=== PATIENT | male | born 1965 | race African-American/Black ===

== ENCOUNTER 2021-06-17 18:38 | Emergency (ER) | payer SELFPAY ==
[2021-06-17 19:02] VITALS: BP 148/90; PULSE 100; RESP 17; TEMP 36.7; O2SAT 99
[2021-06-17 19:23] LABS: Add Urine Microscopic? YES; Appearance Urine Clear (Clear); Bilirubin Urine Negative (Negative); Blood Urine Negative (Negative); Color Urine Yellow (Yellow); Glucose Urine UA 3+ mg/dL (Negative); Ketones Urine Negative (Negative); Leukocyte Esterase Ur Negative LEU/UL (Negative); Nitrate Urine Negative (Negative); Protein Urine 1+ mg/dL (Negative); RBC Urine 0-2 /hpf (0-2); Specific Grav Ur 1.027 (1.001-1.035); Urobilinogen Urine Negative mg/dL (<2.0); WBC Urine 0-3 /hpf
[2021-06-17 22:37] VITALS: BP 151/99; PULSE 99; RESP 14; O2SAT 100
--- NOTE | 2021-06-17 22:45 | PC.NURSE ---
BS 211.
[2021-06-17 22:47] LABS: Glucose Point of Care 211 mg/dl (65-105)
--- NOTE | 2021-06-17 22:57 | ED.MALEGU ---
HPI - Male Genitourinary General Chief complaint: Urogenital-Male Stated complaint: Allergic Reaction Time Seen by Provider: 06/17/21 22:39 History of Present Illness HPI Narrative: Patient presents with concern for irritation on his penis. Reports he has had irritation and cracking on his foreskin for the past couple weeks and getting progressively worse. Family was concerned as his symptoms appear to be getting worse. Family also notes that he has been peeing more frequently and appears to have increased thirst over the past 2 months. Denies any fevers, pain with urination, urethral discharge. Fortunately has 1 sexual partner which is his he denies concerns for STI. Related Data Allergies Allergy/AdvReac Type Severity Reaction Status Date / Time peanut Allergy Anaphylaxis Verified 06/17/21 22:28 Review of Systems Review of Systems: CONSTITUTIONAL: Denies fever, chills, or sweats. EYES: Denies visual changes, redness, or discharge. ENT: Denies rhinorrhea, congestion, sore throat, or otalgia. CARDIOVASCULAR: Denies chest pain, palpitations, or edema. RESPIRATORY: Denies cough or dyspnea. GASTROINTESTINAL: Denies abdominal pain, nausea, vomiting, or diarrhea. GENITOURINARY: Denies dysuria or hematuria. SKIN: Denies rash or itching. MUSCULOSKELETAL: Denies back pain, joint pain, or myalgia. NEUROLOGIC: Denies headache, numbness, dizziness, or weakness. PSYCHIATRIC: Denies anxiety or depression. All systems reviewed & are unremarkable except as noted in HPI and below Exam Narrative: GENERAL: Well-appearing, well-nourished, and in no acute distress. HEAD: Normocephalic, atraumatic. EYES: PERRLA and EOMI. ENT: Nares clear, no rhinorrhea or epistaxis. Mucous membranes moist. NECK: Supple. No masses. No JVD : White discharge noted on the foreskin with skin tearing and mild erythema EXTREMITIES: Normal range of motion. No edema. SKIN: Warm, dry, no rash. NEURO: No focal deficits. Alert and oriented x3. PSYCH: Normal mood and affect. Course Reevaluation(s) Reevaluation #1: Patient resting comfortably labs reviewed with patient. Patient appears to have diabetes he reported a history of prediabetic and Metformin intolerance. Start oral medication outpatient follow-up with his PCM. Date: 06/18/21 Time: 00:35 Vital Signs Vital signs: Vital Signs Temperature 36.7 C 06/17/21 19:02 Pulse Rate 100 06/17/21 19:02 Respiratory Rate 17 06/17/21 19:02 Blood Pressure 148/90 H 06/17/21 19:02 Pulse Oximetry 99 06/17/21 19:02 Temperature 36.7 C 06/17/21 19:02 Pulse Rate 99 06/17/21 22:37 Respiratory Rate 14 06/17/21 22:37 Blood Pressure 151/99 H 06/17/21 22:37 Pulse Oximetry 100 06/17/21 22:37 MDM - Male Genitourinary MDM Narrative Medical decision making narrative: H&P as above, vss, pt looks clinically well, exam at the irritation to the head of the penis suggestive of balanitis, labs with hyperglycemia and elevated A1c otherwise clinically unremarkable, additional labs/img considered, symptomatic relief available as needed, on reevaluation pt continues to looks clinically well. Suspect new onset diabetes there is no evidence of DKA. Patient also has balanitis. With a reassuring work-up patient is appropriate for trial of outpatient medications. Patient has previously been on Metformin but is not able tolerate attempted sulfonylureas. Patient reports they have a glucometer test strips and lancets at home already to monitor his blood sugar. Instructed to follow-up with his primary care provider for long-term management, dns TKA, sepsis, STI, UTI. plan to tx/monitor as op w/ pcm f/u findings/plan discussed with pt, pt agree/comfortable with plan, return precautions given Lab Data Result diagrams: 06/17/21 23:18 06/17/21 23:18 Labs: Lab Results 06/17/21 06/17/21 06/17/21 Range/Units 19:09 22:44 23:18 WBC 6.0 (4.5-10.0) K/mm3 RBC 5.60 (4.6-6.20) M/mm3
[2021-06-17] MEDS: SODIUM CHLORIDE 0.9% IV 1,000 ML 999 ML IV CONT (23:25)
[2021-06-17 23:42] LABS: Basophils Percent Auto 0.3 % (0.2-1.2); Eosinophils Absolute Auto 0.1 K/mm3 (0-0.3); Eosinophils Percent Auto 0.8 % (0-4.4); Hematocrit 46.4 % (42.0-52.0); Hemoglobin 15.9 g/dL (14.0-18.0); Immature Granulocyte Absolute 0.02 K/mm3 (0.00-0.031); Immature Granulocyte Percent A 0.3 % (0-0.5); Lymphocytes Absolute Auto 1.56 K/mm3 (0.9-3.2); Lymphocytes Percent Auto 25.8 % (18.3-44.2); Mean Corpuscular HGB Conc 34.3 g/dl (32-36); Mean Corpuscular Hemoglobin 28.4 pg (26-34); Mean Corpuscular Volume 82.9 fl (80-100); Mean Platelet Volume 11.5 fl (7.4-10.4); Monocytes Absolute Auto 0.6 K/mm3 (0.1-0.6); Monocytes Percent Auto 10.4 % (2.6-8.5); Neutrophils Absolute Auto 3.8 K/mm3 (1.3-6.7); Neutrophils Percent Auto 62.4 % (45.5-73.1); Platelet Count Result 163 k/mm3 (150-375); Red Cell Distribution Width 11.8 % (11.5-14.5)
[2021-06-17 23:43] LABS: Alanine Aminotransferase 63 U/L (4-50); Albumin Level 4.5 g/dL (3.5-5.1); Alkaline Phosphatase 112 U/L (38-126); Anion Gap 10 mmol/L (8-16); Aspartate Amino Transferase 38 U/L (17-59); Bilirubin,Total 0.4 mg/dL (0.2-1.3); Blood Urea Nitrogen 14 mg/dL (9-20); Calcium 9.8 mg/dL (8.4-10.2); Carbon Dioxide 23 mmol/L (22-30); Chloride 104 mmol/L (98-107); Estimated CRCL calculation 96 ml/min; Estimated Glomerular Filt Rate > 60; Glucose 263 mg/dL (65-110); Sodium 137 mmol/L (137-145)
[2021-06-18 00:10] LABS: Hemoglobin A1C 13.1 % (<5.7)
== END 2021-06-18 01:45 | disposition home or self-care (01) ==
PROVIDERS: Family Medicine; Emergency Provider Emergency Medicine
DX: N48.1 Balanitis (principal); E11.9 Type 2 diabetes mellitus without complications
CPT/HCPCS: 36415; 80053; 81001; 82948; 83036; 85025; 96360; 99283; J7030

== ENCOUNTER 2021-12-30 18:41 | Emergency (ER) | payer SELFPAY ==
[2021-12-30 19:35] VITALS: BP 125/89; PULSE 101; RESP 16; TEMP 36.6; O2SAT 100
[2021-12-30 19:40] LABS: Glucose Point of Care 376 mg/dl (65-105)
--- NOTE | 2021-12-30 21:34 | PC.NURSE ---
[employer] NURSE SUPERVISOR at bedside for pt assessment.
--- NOTE | 2021-12-30 21:42 | ECG_ITS ---
Measurements Intervals [place] Rate: 91 P: 37 VT: 175 QRS: -14 QRSD: 84 T: 6 QT: 333 QTc: 411 Interpretive Statements SINUS RHYTHM MINIMAL VOLTAGE CRITERIA FOR LVH, CONSIDER NORMAL VARIANT [MEETS CRITERIA IN ONE OF: R(aVL), S(V1), R(V5), R(V5/V6)+S(V1)] NONSPECIFIC ST AND T-WAVE ABNORMALITY ABNORMAL ECG NO PREVIOUS ECG AVAILABLE FOR COMPARISON Electronically Signed On 12-31-2021 15:48:01 CDT by Guillermo Adames M.D.
--- NOTE | 2021-12-30 21:43 | ED.GENADULT ---
HPI - General Adult General Chief complaint: Recheck/Abnormal Lab/Rx Stated complaint: Possible Blood Sugar Issues Time Seen by Provider: 12/30/21 21:28 Source: patient Mode of arrival: ambulatory Limitations: no limitations History of Present Illness HPI narrative: Patient is a 56-year-old male who presents to the ED with report of hyperglycemia. Patient has a history of diabetes and was previously on glipizide 5mg daily. He has been in between jobs and waiting for his new insurance to start and has been out of his glipizide and lisinopril for the past 1 month. Patient reports his blood pressure has been okay at home. He does have a machine to check this. He occasionally checks his blood sugar at home and reports it has been in the 200s. He does report having fatigue, polyuria, polydipsia, but denies any fever, chills, chest pain, shortness of breath, nausea, vomiting, abdominal pain, dysuria, hematuria, headache, weakness. POC blood glucose in triage 376. Per patient's records, hemoglobin A1c in June 2021 was 13.1. He reports he did try taking Metformin for a while, but had GI upset with this. Related Data Allergies Allergy/AdvReac Type Severity Reaction Status Date / Time peanut Allergy Anaphylaxis Verified 12/30/21 22:31 Review of Systems Review of Systems: CONSTITUTIONAL: Reports fatigue. Denies fever, chills, or sweats. CARDIOVASCULAR: Denies chest pain. RESPIRATORY: Denies dyspnea. GASTROINTESTINAL: Denies abdominal pain, nausea, vomiting, or diarrhea. GENITOURINARY: Reports polyuria, polydipsia. Denies dysuria or hematuria. MUSCULOSKELETAL: Denies back pain, joint pain, or myalgia. NEUROLOGIC: Denies headache, numbness, or weakness. All systems reviewed & are unremarkable except as noted in HPI and below PMFSH Past Medical History Medical History Diabetes Hypertension Surgical History Surgical History (Updated 12/31/21 @ 02:09 by Adore Chinchilla PA-C) No pertinent past surgical history Social History Social History (Updated 12/31/21 @ 02:09 by Adore Chinchilla PA-C) Smoking status: Never smoker Exam Narrative: GENERAL: Well appearing, well-nourished, non-toxic, in no acute distress. HEAD: Normocephalic, atraumatic. EYES: EOMI, conjunctivae clear bilaterally. NECK: Supple. No adenopathy, no masses. RESPIRATORY: Airway patent, respirations nonlabored. Clear to auscultation bilaterally, no rales, rhonchi, wheezing. CARDIOVASCULAR: Regular rate and rhythm without murmurs, rubs, or gallops. Peripheral pulses 2+ and equal bilaterally. ABDOMINAL: Soft, nontender, nondistended, no hepatosplenomegaly. Normoactive BS. MUSCULOSKELETAL: Moves all extremities. Strength/ROM intact without gross deformities or TTP. No edema. No calf tenderness. SKIN: Warm, dry, normal color. No rashes. NEURO: A&O X3. Speech clear. Cranial nerves II-XII grossly intact. Steady gait. No ataxic movements. PSYCHIATRIC: Appropriate mood and affect. Normal interaction. Course Vital Signs Vital signs: Vital Signs Temperature 97.8 F 12/30/21 19:35 Pulse Rate 101 H 12/30/21 19:35 Respiratory Rate 16 12/30/21 19:35 Blood Pressure 125/89 12/30/21 19:35 Pulse Oximetry 100 12/30/21 19:35 Temperature 97.8 F 12/30/21 19:35 Pulse Rate 89 12/30/21 23:30 Respiratory Rate 18 12/30/21 23:30 Blood Pressure 129/99 H 12/30/21 23:30 Pulse Oximetry 100 12/30/21 23:30 Medical Decision Making MDM Narrative Medical decision making narrative: Patient reports he is in between jobs and insurances at this time and has been out of his glipizide 5mg daily and lisinopril for the past 1 month. Blood pressure stable throughout ED stay. He is able to check this at home with a home blood pressure machine. He has had symptoms of hyperglycemia over the past couple weeks including polydipsia and polyuria. Blood glucose upon arrival 376 via POC. 299 on BMP. UA showing 3+
[2021-12-30 22:12] LABS: Basophils Percent Auto 0.3 % (0.2-1.2); Eosinophils Absolute Auto 0.1 K/mm3 (0-0.3); Eosinophils Percent Auto 1.2 % (0-4.4); Hematocrit 49.3 % (42.0-52.0); Hemoglobin 16.4 g/dL (14.0-18.0); Lymphocytes Absolute Auto 2.11 K/mm3 (0.9-3.2); Lymphocytes Percent Auto 35.5 % (18.3-44.2); Mean Corpuscular HGB Conc 33.3 g/dl (32-36); Mean Corpuscular Hemoglobin 28.4 pg (26-34); Mean Corpuscular Volume 85.4 fl (80-100); Mean Platelet Volume 12.1 fl (7.4-10.4); Monocytes Absolute Auto 0.8 K/mm3 (0.1-0.6); Monocytes Percent Auto 13.3 % (2.6-8.5); Neutrophils Percent Auto 49.7 % (45.5-73.1); Platelet Count Result 179 k/mm3 (150-375); Red Blood Count 5.77 M/mm3 (4.6-6.20); Red Cell Distribution Width 12.8 % (11.5-14.5)
[2021-12-30 22:19] LABS: Add Urine Microscopic? YES; Appearance Urine Clear (Clear); Bilirubin Urine Negative (Negative); Blood Urine Negative (Negative); Color Urine Straw (Yellow); Glucose Urine UA 3+ mg/dL (Negative); Ketones Urine Negative (Negative); Leukocyte Esterase Ur Negative LEU/UL (Negative); Nitrate Urine Negative (Negative); Protein Urine Negative (Negative); RBC Urine 0-2 /hpf (0-2); Specific Grav Ur 1.027 (1.001-1.035); Urobilinogen Urine Negative mg/dL (<2.0); WBC Urine 0-3 /hpf
[2021-12-30 22:26] LABS: Alanine Aminotransferase 28 U/L (4-50); Albumin Level 4.6 g/dL (3.5-5.1); Alkaline Phosphatase 115 U/L (38-126); Anion Gap 10 mmol/L (8-16); Aspartate Amino Transferase 24 U/L (17-59); Bilirubin,Total 0.5 mg/dL (0.2-1.3); Blood Urea Nitrogen 19 mg/dL (9-20); Calcium 9.5 mg/dL (8.4-10.2); Carbon Dioxide 22 mmol/L (22-30); Chloride 104 mmol/L (98-107); Estimated CRCL calculation 71 ml/min; Estimated Glomerular Filt Rate > 60; Glucose 299 mg/dL (65-110); Potassium 4.3 mmol/L (3.4-5.0); Sodium 136 mmol/L (137-145)
[2021-12-30 23:30] VITALS: BP 129/99; PULSE 89; RESP 18; O2SAT 100
== END 2021-12-30 23:32 | disposition home or self-care (01) ==
PROVIDERS: Physician Assistant; Emergency Provider Emergency Medicine
DX: E11.65 Type 2 diabetes mellitus with hyperglycemia (principal); I10 Essential (primary) hypertension; Z91.120 Patient's intentional underdosing of medication regimen due to financial hardship
CPT/HCPCS: 36415; 80053; 81001; 82948; 85025; 93005; 99283

== ENCOUNTER 2022-04-02 09:38 | Emergency (ER) | payer OTHER, SELFPAY ==
--- NOTE | 2022-04-02 09:46 | ED.EAR ---
HPI - Ear Problem General Chief complaint: Ear Stated complaint: ear pain Time Seen by Provider: 04/02/22 09:46 Source: patient, RN notes reviewed and old records reviewed Mode of arrival: ambulatory Limitations: no limitations History of Present Illness HPI Narrative: 56-year-old male presents to the [facility] with 3 days of right ear pain that is radiating into the right jaw. Denies fevers. Denies loss of hearing. MD Complaint: ear pain Related Data Allergies Allergy/AdvReac Type Severity Reaction Status Date / Time peanut Allergy Anaphylaxis Verified 04/02/22 09:47 Review of Systems Review of Systems: All systems reviewed & are unremarkable except as noted in HPI and below Constitutional: Constitutional: Reports no additional constitutional complaints, Denies chills and Denies fever(s) Eyes: Eyes: Reports no additional eye complaints ENT: Reports as per HPI, Denies change in voice, Denies dental pain, Denies vertigo, Denies dizziness and Denies throat swelling Comments: Right ear pain Cardiovascular: Cardiovascular: Reports no additional cardiovascular complaints, Denies chest pain and Denies dyspnea Respiratory: Respiratory: Reports no additional respiratory complaints, Denies cough and Denies dyspnea Gastrointestinal: Gastrointestinal: Reports no additional gastrointestinal complaints, Denies abdominal pain, Denies nausea and Denies vomiting Musculoskeletal: Musculoskeletal: Reports no additional musculoskeletal complaints Integumentary/Breasts: Skin/Breast: Reports system reviewed and no additional complaints, except as docu Neurologic: Reports system reviewed and no additional complaints, except as documented, Denies vertigo and Denies dizziness Psychiatric: Psychiatric: Reports no additional psychiatric complaints Allergic/Immunologic: Allergic/Immunologic: Reports no additional allergic/immunologic complaints and Denies throat swelling PMFSH Past Medical History Medical History Diabetes Hypertension Surgical History Surgical History No pertinent past surgical history Social History Social History Smoking status: Never smoker Comments At the time of my signature, I reviewed and agree with the nursing past medical, surgical, social, and family history. There is no relevant family history pertinent to the patient complaint. Exam Const: General: healthy appearing and no acute distress Nutritional Appearance: well nourished Orientation/consciousness: patient oriented x3 Limitations: no limitations HENMT: Head: normal to inspection Ears: external ears normal, EAC's normal and TM abnormal bulging bilateral, erythematous on the right and with fluid behind the TM bilateral General nose exam: Normal external nose present and Normal nasal mucous membranes and turbinates present Face and sinus: normal facial exam Mouth: Yes Normal oral and palatal mucosa present Throat: posterior oropharynx normal, tonsils normal and uvula midline Eyes: Conjunctivae: conjunctivae normal Pupils: Equal, round and reactive pupils present Neck: Neck: normal visual inspection, no lymphadenopathy and no meningeal signs Chest: Chest palpation & inspection: normal inspection of the chest Resp: Effort & Inspection: normal respiratory effort and no use of accessory muscles Auscultation: clear to auscultation bilaterally, no crackles, no rales, no rhonchi and no wheezes Cardio: Rate: regular rate Rhythm: regular rhythm Skin: General skin exam: normal color Rashes: no rashes Wounds: no wounds Neuro: General: patient oriented x3, gait normal, moves all extremities, no meningeal signs and no focal motor deficits Cranial nerves: Yes Equal, round and reactive pupils present Speech: normal speech Gait exam (Neuro): Normal gait present Extrem: General: normal
[2022-04-02 09:47] VITALS: BP 121/83; PULSE 83; RESP 16; TEMP 36.8; O2SAT 99
[2022-04-02 09:48] VITALS: BP 121/83; PULSE 83; RESP 16; TEMP 36.8; O2SAT 99
== END 2022-04-02 09:58 | disposition home or self-care (01) ==
PROVIDERS: Emergency Provider Nurse Practitioner
DX: H66.90 Otitis media, unspecified, unspecified ear (principal); H65.03 Acute serous otitis media, bilateral; E11.9 Type 2 diabetes mellitus without complications; I10 Essential (primary) hypertension
CPT/HCPCS: 99213; G0463

== ENCOUNTER 2022-11-02 09:29 | Outpatient (RCR) | payer OTHER, SELFPAY ==
[2022-11-02 09:39] VITALS: BMI 36.7
[2022-11-02 10:32] VITALS: BMI 36.7
== END 2023-01-17 10:38 | disposition home or self-care (01) ==
LOC: ANHDMC 09:29
DX: E11.9 Type 2 diabetes mellitus without complications (principal); Z71.3 Dietary counseling and surveillance
CPT/HCPCS: 97802

== ENCOUNTER 2023-11-26 13:43 | Emergency (ER) | payer OTHER, SELFPAY ==
[2023-11-26 14:08] VITALS: BP 175/93; PULSE 98; RESP 18; TEMP 36.6; O2SAT 100
[2023-11-26 16:11] LABS: Glucose Point of Care 355 mg/dl (65-105)
[2023-11-26 18:14] VITALS: BP 157/108; PULSE 93; RESP 18; TEMP 36.6; O2SAT 100
--- NOTE | 2023-11-26 19:03 | ED.GENADULT ---
HPI - General Adult General Chief complaint: Unspecified Stated complaint: dry mouth Time Seen by Provider: 11/26/23 18:28 History of Present Illness HPI narrative: 58-year-old male presents to the emergency department for evaluation of hyperglycemia, dry mouth and a rash at the tip of his penis. Patient reports he does have history of diabetes and had stopped his insulin approximately 3 months ago but because the primary care physician stated that his hemoglobin A1c was improved. Patient is still taking jardiance. patient has stated he has noticed some increased dry skin around the tip of his penis. Related Data Allergies Allergy/AdvReac Type Severity Reaction Status Date / Time peanut Allergy Anaphylaxis Verified 11/26/23 19:05 Review of Systems Review of Systems: All systems reviewed & are unremarkable except as noted in HPI and below PMFSH Past Medical History Medical History Diabetes Hypertension Surgical History Surgical History No pertinent past surgical history Social History Social History Smoking status: Never smoker Spiritual care concerns: No Exam Narrative: APPEARANCE: Well appearing, no pain, no distress, well-nourished. HEAD: normocephalic, atraumatic. EYES: PERRLA/EOMI, conjunctivae clear. NOSE: Normal no drainage NECK: Supple. No adenopathy, no masses. RESPIRATORY: Airway patent, respirations nonlabored. Clear to auscultation bilaterally, no rales, rhonchi, wheezing. CARDIOVASCULAR: Regular rate and rhythm without murmurs rubs or gallops. ABDOMINAL: Soft, nontender, nondistended, normal bowel sounds MUSCULOSKELETAL: Moves all extremities. Strength/ROM intact, No edema, No calf tenderness. NEURO: Alert. Cranial nerves II through XII intact. Good gait. Good coordination SKIN: Warm, dry. Normal Color . No evidence of balanitis or phimosis Course Course Emergency Course: 58-year-old male presenting ED for evaluation for hyperglycemia and a rash on his penis. Patient does describe a candidal rash that he has been attempting to cleanse but keeps recurring. Patient will be started on nystatin ointment. Patient was encouraged close follow-up with primary care physician for better control over his blood sugars. All questions concerns were addressed. Vital Signs Vital signs: Vital Signs Temperature 97.9 F 11/26/23 14:08 Pulse Rate 98 11/26/23 14:08 Respiratory Rate 18 11/26/23 14:08 Blood Pressure 175/93 H 11/26/23 14:08 Pulse Oximetry 100 11/26/23 14:08 Oxygen Delivery Room Air 11/26/23 14:08 Temperature 98.1 F 11/26/23 20:32 Pulse Rate 77 11/26/23 20:32 Respiratory Rate 15 11/26/23 20:32 Blood Pressure 132/75 11/26/23 20:32 Pulse Oximetry 98 11/26/23 20:32 Oxygen Delivery Room Air 11/26/23 14:08 Medical Decision Making Vital Signs Vital Signs: Vital Signs Temperature 97.9 F 11/26/23 14:08 Pulse Rate 98 11/26/23 14:08 Respiratory Rate 18 11/26/23 14:08 Blood Pressure 175/93 H 11/26/23 14:08 Pulse Oximetry 100 11/26/23 14:08 Oxygen Delivery Room Air 11/26/23 14:08 Temperature 98.1 F 11/26/23 20:32 Pulse Rate 77 11/26/23 20:32 Respiratory Rate 15 11/26/23 20:32 Blood Pressure 132/75 11/26/23 20:32 Pulse Oximetry 98 11/26/23 20:32 Oxygen Delivery Room Air 11/26/23 14:08 Lab Data 11/26/23 19:07 11/26/23 19:07 Labs: Lab Results 11/26/23 11/26/23 11/26/23 Range/Units 16:08 19:06 19:07 WBC 5.0 (4.5-10.0) K/mm3 RBC 5.51 (4.6-6.20) M/mm3 Hgb 15.4 (14.0-18.0) g/dL Hct 47.2 (42.0-52.0) % MCV 85.7 (80-100) fl MCH 27.9 (26-34) pg MCHC 32.6 (32-36) g/dl RDW 12.4 (11.5-14.5) % Plt Count 132 L (150-375) k/mm3 MPV 12.0 H (7.4-10.4) fl Immatu
[2023-11-26] MEDS: SODIUM CHLORIDE 0.9% IV 1,000 ML 999 ML IV CONT (19:06)
[2023-11-26 19:14] LABS: Basophils Percent Auto 0.4 % (0.2-1.2); Eosinophils Absolute Auto 0.1 K/mm3 (0-0.3); Eosinophils Percent Auto 1.2 % (0-4.4); Hematocrit 47.2 % (42.0-52.0); Hemoglobin 15.4 g/dL (14.0-18.0); Immature Granulocyte Absolute 0.01 K/mm3 (0.00-0.031); Immature Granulocyte Percent A 0.2 % (0-0.5); Immature Platelet Fraction Pct 7.2 % (0.9-11.2); Lymphocytes Percent Auto 29.8 % (18.3-44.2); Mean Corpuscular HGB Conc 32.6 g/dl (32-36); Mean Corpuscular Hemoglobin 27.9 pg (26-34); Mean Corpuscular Volume 85.7 fl (80-100); Monocytes Absolute Auto 0.7 K/mm3 (0.1-0.6); Monocytes Percent Auto 13.9 % (2.6-8.5); Neutrophils Absolute Auto 2.8 K/mm3 (1.3-6.7); Neutrophils Percent Auto 54.5 % (45.5-73.1); Platelet Count Result 132 k/mm3 (150-375); Red Blood Count 5.51 M/mm3 (4.6-6.20); Red Cell Distribution Width 12.4 % (11.5-14.5)
[2023-11-26 19:15] VITALS: PULSE 81
[2023-11-26 19:15] LABS: Appearance Urine Clear (Clear); Bilirubin Urine Negative (Negative); Blood Urine Negative (Negative); Color Urine Yellow (Yellow); Glucose Urine UA 3+ mg/dL (Negative); Ketones Urine Negative (Negative); Leukocyte Esterase Ur Negative LEU/UL (Negative); Nitrate Urine Negative (Negative); Protein Urine Negative (Negative); Specific Grav Ur 1.029 (1.001-1.035); Urobilinogen Urine 0.2 mg/dL (<2.0); pH Urine 5.5 (5.0-9.0)
[2023-11-26 19:18] LABS: Add Urine Microscopic? NO
[2023-11-26 19:26] LABS: Alanine Aminotransferase 30 U/L (6-50); Albumin Level 4.1 g/dL (3.5-5.1); Alkaline Phosphatase 85 U/L (38-126); Anion Gap 8 mmol/L (8-16); Aspartate Amino Transferase 23 U/L (17-59); Bilirubin,Total 0.5 mg/dL (0.2-1.3); Blood Urea Nitrogen 16 mg/dL (9-20); Calcium 9.6 mg/dL (8.4-10.2); Carbon Dioxide 23 mmol/L (22-30); Chloride 105 mmol/L (98-107); Estimated CRCL calculation 85 ml/min; Estimated Glomerular Filt Rate > 60; Glucose 310 mg/dL (65-110); Sodium 136 mmol/L (137-145)
[2023-11-26 19:27] LABS: Lactic Acid Reflex 1.2 mmol/L (0.7-2.0)
[2023-11-26 20:05] LABS: Glucose Point of Care 254 mg/dl (65-105)
[2023-11-26 20:32] VITALS: BP 132/75; PULSE 77; RESP 15; TEMP 36.7; O2SAT 98
== END 2023-11-26 20:33 | disposition home or self-care (01) ==
PROVIDERS: Emergency Provider Emergency Medicine
DX: E11.65 Type 2 diabetes mellitus with hyperglycemia (principal); B37.49 Other urogenital candidiasis; I10 Essential (primary) hypertension; Z79.84 Long term (current) use of oral hypoglycemic drugs
CPT/HCPCS: 36415; 80053; 81003; 82948; 83605; 85025; 85055; 96360; 99283; J7030

== ENCOUNTER 2023-12-10 09:03 | Outpatient (CLI) | payer OTHER, SELFPAY ==
[2023-12-10 09:59] LABS: Cholesterol 177 mg/dL (0-200); HDL Direct 41 mg/dL; Triglycerides 101 mg/dL (<150)
[2023-12-10 10:10] LABS: LDL Cholesterol Direct 110 mg/dL
[2023-12-10 10:30] LABS: Hemoglobin A1C 12.6 % (<5.7)
[2023-12-10 12:00] LABS: Free T4 Free Thyroxine 1.09 ng/mL (0.78-2.19); Vitamin D 25 Hydroxy 20.8 ng/mL
[2023-12-10 12:04] LABS: Creatinine Urine 126.5 mg/dL
[2023-12-10 12:08] LABS: MALB Creatinine Ratio 7.3 mg/g (0-30); Microalbumin Urine Random 9.2 mg/L (0-16.7)
== END 2023-12-10 09:04 | disposition home or self-care (01) ==
PROVIDERS: Visit Provider Emergency Medicine
DX: E11.9 Type 2 diabetes mellitus without complications (principal); E78.5 Hyperlipidemia, unspecified; I10 Essential (primary) hypertension; Z12.5 Encounter for screening for malignant neoplasm of prostate; R51.9 Headache, unspecified; M54.2 Cervicalgia; R04.0 Epistaxis
CPT/HCPCS: 36415; 80061; 82043; 82306; 83036; 84153; 84439; 84443; G0103

== ENCOUNTER 2024-03-28 08:01 | Outpatient (CLI) | payer OTHER, SELFPAY ==
--- NOTE | ~2024-03-28 | CT_ITS ---
CTA chest PE protocol Ordering provider: Yahaira Dumont APRN History: 58 years Male with . ACUTE PULMONARY EMBOLISM TYPE . Comparison: None. Technique: CT angiogram chest was performed following timed intravenous injection of contrast. Thin s lice axial images and reformatted coronal images were obtained. Three dimensional reformatted images of the chest were also obtained using a [employer] workstation. Radiation reduction technique utilized. DLP is 1077.4 mGy. Findings: PULMONARY ARTERIES: No pulmonary embolus. VISUALIZED THORACIC INLET: Normal. MEDIASTINUM: Aorta/coronary arteries: Normal.. Heart/other: The heart is not enlarged. Lymph nodes: No mediastinal or hilar adenopathy. LUNGS: Dependent atelectatic changes. No pulmonary nodules or masses. No infiltrates or effusions. No pneumo thorax. VISUALIZED UPPER ABDOMEN: the visualized upper abdomen is normal. MUSCULOSKELETAL: Soft tissues: The superficial soft tissues are normal. Bones: Normal spine. IMPRESSION: 1. No pulmonary embolism. 2. No acute cardiopulmonary pathology. Reviewed, dictated and finalized at location A.
[2024-03-28 08:29] LABS: Estimated Glomerular Filt Rate > 60
== END 2024-03-28 08:02 | disposition home or self-care (01) ==
LOC: ANHIMG 08:01
PROVIDERS: Visit Provider Nurse Practitioner Family
DX: I26.99 Other pulmonary embolism without acute cor pulmonale (principal)
CPT/HCPCS: 71275; Q9967

== ENCOUNTER 2024-03-28 11:50 | Outpatient (CLI) | payer OTHER, SELFPAY ==
--- NOTE | ~2024-03-28 | XR_ITS ---
EXAMINATION: XR shoulder LT min 2V, XR clavicle LT DATE: 03/28/2024 12:11 INDICATION: Mid shaft left clavicular pain TECHNIQUE: 1. AP internally and externally rotated, AP oblique externally rotated and transscapular Y views of t he left shoulder were obtained. 2. AP and cephalad angled AP views of the left clavicle were obtained. COMPARISON: None FINDINGS: Normal alignment. No fracture. Glenohumeral joint is normal. Mild left acromioclavicular osteoarthri tis. Soft tissues are unremarkable. Left lung is clear with no pleural effusion or pneumothorax. IMPRESSION: Mild left acromioclavicular osteoarthritis. Reviewed, dictated and finalized at location A. IMPRESSION: Mild left acromioclavicular osteoarthritis.
== END 2024-03-28 11:51 | disposition home or self-care (01) ==
LOC: ANHIMG 11:53
PROVIDERS: Visit Provider Emergency Medicine
DX: M19.012 Primary osteoarthritis, left shoulder (principal)
CPT/HCPCS: 73000; 73030

== ENCOUNTER 2024-04-21 09:39 | Outpatient (CLI) | payer OTHER, SELFPAY ==
--- NOTE | ~2024-04-21 | US_ITS ---
EXAMINATION: US venous doppler [facility] DATE: 04/21/2024 10:13 INDICATION: Recent acute deep venous thrombosis and pulmonary embolism, currently anticoagulated TECHNIQUE: Grayscale ultrasound images without and with compression and Doppler ultrasound images of the bilateral lower extremity veins were obtained. COMPARISON: None. FINDINGS: The visualized portions of right common femoral vein, profunda (deep) femoral vein, femoral vein, pop liteal vein, posterior tibial veins, peroneal veins, gastrocnemius vein and greater saphenous vein ou tflow are patent. There is persistent noncompressible thrombus at the left popliteal vein. Patient reported to the sono grapher that this was the site of the prior thrombus. The visualized portions of left common femoral vein, profunda femoral vein, femoral vein, posterior tibial veins, peroneal veins, gastrocnemius vein and greater saphenous vein outflow are patent. IMPRESSION: 1. Deep venous thrombosis in the left popliteal vein, reportedly by patient the site of the prior ac [place] thrombus and for which the patient is currently anticoagulated. No other thrombosis in either low er limb. Reviewed, dictated and finalized at location A. IMPRESSION: 1. Deep venous thrombosis in the left popliteal vein, reportedly by patient th e site of the prior acute thrombus and for which the patient is currently antic oagulated. No other thrombosis in either lower limb.
== END 2024-04-21 09:40 | disposition home or self-care (01) ==
LOC: ANHIMG 09:48
PROVIDERS: PCP Emergency Medicine; Referring Provider Nurse Practitioner Family; Visit Provider Internal Medicine Hematology & Oncology
DX: I26.99 Other pulmonary embolism without acute cor pulmonale (principal); I82.432 Acute embolism and thrombosis of left popliteal vein
CPT/HCPCS: 93970

== ENCOUNTER 2024-07-24 09:50 | Outpatient (CLI) | payer OTHER, SELFPAY ==
[2024-07-24 10:34] LABS: Add Urine Microscopic? NO; Appearance Urine Clear (Clear); Bilirubin Urine Negative (Negative); Blood Urine Negative (Negative); Color Urine Yellow (Yellow); Glucose Urine UA 3+ mg/dL (Negative); Ketones Urine Negative (Negative); Leukocyte Esterase Ur Negative LEU/UL (Negative); Nitrate Urine Negative (Negative); Protein Urine Negative (Negative); Specific Grav Ur 1.028 (1.001-1.035); pH Urine 5.5 (5.0-9.0)
[2024-07-24 10:42] LABS: Albumin Level 4.1 g/dL (3.5-5.1); Anion Gap 10 mmol/L (4-12); Blood Urea Nitrogen 16 mg/dL (9-20); Calcium 9.3 mg/dL (8.4-10.2); Carbon Dioxide 23 mmol/L (22-30); Chloride 102 mmol/L (98-107); Estimated Glomerular Filt Rate > 60; Glucose 382 mg/dL (65-110); Phosphorus 3.1 mg/dL (2.5-4.5); Potassium 4.2 mmol/L (3.4-5.0); Sodium 135 mmol/L (137-145)
[2024-07-24 11:00] LABS: Creatinine Urine 56.6 mg/dL
[2024-07-24 11:50] LABS: Microalbumin Urine Random < 6.0 mg/L (0-16.7)
[2024-07-24 11:51] LABS: MALB Creatinine Ratio < 10.6 mg/g (0-30)
== END 2024-07-24 09:51 | disposition home or self-care (01) ==
PROVIDERS: PCP Emergency Medicine
DX: E11.9 Type 2 diabetes mellitus without complications (principal)
CPT/HCPCS: 36415; 80069; 81003; 82043

== ENCOUNTER 2024-11-16 10:32 | Outpatient (CLI) | payer OTHER, SELFPAY ==
[2024-11-16 11:13] LABS: Albumin Level 3.9 g/dL (3.5-5.1); Anion Gap 12 mmol/L (4-12); Blood Urea Nitrogen 14 mg/dL (9-20); Calcium 9.3 mg/dL (8.4-10.2); Carbon Dioxide 22 mmol/L (22-30); Chloride 105 mmol/L (98-107); Estimated Glomerular Filt Rate > 60; Glucose 200 mg/dL (65-110); Phosphorus 3.4 mg/dL (2.5-4.5); Potassium 4.3 mmol/L (3.4-5.0); Sodium 139 mmol/L (137-145)
--- OUTSIDE RECORDS SUMMARY | 2024-11-16 11:19 | XMS_ITS | Clinical Summary ---
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 Active rosuvastatin (CRESTOR) 20 MG tablet Take 1 tablet (20 mg total) by mouth nightly at bedtime. 30 tablet 5 3 Active Additional Information Patient taking differently:20 mg OralDaily, Reported on 12/10/2023 nitroglycerin (NITROSTAT) 0.4 MG SL tabletIndicatio ns:Precordial pain DISSOLVE 1 TABLET UNDER THE TONGUE EVERY 5 MINUTES NEEDED FOR CHEST PAIN. DO NOT EXCEED A TOTAL OF 3 DOSES IN 15 MINUTES. 25 tablet 1 4 Active acetaminophen (TYLENOL) 500 MG tablet Take 1-2 tablets (500-1,000 mg total) by mouth every 8 (eight) hours as needed for Pain. Active empagliflozin (JARDIANCE) 25 MG tablet Take 1 tablet (25 mg total) by mouth daily. Active lisinopril (PRINIVIL) 40 MG tablet Take 1 tablet (40 mg total) by mouth daily. Active apixaban (ELIQUIS) 5 MG tabletIndicatio ns:Deep Vein Thrombosis Take 1 tablet (5 mg total) by mouth 2 (two) times daily. Indications: Blood Clot in a Deep Vein 60 tablet 4 Active Active Problems Problem Noted Date Diagnosed Date Pulmonary embolism ([facility]) 12/12/2023 Bilateral pulmonary embolism ([facility]) 0 12/10/2023 Hypertensive disorder 11/15/2019 Diabetes mellitus ([facility]) 09/23/2018 Heart murmur 09/23/2018 Morbid obesity ([facility]) 09/23/2018 Persistent headaches 08/17/2018 Chest tightness 08/17/2018 Elevated BP without diagnosis of hypertension Shortness of breath 08/17/2018 Immunizations Name Administration Dates Next Due Tdap (Generic) 09/21/2018 Family History Medical History Relation Comments Diabetes Brother 1 Heart Attack Father Heart Maternal Grandfather alzheimers Maternal Grandmother Cancer Mother Diabetes Mother Hypertension Mother stomach infection/ on OR table Sister 1 Relation Status Comments Brother 1 Alive Brother 2 Alive Brother 3 Alive Brother 4 Alive Father (Age 63) Maternal Grandfather Maternal Grandmother Mother (Age 57) Paternal Grandfather Paternal Grandmother Sister 1 (Age 43) Sister 2 Alive Social History Tobacco Use Types Packs/Day Years Used Date Smoking Tobacco: Never Smokeless Tobacco: Never Tobacco Cessation:Counseling Given: Not Answered Alcohol Use Standard Drinks/Week Comments No 0 (1 standard drink = 0.6 oz pur e alcohol) [facility] Utilities Answer Date Recorded In the past 12 months has e [employer], gas, oil, or water [employer] threatened to shut off services in your home? No 12/10/2023 Humiliation, Afraid, Rape, and Kick questionnair e Answer Date Recorded Within the last year, have y ou been afraid of your partner or ex-partner? No 12/10/2023 Within the last year, have y ou been humiliated or emotionally abused in other ways by your partner or ex-partner? No Within the last year, have y ou been kicked, hit, slapped, or otherwise physically hurt by your partner or ex-partner? No 12/10/2023 Within the last year, have y ou been raped or forced to have any kind of sexual activity by your partner or ex-partner? No 12/10/2023 AUDIT-C Answer Date Recorded Frequency of Alcohol Consumption Never 08/16/2018 Average Number of Drinks Not on file 018 Frequency of Binge Drinking Not on file 04/2018 Overall Financial Resource Strain (CARDIA) Answe r Date Recorded How hard is it for you to pa y for the very basics like food, housing, medical care, and heating? Not hard at all 12/10/2023 PHQ-2 Answer Date Recorded Patient Health Questionnaire-2 Score 0 12/21/2022 Hunger Vital Sign Answer Date Recorded Within the past 12 months, y ou worried that your food would run out before you got the money to buy more. Never true 12/10/19 24 Within the past 12 months, t he food you bought just didn't last and you didn't have money to get more. Never true 12/10/2023 PRAPARE - Transportation Answer Date Re corded In the past 12 months, has l ack of transportation kept you from medical appointments or from getting medications? No 11/2023 In the past 12 months, has l ack of transportation kept you from meetings, work, or from getting things needed for daily living? No 12/10/2023 Housing Stability Vital Sign Answer Adrian e Recorded In the last 12 months, was t here a time when you were not able to pay the mortgage or rent on time? No 12/10/2023 In the last 12 months, how many places have you lived? 1 12/10/2023 In the last 12 months, was t here a time when you did not have a steady place to sleep or slept in a alf (including now)? 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 Not on file Not on file Last Filed Vital Signs Vital Sign Reading Time Taken Comments Blood Pressure 186/98 06/05/2024 12:18 AM CDT Pulse 76 06/05/2024 12:18 AM CDT Temperature 36.8 C (98.2 F) 06/05/2024 12:18 AM CDT Respiratory Rate 18 06/05/2024 12:18 AM CDT Oxygen Saturation 100% 06/05/2024 12:18 AM CDT Inhaled Oxygen Concentration - - Weight 114.3 kg (252 lb) 06/04/2024 5:38 PM CDT Height 180.3 cm (5' 11 ) 06/04/2024 5:38 PM CDT Body Mass Index 35.15 06/04/2024 5:38 PM CDT Plan of Treatment Health Maintenance Due Date Last Done Comments Colorectal Cancer Screening Colonoscopy (10 Years) 1967 Kidney Health Evaluation 1967 Annual Physical 1970 Pneumococcal Vaccine: Pediatrics (0 to 5 Years) and At-Risk Patients (6 to 64 Years) (1 of 2 - PCV) 1973 Diabetes: Retinopathy Eye Exam 1985 Hepatitis C 1985 Hepatitis B Vaccines (1 of 3 - 19+ 3-dose series) 1986 Zoster Vaccines (1 of 2) 2017 PHQ-2 (Physician [facility]) 12/22/2023 12/21/2022 Hemoglobin A1C 04/01/2024 12/31/2023 COVID-19 Vaccine (1 - 2023-2 5 season) 2024 Influenza Adult (#1) 2024 PHQ-2 (Physician [facility]) 10/10/2024 12/21/2022 Lipid Panel 12/10/2024 12/11/2023, 02/22/2023 DTaP, Tdap and Td Vaccines ( 2 - Td or Tdap) 09/21/2028 09/21/2018 Meningococcal B Vaccine Aged Out No l onger eligible based on patient's age to complete this topic Meningococcal Vaccine Aged Out No niko maria eugenia eligible based on patient's age to complete this topic RSV Immunizations Under 20 Months Aged Out No longer eligible b ased on patient's age to complete this topic Goals Goal Patient Goal Type Associated Problems Recent Progress Patient-Stated? Author Health - patient able to perform ADLs independently Lifestyle Jamie Astudillo, facility maintenance supervisor Procedure Name Priority Date/Time Associated Diagnosis Comments LIPID PANEL Routine 12/11/2023 8:27 AM SITE SURVEYOR from Last 3 Months or Most Recently Relevant to Health Maintenance Results * (ABNORMAL) LIPID PANEL (12/11/2023 8:27 AM SITE SURVEYOR) CHOLESTEROL 164 <200 MG/DL 12/11/2023 9:10 AM [facility] TRIGLYCERIDES 64 <150 MG/DL 12/11/2023 9:10 AM [facility] HDL 48 >40.0 MG/DL 12/11/2023 9:10 AM [facility] LDL (CALCULATED) 103(H) <100 MG/DL 12/11/2023 9:10 AM [facility] NON HDL CHOLESTEROL 116 <130 MG/DL 12/11/2023 9:10 AM [facility] CHOL/HDL RATIO 3.4 0.0 - 4.5 12/11/2023 9:10 AM [facility] VLDL CALCULATION 13 5 - 55 MG/DL 12/11/2023 9:10 AM [facility] LIPID INTERPRETATION 12/11/2023 9:10 AM [facility] Comment: [facility] CONCENSUS REPORT RECOMMENDATIONS: ADULT CHILD LOW RISK: CHOLESTEROL <200 <170 TRIGLYCERIDE <150 --- HDL >=60 --- LDL <100 <110 BORDERLINE: CHOLESTEROL 200-239 170-199 TRIGLYCERIDE 150-199 --- HDL 40-59 --- LDL 100-159 110-129 HIGH RISK: CHOLESTEROL >=240 >=200 TRIGLYCERIDE >=200 --- HDL <40 --- LDL >=160 >=130 12/11/2023 8:27 AM SITE SURVEYOR us Elyssa Reed MD LABORATORY Final Resu lt [facility] [address] [place] [address], [place] [phone] from Last 3 Months or Most Recently Relevant to Health Maintenance Insurance [employer] Advance Directives * Full Code (Latest Code Status on File) Date Activated Date Inactivated Comments 12/10/2023 8:19 PM 12/13/2023 3:47 PM Care Teams Hot Head Machine Operator Relationship Specialty Start Date End Date Arturo Carrasquillo MD [address] [id number] PCP - General FAMILY PRACTICE 12/10/23
--- OUTSIDE RECORDS SUMMARY | 2024-11-16 11:19 | XMS_ITS | Data Portability ---
Author Organization [facility]IS Am[facility] Address [address] [place] [address] Care Team Providers Care Cement Kiln Operator Name Role Phone RICARDA LOU Primary Care Provider [phone] Assessment No assessment recorded. Plan of Treatment Reminders Order Date Submit Date Provider Last Modified By Organization Details Last Modified Time Details Appointments None recorde d. Lab BMP, serum or plasma 2021 022 [facility], [address] [place] [address], [address], [place], [address], 12:11:04 albumin /creati nine, mass ratio, urine 2021 022 [facility], [address] [place] [address], [address], [place], [address], 12:11:05 lipid panel, serum 2021 022 [facility], [address] [place] [address], [address], [place], [address], 12:11:05 HbA1c (hemogl obin A1c), blood 2021 022 ecl[facility] In-Office Order, Internal Use Only DO Not Attach Compendium DO Not Attach Compendium, Do Not Delete/merge, [id number] 22:43:07 noninva sive colorec marta cancer DNA + occult blood screeni ng, QL, stool 2021 [facility] (Cologuard Orders Only), [address], [address], [place], [address], 3 11:11:11 HbA1c (hemogl obin A1c), blood 2021 022 ecl[facility] In-Office Order, Internal Use Only DO Not Attach Compendium DO Not Attach Compendium, Do Not Delete/merge, [id number] 2 23:23:09 lipid panel, serum 2021 [facility], [address] [facility], [address], [place], [address], 3 12:17:06 CMP, serum or plasma 2021 [facility], [address] [facility], [address], [place], [address], 2 11:20:05 HbA1c (hemogl obin A1c), blood 2022 023 [facility] In-Office Order, Internal Use Only DO Not Attach Compendium DO Not Attach Compendium, Do Not Delete/merge, [id number] 3 09:49:24 Referral diabeti c nutriti on educati on referra l 2021 [facility] (Diabetes/Nut rition), [address], [place], [address], 4 14:01:37 Procedures None recorde d. Surgeries None recorde d. Imaging None recorde d. Medication Orders Jardian ce 10 mg tablet 2021 [facility], [address] [facility] [address], [place], [address], 3 09:54:22 Lantus Solosta r U-100 Insulin 100 unit/mL (3 mL) subcuta neous pen 2021 [facility], [address], [address], 11:13:43 Alcohol Pads 2021 [facility], [address] [facility], [place], [address], 11:16:21 melaton in 5 mg tablet 2021 [facility], [facility], [address] [place] [address], [id number], 14:41:16 Januvia 100 mg tablet 2021 [facility], [facility], [address] [place] [address], [id number], 17:09:31 atorvas tatin 40 mg tablet 2021 022 [facility], [facility], [address] [place] [address], [id number], 14:31:19 Jardian ce 10 mg tablet 2021 022 [facility], [address] [place] [address], [id number], 3 09:54:22 atorvas tatin 40 mg tablet 2021 [facility], [facility], [address] [place] [address], [id number], 2 11:31:05 Jardian ce 10 mg tablet 2022 023 [facility], [address], [place], [place], [id number], 3 09:54:22 ibuprof en 600 mg tablet 2022 023 [facility], [address] [place] [address] 100, [place], [place], [id number], 3 11:01:45 Lantus Solosta r U-100 Insulin 100 unit/mL (3 mL) subcuta neous pen 2022 023 [facility], [address] [place] [address], [place], [place], [id number], 3 10:01:23 Jardian ce 25 mg tablet 2022 023 [facility], [address] [place] [address], [place], [place], [id number], 3 10:01:23 lisinop ril 10 mg tablet 2022 023 [facility], [address] [place] [address], [place], [place], [id number], 3 09:41:33 Patient TargetsNo targets recorded. Patient Instructions Encounter Date Encounter Id Patient Instructions Last Modified By Organization Details Last Modified Time 04/07/2022 [id number] dash diet: care instructions eclardy Not available 04/11/2022 22:43:07 How To Lower Blood Pressure eclardy Not available 04/11/2022 22:43:07 I certify that I was present and available for case discussion in the Family Medicine preceptor room at the time of this encounter. I have reviewed the note and agree with the findings, assessment, and plan. Follow up as listed. All labs/imaging/cons ults to be followed by the ordering provider. Not available 04/21/2022 10:30:59 05/25/2022 [id number] I was present an d available in the Family Medicine clinic to discuss this patient's care during the appointment. I agree with the resident's assessment and plan as documented. GRETA Not available 06/16/2022 10:09:54 07/28/2022 [id number] I was present an d available in the Family Medicine clinic to discuss this patient's care during the appointment. I agree with the resident's assessment and plan as documented. GRETA Not available 08/03/2022 08:22:31 01/05/2023 [id number] I was present an d available in the Family Medicine clinic to discuss this patient's care for the duration of the appointment. I agree with the resident's assessment and plan as documented with the following addendum: None. Dr. Connor Dhillon MD Attending Physician, [facility]. [email or web address] Not available 01/14/2023 10:23:20 02/10/2023 [id number] I was present an d available in the Family Medicine clinic to discuss this patient's care during the appointment. I agree with the resident's assessment and plan as documented. Tyson Bell MD [email or web address] Not available 02/15/2023 09:42:43 Reason for Referral Diabetic Nutrition Education Referral for Diabetes mellitus Referring Physician: Hayes Herrera, Family Medicine, Encounter Date: 04/07/2022 Results Created Date Observation Date Name Description Value Unit Range Abnormal Flag Note LastModifiedBy Organization Detail LastModifiedTime 05/25/2005/25/2023 COLOG UARD cologuard result Cancel led - Order d not applic able Not Available [facility] (Cologuard Orders Only) [address], [place], [address], 05/25/2023 11:11:11 04/07/20 22 04/07/2022 HbA1c (hemo globi n A1c), blood HbA1c 14.0 Not Available In-Office Order Internal Use Only DO Not Attach Compendium DO Not Attach Compendium, Do Not Delete/merge, [id number] 04/07/2022 16:26:43 04/27/20 22 04/28/2022 BASIC METAB OLIC PANEL (8) glucose 149 mg/dL 65-99 above high normal Not Available [facility] ([facility]) [address] [facility], [place], [address], 04/28/2022 12:11:04 04/27/20 22 04/28/2022 BASIC METAB OLIC PANEL (8) BUN 15 mg/dL 6-24 Not Available [facility] ([facility]) [address] [facility], [place], [address], 04/28/2022 12:11:04 04/27/20 22 04/28/2022 BASIC METAB OLIC PANEL (8) creatinine 1.27 mg/dL 0.76-1 .27 Not Available [facility] ([facility]) [address] [facility], [place], [address], 04/28/2022 12:11:04 04/27/20 22 04/28/2022 BASIC METAB OLIC PANEL (8) eGFR 67 mL/mi n/1.7 3 >59 Not Available [facility] ([facility]) [address] [facility], [place], [address], 04/28/2022 12:11:04 04/27/20 22 04/28/2022 BASIC METAB OLIC PANEL (8) BUN/creatini ne ratio 12 9-20 Not Available [facility] ([facility]) [address] [facility], [place], [address], 04/28/2022 12:11:04 04/27/20 22 04/28/2022 BASIC METAB OLIC PANEL (8) sodium 139 mmol/ L 134-14 4 Not Available [facility] ([facility]) [address] [facility], [place], [address], 04/28/2022 12:11:04 04/27/20 22 04/28/2022 BASIC METAB OLIC PANEL (8) potassium 4.5 mmol/ L 3.5-5. 2 Not Available [facility] ([facility]) [address] [facility] [place], [address], 04/28/2022 12:11:04 04/27/20 22 04/28/2022 BASIC METAB OLIC PANEL (8) chloride 104 mmol/ L 96-106 Not Available [facility] ([facility]) [address] [place], [address], 04/28/2022 12:11:04 04/27/20 22 04/28/2022 BASIC METAB OLIC PANEL (8) carbon dioxide, total 20 mmol/ L 20-29 Not Available [facility] ([facility]) [address] [place], [address], 04/28/2022 12:11:04 04/27/20 22 04/28/2022 BASIC METAB OLIC PANEL (8) calcium 9.8 mg/dL 8.7-10 .2 Not Available [facility] ([facility]) [address] [place], [address], 04/28/2022 12:11:04 04/27/20 22 04/28/2022 LIPID PANEL cholesterol, total 215 mg/dL 100-19 9 above high normal Not Available [facility] ([facility]) [address] [place], [address], 04/28/2022 12:11:05 04/27/20 22 04/28/2022 LIPID PANEL triglyceride s 88 mg/dL 0-149 Not Available [facility] ([facility]) [address] [place], [address], 04/28/2022 12:11:05 04/27/20 22 04/28/2022 LIPID PANEL HDL cholesterol 43 mg/dL >39 Not Available [facility] ([facility]) [address] [place], [address], 04/28/2022 12:11:05 04/27/20 22 04/28/2022 LIPID PANEL VLDL cholesterol trinh 16 mg/dL 5-40 Not Available [facility] ([facility]) [address] [place], [address], 04/28/2022 12:11:05 04/27/20 22 04/28/2022 LIPID PANEL LDL chol calc ([facility]) 156 mg/dL 0-99 above high normal Not Available [facility] ([facility]) [address] [place], [address], 04/28/2022 12:11:05 04/27/20 22 04/28/2022 LIPID PANEL comment: BINDER LAYER Not Available [facility] ([facility]) [address] [place], [address], 04/28/2022 12:11:05 04/27/20 22 04/28/2022 ALBUM IN/CR EATIN INE RATIO ,URIN E creatinine, urine 52.9 mg/dL not estab. Not Available [facility] ([facility]) [address] [place], [address], 04/28/2022 12:11:05 04/27/20 22 04/28/2022 ALBUM IN/CR EATIN INE RATIO ,URIN E albumin, urine <3.0 ug/mL not estab. Aileen ified by shiv gross mane sis Not Available [facility] ([facility]) [address] [place], [address], 04/28/2022 12:11:05 04/27/20 22 04/28/2022 ALBUM IN/CR EATIN INE RATIO ,URIN E alb/creat ratio <6 mg/g_ creat 0-29 Daya l: 0 - 29 Moder ately incre ased: 30 - 300 Sever rosa incre ased: >300 Not Available [facility] ([facility]) [address] [place], [address], 04/28/2022 12:11:05 04/27/20 22 04/28/2022 CARDI OVASC ULAR REPOR T interpretati on Note Suppl ement al repor t is avail able. Not Available [facility] ([facility]) [address] [place], [address], 04/28/2022 12:11:06 04/27/20 22 04/28/2022 HANS Gross pdf . Not Available [facility] ([facility]) [address], [place], [address], 04/28/2022 12:11:06 08/01/20 22 08/01/2022 HbA1c (hemo globi n A1c), blood HbA1c 8.1 Not Available In-Office Order Internal Use Only DO Not Attach Compendium DO Not Attach Compendium, Do Not Delete/merge, [id number] 08/01/2022 23:22:51 02/11/20 23 02/10/2023 HbA1c (hemo globi n A1c), blood HbA1c 11.4 Not Available In-Office Order Internal Use Only DO Not Attach Compendium DO Not Attach Compendium, Do Not Delete/merge, [id number] 02/10/2023 09:49:15 02/23/20 23 02/22/2023 LIPID PANEL cholesterol 209 mg/dL <200 high Not Available [facility] (Lab) [place], [address], 02/22/2023 12:17:06 02/23/20 23 02/22/2023 LIPID PANEL triglyceride 103 mg/dL <150 Not Available [facility] (Lab) [address] [facility], [place], [address], 02/22/2023 12:17:06 02/23/20 23 02/22/2023 LIPID PANEL HDL cholesterol 46 mg/dL >40.0 Not Available [facility] (Lab) [address] [facility], [place], [address], 02/22/2023 12:17:06 02/23/20 23 02/22/2023 LIPID PANEL LDL calculated 142 mg/dL <100 high Not Available [facility] (Lab) [address] [facility], [place], [address], 02/22/2023 12:17:06 02/23/20 23 02/22/2023 LIPID PANEL non HDL cholesterol 163 mg/dL <130 high Not Available [facility] (Lab) [address], [place], [address], 02/22/2023 12:17:06 02/23/20 23 02/22/2023 LIPID PANEL chol/HDL ratio 4.5 0.0-4. 5 Not Available [facility] (Lab) [address], [place], [address], 02/22/2023 12:17:06 02/23/20 23 02/22/2023 LIPID PANEL VLDL 21 mg/dL 5-55 Not Available [facility] (Lab) [address], [place], [address], 02/22/2023 12:17:06 02/23/20 23 02/22/2023 LIPID PANEL interpretati on NIH DEBBY NSUS REPOR T RECOM MENDA TIONS : ADULT CHILD LOW RISK: KANNAN STERO L <200 <170 TRIGL YCERI DE <150 --- HDL >=60 --- LDL <100 <110 BORDE RLINE : KANNAN STERO L 200-2 39 170-1 99 TRIGL YCERI DE 150-1 99 --- HDL 40-59 --- LDL 100-1 59 110-1 29 HIGH RISK: KANNAN STERO L >=240 >=200 TRIGL YCERI DE >=200 --- HDL <40 --- LDL >=160 >=130 Not Available [facility] (Lab) [address], [place], [address], 02/22/2023 12:17:06 02/03/20 23 MRI brain wo con [facility] [place] [address] EXAM: MRI BRAIN WO CON DATE: COMPAR SAIMA: None. Head CT 12/10/19 23. INDICA TION: Severe headac hes for 6 months . TECHNI QUE: Noncon trast multip lanar multis equenc e imagin g. FINDIN GS: No mass effect or ventri cular dilati on. No findin gs for hemorr pernell on the gradie nt images . Scatte red small FLAIR hyperi ntensi ties in the deep white matter are nonspe cific findin gs. Possib le small vessel diseas e. Small hyperi ntensi ties can be associ ated with migrai ne headac hes. This is not the typica l distri bution of MS. [place] e struct ures have a normal appear ance on the sagitt al series . No acute stroke . Normal flow voids in the basila r and internal communications manager al caroti d arteri es. Normal orbits and parana roxi sinuse s. IMPRES JESSE: Mild nonspe cific white matter findin gs. Referr ed By: MARGARET PUGA Electr onical ly Signed By: Weston Sanchez MD on 3:33 PM Interp reted By: Weston Sanchez MD, 3:27 PM eclardy [facility] [address] [facility], [place], [address], 02/03/2023 09:04:49 02/03/20 23 MRA head wo con [facility] [place] [address] EXAM: MR angiog magdy of the head DATE: TECHNI QUE: Noncon trast imagin g. Additi onal 3D and/or MIP images were create d. INDICA TION: Severe headac hes for 6 months COMPAR SAIMA: None. FINDIN GS: The pre-co ntrast source images show normal direct ion of flow in the distal caroti d and verteb ral arteri es. MRA HEAD: The right drop wire aligner ior inferi or cerebe llar artery is not visual ized. The left anteri or inferi or cerebe llar artery is not visual ized. Probab le congen ital variat ion with mild and diffus e smalle r diamet er right anteri or cerebr al artery segmen ts. No focal intrac ranial stenos is or occlus ion demons trated in the anteri or circul ation. The arteri al findin gs which are demons trated could repres ent normal variat ion. IMPRES JESSE: 1. Arteri al findin gs in the anteri or and drop wire aligner ior circul ations which probab ly repres ent normal variat ion. Referr ed By: MARGARET PUGA Electr onical ly Signed By: Weston Sanchez MD on 3:41 PM Interp reted By: Weston Sanchez MD, 3:34 PM eclardy [facility] [address] [facility], [place], [address], 02/03/2023 09:04:50 02/24/20 23 use stres s ECHO W cholo W [facility] [place] [address] Stress Echoca rdiogr aphy Report Pat.Na me: KAYLYN RICCI Pat.ID : [id number] e: Refer. MD: [id number] STEFFI Gross EWDPRO V EWDPRO V Exam Time: 10:29: 00 AM Study Type:S TRESS ECHO DOPPLE R COLOR FLOW Height : 71 in Weight : 257 lb BSA: 2.35 m2 Age: [birth year]966,[age]Y Sex: M BP: 145/90 HR: 79 bpm Sonogr phr: Aggie Beverly RD Pat. Stat.: Outpat ient Reason for Study: Chest pain Proced ures: 2D, M-mode , Dopple r, Color Flow, Exerci se Stress Echo, Defini ty was used to enhanc e endoca rdial defini tion. The study qualit y is techni senthil [facility] ult. Race: B ++++++ ++++++ ++++++ ++++++ ++++++ ++++++ SUMMAR Y: ++++++ ++++++ ++++++ ++++++ ++++++ ++++++ 1. Clinic ally negati ve. 2. Electr ocardi ograph ically negati ve treadm ill test for ischem ia. 3. Adequa te exerci se capaci ty. 4. Echoca rdiogr aphica lly negati ve for ischem ia. 5. Rodas Treadm ill Score is 9 , which indica logan low risk. 6. Blood pressu re respon se was normal . 7. The qualit y of this study is good . Defini ty was used. 8. Stress echoca rdiogr am shows overal l low risk for a cardia c event. ++++++ ++++++ ++++++ ++++++ ++++++ ++++++ FINDIN GS: ++++++ ++++++ ++++++ ++++++ ++++++ ++++++ LV: The left ventri cular size is normal . The left ventri cular systol ic functi on is normal . No concen tric left ventri cular hypert rophy. WM: Wall motion appear s normal in all segmen ts. TINO: No eviden ce of perica rdial effusi on. AO: Normal aortic root. AV: No eviden ce of aortic valve stenos is. No eviden ce of aortic regurg itatio n. MV: No eviden ce of mitral regurg itatio n. No eviden ce of mitral valve stenos is. PV: No eviden ce of pulmon ic valve stenos is. No eviden ce of pulmon ic regurg itatio n. TV: A trace of tricus pid regurg itatio n. No eviden ce of tricus pid valve stenos is. Restin g Functi on and Wall Motion LV: LV functi on is normal . Overal l wall motion is normal . Estima sonido EF is 60%. All oden are normal Stress Functi on and Wall Motion LV: LV functi on is normal . Overal l stress wall motion is normal . Estima sonido EF is >70%. All oden are normal ++++++ ++++++ ++++++ ++++++ ++++++ ++++++ STRESS : ++++++ ++++++ ++++++ ++++++ ++++++ ++++++ Baseli ne Vital Signs: Baseli ne ECG: Normal Baseli ne Rhythm : Normal sinus rhythm HR: 89 bmp Rest BP: 140/90 Exerci se Stress Echo Protoc ol: Marc Durati on: 09:10 min:se c Max. Worklo ad (METS) : 10.3 Stress Test Result s: Max HR: 164 bmp Target HR: 165 bmp % Target : 99 % Max BP: 180/98 Max RPP: [id number]: Defini ty 3 ml Sympto ms and Compli cation s: Arrhyt hmias: None Reason for Stoppi ng Test: Shortn ess of breath , Dyspne a Stress Induce d Sympto ms: Shortn ess of breath , Dyspne a ECG Findin gs: No ischem ic S-T change s occurr ed with stress ++++++ ++++++ ++++++ ++++++ ++++++ ++++++ MEASUR EMENTS : ++++++ ++++++ ++++++ ++++++ ++++++ ++++++ 2D Aorta Ao Rtd 4 cm LVOT LVOT 2.4 cm LVOTAr ea 4.52 cm2 DOPPLE R LVOT LVOTpk PG 2 mmHg LVOTmn PG 1 mmHg LVOTpk Ayad 76.5 cm/s (70-11 0) LVOT SV 65 ml LVOT TVI 14.3 cm AV Forwar d Flow AV TVI 16.5 cm AV pkPG 3 mmHg AV pkVel 85.6 cm/s (100-1 70)* Area (TVI) 3.92 cm2 (3-5) AV mnPG 2 mmHg Area (Ayad) 4.04 cm2 (3-5) Aortic Valve Aortic Valve Ar 1.67 Aortic Valve Ve 0.89 ++++++ ++++++ ++++++ ++++++ ++++++ ++++++ WALL MOTION : ++++++ ++++++ ++++++ ++++++ ++++++ ++++++ RESTIN G WALL MOTION : All oden are normal Wall Index = 1 STRESS WALL MOTION : All oden are normal Stress Wall Index = 1 2022 11:13 PM Eduardo Dale M.D. eclardy [facility] [address] [facility], [place], [address], 02/23/2023 12:11:04 04/27/20 23 use echoc ardio gram [facility] [place] [place] [address] Echoca rdiogr aphy Report Pat.Na me: KAYLYN RICCI Pat.ID : [id number] .Adrian e: 023 Refer. MD: [id number] STEFFI Gross EWDPRO V EWDPRO V Exam Time: 10:31: 00 AM Study Type:E CHO WITH CARDIA C DOPPLE R COMP Height : 71 in Weight : 252 lb BSA: 2.33 m2 Age: [birth year]966,[age]Y Sex: M BP: 123/67 HR: 89 bpm Sonogr phr: Tarun Dozier RDCS Pat. Stat.: Outpat ient Reason for Study: Chest pain Proced ures: 2D, M-mode , Dopple r, Color Flow, The study qualit y is techni senthil adequa te. Race: 89 ++++++ ++++++ ++++++ ++++++ ++++++ ++++++ SUMMAR Y: ++++++ ++++++ ++++++ ++++++ ++++++ ++++++ The left ventri cular size is normal . The left ventri cular systol ic functi on is normal . Estima sonido left ventri cular ejecti on fracti on is 55-60% . Mild concen tric left ventri cular hypert rophy. Left ventri cular diasto lic functi on is abnorm al (grade 1 - impair ed relaxa tion). The right ventri cular size is normal . Right ventri cular systol ic functi on is normal . ++++++ ++++++ ++++++ ++++++ ++++++ ++++++ FINDIN GS: ++++++ ++++++ ++++++ ++++++ ++++++ ++++++ LV: The left ventri cular size is normal . The left ventri cular systol ic functi on is normal . Estima sonido left ventri cular ejecti on fracti on is 55-60% . Mild concen tric left ventri cular hypert rophy. Left ventri cular diasto lic functi on is abnorm al (grade 1 - impair ed relaxa tion). WM: Wall motion appear s normal in all segmen ts. RV: The right ventri cular size is normal . Right ventri cular systol ic functi on is normal . IVS: No eviden ce of ventri cular septal defect . LA: The left atrial size is normal . The left atrial volume is normal ( less than 34 ml/M2) . RA: Right atrial size is normal . IAS: Atrial septum appear s intact . TINO: No eviden ce of perica rdial effusi on. AO: Normal aortic root. PA: Unable to reliab ly quanti persaud pulmon gary systol ic pressu re. SVn: Inferi or vena cava is not assess able. AV: The aortic valve is trilea flet. No eviden ce of aortic valve stenos is. No eviden ce of aortic valve regurg itatio n. MV: No eviden ce of signif icant mitral regurg itatio n. No eviden ce of mitral stenos is. PV: Trace pulmon ic regurg itatio n. No eviden ce of pulmon ic valve stenos is. Pulmon ic valve not well visual ized. TV: A trace of tricus pid regurg itatio n. No eviden ce of tricus pid valve stenos is. ++++++ ++++++ ++++++ ++++++ ++++++ ++++++ MEASUR EMENTS : ++++++ ++++++ ++++++ ++++++ ++++++ ++++++ DOPPLE R LVOT LVOTpk PG 3 mmHg LVOTmn PG 2 mmHg LVOTpk Ayad 91.9 cm/s (70-11 0)+ LVOT SV 54 ml LVOT TVI 17.3 cm Pulmon gary Veins PVnpkV eld 31.6 cm/s PVnVs/ Vd 2.2 PVnpkV els 70.6 cm/s PVn A Dur 108 msec AV Forwar d Flow AV TVI 20.3 cm AV pkPG 5 mmHg AV pkVel 110 cm/s (100-1 70)+ Area (TVI) 2.68 cm2 (3-5)* AV mnPG 3 mmHg Area (Ayad) 2.62 cm2 (3-5)* MV Forwar d Flow MV DeTm 203 msec MV pkE 48.8 cm/s (60-13 0)* MV E/A 0.7 MV pkA 65.7 cm/s PV Forwar d Flow PV pkVel 95.1 cm/s (60-90 )+* PV AC 111 msec PV pkPG 4 mmHg TV Forwar d Flow TV E/A 1.1 TV pkA 56.1 cm/s TV pkE 59.2 cm/s Lat E' Lat e 12.7 cm/s Lat E/E' Lat E/e 3.8 Med E' Med e 6.74 cm/s Med E/E' Med E/e 7.2 Aortic Valve Aortic Valve Ar 1.15 Aortic Valve Ve 0.84 PV Antegr solo Flow Accele ration Sl 589 cm/s2 Right Atrium Simpso n's Disk 20 Right Ventri desiree Right Ventri desiree 7.62 cm/s 2D Left Ventri desiree LVIDd 4.03 cm (3.6-5 .2) LV ESV 29.7 ml LVIDs 2.7 cm (2.3-3 .9) LV ESV 38.1 ml LngAxd 9.02 cm LVESV BP 35 ml LngAxd 9.33 cm LV EF 56.2 % LV EDV 68.1 ml LV EF 53.5 % LV EDV 81.7 ml LV EF BP 53.7 % LVEDV BP 75.6 ml LV SV 38.3 ml LngAxs 7.07 cm LV SV 43.7 ml LngAxs 7.78 cm LV SV BP 40.6 ml LVPW LVPWd 1.16 cm Ventri cular Septum IVSd 1.23 cm Left Atrium LA VOLBP 50.2 ml Aorta Ao Rtd 4 cm LVOT LVOT 2 cm LVOTAr ea 3.14 cm2 Ratios IVS LA Biplan e LAVol I BP 21.5 ml/m2 LV Strain Tripla ne Endo Peak Globa -11.8 % Endo Peak Globa -12.3 % Endo Peak Globa -5.7 % Endo Peak Globa -9.9 % RA Single Plane Right Atrium MO 9.28 mm Right Atrium Sy 27.3 ml Right Atrium Sy 48.1 mm Right Atrium Sy 11.7 ml/m2 Right Atrium Sy 12.7 cm2 Right Ventri desiree Right Ventri desiree 24.3 mm Right Ventri deisree 24.2 mm Major [place] 83.7 mm MMODE Ratios LA/Ao 0.686 (0.87- 1.1)* Aorta Ao Rt 3.5 cm (2-3.7 ) Left Atrium LAIDs 2.4 cm TA Tricus pid Annul 15.6 mm 2022 08:17 PM Eduardo Dale M.D. [facility] [address] [facility], [place], [address], 05/02/2023 13:35:58 12/10/19 24 xr chest Pa+la t [facility] [place] [address] EXAMIN ATION: PA AND LATERA L CHEST Access ion: [id number] Exam date/t robert: 12/10/19 24 3:40 PM Reason For Exam: shortn ess of breath Compar saima: 01/10/20 Techni que: 2 views. Findin gs: Heart size normal . Proxim al airway s unrema rkable . No suspic ious pulmon gary lesion , pneumo thorax , or pleura l effusi on. =====I MPRESS ION:== === No acute findin gs. Ordere d By: JERMAIN Her onical ly Signed By: Stephon Clark on 12/10/19 4:01 PM Interp reted By: Stephon Clark, 12/10/19 4:[address], [place], [address], 12/12/2023 10:07:23 Result Notes None recorded. Problems Name Problem SNOMED Code Status Onset Date Resolution Date Notes Provider Name and Address Organization Details Recorded Time Diabetes mellitus 57278821 Active 2017 Not Available [facility] 17:53:06 Morbid obesity 206426845 Active 2017 Not Available [facility] 17:53:06 Heart murmur 04625136 Active 2017 Not appreciate d on todays exam Not Available [facility] 17:53:06 Snoring 59116919 Active 2017 Not Available [facility] 17:53:06 Hypertens ar disorder 02812753 Active 2019 Not Available [facility] 17:53:06 Headache 54461586 Active 2019 Not Available [facility] 1 17:53:06 Tension-t ype headache 829703630 Active 2022 Edward [facility] [place] [facility] 3 10:58:59 Problem Notes None recorded. Procedures Surgical History None recorded. Imaging Results Imaging Date Name Status LastModified by Organization Details LastModified Time 02/02/2023 MRI brain wo con completed [address], [place], [address], 02/03/2023 09:04:49 02/02/2023 MRA head wo con completed [address], [address], 02/03/2023 09:04:50 02/23/2023 use stress ECHO W cholo Dai md completed [address], [address], 02/23/2023 12:11:04 04/27/2023 use echocardiogram completed [address], [address], 05/02/2023 13:35:58 12/10/2023 xr chest Pa+lat completed [address], [address], 12/12/2023 10:07:23 Procedure Notes None recorded. Medical Equipment None Reported. Allergies Allergen ID Allergen Name Allergen Category Reaction Reaction Severity Criticality Documentation Date Start Date Code Code System Note Provider Name and Address Organization Details Recorded Time 036273 peanut allergeni c extract food,medi cation palpitati ons respirato ry distress Not available Not available high 04/07/2022 72456 8 RxNorm Not Available Not Available Not Available Medications Name Sig Start Date Stop Date Status Note LastModified by Organization Details LastModified Time cyclobenza ramy 10 mg tablet 04/14 completed Not Available Not Available Not Available atorvastat in 40 mg tablet TAKE ONE TABLET BY MOUTH EVERY DAY active Not Available Not Available No t Available metformin 500 mg tablet Take 1 tablet every day by oral route. 11/15 completed Not Available Not Available Not Available atorvastat in 80 mg tablet Take 1 tablet every day by oral route in the evening. 11/15 completed Not Available Not Available Not Available tizanidine 4 mg tablet Take 1 tablet every 6 hours by oral route for 14 days. 04/14 completed Not Available Not Available Not Available hydrocodon e 5 mg-acetami nophen 325 mg tablet TAKE 1 TABLET BY MOUTH EVERY 6 HOURS NEEDED FOR ACUTE PAIN 04/14 completed Not Available Not Available Not Available Alcohol Pads Apply 1 pad every day by topical route. 07/28 completed Not Available Not Available Not Available glipizide ER 5 mg tablet, extended release 24 hr TAKE 1 TABLET BY MOUTH DAILY 06/13 completed Not Available Not Available Not Available aspirin 81 mg tablet,del ayed release Take 1 tablet every day by oral route. 11/15 completed Not Available Not Available Not Available simvastati n 40 mg tablet Take 1 tablet every day by oral route. 01/10 completed Not Available Not Available Not Available amoxicilli n 875 mg tablet TAKE 1 TABLET BY MOUTH EVERY 12 HOURS 04/14 completed Not Available Not Available Not Available oseltamivi r 75 mg capsule TAKE ONE CAPSULE BY MOUTH TWICE DAILY FOR FIVE DAYS 02/10 completed Not Available Not Available Not Available lisinopril 10 mg tablet TAKE ONE TABLET BY MOUTH EVERY DAY active Not Available Not Available No t Available nitroglyce rin 0.4 mg sublingual tablet DISSOLVE 1 TABLET UNDER THE TONGUE EVERY 5 MINUTES NEEDED FOR CHEST PAIN. DO NOT EXCEED A TOTAL OF 3 DOSES IN 15 MINUTES. active Not Available Not Available No t Available diclofenac sodium 75 mg tablet,del ayed release TAKE ONE TABLET DAILY WITH MEALS NEEDED FOR PAIN 01/05 completed Not Available Not Available Not Available ibuprofen 600 mg tablet TAKE ONE TABLET BY MOUTH THREE TIMES DAILY NEEDED active Not Available Not Available No t Available methylpred nisolone 4 mg tablets in a dose pack TAKE ONE TABLET BY MOUTH DAILY FOR 7 DAYS 01/05 completed Not Available Not Available Not Available ondansetro n 4 mg disintegra ting tablet TAKE ONE TABLET BY MOUTH EVERY 4 HOURS NEEDED FOR NAUSEA 02/10 completed Not Available Not Available Not Available fluticason e propionate 50 mcg/actuat ion nasal spray,susp ension SHAKE LIQUID AND USE 2 SPRAYS IN EACH NOSTRIL DAILY active Not Available Not Available No t Available clotrimazo le 1 % topical cream APPLY TO THE AFFECTED AREA TWICE DAILY FOR 28 DAYS 04/14 completed Not Available Not Available Not Available loratadine 10 mg tablet active Not Available Not Available Not Available glipizide 5 mg tablet TAKE 1 TABLET BY MOUTH DAILY 04/14 completed Not Available Not Available Not Available rosuvastat in 20 mg tablet TAKE ONE TABLET BY MOUTH AT BEDTIME TO LOWER CHOLESTER OL active Not Available Not Available No t Available Crestor 10 mg tablet Take 1 tablet every day by oral route. 04/14 completed Not Available Not Available Not Available Lumigan 11/15 completed eye drops Not Available Not Available Not Available Januvia 100 mg tablet Take 1 tablet every day by oral route. 07/28 completed Not Available Not Available Not Available Lantus Solostar U-100 Insulin 100 unit/mL (3 mL) subcutaneo us pen INJECT 10 units EVERY DAY AT BEDTIME active Not Available Not Available No t Available melatonin 5 mg tablet Take 1 tablet as needed by oral route at bedtime. 2021 active Not Available Not Available Not Avai lable Invokana 100 mg tablet TAKE ONE TABLET BY MOUTH ONCE EVERY DAY FOR DIABETES 01/05 completed Not Available Not Available Not Available Levemir FlexTouch U-100 Insulin 100 unit/mL (3 mL) subcutaneo us pen INJECT 10 units under the skin EVERY NIGHT AT BEDTIME 06/13 completed Not Available Not Available Not Available Jardiance 10 mg tablet TAKE ONE TABLET BY MOUTH EVERY DAY 02/10 completed Not Available Not Available Not Available Jardiance 25 mg tablet TAKE ONE TABLET BY MOUTH EVERY DAY active Not Available Not Available No t Available Accu-Chek Guide test strips USE DIRECTED active Not Available Not Available No t Available Vitals Date Recorded Body height Body mass index (BMI) Body weight Heart rate Oxygen saturation Oxygen saturation in Arterial blood by Pulse oximetry Respiratory rate Systolic blood pressure Diastolic blood pressure Provider Name and Address Organization Details Last Updated DateTime 2 180.34 cm 35.4 kg/m2 033376. 02 g 85 /min 97 % 97 % 18 /min 122 mm[Hg] 72 mm[Hg] Arelis Segura [place] [facility] 2 12:41:54 Date Recorded Body height Body mass index (BMI) Body weight Heart rate Oxygen saturation Oxygen saturation in Arterial blood by Pulse oximetry Body temperature Provider Name and Address Organization Details Last Updated DateTime 2 180.34 cm 36 kg/m2 703916. 93 g 86 /min 98 % 98 % 97.8 [degF] Jeni Escobedo MA [facility] 2 13:58:47 Date Recorded Systolic blood pressure Diastolic blood pressure Provider Name and Address Organization Details Last Updated DateTime 05/25/2022 119 mm[Hg] 89 mm[Hg] HAYES HERRERA DO Attn: Accounting,[address] [place], [address], [facility] 05/25/2022 14:27:33 Date Recorded Body height Body mass index (BMI) Body weight Heart rate Oxygen saturation Oxygen saturation in Arterial blood by Pulse oximetry Body temperature Systolic blood pressure Diastolic blood pressure Provider Name and Address Organization Details Last Updated DateTime 2 180.34 cm 36.6 kg/m2 786218. 9 g 70 /min 99 % 99 % 97.4 [degF] 130 mm[Hg] 98 mm[Hg] Jeni Escobedo MA [facility] 2 10:56:43 Date Recorded Body height Body mass index (BMI) Body weight Heart rate Body temperature Oxygen saturation Oxygen saturation in Arterial blood by Pulse oximetry Systolic blood pressure Diastolic blood pressure Provider Name and Address Organization Details Last Updated DateTime 3 180.34 cm 36.3 kg/m2 621063. 82 g 95 /min 97.8 [degF] 96 % 96 % 142 mm[Hg] 88 mm[Hg] Katina Segovia MA [facility] 3 10:44:24 Date Recorded Body height Body mass index (BMI) Body weight Body temperature Oxygen saturation Oxygen saturation in Arterial blood by Pulse oximetry Heart rate Systolic blood pressure Diastolic blood pressure Provider Name and Address Organization Details Last Updated DateTime 3 180.34 cm 35.4 kg/m2 941613. 02 g 97.6 [degF] 95 % 95 % 79 /min 138 mm[Hg] 98 mm[Hg] Doug Puga MA [facility] 3 09:03:32 Social History Question Answer Notes LastModified by Organizat ion Details LastModified Time Tobacco Smoking Status Never Smoker Pearl Aaron MA [facility] [place] - [facility] 09/21/2018 11:47:22 What Is Your Level Of Alcohol Consumption? None [email or web address] Information not available 05/25/2022 Do You Or Have You Ever Used E-cigarettes Or Vape? Never Used Electronic Cigarettes Information not available 11/15/2019 What Was The Date Of Your Most Recent Tobacco Screening? 02/10/2023 [email or web address] Information not available 02/10/2023 Do You Or Have You Ever Used Smokeless Tobacco? Never Used Smokeless Tobacco Information not available 11/15/2019 How Much Tobacco Do You Smoke? No Information not available 11/15/2019 How Many Years Have You Smoked Tobacco? 0 Information not available 11/15/2019 Sex: Unknown Functional Status None recorded. Mental Status None recorded. Family History Relationship Description Onset Age of this Age Resolved Age Notes LastModified by Organization Details LastModified Time Mother Diabetes mellitus [email or web address] Not available 2017 11:47:10 Maternal Aunt Diabetes mellitus [email or web address] Not available 2017 11:47:10 Brother Diabetes mellitus [email or web address] Not available 2017 11:47:10 Medical History Condition Response Allergies Y Headaches Y Immunizations Vaccine Type Date Status Note Provider Nam e and Address Organization Details Recorded Time Tdap 09/21/2018 completed Not Available [facility] 10/27/2019 02:37:00 Past Encounters Encounter ID Performer Location Encounter Start Date Encounter Closed Date Diagnosis/Indication Diagnosis SNOMED-CT Code Diagnosis ICD10 Code Diagnosis Note [id number] Bernice Scales MD [facility] [address] [address] 09/21/2018 11:34:57 09/25/2018 09:52:45 Morbid obesity 833390023 E66.01 Chronic. Patient states not able to exercise as much as he would like due to working. Only eats a few fruits and vegetables per week. Large portions at meals and often eats fast foods.- Check labs; have since resulted and show new diagnosis of DM (see below)- Advised lifestyle changes: limiting portions and calorie monitoring , increasing fresh fruits and vegetables daily, regular aerobic exercise with goal of at least 150 minutes weekly moderate intensity- Discussed healthy, sustainabl e weight loss goal of 1-2 lbs/weekly Adult heal th examination 056966731 Z00.00 53 yo M:- Never had colon cancer screening; after discussing options, will refer to GI for setup of c-scope.- Due for TDap, given during visit, booster q 10 yrs; refused seasonal flu vax- PHQ negative- Labs checked Screening for malignant neoplasm of colon 652351919 Z12.11 Snoring 55168115 R06.83 With witnessed apneic periods (per ) and body habitus, highly suspicious for ORA.- Pulm referral for polysomnog magdy Heart murmur 57206184 R0 1.1 New finding, no known murmur in history. May represent mild TR/MR.- Cards referral for Echo, considerat ion of further work-up. Active or passive immunization 951490526 Z23 Diabetes mellitus 380483 09 E11.9 New diagnosis found incidental ly on screening labs as above. A1c 6.9%- RTC 09/25 for discussion and comprehens ar DM visit. [id number] Jayde Smith MD [facility] [address] [address] 09/25/2018 10:00:05 09/26/2018 08:56:20 Type 2 diabetes mellitus without complication 763478981 E11.9 New diagnosis. Screening A1c 6.9% on 09/21/2018 . No known complicati ons to this point.- Extensive discussion of lifestyle and dietary changes: cut regular juice intake with goal of 0 added sugars daily; replace simple carbs with complex ones (whole wheat/grai n bread instead of white, sweet potatoes instead of regular potatoes, wheat pasta, etc.)- Advised regular aerobic exercise at least 150 mins moderate intensity weekly; advised weight loss to achieve healthy BMI- Pt and deferred Transportation Sales Consultant referral at this time.- Start Metformin 500 daily; titrate up to 1000 BID optimally as tolerated- Start Atorvastat in high intensity and baby asa daily- Check Urine microalbum in/Cr ratio; other labs UTD- Initiate AceI/ARB if pt develops comorbid HTN or urine shows microalbum inuria- Foot exam performed, WNL monofilame nt (mild fungus noted); next due 09/2019- Advised yearly dilated eye exam; pt follows with [facility] already and will follow-up- Advised Pneumovax, which pt refuses at this time- RTC 4 weeks for f/u. Hyperlipidemia 13146739 E78.5 [id number] Jenn Hernandez [address] [facility] [address] [place] [address] 11/15/2019 08:53:17 11/16/2019 09:54:35 Essential hypertension 91043762 I10 Chronic, controlled BP at goal today since starting HCTZ 25mg. CMP from patients recent ED visit showed Cr elevated to 1.34, GFR 70. Given patients history of diabetes would recommend starting Lisinopril . Pt is in agreement- Discontinu e HCTZ and start Lisinopril 10mg-Will check albumin/cr ratio-EKG on file from ER (normal sinus rhythm without any ST changes)-D iscussed: Low sodium balanced diet, moderate exercise at least 3-4 times per week for an average of 40 minutes, limiting alcoholRTC in 2 weeks for blood pressure check and repeat BMP Screening for malignant neoplasm of colon 266051213 Z12.11 Pt has never had colonoscop y. Discussed screening with patient who declines colonoscop y at this time. Will start yearly occult blood. Advised patient that if blood is found in the stool he will likely need further workup such as a colonoscop y. Pt reports understand ing Diabetes mellitus 565881 09 E11.9 POC A1C 6.9%, stable from 09/2018. No known complicati ons to this point. Pt was previously prescribed Metformin but discontinu ed due to side effects. Pt is not amenable to restarting Metformin. ASVCD 16.9%- Start Jardiance 10mg daily- Start Simvastati n 40mg daily-Star t Lisinopril 10mg daily - Extensive discussion of lifestyle and dietary changes: cut regular juice and soda intake with goal of 0 added sugars daily; replace simple carbs with complex ones (whole wheat/grai n bread instead of white, sweet potatoes instead of regular potatoes, wheat pasta, etc.) - Advised regular aerobic exercise at least 150 mins moderate intensity weekly; advised weight loss to achieve healthy BMI- Foot exam performed, WNL monofilame nt, next due 11/2020 - Advised yearly dilated eye exam; pt previously followed with [facility]. Encouraged patient to re-establi sh - Recommende d Pneumovax, which pt declines at this time RTC in 3 months Snoring 83822091 R06.83 STOP-BANG score: 7, high risk for OSAWill refer to pulmonolog y for sleep study Headache 44838315 R51 Tension vs hypertensi on related. No red flag symptoms. No focal neuro deficits on exam. Symptoms have improved since starting BP medication . Will continue to monitor. Pt advised to RTC or go to ED if worsening headache despite medication , increasing severity of headache, loss of vision etc.-Tylen ol as needed for symptoms-C ontinue blood pressure management [id number] MD David De La Paz 3 [facility] [address] [place] [address] 01/11/2020 12:13:45 01/14/2020 11:16:27 Essential hypertension 38930879 I10 Chronic, uncontroll edVitals reviewed from ED visit yesterday, BP elevated to 144/102. BP may not be fully accurate given current illness. Last office visit blood pressure was at goal at 120/80. Pt started on Lisinopril at list visit and reports compliance . Was supposed to have repeat BMP and blood pressure check but unable to attend appointmen t.-Continu e Lisinopril 10mgRTC when asymptomat ic for BP check and repeat BMP. Pt has blood pressure cuff at home and states he will keep a log of his blood pressures until he is able to come in Diabetes mellitus 055177 09 E11.9 Chronic, controlled Last POC A1C 6.9 on 11/15/2019-P t still not amenable to Metformin due to side effects. Will continue Jardiance 10mg daily and obtain through [facility]-Pt complainin g of severe muscle cramps from simvastati n. Will switch to Crestor 10mg to see if more tolerable- Continue Lisinopril 10mg dailyNext A1C ~02/2020 Cough 03896605 R05 Acute, unresolved Concern for COVID-19. Results pending. Discussed course of illness with patient and advised patient to report to ER if he experience s worsening shortness of breath with difficulty completing sentences [id number] MD David ALEGRIA [address] [address] 06/08/2021 11:17:43 06/09/2021 13:27:25 Disorder of rotator cuff 491526185 M75.81 - Pt presents for evaluation of bilateral shoulder pain and neck pain s/p work injury- ER visit x2 for eval shows C-spine with some cervical radiculopa thy, no formal shoulder imaging- R shoulder with more limited ROM- Will obtain XR of right shoulder at this time- Start PT for suspected rotator cuff damage, if no improvemen t, will need MRI at f/u Spasm of back muscles 20 0753900 M62.830 - Pt has paraspinal spasms in the cervical region- Will treat with tizanidine at this time- Medication side effect profile discussed- F/u in 2-3 weeks for sx eval Bilateral weakness of upper limbs [id number] 5756151 M62.81 - Pt presents for eval of neck pain, limited ROM, and new onset bilateral weakness and numbness in the upper extremitie s s/p work injury- C-spine XR in the ER was negative for fracture, signs of cervical radiculopa thy- Will obtain MRI for further evaluation - Consider NSGY referral if significan t findings- ER precaution s discussed- F/u after imaging [id number] Julia Sanford DO [facility] [address] [address] 04/07/2022 12:00:40 04/09/2022 10:41:56 Diabetes mellitus 54776416 E11.9 Chronic, uncontroll ed. Pt has been out of his medication for months. Did not tolerate metformin in the past 2/2 GI side effects. A1C 14 today.- Will start Jardiance 10 mg qd. Consider increasing to 25 mg qd at next visit- Will start Lantus 10 U qd- Bring log of fasting blood sugars to next visit- Annual eye exams- Will refer for diabetic nutrition counselor- 150 minutes moderate intensity exercise per week- BMP and albumin:cr today- Follow up in two weeks Essential hypertension 70526380 I10 Chronic, well controlled . Pt has not been on medication for months. BP normal today. Will stop lisinopril given he is normotensi ve without medication s. No red flag symptoms.- <2g sodium per day and 150 minutes moderate intensity exercise per week- Discontinu e lisinopril - Follow up in 3 mo [id number] Alphonso Olivares MD [facility] [address] [address] 05/25/2022 13:42:49 06/03/2022 12:51:26 Type 2 diabetes mellitus 10157395 E11.9 Chronic, uncontroll ed on jardiance and lantus. Fasting glucose near 150s. No episodes of hypoglycem ia. UTD on BMP and urine albumin.- Pt wishes to add second oral agent instead of increasing jardiance because he is afraid it will make him urinate too frequently - Will add januvia and continue current regimen- Low carb diet and 150 minutes moderate intensity exercise per week- Contiue to monitor glucose at home- Fu in one month Hyperlipidemia 80768850 E78.5 Newly diagnosed. ASCVD 11.1%.- Discussed foods high in cholestero l to avoid- 150 minutes moderate intensity exercise per week- Will start atorvastat in 40 mg- Recheck lipid panel in 6 weeks Screening for malignant neoplasm of colon 201830699 Z12.11 No prior screenings . No family hx of colon ca. No red flag symptoms.- Discussed various methods of screening for colon ca and pros and cons of each. Pt decided cologuard was best for him. Insomnia 196078509 G47.0 0 Chronic, uncontroll ed. Issues falling asleep but not staying asleep.- Discussed sleep hygeine- Will start melatonin [id number] Alphonso Olivares MD [facility] [address] [address] 07/28/2022 10:44:27 08/03/2022 15:51:35 Hyperlipidemia 82872240 E78.5 ASCVD 11.1%. Started on atorvastat in 40 mg qd 05/2022. Tolerating medicaton well.- Discussed foods high in cholestero l to avoid- 150 minutes moderate intensity exercise per week- Continue atorvastat in 40 mg- Recheck lipid panel today- Will monitor CMP Type 2 loco betes mellitus 60554806 E11.9 Chronic, previously managed with jardiance, januvia, and lantus 10 U qd. Pt has stopped taking his insulin and januvia and is unsure why. Random glucose at home 120-130s. No episodes of hypoglycem ia. UTD on BMP and urine albumin. A1C 8.1 today.- Annual eye exams advised- Low carb diet and 150 minutes moderate intensity exercise per week- Given A1C has improved from 14 to 8 with just jardiance, will continue with this. Advised increasing the dose to get to goal of <7 but pt declined and wanted to try improving his lifestyle first- No need to continue monitoring glucose at home since he stopped his insulin- Fu in 3 months Hypertensive disorder 38 663635 I10 Not on any medication s currently. BP slightly elevated today.- Check BP at home [id number] CONNOR DHILLON MD [facility] [address] [address] 01/05/2023 10:32:57 01/07/2023 10:14:47 Tension-type headache 438353630 G44.209 F/u chronic headaches. Seen by Neurology 12/30/22, extensive workup in progress. Patient desiring something for pain, currently Tylenol not working sufficient ly. Minimal improvemen t w/ Methylpred nisolone dosepack.- Sent Rx for Ibuprofen 600mg PO TID PRN for tension headaches. - Patient declined a Toradol injection today in the clinic.- MRI/MRA Brain scheduled for 02/01/23.- Patient to call & schedule EEG at earliest convenienc e.- Neuro also referred patient to Cardiology , ENT, Pain Mgmt, & sleep lab.- Patient to return to Neurologis t (Dr. Puga) on 03/01/23, as scheduled. - F/u in 1mo w/ PCP, sooner PRN. Type 2 loco betes mellitus 22089085 E11.9 Hypertensive disorder 38 390256 I10 Not on any medication s currently. BP slightly elevated today (142/88).- Continue to monitor, consider starting anti-hyper tensive at next visit. [id number] Tyson Bell MD [facility] [address] [facility] [address] [place] [address] 02/10/2023 08:51:12 02/11/2023 10:16:30 Essential hypertension 97516380 I10 Chronic, uncontroll ed. Not currently on any medication s. BP has been elevated at the last two visits. No red flag symptoms. UTD on labs.- <2g sodium per day and 150 minutes moderate intensity exercise per week- Start lisinopril 10 mg qd- Follow up in 2 weeks Type 2 loco betes mellitus 67440994 E11.9 Chronic, managed with jardiance. UTD on BMP and urine albumin. A1C 11.4 today.- Start lantus 10 U qd- Increase jardiance to 25 mg qd- Monitor glucose at home- Annual eye exams advised- Low carb diet and 150 minutes moderate intensity exercise per week- Fu in 2 weeks Health Concerns Section Related Observation LastModified by Organization Detai ls LastModified Time None Recorded Concern Status LastModified by Organization Details LastModified Time None Recorded Advance Directives Directive None Recorded Payers Encounter Date Sequence Insurance Name Policy Number Policy Zhong Covered Member ID Zhong Member ID Guarantor Name 04/07/2022 2 *SELF PAY* Vi ncent Jose Roberto 04/07/2022 1 [employer] [id number] Vincent Jose Roberto [id number] Vincent Jose Roberto 05/25/2022 2 *SELF PAY* Vi ncent Jose Roberto 05/25/2022 1 [employer] [id number] Vincent Jose Roberto [id number] Vincent Jose Roberto 07/28/2022 2 *SELF PAY* Vi ncent Jose Roberto 07/28/2022 1 [employer] [id number] Vincent Jose Roberto [id number] Vincent Jose Roberto 01/05/2023 2 *SELF PAY* Vi ncent Jose Roberto 01/05/2023 1 [employer] [id number] Vincent Jose Roberto [id number] Vincent Jose Roberto 02/10/2023 2 *SELF PAY* Vi ncent Jose Roberto 02/10/2023 1 [employer] [id number] Vincent Jose Roberto [id number] Vincent Jose Roberto Notes Date Note Type Note Provider Name and Address Organization Details Recorded Time 04/07/2022 text/html 56 yo M here for fu of DM and HTN. Pt states he has been out of all medications for the last few months. Denies any ADAM, vision changes, chest pain, SOB, or heart palpitations. Pt does not check BP or blood sugar at home.Pt denies any changes in appetite, increased thirst, or increased urinary urgency or frequency. Julia Sanford DO Attn: Accounting,[address] [facility], [place], [address], [facility] 04/21/2022 10:31:03 05/25/2022 text/html Fu for T2DM. Pt states fasting glucose in 150s. No episodes of confusion, fatigue, diaphoresis, jitteriness, or documented hypoglycemia. No chest pain, SOB, palpitations, ADAM, or vision changes.No hx of colon ca screening. No family hx of colon ca. No abdominal pain, hematochezia, melena, or N/V/C/D.Pt's states he has trouble falling asleep and will toss and turn for an hour before falling asleep. Pt states he has been this way for years. Watches tv before bed but doesn't have any caffeine in the evenings. Alphonso Olivares MD Attn: Accounting,[address] [facility], [place], [address], [facility] 06/16/2022 10:09:59 07/28/2022 text/html 57 yo here for f u of diabetes. Pt states he has only been on jardiance since his last visit. Unsure why he stopped his insulin or januvia. Glucose at home has been 120s-130s. No episodes of lightheadedness, confusion, diaphoresis, or documented hypoglycemia. Pt tolerating statin well and denies any myalgias. Alphonso Olivares MD Attn: Accounting,[address] [facility], [place], [address], [facility] 08/03/2022 08:22:37 01/05/2023 text/html HeadacheReported bypatient.Location:ban d around head Quality:3-4x weekly Severity:pain level 05/19 Alleviating factors:OTC medication (Tylenol); Steroid 7d pack helped briefly. MRI/MRA Brain scheduled for January 2023 - ordered by Dr. Puga (Neurology). CONNOR DHILLON MD Attn: Accounting,[address] [facility], [place], [address], [facility] 01/14/2023 10:23:37 02/10/2023 text/html Pt here for fu o f HTN and DM. Pt denies urinary frequency, urgency, increased thirst, appetite changes, or episodes of confusion, lightheadedness, shakiness, or diaphoresis. Pt denies ADAM, vision changes, chest pian, palpitations, SOB, or increased LE edema. Tyson Bell MD Attn: Accounting,[address] [facility], [place], [address], [facility] 02/15/2023 09:42:46
--- OUTSIDE RECORDS SUMMARY | 2024-11-16 11:19 | XMS_ITS | Referral Summary ---
Author Organization [facility] Address [address] [place] [address] Care Team Providers Care Golf Stud Riveter Name Role Phone Arturo Carrasquillo MD Primary Care Provider [phone] Source Comments [facility],non-owned Affiliates and Associated Physician Practices is amultiple site organization consisting of ambulatory clinics and hospital sitesin [place], [place], [place] and [place]. This disclosure is being madepursuant to the Care Everywhere program and may not contain all information available regarding this patient. 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 Alwaysverify current medications with the patient. Medication Sig Dispensed Refills Start Date End Date Status rosuvastatin (Crestor) 20 MG tablet Take 1 (one) tablet by mouth once daily Active oxyCODONE, immediate release, (Roxicodone) 5 MG tabletIndications :Acute deep vein thrombosis (DVT) of distal vein of left lower extremity (HCC) Take 1 (one) tablet by mouth every 4 hours as needed 12 tablet 07/06/2024 Active apixaban (Eliquis) 5 MG tablet Take 1 (one) tablet by mouth 2 times daily 60 tablet 1 07/06/2024 Active losartan (Cozaar) 50 MG tablet Take 1 (one) tablet by mouth once daily 30 tablet 07/07/2024 Active OneTouch Ultra Test test strip Use 1 (one) strip 3 times daily Active vitamin D3 (Cholecalciferol) 25 MCG (1000 UNITS) tablet Take 1 (one) tablet by mouth once daily Active lancets Use 3 times daily 06/01/2024 Active insulin glargine (Lantus SoloStar) pen Inject 23 (twenty three) Units subcutaneously at bedtime 15 mL 07/13/2024 Active Active Problems Problem Noted Date Diagnosed Date Left leg pain 07/05/2024 Acute deep vein thrombosis ( DVT) of distal vein of left lower extremity 07/05/2024 Other hyperlipidemia 07/05/2024 Other acute pulmonary embolism with acute cor [place] 12/30/2023 Insulin dependent type 2 diabetes mellitus 12/29 Essential (primary) hypertension 12/30/2023 DVT (deep venous thrombosis) 12/30/2023 Immunizations Name Administration Dates Next Due TDAP (7yrs+) 09/21/2018 Social History Tobacco Use Types Packs/Day Years Used Date Smoking Tobacco: Former Cigarettes Smokeless Tobacco: Never Tobacco Cessation:Counseling Given: Not Answered Alcohol Use Standard Drinks/Week Comments Not Currently 0 (1 standard drink = 0.6 oz pur e alcohol) Sex and Gender Information Value Date Recorded Sex Assigned at Not on file Gender Identity Not on file Sexual Orientation Not on file Last Filed Vital Signs Vital Sign Reading Time Taken Comments Blood Pressure 127/84 07/13/2024 2:17 PM CDT Pulse 100 07/13/2024 2:17 PM CDT Temperature 36.4 C (97.5 F) 07/13/2024 2:17 PM CDT Respiratory Rate 20 07/13/2024 2:17 PM CDT Oxygen Saturation 96% 07/13/2024 2:17 PM CDT Inhaled Oxygen Concentration 30% 10:50 PM CDT Weight 116.7 kg (257 lb 3.2 oz) 07/13/2024 2:17 PM CDT Height 180.3 cm (5' 11 ) 07/13/2024 2:17 PM CDT Body Mass Index 35.87 07/13/2024 2:17 PM CDT Plan of Treatment Not on file Procedures Procedure Name Priority Date/Time Associated Diagnosis Comments BASIC METABOLIC PANEL (CALCIUM TOTAL) AM Draw 07/06/2024 5:46 AM CDT Insulin dependent type 2 diabetes mellitus (HCC) HEMOGLOBIN A1C Routine 12/31/2023 11:29 AM CDT from Last 3 Months or Most Recently Relevant to Health Maintenance Results * (ABNORMAL) BASIC METABOLIC PANEL (CALCIUM TOTAL) (07/06/2024 5:46 AM CDT) BUN 11 7 - 26 mg/dL 07/06/2024 6:17 AM [facility] Creatinine 1.10 0.71 - 1.16 mg/dL 07/06/2024 6:17 AM [facility] Sodium 135(L) 136 - 145 mmol/L 07/06/2024 6:17 AM [facility] Potassium 4.0 3.5 - 4.5 mmol/L 07/06/2024 6:17 AM [facility] Chloride 107 98 - 107 mmol/L 07/06/2024 6:17 AM [facility] CO2 22 22 - 29 mmol/L 07/06/2024 6:17 AM [facility] Glucose 243(H) 70 - 115 mg/dL 07/06/2024 6:17 AM [facility] Calcium 9.2 8.4 - 10.2 mg/dL 07/06/2024 6:17 AM [facility] Anion Gap 6 6 - 16 07/06/2024 6:17 AM [facility] BUN/Creatinine Ratio 10 7 - 23 07/06/2024 6:17 AM [facility] Osmolality Calculated 287 275 - 295 mOsm/kg 07/06/2024 6:17 AM [facility] eGFR by CKD-EPI 79(L) >=90 mL/min/1.7 3 m2 07/06/2024 6:17 AM [facility] Blood BLOOD SPECIMEN / Unknown Venipuncture / Unknown 07/06/2024 5:46 AM CDT 07/06/2024 5:53 AM CDT Joshua Winter DO LAB - CHEMISTRY [facility] [address] [place] [address], [facility] [phone] * (ABNORMAL) HEMOGLOBIN A1C (12/31/2023 11:29 AM CDT) Hemoglobin A1c 10.7(H) <=5.6 % 01/01/2024 11:52 AM CDT [facility] Estimated Average Glucose 260 mg/dL 01/01/2024 11:52 AM CDT [facility] Comment: HbA1c Interpretation: Normal : < 5.7% Pre-diabetes: 5.7-6.4% Diabetes: Equal to or greater than 6.5% Test results diagnostic of diabetes should be repeated for confirmation. Treatment target values recommended by ADA and other clinical organizations should be used to evaluate metabolic control in patients. Reference: English Diabetes Association, Standards of Care in Diabetes -2020 In patients 70 years and older consider HbA1c target range of 7.0-7.5% (Reference: Kiran Grimaldo et al. JAMDA. 2012) The Sebia assay for the measurement of HbA1c is a National Glycohemoglobin Standardization Program (NGSP) certified method. Blood BLOOD SPECIMEN / Unknown Lab Venipuncture / Unknown 12/31/2023 11:29 AM CDT 12/31/2023 11:57 AM CDT Klever Jurado MD LAB - CHEMISTRY [facility] Organization Address City/State/ZIP Co de Phone Number [facility] [address] [place] [address], [facility] [phone] from Last 3 Months or Most Recently Relevant to Health Maintenance Advance Directives * Full Code (Latest Code Status on File) Date Activated Date Inactivated Comments 07/05/2024 10:48 AM 07/06/2024 12:06 PM * Full Code Date Activated Date Inactivated Comments 12/30/2023 6:29 PM 01/04/2024 12:35 PM Care Teams Golf [employer] Riveter Relationship Specialty Start Date End Date Sajid, Arturo, MD [address] [place] [address] [address] [place] [address] PCP - General Family Medicine 01/11/24
--- OUTSIDE RECORDS SUMMARY | 2024-11-16 11:19 | XMS_ITS | CONTINUITY OF CARE DOCUMENT ---
Author Name stacielaurarigobertomichele Address Unknown Organization [facility] Address [address] [place] [address] Phone [phone] Care Team Providers Care Inspector [employer] Name Role Phone Marco Antonio Govea MD Unavailable JENS URIBE MD Unavailable [phone] JENS URIBE MD Unavailable [phone] PROBLEMS Condition Status Date Provider Notes Hyperlipidemia active Melo Villafana Diabetes mellitus, type 2 active Melo montemayor Chest pain active Melo Villafana Shortness of breath-echo ef nl, 12/2023 active Marco Antonio Govea MD Pulmonary embolism active Marco Antonio Govea MD Sleep apnea, moderate, not using cpap active 6 Melo Villafana Essential Hypertension active Marco Antonio Govea MD DVT, LLE active Marco Antonio Govea MD Dizziness active Marco Antonio Govea MD Syncope active Marco Antonio Govea MD ENCOUNTERS Date Type Provider Location Encounter Diag nosis - In-person encounter Office Visit Marco Antonio Govea MD [facility] Sleep apnea, moderate, not using cpapEssential Hypertension - In-person encounter Office Visit Marco Antonio Govea MD [facility] Shortness of breath-echo ef nl, 12/2023Sleep apnea, moderate, not using cpapDVT, LLE - In-person encounter Office Visit Marco Antonio Govea MD [facility] Pulmonary embolismSyncopeDizzinessSleep apnea, moderate, not using cpap VITAL SIGNS Date Observation Value Provider Body Mass Index (Ratio) 36.40 kg/m2 Brad Govea MD blood pressure, diastolic 94 mm[Hg] Ja rret blood pressure, systolic 147 mm[Hg] Jar ret pulse rate 92 /min Bharat blood pressure, cuff size regular Ja rr oxygen saturation, oximetry 96 % Bharat respiratory rate E&M 16 /min Bharat weight E&M 261 [lb_av] Bharat y height E&M 71 [in_i] [facility] y Body Mass Index (Ratio) 35.84 kg/m2 Brad Govea MD blood pressure, diastolic 84 mm[Hg] Rosa M Hussein blood pressure, systolic 134 mm[Hg] Freda Hussein pulse rate 84 /min Keiko Hussein oxygen saturation, oximetry 97 % Keiko Hussein weight E&M 257 [lb_av] Keiko Hussein blood pressure, cuff size large An joey Hussein height E&M 71 [in_i] Keiko Hussein Body Mass Index (Ratio) 34.86 kg/m2 Brad Govea MD blood pressure, diastolic 85 mm[Hg] Kasia nkLogjunior blood pressure, systolic 128 mm[Hg] Ailyn kLogic blood pressure, cuff size regular Ja rret blood pressure, diastolic 85 mm[Hg] Ja rret blood pressure, systolic 128 mm[Hg] Jar clovis pulse rate 105 /min height E&M 71 [in_i] y oxygen saturation, oximetry 94 % respiratory rate E&M 16 /min weight E&M 250 [lb_av] y ALLERGIES Allergy Name Onset Date Reaction Criticality Status JARDIANCE yeast infection yeast infection High Criticality active PEANUTS Low Criticality active HISTORY OF MEDICATION USE Medication Status Instructions Dates Provider Indications Com ments losartan 25 mg tablet active Take 1 tablet by mouth once a day 2 Melo Villafana Lantus Solostar U-100 Insulin 100 unit/mL (3 mL) insulin pen active INJECT 20 units EVERY DAY Melo Villafana rosuvastatin 20 mg tablet active TAKE ONE TABLET BY MOUTH AT BEDTIME TO LOWER CHOLESTEROL Melo Villafana atorvastatin 40 mg tablet completed TAKE ONE TABLET BY MOUTH EVERY DAY (TO LOWER CHOLESTEROL) - 6 Melo Villafana lisinopril 10 mg tablet completed TAKE ONE TABLET BY MOUTH EVERY DAY - 7 Melo Villafana Jardiance 25 mg tablet completed TAKE ONE TABLET BY MOUTH EVERY DAY - 2 Melo Villafana Eliquis 5 mg tablet active TAKE TWO Tablets BY MOUTH TWICE DAILY FOR 12 doses, THEN TAKE ONE Tablet BY MOUTH TWICE DAILY Melo Villafana SOCIAL HISTORY Date Observation Value Provider smoking status Never smoker Melo Villafana smoking status Never smoker Melo Villafana smoking status Never smoker INSURANCE PROVIDERS Payer name Policy type / Coverage type [place] red democrat ID [facility] Hands Commercial insurance co poly [id number] ADVANCE DIRECTIVES Name Date DISCUSSED - NO DECISION MADE TREATMENT PLAN Date Name Performer Telehealth: H is updated medication list for this problem includes: Losartan 25 Mg Tablet (Losartan) ..... Take 1 tablet by mouth once a day Lantus Solostar U-100 Insulin 100 Unit/ml (3 Ml) Insulin Pen (Insulin glargine) ..... Inject 20 units every day [facility] Telehealth: H is updated medication list for this problem includes: Rosuvastatin 20 Mg Tablet (Rosuvastatin) ..... Take one tablet by mouth at bedtime to lower cholesterol [facility] Telehealth: H is updated medication list for this problem includes: Losartan 25 Mg Tablet (Losartan) ..... Take 1 tablet by mouth once a day [facility] Telehealth: H is updated medication list for this problem includes: Losartan 25 Mg Tablet (Losartan) ..... Take 1 tablet by mouth once a day [facility] Cardiology:This visi t has been a part of the consistent, comprehensive, and ongoing management of the chronic medical condition(s) listed above for the patient. His updated medication list for this problem includes: Losartan 25 Mg Tablet (Losartan) ..... Take 1 tablet by mouth once a day Marco Antonio Govea MD Cardiology: H is updated medication list for this problem includes: Rosuvastatin 20 Mg Tablet (Rosuvastatin) ..... Take one tablet by mouth at bedtime to lower cholesterol [facility] Cardiology: H is updated medication list for this problem includes: Lantus Solostar U-100 Insulin 100 Unit/ml (3 Ml) Insulin Pen (Insulin glargine) ..... Inject 20 units every day [facility] Cardiology: H is updated medication list for this problem includes: Losartan 25 Mg Tablet (Losartan) ..... Take 1 tablet by mouth once a day [facility] Melokristina Rodriguezza Cardiology Melo Jenniferza Cardiology Melo Sly Cardiology [facility] Sly Cardiology: O rders: C omplete Echo (12014) [facility]: O rders: E KG (CPT-59338) C omplete Echo (85199) [facility]: H is updated medication list for this problem includes: Lantus Solostar U-100 Insulin 100 Unit/ml (3 Ml) Insulin Pen (Insulin glargine) ..... Inject 10 units every day at bedtime Lisinopril 10 Mg Tablet (Lisinopril) ..... Take one tablet by mouth every day Jardiance 25 Mg Tablet (Empagliflozin) ..... Take one tablet by mouth every day [facility]:on Eliqui s Orders: V enous Doppler Bilateral LE (CPT-65607) [facility] Cardiology: Rosuvastatin 20 Mg Tablet (Rosuvastatin) ..... Take one tablet by mouth at bedtime to lower cholesterol [facility]:no recurrence Melo kerr Date Name Venous Doppler Bilat eral LE Sleep Study Home Complete Echo HISTORY OF PROCEDURES Procedure Date Procedure Name Provider Procedure Notes S tatus Complex e/m visit add on Marco Antonio Govea MD completed EKG Marco Antonio Govea MD completed
--- OUTSIDE RECORDS SUMMARY | 2024-11-16 11:19 | XMS_ITS | Referral Summary ---
Author Organization [address] Address [address] [address] Care Team Providers Care Vacation Guide Name Role Phone Arturo Carrasquillo MD Primary Care Provider [phone] Joseph Cortes MD Unavailable [phone] Encounters Date Type Department Care Team Description 11/12/2024 12:45 PM LOADER UNLOADER Office Visit [facility] Diabetes and Endocrinology [address] [place] [phone] Severino Martinez MD Type 2 diabetes mellitus with hyperglycemia, with long-term current use of insulin (HCC) (Primary Dx); Hyperlipidemia associated with type 2 diabetes mellitus (HCC); Class 2 severe obesity due to excess calories with serious comorbidity and body mass index (BMI) of 37.0 to 37.9 in adult (HCC); Hypertension associated with diabetes (HCC) 11/09/2024 Telephone [facility] Diabetes and Endocrinology [address] [place] [phone] Severino Martinez MD Appointment Pre registration 09/10/2024 3:15 PM LOADER UNLOADER Office Visit [facility] Diabetes and Endocrinology [address] [place] [phone] Severino Martinez MD Type 2 diabetes mellitus with hyperglycemia, with long-term current use of insulin (HCC) (Primary Dx); Yeast infection; Hyperlipidemia associated with type 2 diabetes mellitus (HCC); Class 2 severe obesity due to excess calories with serious comorbidity and body mass index (BMI) of 36.0 to 36.9 in adult ([facility]) from Last 3 Months Allergies Active Allergy Reactions Criticality Noted Date Comments Empagliflozin Other (See comments) High 04/30/2024 Tree Nuts Anaphylaxis High 12/30/2023 Unclassified Drug Other (See comments),Palpitations, Shortness of breath High 04/24/2015 Breathing Difficulty Medications Eliquis 5 mg tablet TAKE TWO TABLETS BY MOUTH TWICE DAILY FOR SIX DAYS, THEN decrease TO TAKE ONE Tablet BY MOUTH TWICE DAILY Active blood glucose diagnostic (glucose blood) stripIndication s:Type 2 diabetes mellitus with hyperglycemia, with long-term current use of insulin ([facility]) Check blood sugar 3 times a day 200 each 11 4 Active lancets miscIndications :Type 2 diabetes mellitus with hyperglycemia, with long-term current use of insulin ([facility]) Check blood sugar 3 times daily 200 each 3 4 Active nystatin creamIndication s:Yeast infection Apply topically 2 (two) times a day On affected area for 14 days 30 g 4 Active pen needle, diabetic (BD Ultra-Fine Joan Pen Needle) 32 gauge x 5/32 needleIndicatio ns:Type 2 diabetes mellitus with hyperglycemia, with long-term current use of insulin ([facility]) One each daily 100 each 3 4 Active glipiZIDE (GLUCOTROL) 10 mg tabletIndicatio ns:type 2 diabetes mellitus Take 1 tablet (10 mg total) by mouth 2 (two) times a day before breakfast and dinner 180 tablet 3 5 11/12/19 26 Active insulin glargine (LANTUS) 100 unit/mL (3 mL) pen for injectionIndica tions:Type 2 diabetes mellitus with hyperglycemia, with long-term current use of insulin ([facility]) Inject 25 Units under the skin daily 22.5 mL 3 5 11/12/19 26 Active losartan (COZAAR) 50 mg tabletIndicatio ns:Hypertension associated with diabetes ([facility]) Take 1 tablet (50 mg total) by mouth daily 90 tablet 3 5 11/12/19 26 Active rosuvastatin (CRESTOR) 20 mg tabletIndicatio ns:Hyperlipidem ia associated with type 2 diabetes mellitus (HCC) Take 1 tablet (20 mg total) by mouth daily 90 tablet 3 5 11/12/19 26 Active rosuvastatin (CRESTOR) 20 mg tablet Take 1 tablet (20 mg total) by mouth daily 3 11/12/19 25 Discontinu ed(Reorder ) losartan (COZAAR) 50 mg tablet Take 1 tablet (50 mg total) by mouth daily 11/12/19 25 Discontinu ed(Reorder ) glipiZIDE (GLUCOTROL) 10 mg tabletIndicatio ns:type 2 diabetes mellitus Take 1 tablet (10 mg total) by mouth 2 (two) times a day before breakfast and lunch 180 tablet 1 4 11/12/19 25 Discontinu ed(Reorder ) insulin glargine (LANTUS) 100 unit/mL (3 mL) pen for injectionIndica tions:Type 2 diabetes mellitus with hyperglycemia, with long-term current use of insulin (HCC) Inject 30-40 Units under the skin daily 36 mL 1 4 11/12/19 25 Discontinu ed(Reorder ) Active Problems Problem Noted Date Diagnosed Date Type 2 diabetes mellitus wit h hyperglycemia, with long-term current use of insulin 02/22/2024 Assessment & Plan (09/11/2024 12:30 PM LOADER UNLOADER): Chronic, poorly controlled, worsening Hemoglobin A1c 13.3% Goal A1c less than 7% Counseled on diet and exercise Recommend below treatment regimen plan Advised good oral hydration Start taking Glipizide 10 mg oral twice daily with meals Increase Lantus to 30 units daily ( increase by 2-4 units every few days , to keep your fasting blood sugars 110-120 range ( max dose is up to 40 units ) Assessment & Plan (02/22/2024 9:32 PM CDT): Chronic, uncontrolled, slowly improving but still above goal A1c 9.0% Goal A1c at least less than 7% Patient is motivated, recommend to continue to work on consistency with diet and exercise Stop Jardiance due penile infections Increase Lantus to 16 units SQ daily ( go up to 20 units if morning blood sugars over 150 ) - start Rybelsus 3 mg oral daily before breakfast - for 30 days , After 30 days increase to 7 mg oral daily Recommend to make eye exam appointment Yeast infection 02/22/2024 Assessment & Plan (02/22/2024 9:30 PM CDT): Chronic, uncontrolled, worsening Stop Jardiance Start fluconazole 150 mg type 1 dose Nystatin cream Advised good oral hydration Hyperlipidemia associated with type 2 diabetes m ellitus 02/22/2024 Assessment & Plan (09/11/2024 12:31 PM LOADER UNLOADER): Continue statin therapy Assessment & Plan (02/22/2024 9:30 PM CDT): Continue statin therapy Class 2 severe obesity due t o excess calories with serious comorbidity and body mass index (BMI) of 36.0 to 36.9 in adult 02/22/2024 Assessment & Plan (09/11/2024 12:31 PM LOADER UNLOADER): Chronic, worsening Discussed about healthy lifestyle habits advise to work on healthy diet, avoid processed foods , increase vegetables and protein and cut back on carb portions and also avoid fruit juices and regular soda and desserts Increase physical activity , recommend at least 150 min of aerobic activity per week and include resistance training 2 x weekly Assessment & Plan (02/22/2024 9:29 PM CDT): Counseled on healthy lifestyle habits Discussed about healthy diet and exercise Social History Tobacco Use Types Packs/Day Years Used Date Smoking Tobacco: Never Smokeless Tobacco: Never Tobacco Cessation:Counseling Given: Not Answered PHQ-2 Answer Date Recorded PHQ-2 Total Score (If total score is 3 or more points, staff should administer the PHQ-9) 0 02/22/2024 Sex and Gender Information Value Date Recorded Sex Assigned at Not on file Legal Sex Male 3:36 PM LOADER UNLOADER Gender Identity Not on file Sexual Orientation Not on file Last Filed Vital Signs Vital Sign Reading Time Taken Comments Blood Pressure 138/88 11/12/2024 12:49 PM LOADER UNLOADER Pulse 77 11/12/2024 12:49 PM LOADER UNLOADER Temperature 36.4 C (97.5 F) 05/26/2021 2:36 PM CDT Respiratory Rate 15 11/12/2024 12:49 PM LOADER UNLOADER Oxygen Saturation 98% 05/26/2021 2:36 PM CDT Inhaled Oxygen Concentration - - Weight 120.7 kg (266 lb) 11/12/2024 12:49 PM LOADER UNLOADER Height 180.3 cm (5' 11 ) 11/12/2024 12:49 PM LOADER UNLOADER Body Mass Index 37.1 11/12/2024 12:49 PM LOADER UNLOADER Plan of Treatment Not on file Procedures Procedure Name Priority Date/Time Associated Diagnosis Comments POCT HEMOGLOBIN A1C Routine 11/12/2024 1 2:53 PM LOADER UNLOADER Type 2 diabetes mellitus with hyperglycemia, with long-term current use of insulin (HCC) POCT GLUCOSE Routine 11/12/2024 12:51 PM LOADER UNLOADER Type 2 diabetes mellitus with hyperglycemia, with long-term current use of insulin (HCC) POCT HEMOGLOBIN A1C Routine 09/10/2024 3 :26 PM LOADER UNLOADER Type 2 diabetes mellitus with hyperglycemia, with long-term current use of insulin (HCC) POCT GLUCOSE Routine 09/10/2024 3:26 PM LOADER UNLOADER Type 2 diabetes mellitus with hyperglycemia, with long-term current use of insulin (HCC) EGFR Routine 02/22/2024 3:36 PM CDT Type 2 diabetes mellitus with hyperglycemia, with long-term current use of insulin (HCC) LIPID PANEL Routine 02/22/2024 3:36 PM CDT Type 2 diabetes mellitus with hyperglycemia, with long-term current use of insulin (HCC) Hyperlipidemia associated with type 2 diabetes mellitus (HCC) ALBUMIN CREATININE RATIO, URINE Routine 02/22/2024 3:36 PM CDT Type 2 diabetes mellitus with hyperglycemia, with long-term current use of insulin (HCC) from Last 3 Months or Most Recently Relevant to Health Maintenance Results * POCT hemoglobin A1c (11/12/2024 12:53 PM LOADER UNLOADER) Hemoglobin A1C, POC 10.3 4.0 - 5.6 % Blood 11/12/2024 12:5 3 PM LOADER UNLOADER Result [facility] Severino Thrasher MD POINT OF CARE TEST ORDERABLES Final Result * POCT glucose (11/12/2024 12:51 PM LOADER UNLOADER) Glucose Blood, POC 152 mg/dL Blood 11/12/2024 12:5 1 PM LOADER UNLOADER Result [facility] Severino Thrasher MD POINT OF CARE TEST ORDERABLES Final Result * POCT hemoglobin A1c (09/10/2024 3:26 PM LOADER UNLOADER) Hemoglobin A1C, POC 13.3 4.0 - 5.6 % Blood 09/10/2024 3:26 PM LOADER UNLOADER Result [facility] Severino Thrasher MD POINT OF CARE TEST ORDERABLES Final Result * POCT glucose (09/10/2024 3:26 PM LOADER UNLOADER) Glucose Blood, POC 282 mg/dL Blood 09/10/2024 3:26 PM LOADER UNLOADER Result [facility] Severino Thrasher MD POINT OF CARE TEST ORDERABLES Final Result * eGFR (02/22/2024 3:36 PM CDT) eGFR 75 >=60 mL/min/1. 73 m2 Comment: Interpretive Data Reference Interval Normal >/= 90 mL/min/1.73m2 Mildly decreased* 60 - 89 mL/min/1.73m2 Mildly to moderately decreased 45 - 59 mL/min/1.73m2 Moderately to severely decreased 30 - 44 mL/min/1.73m2 Severely decreased 15 - 29 mL/min/1.73m2 Kidney Failure < 15 mL/min/1.73m2 *Relative to young adult level Estimated glomerular filtration rate is determined by the 2020 CKD-EPI equation recommended by the National Kidney Foundation (A Unifying Approach to GFR Estimation: Recommendations of the NKF-ASK Task Force on Reassessing the Inclusion of Race in Diagnosing Kidney Disease, ADASMartine 2020). The CKD-EPI equation should not be used for patients with unstable renal function and has not been validated in children and those over 70. Current interpretive data was last reviewed 2021. Blood 02/22/2024 3:36 PM CDT 02/22/2024 8:49 PM CDT Severino Thrasher MD LAB BLOOD ORDERABLE S Final Result Performing Organization Address [facility] Co de Phone Number VIVIEN [phone] [employer] [place], [place] [phone] * Albumin Creatinine Ratio, Urine (02/22/2024 3:36 PM CDT) Albumin Ur <12.0 mg/L Comment: Interpretive Data No reference range established. Current interpretive data was last revised 2019. Creatinine Ur 92.5 mg/dL VIVIEN BRICE Comment: Interpretive Data No reference range established. Current interpretive data was last revised 2019. Albumin Creatinine Ratio, Ur <13 1 - 29 mg/g VIVIEN Urine 02/22/2024 3:36 PM CDT 02/22/2024 8:14 PM CDT Severino Thrasher MD LAB URINE ORDERABLE S Final Result Performing Organization Address [facility] Co de Phone Number VIVIEN [id number] [place] [address] * (ABNORMAL) Lipid panel (02/22/2024 3:36 PM CDT) Cholesterol 202(H) 30 - 199 mg/dL Comment: Interpretive Data Ages < or = 19 years Acceptable: <170 mg/dL Borderline high: 170-199 mg/dL High: >or= 200 mg/dL Ages > or = 20 years Desirable: <200 mg/dL Borderline high: 200-239 mg/dL High: >or= 240 mg/dL Literature References: 1. Expert Panel on Integrated Guidelines for Cardiovascular Health and Risk Reduction in Children and Adolescents. Pediatrics 2011;128:S213 2. NCEP Expert Panel. Circulation 2003;110:227 Current Interpretive Data was last revised on 2018. Triglycerides 214(H) <=149 mg/dL VIVIEN Comment: Interpretive Data Ages < or = 9 years Acceptable: <75 mg/dL Borderline high: 75-99 mg/dL High: >or= 100 mg/dL Ages 10 to 20 years Acceptable: <90 mg/dL Borderline high: 90-129 mg/dL High: >or= 130 mg/dL Ages > or = 20 years Desirable: <150 mg/dL Borderline high: 150-199 mg/dL High: 200-499 mg/dL Very high: >or= 499 mg/dL Literature References: 1. Expert Panel on Integrated Guidelines for Cardiovascular Health and Risk Reduction in Children and Adolescents. Pediatrics 2011;128:S213 2. NCEP Expert Panel. Circulation 2003;110:227 Current Interpretive Data was last revised on 2018. HDL 39(L) >=40 mg/dL VIVIEN Comment: Interpretive Data Ages < or = 19 years Acceptable: >45 mg/dL Borderline low: 40-45 mg/dL Low: <40 mg/dL Ages > or = 20 years Desirable: >or= 60 mg/dL Low: <40 mg/dL Literature References: 1. Expert Panel on Integrated Guidelines for Cardiovascular Health and Risk Reduction in Children and Adolescents. Pediatrics 2011;128:S213 2. NCEP Expert Panel. Circulation 2003;110:227 Current Interpretive Data was last revised on 2018. LDL, calculated 120 <=129 mg/dL VIVIEN Comment: Interpretive Data Ages < or = 19 years Acceptable: <110 mg/dL Borderline high: 110-129 mg/dL High: >or= 130 mg/dL Ages > or = 20 years Optimal: <100 mg/dL Near optimal: 100-129 mg/dL Borderline high: 130-159 mg/dL High: >160 mg/dL Literature References: 1. Expert Panel on Integrated Guidelines for Cardiovascular Health and Risk Reduction in Children and Adolescents. Pediatrics 2011;128:S213 2. NCEP Expert Panel. Circulation 2003;110:227 Current Interpretive Data was last revised on 2018. Non-HDL Cholesterol 163 mg/dL VIVIEN BRICE Comment: Interpretive Data Ages < or = 19 years Acceptable: <120 mg/dL Borderline high: 120-144 mg/dL High: >145 mg/dL Ages > or = 20 years When triglycerides are >200 mg/dL, Non-HDL cholesterol is a secondary target of therapy with treatment goals that are 30 mg/dL greater than the LDL cholesterol target. Literature References: 1. Expert Panel on Integrated Guidelines for Cardiovascular Health and Risk Reduction in Children and Adolescents. Pediatrics 2011;128:S213 2. NCEP Expert Panel. Circulation 2004;110:227 Current Interpretive Data was last revised on 2018. Chol/HDL ratio 5 VIVIEN BRICE Blood 02/22/2024 3:36 PM CDT 02/22/2024 8:14 PM CDT us Supraja Price Thrasher MD LAB BLOOD ORDERABLE S Final Result VIVIEN BRICE [id number] [place] [address] from Last 3 Months or Most Recently Relevant to Health Maintenance Insurance [facility] Care Teams Vacation Guide Relationship Specialty Start Date End Date Arturo Carrasquillo MD [address] [address] PCP - General Emergency Medicine 02/22/24 Joseph Cortes MD [address] [place] [address] Referring Physician Ophthalmology 09/12/24
--- OUTSIDE RECORDS SUMMARY | 2024-11-16 11:19 | XMS_ITS | Clinical Summary ---
Author Organization [facility] Address [address] [place] [address] Care Team Providers Care Mohs Surgeon Name Role Phone Arturo Carrasquillo MD Primary Care Provider [phone] Source Comments [facility],non-owned Affiliates and Associated Physician Practices is amultiple site organization consisting of ambulatory clinics and hospital sitesin [place], [place] and [place]. This disclosure is being madepursuant to the Care Everywhere program and may not contain all information available regarding this patient. Last updated 18.[facility] Allergies Active Allergy Reactions Criticality Noted Date [...] Administration Dates Next Due TDAP (7yrs+) 09/21/2018 Family History Medical History Relation Name Comments Blood Clots Father Diabetes - Type 2 Father Hypertension Father Blood Clots Mother CAD (Coronary Artery Disease) Mother Cancer - Cervical Mother Diabetes - Type 2 Mother Hypertension Mother Relation Name Status Comments Father Mother Social History Tobacco Use Types Packs/Day Years [...] 07/13/2024 2:17 PM CDT Plan of Treatment Health Maintenance Due Date Last Done Comments COLOGUARD (AGES 45-75) - COLON CA SCREENING 1967 COLON MONITORING 1967 COLONOSCOPY - COLON CA SCREENING 1967 CT COLONOGRAPHY - COLON CA SCREENING 1967 Colorectal Cancer Screening 1967 FIT - COLON CA SCREENING 1967 FLEX SIG - COLON CA SCREENING 1967 HIV SCREENING 1982 HEPATITIS C SCREENING 07/20/1985 HEPATITIS B VACCINE (1 of 3 - 19+ 3-dose series) 1986 PNEUMOCOCCAL VACCINE 50+ (1 of 2 - PCV) 1986 PNEUMOCOCCAL VACCINE (1 of 2 - PCV) 1986 ZOSTER VACCINE (1 of 2) 2017 DIABETES RETINOPATHY SCREENING 12/30/2023 DIABETES-FOOT EXAM WITH MONOFILAMENT 12/30/2023 DIABETES-HGB A1C 05/24/2024 02/22/2024, , 12/31/2023 COVID-19 VACCINE ( - 2023- season) 2024 INFLUENZA VACCINE (#1) 2024 DEPRESSION SCREENING 10/10/2024 DIABETES - URINE PROTEIN SCREENING 10/10/2024 DIABETES-SERUM CREATININE 07/06/20252023, 07/05/2024, 06/04/2024, Additional history exists DTAP/TDAP/TD VACCINES (2 - Td or Tdap) 09/21/2028 09/21/2018 HIB VACCINE Aged Out No longer eligi ble based on patient's age to complete this topic HPV VACCINE Aged Out No longer eligi ble based on patient's age to complete this topic MENINGOCOCCAL (Group B) VACCINE Aged Out No longer eligible based on patient's age to complete this topic MENINGOCOCCAL VACCINE Aged Out No niko maria eugenia eligible based on patient's age to complete this topic Procedures Procedure Name Priority Date/Time Associated Diagnosis [...] 7 - 26 mg/dL 07/06/2024 6:17 AM [facility] Creatinine 1.10 0.71 - 1.16 mg/dL 07/06/2024 6:17 AM [facility] Sodium 135(L) 136 - 145 mmol/L 07/06/2024 6:17 AM [facility] Potassium 4.0 3.5 - 4.5 mmol/L 07/06/2024 6:17 AM [facility] Chloride 107 98 - 107 mmol/L 07/06/2024 6:17 AM [facility] CO2 22 22 - 29 mmol/L 07/06/2024 6:17 AM [facility] Glucose 243(H) 70 - 115 mg/dL 07/06/2024 6:17 AM [facility] Calcium 9.2 8.4 - 10.2 mg/dL 07/06/2024 6:17 AM [facility] Anion Gap 6 6 - 16 07/06/2024 6:17 AM [facility] BUN/Creatinine Ratio 10 7 - 23 07/06/2024 6:17 AM [facility] Osmolality Calculated 287 275 - 295 mOsm/kg 07/06/2024 6:17 AM [facility] eGFR by CKD-EPI 79(L) >=90 mL/min/1.7 3 m2 07/06/2024 6:17 AM [facility] Blood BLOOD SPECIMEN / Unknown Venipuncture / Unknown 07/06/2024 5:46 AM CDT 07/06/2024 5:53 AM T Joshua Winter DO LAB - CHEMISTRY [facility] [address] [place] [id number], [facility] [phone] * (ABNORMAL) HEMOGLOBIN A1C (12/31/2023 11:29 AM T) Hemoglobin A1c 10.7(H) <=5.6 % 01/01/2024 11:52 AM [facility] Estimated Average Glucose 260 mg/dL 01/01/2024 11:52 AM CDT [facility] Comment: HbA1c Interpretation: Normal : < 5.7% Pre-diabetes: 5.7-6.4% Diabetes: Equal to or greater than 6.5% Test results diagnostic of diabetes should be repeated for confirmation. Treatment target values recommended by ADA and other clinical organizations should be used to evaluate metabolic control in patients. Reference: [place] [employer] Association, Standards of Care in Diabetes [...] Jurado MD LAB - CHEMISTRY [facility] Organization Address City/State/ZIP Co de Phone Number [facility] [address] [place] [address], [facility] [phone] from Last 3 Months or Most Recently Relevant to Health Maintenance Advance Directives * Full Code (Latest Code Status on File) Date Activated Date Inactivated Comments 07/05/2024 10:48 AM 07/06/2024 12:06 PM * Full Code Date Activated Date Inactivated Comments 12/30/2023 6:29 PM 01/04/2024 12:35 PM Care Teams Mohs Surgeon Relationship Specialty Start Date End Date Arturo Carrasquillo MD [address] [facility] [address] [place] [address] PCP - General Family Medicine 01/11/24
--- OUTSIDE RECORDS SUMMARY | 2024-11-16 11:19 | XMS_ITS | Clinical Summary ---
Author Organization [facility] Address [address] [place] [address] Care Team Providers Care [place] Senator Name Role Phone Arturo Carrasquillo MD Primary Care Provider [phone] Allergies Active Allergy Reactions Criticality Noted Date Comments Peanut Other (See Comments) Low 12/14/2023 Medications insulin glargine (Lantus Solostar U-100 Insulin) 100 unit/mL pen syringe Inject 16 Units by subcutaneous injection daily at bedtime. Active rosuvastatin (CRESTOR) 20 mg tablet Take 20 mg by mouth daily. 3 Active cholecalciferol , vitamin D3, 5,000 unit Take 400 Units by mouth daily. Active apixaban (Eliquis) 5 mg tablet Take 1 Tablet (5 mg) by mouth 2 times daily. 60 Tablet 4 4 Active Active Problems No known active problems Encounters Date Type Department Care Team Description 10/23/2024 External Device Data [facility] ABSTRACTION Provider, Abstract 09/18/2024 Telephone [facility] [place] [address] [place] [address] Marko Parada MD Leg Concerns 09/13/2024 Refill [facility] [address] [place] [address] Marko Parada MD from Last 3 Months Family History Medical History Relation Name Comments Diabetes Father Diabetes Mother Relation Name Status Comments Brother 1 Alive Brother 2 Alive Brother 3 Alive Brother 4 Alive Daughter 1 Alive Daughter 2 Alive Daughter 3 Alive Daughter 4 Alive Daughter 5 Alive Father Mother Sister 1 Alive Sister 2 Alive Son 1 Alive Son 2 Alive Son 3 Alive Son 4 Social History Tobacco Use Types Packs/Day Years Used Date Smoking Tobacco: Never Smokeless Tobacco: Never Tobacco Cessation:Counseling Given: Not Answered Alcohol Use Standard Drinks/Week Comments Never 0 (1 standard drink = 0.6 oz pur e alcohol) Sex and Gender Information Value Date Recorded Sex Assigned at Not on file Legal Sex Male 11:19 AM CDT Gender Identity Not on file Sexual Orientation Not on file Last Filed Vital Signs Vital Sign Reading Time Taken Comments Blood Pressure 136/86 08/03/2024 11:41 AM CDT Pulse 92 08/03/2024 11:41 AM CDT Temperature 36.8 C (98.2 F) 08/03/2024 11:41 AM CDT Respiratory Rate 16 08/03/2024 11:41 AM CDT Oxygen Saturation 97% 08/03/2024 11:41 AM CDT Inhaled Oxygen Concentration - - Weight 115.2 kg (254 lb) 08/03/2024 11:41 AM CDT Height 180.3 cm (5' 11 ) 12/26/2023 10:07 AM CDT Body Mass Index 35.43 12/26/2023 10:07 AM CDT Plan of Treatment Upcoming Encounters Date Type Department Care Team (Late st Contact Info) Description 12/06/2024 3:30 PM COMPLEX CARE NURSE PRACTITIONER Office Visit [facility] [address] [facility] [address] [place] [address] Marko Parada MD [address] [facility] [address] [place] [address] Health Maintenance Due Date Last Done Comments DIABETES ANNUAL RETINAL EXAM 1985 DIABETES MICROALBUMIN ANNUAL SCREEN 1985 LDL CHOLESTEROL ANNUAL 1985 HEPATITIS B VACCINES (1 of 3 - 19+ 3-dose series) 1986 COLORECTAL SCREENING 2012 Colorectal Cancer Screening 2012 FIT-DNA Q 3 years 2012 FIT/FOBT Q 1 year 2012 Flex Sig/CT Colonography Q 5 years 2012 ZOSTER VACCINE (1 of 2) 2017 INFLUENZA VACCINE (#1) 2024 DIABETES HBA1C Q 6 MONTHS 05/12/20252024, 09/10/2024, 02/22/2024, Additional history exists DIABETES ANNUAL FOOT EXAM 09/10/2025 09/10/2024 DTAP/TDAP/TD VACCINES (2 - T d or Tdap) 09/21/2028 09/21/2018 Insurance [facility] [employer] PPO [id number] Care Teams [place]. Senator Relationship Specialty Start Date End Date Arturo Carrasquillo MD [address] [place] [id number] PCP - General Family Practice 12/26/23
--- OUTSIDE RECORDS SUMMARY | 2024-11-16 11:19 | XMS_ITS | Patient Health Summary ---
Author Organization [facility] Address [address] [place] [address] Care Team Providers Care Slope Tender Name Role Phone Arturo Carrasquillo MD Primary Care Provider Note from [facility],non-owned Affiliates and Associated Physician Practices is amultiple site organization consisting of ambulatory clinics and hospital sitesin [place], [place], [place] and [place]. This disclosure is being madepursuant to the Care Everywhere program and may not contain all information available regarding this patient. Last updated 18.[facility] Allergies * Peanut-Derived(Anaphylaxis) -High Criticality * Tree Nuts(Anaphylaxis) -High Criticality Medications * Be aware that medications may not be up to date on this document. Alwaysverify current medications with the patient. * rosuvastatin (Crestor) 20 MG tablet Take 1 (one) tablet by mouth once daily * oxyCODONE, immediate release, (Roxicodone) 5 MG tablet(Started 07/06/2024) Take 1 (one) tablet by mouth every 4 hours as needed * apixaban (Eliquis) 5 MG tablet(Started 07/06/2024) Take 1 (one) tablet by mouth 2 times daily 1 refill by 07/06/2025 * losartan (Cozaar) 50 MG tablet(Started 07/07/2024) Take 1 (one) tablet by mouth once daily * OneTouch Ultra Test test strip Use 1 (one) strip 3 times daily * vitamin D3 (Cholecalciferol) 25 MCG (1000 UNITS) tablet Take 1 (one) tablet by mouth once daily * lancets(Started 06/01/2024) Use 3 times daily * insulin glargine (Lantus SoloStar) pen(Started 07/13/2024) Inject 23 (twenty three) Units subcutaneously at bedtime Active Problems Problem Noted Date Diagnosed Date Left leg pain 07/05/2024 Acute deep vein thrombosis ( DVT) of distal vein of left lower extremity 07/05/2024 Other hyperlipidemia 07/05/2024 Other acute pulmonary embolism with acute cor [place] 12/30/2023 Insulin dependent type 2 diabetes mellitus 12/29 Essential (primary) hypertension 12/30/2023 DVT (deep venous thrombosis) 12/30/2023 Immunizations * TDAP (7yrs+)(Given 09/21/2018) Social History Tobacco Use Types Packs/Day Years [...] Mass Index 35.87 07/13/2024 2:17 PM CDT Procedures * FACTOR V LEIDEN MUTATION PANEL(Performed 07/11/2024) Performed for Acute deep vein thrombosis (DVT) of distal vein of left lower extremity (HCC) * BETA-2 GLYCOPROTEIN 1 ANTIBODY IGG/IGM PANEL(Performed 07/11/2024) Performed for Acute deep vein thrombosis (DVT) of distal vein of left lower extremity (HCC) * CARDIOLIPIN ANTIBODY IGG(Performed 07/11/2024) Performed for Acute deep vein thrombosis (DVT) of distal vein of left lower extremity (HCC) * CARDIOLIPIN ANTIBODY IGA(Performed 07/11/2024) Performed for Acute deep vein thrombosis (DVT) of distal vein of left lower extremity (HCC) * VASCULAR LAB ORDER(Performed 07/09/2024) * CARDIAC EKG ORDER(Performed 07/06/2024) * CARDIOLIPIN ANTIBODY IGM(Performed 07/06/2024) Performed for Acute deep vein thrombosis (DVT) of distal vein of left lower extremity (HCC) * ANTITHROMBIN III ANTIGEN(Performed 07/06/2024) Performed for Acute deep vein thrombosis (DVT) of distal vein of left lower extremity (HCC) * PROTHROMBIN [id number] PANEL(Performed 07/06/2024) Performed for Acute deep vein thrombosis (DVT) of distal vein of left lower extremity (HCC) * ANTITHROMBIN III ACTIVITY(Performed 07/06/2024) Performed for Acute deep vein thrombosis (DVT) of distal vein of left lower extremity (HCC) * GLUCOSE - POINT OF CARE(Performed 07/06/2024) * BASIC METABOLIC PANEL (CALCIUM TOTAL)(Performed 07/06/2024) Performed for Insulin dependent type 2 diabetes mellitus (HCC) * PTT SLH(Performed 07/06/2024) * PT-INR SLH(Performed 07/06/2024) * CBC W AUTO DIFFERENTIAL(Performed 07/06/2024) * GLUCOSE - POINT OF CARE(Performed 07/05/2024) * PTT SLH(Performed 07/05/2024) Performed for Acute deep vein thrombosis (DVT) of distal vein of left lower extremity (HCC) * GLUCOSE - POINT OF CARE(Performed 07/05/2024) * GLUCOSE - POINT OF CARE(Performed 07/05/2024) * PTT SLH(Performed 07/05/2024) Performed for Acute deep vein thrombosis (DVT) of distal vein of left lower extremity (HCC) * GLUCOSE - POINT OF CARE(Performed 07/05/2024) * GLUCOSE - POINT OF CARE(Performed 07/05/2024) * BILL ONLY RFLXD TO PTT RATIO, TREATED(Performed 07/05/2024) Performed for Acute deep vein thrombosis (DVT) of distal vein of left lower extremity (HCC) * BILL ONLY RFLXD TO HEPZYME TREATMENT(Performed 07/05/2024) Performed for Acute deep vein thrombosis (DVT) of distal vein of left lower extremity (HCC) * BILL ONLY THROMBIN TIME(Performed 07/05/2024) Performed for Acute deep vein thrombosis (DVT) of distal vein of left lower extremity (HCC) * BILL ONLY RFLXD TO ANTI-XA QUAL INTERP(Performed 07/05/2024) Performed for Acute deep vein thrombosis (DVT) of distal vein of left lower extremity (HCC) * LUPUS ANTICOAGULANT PANEL W RFLX(Performed 07/05/2024) Performed for Acute deep vein thrombosis (DVT) of distal vein of left lower extremity (HCC) * BETA-2 GLYCOPROTEIN 1 ANTIBODY IGG/IGM PANEL(Performed 07/05/2024) Performed for Acute deep vein thrombosis (DVT) of distal vein of left lower extremity (HCC) * CARDIOLIPIN ANTIBODY IGG/IGM PANEL(Performed 07/05/2024) Performed for Acute deep vein thrombosis (DVT) of distal vein of left lower extremity (HCC) * VEENA BLOOD SCREEN W/REFLEX TITER(Performed 07/05/2024) Performed for Acute deep vein thrombosis (DVT) of distal vein of left lower extremity (HCC) * ANTIPHOSPHOLIPID ANTIBODY PANEL(Performed 07/05/2024) Performed for Acute deep vein thrombosis (DVT) of distal vein of left lower extremity (HCC) * GLUCOSE - POINT OF CARE(Performed 07/05/2024) * PTT SLH(Performed 07/05/2024) * PT-INR SLH(Performed 07/05/2024) * CBC W AUTO DIFFERENTIAL(Performed 07/05/2024) * GLUCOSE - POINT OF CARE(Performed 07/05/2024) * B-TYPE NATRIURETIC PEPTIDE(Performed 07/05/2024) * TROPONIN-I HIGH SENSITIVE BASELINE + 1HR(Performed 07/05/2024) * MAGNESIUM BLOOD(Performed 07/05/2024) * PT-INR SLH(Performed 07/05/2024) * COMPREHENSIVE METABOLIC PANEL(Performed 07/05/2024) * EKG 12-LEAD(Performed 07/05/2024) Performed for Left leg pain * VAS LEFT ARTERIAL DUPLEX LE(Performed 07/04/2024) Performed for Left leg pain * VAS LEFT VENOUS DUPLEX LE(Performed 07/04/2024) Performed for Left leg pain * RENAL FUNCTION PANEL(Performed 01/04/2024) * MAGNESIUM BLOOD(Performed 01/04/2024) * PTT SLH(Performed 01/04/2024) * PT-INR SLH(Performed 01/04/2024) * CBC W AUTO DIFFERENTIAL(Performed 01/04/2024) * GLUCOSE - POINT OF CARE(Performed 01/04/2024) * GLUCOSE - POINT OF CARE(Performed 01/03/2024) * GLUCOSE - POINT OF CARE(Performed 01/03/2024) * GLUCOSE - POINT OF CARE(Performed 01/03/2024) * GLUCOSE - POINT OF CARE(Performed 01/03/2024) * RENAL FUNCTION PANEL(Performed 01/03/2024) * MAGNESIUM BLOOD(Performed 01/03/2024) * PT-INR SLH(Performed 01/03/2024) * CBC W AUTO DIFFERENTIAL(Performed 01/03/2024) * PTT SLH(Performed 01/03/2024) * GLUCOSE - POINT OF CARE(Performed 01/02/2024) * GLUCOSE - POINT OF CARE(Performed 01/02/2024) * PTT SLH(Performed 01/02/2024) * GLUCOSE - POINT OF CARE(Performed 01/02/2024) * GLUCOSE - POINT OF CARE(Performed 01/02/2024) * ECHO COMPLETE W CONTRAST W BUBBLE STUDY(Performed 01/02/2024) Performed for Dyspnea and respiratory abnormalities, Other acute pulmonary embolism with acute cor pulmonale (HCC) * VAS BILATERAL VENOUS DUPLEX LE(Performed 01/02/2024) Performed for Other acute pulmonary embolism with acute cor pulmonale (HCC) * RENAL FUNCTION PANEL(Performed 01/02/2024) * MAGNESIUM BLOOD(Performed 01/02/2024) * PTT SLH(Performed 01/02/2024) * PT-INR SLH(Performed 01/02/2024) * CBC W AUTO DIFFERENTIAL(Performed 01/02/2024) * GLUCOSE - POINT OF CARE(Performed 01/01/2024) * GLUCOSE - POINT OF CARE(Performed 01/01/2024) * GLUCOSE - POINT OF CARE(Performed 01/01/2024) * GLUCOSE - POINT OF CARE(Performed 01/01/2024) * RENAL FUNCTION PANEL(Performed 01/01/2024) * MAGNESIUM BLOOD(Performed 01/01/2024) * PTT SLH(Performed 01/01/2024) * PT-INR SLH(Performed 01/01/2024) * CBC W AUTO DIFFERENTIAL(Performed 01/01/2024) * PTT SLH(Performed 12/31/2023) * GLUCOSE - POINT OF CARE(Performed 12/31/2023) * GLUCOSE - POINT OF CARE(Performed 12/31/2023) * PTT SLH(Performed 12/31/2023) * PSA FREE(Performed 12/31/2023) * HEMOGLOBIN A1C(Performed 12/31/2023) * LIPID PROFILE(Performed 12/31/2023) * RENAL FUNCTION PANEL(Performed 12/31/2023) * MAGNESIUM BLOOD(Performed 12/31/2023) * PT-INR SLH(Performed 12/31/2023) * CBC W AUTO DIFFERENTIAL(Performed 12/31/2023) * GLUCOSE - POINT OF CARE(Performed 12/31/2023) * GLUCOSE - POINT OF CARE(Performed 12/31/2023) * PTT SLH(Performed 12/31/2023) * GLUCOSE - POINT OF CARE(Performed 12/30/2023) * RENAL FUNCTION PANEL(Performed 12/30/2023) * MAGNESIUM BLOOD(Performed 12/30/2023) * PTT SLH(Performed 12/30/2023) * CT ANGIO CHEST PULM EMBOLISM(Performed 12/30/2023) Performed for Dyspnea and respiratory abnormalities * B-TYPE NATRIURETIC PEPTIDE(Performed 12/30/2023) * TROPONIN-I HIGH SENSITIVE REFLEX 1HOUR(Performed 12/30/2023) * EKG 12-LEAD(Performed 12/30/2023) Performed for Other acute pulmonary embolism with acute cor pulmonale (HCC) * PT-INR SLH(Performed 12/30/2023) * TROPONIN-I HIGH SENSITIVE BASELINE + 1HR(Performed 12/30/2023) * COMPREHENSIVE METABOLIC PANEL(Performed 12/30/2023) * CBC W AUTO DIFFERENTIAL(Performed 12/30/2023) * EKG 12-LEAD(Performed 12/30/2023) Performed for Dyspnea and respiratory abnormalities Results * FACTOR V LEIDEN MUTATION PANEL (07/11/2024 3:51 PM CDT) [facility] Factor V Leiden Source Whole Blood 07/16/2024 1:19 PM CDT [employer] ([facility]) Factor V Leiden PCR/FRET Negative 07/16/2024 1:19 PM CDT [employer] ([facility]) Comment: Indication for testing: Assess genetic risk for thrombosis. NEGATIVE: The factor V Leiden variant, c.1601G>A; p.[id number], was not detected. This does not exclude a genetic cause for thrombophilia. If this individual has had a previous venous thromboembolism, this negative result is unlikely to significantly reduce the risk for recurrence; thus, future clinical management to reduce recurrence should not be altered. This result has been reviewed and approved by Naila Johnson M.D., Ph.D. BACKGROUND INFORMATION: Factor V Leiden (F5) R506Q Mutation CHARACTERISTICS: Venous thromboembolism (VTE) is multifactorial caused by a combination of genetic and environmental factors. The Factor V Leiden (FVL) variant is the most common cause of inherited VTEs, accounting for over 90 percent of activated protein C (APC) resistance. Because the FVL variant eliminates the APC cleavage site, factor V is inactivated slower, thus persisting longer in blood circulation, leading to more thrombin production. Other genetic risk factors for VTE include, male sex and variants in antithrombin, protein C, protein S, or factor XIII. Non-genetic risk factors include, age, smoking, prolonged immobilization, malignant neoplasms, surgery, , oral contraceptives, estrogen replacement therapy, tamoxifen and raloxifene therapy. INCIDENCE OF FACTOR V LEIDEN VARIANT: Approximately 5 percent of Caucasians, 2 percent of Hispanics, 1 percent of Americans and 0.5 percent of Asians are heterozygous; homozygosity occurs in 1 in 1500 Caucasians. INHERITANCE: Semi-dominant; both heterozygotes and homozygotes are at increased risk for VTE. PENETRANCE: Lifetime risk of VTE is 10 percent for heterozygotes and 80 percent of homozygotes. CAUSE: The pathogenic gain of function in the F5 gene variant c.1601G>A (p.[id number]). Legacy nomenclature: R506Q (1691G>A) CLINICAL SENSITIVITY: 20-50 percent of individuals with an isolated VTE have the FVL variant. METHODOLOGY: Polymerase chain reaction and fluorescence monitoring. ANALYTICAL SENSITIVITY AND SPECIFICITY: 99 percent. LIMITATIONS: Diagnostic errors can occur due to rare sequence variations. F5 gene mutations, other than p.[id number], will not be detected. This test was developed and its performance characteristics determined by [employer]. It has not been cleared or approved by the US Food and Drug Administration. This test was performed in a CLIA certified laboratory and is intended for clinical purposes. Counseling and informed consent are recommended for genetic testing. Consent forms are available online. Performed By: [facility] [address] [place] [address] Dehairing Machine Tender: Baldev Spence MD, PhD CLIA Number: [id number] Blood BLOOD SPECIMEN / Unknown Lab Venipuncture / Unknown 07/11/2024 3:51 PM CDT 07/11/2024 4:14 PM CDT Joshua Winter DO LAB - COAGULATION OR DERABLES Performing Organization Address [facility] de Phone Number [facility] [employer] [facility]) [address] [place] [address] * CARDIOLIPIN ANTIBODY IGA (07/11/2024 3:51 PM CDT) Cardiolipin Antibody IgA <10 <=11 APL 07/13/2024 6:29 AM CDT [facility] [employer] ([facility]) Comment: INTERPRETIVE INFORMATION: Cardiolipin Antibodies, IgA <=11 APL: Negative 12-19 APL: Indeterminate 20-80 APL: Low to Moderately Positive 81 APL or above: High Positive Performed By: [facility] [address] [place] [address] Dehairing Machine Tender: Baldev Spence MD, PhD CLIA Number: [id number] Blood BLOOD SPECIMEN / Unknown Lab Venipuncture / Unknown 07/11/2024 3:51 PM CDT 07/11/2024 4:13 PM CDT Joshua Winter DO LAB - SEROLOGY ORDER SUZANNE Performing Organization Address [facility] de Phone Number [facility] [employer] ([facility]) [address] * CARDIOLIPIN ANTIBODY IGG (07/11/2024 3:51 PM CDT) Cardiolipin Antibody IgG 14 <=14 GPL 07/13/2024 5:13 PM CDT [facility] [employer] ([facility]) Comment: INTERPRETIVE INFORMATION: Anti-Cardiolipin IgG Ab <=14 GPL: Negative 15-19 GPL: Indeterminate 20-80 GPL: Low to Moderately Positive 81 GPL or above: High Positive The persistent presence of IgG and/or IgM cardiolipin (CL) antibodies in moderate or high levels (greater than 40 GPL and/or greater than 40 MPL units) is a laboratory criterion for the diagnosis of antiphospholipid syndrome (APS). Persistence is defined as moderate or high levels of IgG and/or IgM CL antibodies detected in two or more specimens drawn at least 12 weeks apart (J Throm Haemost. 2006;4:295-306). Lower positive levels of IgG and/or IgM CL antibodies (above cutoff but less than 40 GPL and/or less than 40 MPL units) may occur in patients with the clinical symptoms of APS; therefore, the actual significance of these levels is undefined. Results should not be used alone for diagnosis and must be interpreted in light of APS-specific clinical manifestations and/or other criteria phospholipid antibody tests. Performed By: [facility] [address] [place] [address] Dehairing Machine Tender: Baldev Spnece MD, PhD CLIA Number: [id number] Blood BLOOD SPECIMEN / Unknown Lab Venipuncture / Unknown 07/11/2024 3:51 PM CDT 07/11/2024 4:13 PM CDT Joshua Winter DO LAB - SEROLOGY ORDER SUZANNE [facility] [facility]) [address] [place] [address], [facility] * BETA-2 GLYCOPROTEIN 1 ANTIBODY IGG/IGM PANEL (07/11/2024 3:51 PM CDT) Only the most recent of2 resultswithin the time period is included. Beta-2 Glycoprotein Antibody IgG <10 <=20 SGU 07/14/2024 12:34 AM CDT [facility] [employer] ([facility]) Beta-2 Glycoprotein Antibody IgM <10 <=20 SMU 07/14/2024 12:34 AM CDT [facility] [facility]) Comment: INTERPRETIVE INFORMATION: [id number] I, IgG and IgM Antibody The persistent presence of IgG and/or IgM beta 2 glycoprotein I (B2GPI) antibodies is a laboratory criterion for the diagnosis of antiphospholipid syndrome (APS). Persistence is defined as moderate or high levels of IgG and/or IgM B2GPI antibodies detected in two or more specimens drawn at least 12 weeks apart (J Throm Haemost. 2006;4:295-306). B2GPI results greater than 20 SGU (IgG) and/or SMU (IgM) are considered positive based on the cutoff values established for this test. International reference materials and consensus units for anti-B2GPI antibodies have not been established (Clin Nikky Acta. 2012;413(1-2):358-60; Arthritis Rheum. 2012;64(1):1-10.); results can be variable between different commercial immunoassays and cannot be compared. Strong clinical correlation is recommended for a diagnosis of APS. Low positive IgG and IgM B2GPI antibody levels should be interpreted in light of APS-specific clinical manifestations and/or other criteria phospholipid antibody tests. Performed By: [facility] [address] [place] [address] Dehairing Machine Tender: Baldev Spence MD, PhD CLIA Number: [id number] Blood BLOOD SPECIMEN / Unknown Lab Venipuncture / Unknown 07/11/2024 3:51 PM CDT 07/11/2024 4:13 PM CDT Joshua Winter DO LAB - CHEMISTRY [facility]DE [facility]) [address] [place] [address], [facility] * VASCULAR LAB ORDER (07/09/2024 11:39 AM CDT) Anatomical Region Laterality Modality Other Narrative 07/09/2024 11:39 AM CDT Ordered by an unspecified provider. Scanned Document VASCULAR LAB ORDERAB LES * CARDIAC EKG ORDER (07/06/2024 10:40 AM CDT) Narrative 07/06/2024 10:40 AM CDT Ordered by an unspecified provider. Scanned Document CARDIAC SERVICES ORD ERABLES * PROTHROMBIN [id number] PANEL (07/06/2024 9:40 AM CDT) Prothrombin [id number] Negative 07/11/2024 4:00 PM CDT [employer] ([facility]) Comment: Indication for testing: Assess genetic risk for thrombosis. NEGATIVE: The Factor II, prothrombin [id number] mutation, was not detected. Other causes of elevated prothrombin levels and hereditary forms of venous thrombosis have not been excluded. Recommendations: If clinically indicated, testing for other inherited or acquired thrombophilic disorders is recommended including DNA testing for the factor V Leiden mutation, measurement of total plasma homocysteine concentration, serological assays for anticardiolipin antibodies, multiple phospholipid-dependent coagulation assays for lupus inhibitor, protein C activity, protein S activity or free protein S antigen, and antithrombin activity. This result has been reviewed and approved by Venice Valencia M.D., Ph.D. BACKGROUND INFORMATION: Prothrombin (F2) c.*97G>A (R18911B) Pathogenic Variant CHARACTERISTICS: The Factor II, c.*97G>A (Q17392W) pathogenic variant is a common genetic risk factor for venous thrombosis associated with elevated prothrombin levels leading to increased rates of thrombin generation and excessive growth of fibrin clots. The expression of Factor II thrombophilia is impacted by coexisting genetic thrombophilic disorders, acquired thrombophilic disorders (eg, malignancy, hyperhomocysteinemia, high factor VIII levels), and circumstances including: , oral contraceptive use, hormone replacement therapy, selective estrogen receptor modulators, travel, central venous catheters, surgery, and organ transplantation. INCIDENCE: Approximately 2 percent of Caucasians and 0.3 percent of Americans are heterozygous; homozygosity occurs in 1 in 10,000 individuals. INHERITANCE: Incomplete autosomal dominant. PENETRANCE: The risk of thrombosis is increased 2-4 fold for heterozygotes and further increased for homozygotes. CAUSE: Homozygosity or heterozygosity for F2 c.*97G>A (H63019J). PATHOGENIC VARIANT TESTED: F2 c.*97G>A (K35591B). CLINICAL SENSITIVITY FOR VENOUS THROMBOSIS: Approximately 10 percent. METHODOLOGY: Polymerase chain reaction and fluorescence monitoring. ANALYTICAL SENSITIVITY AND SPECIFICITY: 99 percent. LIMITATIONS: Diagnostic errors can occur due to rare sequence variations. F2 gene variants, other than c.*97G>A (Y30229N), will not be detected. This test was developed and its performance characteristics determined by [employer]. It has not been cleared or approved by the US Food and Drug Administration. This test was performed in a CLIA certified laboratory and is intended for clinical purposes. Counseling and informed consent are recommended for genetic testing. Consent forms are available online. Performed By: [facility] [address] [place] [address] Dehairing Machine Tender: Baldev Spence MD, PhD CLIA Number: [id number] Source PT [id number] PCR Whole Blood 07/11/2024 4:00 PM CDT [employer] ([facility]) Blood BLOOD SPECIMEN / Unknown Venipuncture / Unknown 07/06/2024 9:40 AM CDT 07/06/2024 9:49 AM CDT Joshua Winter DO LAB - COAGULATION OR DERABLES [facility] [employer] [facility]) [address] [place] [address], [facility] * CARDIOLIPIN ANTIBODY IGM (07/06/2024 9:40 AM CDT) Cardiolipin Antibody IgM <10 <=12 MPL 07/08/2024 11:22 PM CDT [employer] [facility]) Comment: INTERPRETIVE INFORMATION: Anti-Cardiolipin IgM <=12 MPL: Negative 13-19 MPL: Indeterminate 20-80 MPL: Low to Moderately Positive 81 MPL or above: High Positive The persistent presence of IgG and/or IgM cardiolipin (CL) antibodies in moderate or high levels (greater than 40 GPL and/or greater than 40 MPL units) is a laboratory criterion for the diagnosis of antiphospholipid syndrome (APS). Persistence is defined as moderate or high levels of IgG and/or IgM CL antibodies detected in two or more specimens drawn at least 12 weeks apart (J Throm Haemost. 2006;4:295-306). Lower positive levels of IgG and/or IgM CL antibodies (above cutoff but less than 40 GPL and/or less than 40 MPL units) may occur in patients with the clinical symptoms of APS; therefore, the actual significance of these levels is undefined. Results should not be used alone for diagnosis and must be interpreted in light of APS-specific clinical manifestations and/or other criteria phospholipid antibody tests. Performed By: [facility] [address] [place] [address] Dehairing Machine Tender: Baldev Spence MD, PhD CLIA Number: [id number] Blood BLOOD SPECIMEN / Unknown Venipuncture / Unknown 07/06/2024 9:40 AM CDT 07/06/2024 9:49 AM CDT Joshua Winter DO LAB - SEROLOGY ORDER SUZANNE Performing Organization Address [facility] Co de Phone Number [employer] [facility]) [address] * (ABNORMAL) ANTITHROMBIN III ANTIGEN (07/06/2024 9:40 AM CDT) Pathologist [facility] AT III Ag % Blood 75(L) 82 - 136 % 07/08/2024 5:25 PM CDT [employer] ([facility]) Comment: Antithrombin may be decreased due to liver disease, acute thrombosis, DIC, heparin therapy, asparaginase therapy, or other causes. In the absence of acquired conditions, the low value may represent a risk factor for thrombosis. If clinically indicated, consider repeat testing on a new specimen for confirmation after acquired conditions have been excluded. A diagnosis of inherited antithrombin deficiency should be established only after other acquired causes of antithrombin deficiency have been excluded (J Thromb Haemost. 2020; 18(1):17-22). REFERENCE INTERVAL: Antithrombin Antigen Access complete set of age- and/or gender-specific reference intervals for this test in the [employer] [facility] Test Directory ([employer]). Performed By: [facility] [address] [place] [address] Dehairing Machine Tender: Baldev Spence MD, PhD CLIA Number: [id number] Blood BLOOD SPECIMEN / Unknown Venipuncture / Unknown 07/06/2024 9:40 AM CDT 07/06/2024 9:49 AM CDT Joshua Winter DO LAB - COAGULATION OR DERABLES Performing Organization Address [facility]/ZIP Co de Phone Number [facility] [employer] ([facility]) [address] * ANTITHROMBIN III ACTIVITY (07/06/2024 9:40 AM CDT) Pathologist [facility] Ill Antithrombin III Activity 91.0 80.0 - 120.0 % 07/06/2024 10:38 AM CDT [facility] Blood BLOOD SPECIMEN / Unknown Venipuncture / Unknown 07/06/2024 9:40 AM CDT 07/06/2024 9:49 AM CDT Narrative [facility] - 07/06/2024 10:38 AM CDT Thrombin inhibitors (i.e., hirudin, argatroban...) present in the sample to be tested may lead to an over-estimation of the AT level. Joshua Winter DO LAB - COAGULATION OR DERABLES [facility] [address] [place] [id number], [facility] [phone] * (ABNORMAL) GLUCOSE - POINT OF CARE (07/06/2024 6:27 AM CDT) Only the most recent of26 resultswithin the time period is included. Glucose WB/POC 216(H) 70 - 115 mg/dL 07/06/2024 7:23 AM [facility] Specimen Type Cap Fingerstick 2023 7:23 AM T [facility] Blood BLOOD SPECIMEN / Unknown 07/06/2024 6:27 AM CDT 07/06/2024 7:23 AM CDT Joshua Winter DO LAB - POINT OF CARE ORDERABLES Performing Organization Address City/[facility]/ZIP Co de Phone Number [facility] [address] [place] [phone], [place] [phone] * (ABNORMAL) PTT [facility] (07/06/2024 5:46 AM CDT) Only the most recent of13 resultswithin the time period is included. APTT 98.3(H) 23.0 - 38.4 Seconds 07/06/2024 6:16 AM T [facility] Comment:Suggested therapeuti c range for full dose I.V. unfractionated heparin therapy for venous thromboembolism is 71 to 109 seconds. Blood BLOOD SPECIMEN / Unknown Venipuncture / Unknown 07/06/2024 5:46 AM CDT 07/06/2024 5:52 AM CDT Jayde Barnett MD LAB - COAGULATION OR DERABLES [facility] [address] [place] [address], [facility] [phone] * PT-INR [facility] (07/06/2024 5:46 AM CDT) Only the most recent of9 resultswithin the time period is included. PT 13.3 12.1 - 14.8 Seconds 07/06/2024 6:16 AM CDT [facility] INR 1.0 See Comment 07/06/2024 6:16 AM CDT [facility] Comment:The suggested therap eutic range for standard coumadin (warfarin) therapy is an INR of 2.0-3.0. For high-risk patients (Mechanical Mitral Valve Prosthesis, etc.), the suggested prophylactic therapeutic range is an INR of 2.5-3.5. Blood BLOOD SPECIMEN / Unknown Venipuncture / Unknown 07/06/2024 5:46 AM CDT 07/06/2024 5:52 AM CDT Jayde Barnett MD LAB - COAGULATION OR DERABLES Performing Organization Address City/[facility] Co de Phone Number [facility] [address] [place] [address], [facility] [phone] * (ABNORMAL) CBC W AUTO DIFFERENTIAL (07/06/2024 5:46 AM CDT) Only the most recent of8 resultswithin the time period is included. WBC 6.8 4.0 - 10.7 x10E9/L 07/06/2024 6:15 AM CDT [facility] RBC Count 5.74 4.30 - 5.80 x10E12/L 07/06/2024 6:15 AM CDT [facility] Hemoglobin 16.1 13.3 - 17.5 g/dL 07/06/2024 6:15 AM CDT [facility] Hematocrit 47.5 38.7 - 51.1 % 07/06/2024 6:15 AM [facility] MCV 82.8 80.0 - 98.0 fL 07/06/2024 6:15 AM [facility] MCH 28.0 26.7 - 33.6 pg 07/06/2024 6:15 AM [facility] MCHC 33.9 31.7 - 36.3 g/dL 07/06/2024 6:15 AM [facility] RDW-CV 12.8 11.3 - 14.8 % 07/06/2024 6:15 AM [facility] Platelet Count 151 150 - 420 x10E9/L 07/06/2024 6:15 AM [facility] MPV 11.7(H) 7.8 - 11.4 fL 07/06/2024 6:15 AM [facility] Neutrophil % 51.5 41.0 - 74.0 % 07/06/2024 6:15 AM [facility] Lymphocyte % 33.9 17.0 - 47.0 % 07/06/2024 6:15 AM [facility] Monocyte % 12.7(H) 3.0 - 11.0 % 07/06/2024 6:15 AM [facility] Eosinophil % 1.2 0.0 - 7.0 % 07/06/2024 6:15 AM [facility] Basophil % 0.4 0.0 - 1.6 % 07/06/2024 6:15 AM [facility] Immature Granulocytes % 0.3 0.0 - 1.0 % 07/06/2024 6:15 AM [facility] Neutrophil Absolute 3.49 1.60 - 7.50 x10E9/L 07/06/2024 6:15 AM [facility] Lymphocyte Absolute 2.30 1.00 - 4.40 x10E9/L 07/06/2024 6:15 AM [facility] Monocyte Absolute 0.86 0.15 - 1.00 x10E9/L 07/06/2024 6:15 AM [facility] Eosinophil Absolute 0.08 0.00 - 0.60 x10E9/L 07/06/2024 6:15 AM [facility] Basophil Absolute 0.03 0.00 - 0.13 x10E9/L 07/06/2024 6:15 AM [facility] Blood BLOOD SPECIMEN / Unknown Venipuncture / Unknown 07/06/2024 5:46 AM CDT 07/06/2024 5:53 AM CDT Jayde Barnett MD LAB - HEMATOLOGY ORD ERABLES [facility] [address] [place] [address], [facility] [phone] * (ABNORMAL) BASIC METABOLIC PANEL (CALCIUM TOTAL) (07/06/2024 5:46 AM T) BUN 11 7 - 26 mg/dL 07/06/2024 6:17 AM [facility] Creatinine 1.10 0.71 - 1.16 mg/dL 07/06/2024 6:17 AM [facility] Sodium 135(L) 136 - 145 mmol/L 07/06/2024 6:17 AM [facility] Potassium 4.0 3.5 - 4.5 mmol/L 07/06/2024 6:17 AM [facility] Chloride 107 98 - 107 mmol/L 07/06/2024 6:17 AM [facility] CO2 22 22 - 29 mmol/L 07/06/2024 6:17 AM [facility] Glucose 243(H) 70 - 115 mg/dL 07/06/2024 6:17 AM [facility] Calcium 9.2 8.4 - 10.2 mg/dL 07/06/2024 6:17 AM [facility] Anion Gap 6 6 - 16 07/06/2024 6:17 AM [facility] BUN/Creatinine Ratio 10 7 - 23 07/06/2024 6:17 AM [facility] Osmolality Calculated 287 275 - 295 mOsm/kg 07/06/2024 6:17 AM [facility] eGFR by CKD-EPI 79(L) >=90 mL/min/1.7 3 m2 07/06/2024 6:17 AM CDT [facility] Blood BLOOD SPECIMEN / Unknown Venipuncture / Unknown 07/06/2024 5:46 AM CDT 07/06/2024 5:53 AM CDT Joshua Winter DO LAB - CHEMISTRY ORDBella ALMANZAJENIFER [facility] [address] [address], [facility] [phone] * BILL ONLY THROMBIN TIME (07/05/2024 10:01 AM CDT) Lab Bill Only Tests For Interface Bill Only 07/09/2024 11:44 PM CDT [facility] ([facility]) Blood BLOOD SPECIMEN / Unknown Venipuncture / Unknown 07/05/2024 10:01 AM CDT 07/05/2024 10:13 AM CDT Joshua Winter DO LAB - COAGULATION OR DERABLES Performing Organization Address City/[facility]/ZIP Co de Phone Number [employer] [facility]) [address] [place] [address] * BILL ONLY RFLXD TO HEPZYME TREATMENT (07/05/2024 10:01 AM CDT) Bill Only HEP Billed 07/09/2024 10:44 PM CDT [employer] ([facility]) Comment: Performed By: [employer] [address] [place] [address] Dehairing Machine Tender: Baldev Spence MD, PhD CLIA Number: [id number] Blood BLOOD SPECIMEN / Unknown Venipuncture / Unknown 07/05/2024 10:01 AM CDT 07/05/2024 10:13 AM CDT Joshua Winter DO LAB - CHEMISTRY ORDE LUCIANO [employer] ([facility]) [address] * BILL ONLY RFLXD TO ANTI-XA QUAL INTERP (07/05/2024 10:01 AM CDT) Bill Only ANTIXA Billed 07/09/20 10:44 PM CDT [employer] ([facility]) Comment: Performed By: [employer] [address] [place] [address] Dehairing Machine Tender: Baldev Spence MD, PhD CLIA Number: [id number] Blood BLOOD SPECIMEN / Unknown Venipuncture / Unknown 07/05/2024 10:01 AM CDT 07/05/2024 10:13 AM CDT [facility] - CHEMISTRY ORDBella ALMANZAJENIFER Performing Organization Address City/[facility]/ZIP Co de Phone Number [facility] [employer] [facility]) [address] [place] [address] * BILL ONLY RFLXD TO PTT RATIO, TREATED (07/05/2024 10:01 AM CDT) Bill Only PTT T Billed 10:44 PM CDT [employer] ([facility]) Comment: Performed By: [employer] [address] [place] [address] Dehairing Machine Tender: Baldev Spence MD, PhD CLIA Number: [id number] Blood BLOOD SPECIMEN / Unknown Venipuncture / Unknown 07/05/2024 10:01 AM CDT 07/05/2024 10:13 AM CDT Joshua Winter DO LAB - CHEMISTRY MAYLIN WOLF Performing Organization Address City/[facility]/ZIP Co de Phone Number [employer] ([facility]) [address] [place] [address] * ANTIPHOSPHOLIPID ANTIBODY PANEL (07/05/2024 10:01 AM CDT) Pathologist [facility] Test Summary APS See Note 07/09/20 10:44 PM CDT [employer] ([facility]) Comment: See individual results for interpretive data. Panel components include Beta-2 Glycoprotein 1 Antibodies, IgG and IgM (7266380); Cardiolipin Antibodies, IgG and IgM ([id number]); and Lupus Anticoagulant Reflex Panel ([id number]). INTERPRETIVE INFORMATION: Antiphospholipid Syndrome Reflex Panel See individual components This test was developed and its performance characteristics determined by [employer]. It has not been cleared or approved by the U.S. Food and Drug Administration. This test was performed in a CLIA-certified laboratory and is intended for clinical purposes. Performed By: [facility] [address] [place] [address] Dehairing Machine Tender: Baldev Spence MD, PhD CLIA Number: [id number] Blood BLOOD SPECIMEN / Unknown Venipuncture / Unknown 07/05/2024 10:01 AM CDT 07/05/2024 10:13 AM CDT Joshua Winter DO LAB - SEROLOGY ORDER SUZANNE [facility] [employer] ([facility]) [address] [place], [place] [phone], [facility] * CARDIOLIPIN ANTIBODY IGG/IGM PANEL (07/05/2024 10:01 AM CDT) Cardiolipin Antibody IgG 13 <=14 GPL 07/06/2024 11:14 PM CDT [facility] [employer] ([facility]) Comment: INTERPRETIVE INFORMATION: Anti-Cardiolipin IgG Ab <=14 GPL: Negative 15-19 GPL: Indeterminate 20-80 GPL: Low to Moderately Positive 81 GPL or above: High Positive The persistent presence of IgG and/or IgM cardiolipin (CL) antibodies in moderate or high levels (greater than 40 GPL and/or greater than 40 MPL units) is a laboratory criterion for the diagnosis of antiphospholipid syndrome (APS). Persistence is defined as moderate or high levels of IgG and/or IgM CL antibodies detected in two or more specimens drawn at least 12 weeks apart (J Throm Haemost. 2006;4:295-306). Lower positive levels of IgG and/or IgM CL antibodies (above cutoff but less than 40 GPL and/or less than 40 MPL units) may occur in patients with the clinical symptoms of APS; therefore, the actual significance of these levels is undefined. Results should not be used alone for diagnosis and must be interpreted in light of APS-specific clinical manifestations and/or other criteria phospholipid antibody tests. Cardiolipin Antibody IgM <10 <=12 MPL 07/06/2024 11:14 PM CDT [facility] ([facility]) Comment: INTERPRETIVE INFORMATION: Anti-Cardiolipin IgM <=12 MPL: Negative 13-19 MPL: Indeterminate 20-80 MPL: Low to Moderately Positive 81 MPL or above: High Positive The persistent presence of IgG and/or IgM cardiolipin (CL) antibodies in moderate or high levels (greater than 40 GPL and/or greater than 40 MPL units) is a laboratory criterion for the diagnosis of antiphospholipid syndrome (APS). Persistence is defined as moderate or high levels of IgG and/or IgM CL antibodies detected in two or more specimens drawn at least 12 weeks apart (J Throm Haemost. 2006;4:295-306). Lower positive levels of IgG and/or IgM CL antibodies (above cutoff but less than 40 GPL and/or less than 40 MPL units) may occur in patients with the clinical symptoms of APS; therefore, the actual significance of these levels is undefined. Results should not be used alone for diagnosis and must be interpreted in light of APS-specific clinical manifestations and/or other criteria phospholipid antibody tests. Performed By: [employer] [address] [place] [address] Dehairing Machine Tender: Baldev Spence MD, PhD CLIA Number: [id number] Blood BLOOD SPECIMEN / Unknown Venipuncture / Unknown 07/05/2024 10:01 AM CDT 07/05/2024 10:13 AM CDT Narrative [facility]) - 07/06/2024 11:14 PM CDT This test has been ordered as a part of the Antiphospholipid Syndrome Reflex Panel ([id number]). Joshua Winter DO LAB - SEROLOGY ORDER SUZANNE [facility] [employer] [facility]) [address] [place] [address], [facility] * (ABNORMAL) LUPUS ANTICOAGULANT PANEL W RFLX (07/05/2024 10:01 AM CDT) Prothrombin Time (PT) 14.3 12.0 - 15.5 s 07/09/2024 10:44 PM CDT [facility] [employer] ([facility]) PTT-LA Ratio 3.52(H) <=1.20 07/09/2024 10:44 PM CDT [facility] ([facility]) dRVVT Screen Ratio 1.03 <=1.20 2023 10:44 PM CDT [facility] ([facility]) Anti-Xa Qualitative Interpretation Present Not Present 07/09/2024 10:44 PM CDT [facility] ([facility]) Thrombin Time (TT) >150.0(H) <=19.5 s 2023 10:44 PM CDT [facility] ([facility]) Anticoagulant Medication Neutralization Hepzyme Not Performed 07/09/2024 10:44 PM CDT [facility] ([facility]) Neutralized PTT-LA Ratio 0.89 <=1.20 07/09/2024 10:44 PM CDT [facility] ([facility]) Neutralized dRVVT Screen Ratio Not Performed <=1.20 07/09/2024 10:44 PM CDT [facility] ([facility]) dRVVT 1:1 Mix Ratio Not Performed <=1.20 07/09/2024 10:44 PM CDT [facility] ([facility]) dRVVT Confirmation Ratio Not Performed <=1.20 07/09/2024 10:44 PM CDT [facility] ([facility]) Hexagonal Phospholipid Confirmation Not Performed <=7.9 s 07/09/2024 10:44 PM CDT [facility] ([facility]) Lupus Anticoagulant, Interpretation See Note 07/09/2024 10:44 PM CDT [facility] ([facility]) Comment: INTERPRETIVE INFORMATION: Lupus Anticoagulant Reflex Panel This test was developed and its performance characteristics determined by [employer]. It has not been cleared or approved by the U.S. Food and Drug Administration. This test was performed in a CLIA-certified laboratory and is intended for clinical purposes. Lupus anticoagulant not detected in a sample treated to remove anticoagulant medications. This panel detected evidence for an anticoagulant medication (heparin, direct thrombin inhibitor, or direct Xa inhibitor) and drug neutralization was performed. However, lupus anticoagulant testing is optimally performed in the absence of anticoagulant medications to avoid erroneous results, especially in samples with high drug concentrations or with warfarin effect (J Thromb Haemost. 2020; 18:2544-7891). Lupus anticoagulant antibodies are heterogeneous and antibody titers fluctuate over time. Laboratory tests used to identify lupus anticoagulant demonstrate variable sensitivity. Testing is best performed when the patient is not acutely ill and not anticoagulated. If there is strong clinical suspicion for antiphospholipid antibody syndrome (APS), consider testing for cardiolipin and beta-2 glycoprotein 1 antibodies (IgG and IgM) if this testing has not already been performed. Performed By: [employer] [address] [place] [address] Dehairing Machine Tender: Baldev Spence MD, PhD CLIA Number: [id number] Blood BLOOD SPECIMEN / Unknown Venipuncture / Unknown 07/05/2024 10:01 AM CDT 07/05/2024 10:13 AM CDT Narrative [facility]) - 07/09/2024 10:44 PM CDT This test has been ordered as a part of the Antiphospholipid Syndrome Reflex Panel ([id number]). Joshua Winter DO LAB - HEMATOLOGY ORD ERABLES [facility]) [address] [place] [address], [facility] * VEENA BLOOD SCREEN W/REFLEX TITER (07/05/2024 10:01 AM CDT) VEENA IgG None Detected None Detected 07/07/2024 5:25 AM CDT [facility]) Comment: If suspicion of connective tissue disease is strong and VENEA EIA is negative, consider testing for VEENA by IFA ([id number]). INTERPRETIVE INFORMATION: Anti-Nuclear Antibodies (VEENA), IgG by JENN Antinuclear Antibodies (VEENA), IgG by JENN: VEENA specimens are screened using enzyme-linked immunosorbent assay (JENN) methodology. All JENN results reported as Detected are further tested by indirect fluorescent assay (IFA) using HEp-2 substrate with an IgG-specific conjugate. The VEENA JENN screen is designed to detect antibodies against dsDNA, histones, SS-A (Ro), SS-B (La), Carpenter, Carpenter/EMBOSSING MACHINE OPERATOR HELPER, Scl-70, Rocío-1, centromeric proteins, other antigens extracted from the HEp-2 cell nucleus. VEENA JENN assays have been reported to have lower sensitivities than VEENA IFA for systemic autoimmune rheumatic diseases (SARD). Negative results do not necessarily rule out SARD. Performed By: [employer] [address] [place] [address] Dehairing Machine Tender: Baldev Spence MD, PhD CLIA Number: [id number] Blood BLOOD SPECIMEN / Unknown Venipuncture / Unknown 07/05/2024 10:01 AM CDT 07/05/2024 10:13 AM CDT Joshua Winter DO LAB - CHEMISTRY MAYLIN ALMANZAJENIFER [facility]) [address] [place], [place] [address] * TROPONIN-I HIGH SENSITIVE BASELINE + 1HR (07/05/2024 12:14 AM CDT) Only the most recent of2 resultswithin the time period is included. Pathologist [facility] Troponin I High Sensitive <3 <=35 ng/L 07/05/2024 12:52 AM CDT [facility] Blood BLOOD SPECIMEN / Unknown Venipuncture / Unknown 07/05/2024 12:14 AM CDT 07/05/2024 12:19 AM CDT Jayde Barnett MD LAB - CHEMISTRY GURVINDERBella ALMANZAJENIFER Performing Organization Address City/[facility]/ZIP Co de Phone Number [facility] [address] [place] [address] [phone] * B-TYPE NATRIURETIC PEPTIDE (07/05/2024 12:14 AM CDT) Only the most recent of2 resultswithin the time period is included. Pathologist [facility] BNP <10 <100 pg/mL 07/05/2024 12:51 AM CDT [facility] Comment: A decision threshold of 100 pg/mL has been demonstrated to provide the maximal combination of sensitivity, specificity and predictive value for the diagnosis of congestive heart failure (CHF). Virtually all patients with no evidence of CHF have BNP values less than 100 pg/mL. A BNP value greater than 100 pg/mL is consistent with the diagnosis of CHF in the appropriate clinical setting. In a study of 693 patients (male and female) with diagnosed CHF, the following values were determined based on the NYHA functional classification system: NYHA Functional Class Mean Valule (pg/mL) % >100 pg/mL I 320 58.1 II 432 73.0 III 656 79.0 IV 1635 98.3 Blood BLOOD SPECIMEN / Unknown Venipuncture / Unknown 07/05/2024 12:14 AM CDT 07/05/2024 12:16 AM CDT Jayde Barnett MD LAB - CHEMISTRY MAYLIN WOLF [facility] Organization Address City/State/ZIP Co de Phone Number [facility] [address] [place] [address], [facility] [phone] * (ABNORMAL) COMPREHENSIVE METABOLIC PANEL (07/05/2024 12:14 AM CDT) Only the most recent of2 resultswithin the time period is included. BUN 16 7 - 26 mg/dL 07/05/2024 12:49 AM [facility] Creatinine 1.03 0.71 - 1.16 mg/dL 07/05/2024 12:49 AM [facility] Sodium 136 136 - 145 mmol/L 07/05/2024 12:49 AM [facility] Potassium 3.9 3.5 - 4.5 mmol/L 07/05/2024 12:49 AM [facility] Chloride 104 98 - 107 mmol/L 07/05/2024 12:49 AM [facility] CO2 25 22 - 29 mmol/L 07/05/2024 12:49 AM [facility] Glucose 309(H) 70 - 115 mg/dL 07/05/2024 12:49 AM [facility] Calcium 9.5 8.4 - 10.2 mg/dL 07/05/2024 12:49 AM [facility] Protein Total 7.6 6.0 - 8.3 g/dL 07/05/2024 12:49 AM [facility] Albumin 3.7 3.4 - 5.0 g/dL 07/05/2024 12:49 AM [facility] Bilirubin Total 0.4 0.2 - 1.2 mg/dL 07/05/2024 12:49 AM [facility] Alkaline Phosphatase 99 40 - 150 U/L 07/05/2024 12:49 AM [facility] ALT 22 5 - 55 U/L 07/05/2024 12:49 AM [facility] AST 13 5 - 34 U/L 07/05/2024 12:49 AM [facility] Anion Gap 7 6 - 16 07/05/2024 12:49 AM [facility] BUN/Creatinine Ratio 16 7 - 23 07/05/2024 12:49 AM [facility] Osmolality Calculated 295 275 - 295 mOsm/kg 07/05/2024 12:49 AM [facility] Albumin/Globulin Ratio 0.9(L) 1.1 - 2.3 07/05/2024 12:49 AM [facility] eGFR by CKD-EPI 85(L) >=90 mL/min/1.7 3 m2 07/05/2024 12:49 AM [facility] Blood BLOOD SPECIMEN / Unknown Venipuncture / Unknown 07/05/2024 12:14 AM CDT 07/05/2024 12:19 AM CDT Jayde Barnett MD LAB - CHEMISTRY MAYLIN WOLF [address] [address], [facility] [phone] * MAGNESIUM BLOOD (07/05/2024 12:14 AM CDT) Only the most recent of7 resultswithin the time period is included. Magnesium 1.9 1.6 - 2.6 mg/dL 07/05/2024 12:49 AM [facility] Blood BLOOD SPECIMEN / Unknown Venipuncture / Unknown 07/05/2024 12:14 AM CDT 07/05/2024 12:19 AM CDT Jayde Barnett MD LAB - CHEMISTRY MAYLIN WOLF [address] [address], [place] [phone] * EKG 12-LEAD (07/05/2024 12:03 AM CDT) Only the most recent of3 resultswithin the time period is included. Ventricular Rate 79 BPM [facility] Atrial Rate 79 BPM [facility] P-R Interval 182 ms [facility] QRS Duration ms 78 ms [facility] Q-T Interval ms 372 ms [facility] QTC Calculation (Bezet) 426 ms [facility] Calculated P [place] 40 degrees [facility] Calculated R [place] 5 degrees [facility] Calculated T [place] 20 degrees [facility] Interpretation EKG NORMAL SINUS RHYTHM MINIMAL VOLTAGE CRITERIA FOR LVH, MAY BE NORMAL VARIANT ( R in aVL ) BORDERLINE ECG WHEN COMPARED WITH ECG OF 30-DEC-2023 11:54, CRITERIA FOR INFERIOR INFARCT ARE NO LONGER PRESENT VENT. RATE HAS DECREASED by 11 bpm Confirmed by ANT SIMS MD ([id number]) on 07/07/2024 7:15:20 PM [facility] 07/05/2024 12:0 3 AM CDT 07/07/2024 7:15 PM CDT Jayde Barnett MD ECG ORDERABLES [facility] * VAS Left Arterial Duplex Le (07/04/2024 2:48 PM CDT) Anatomical Region Laterality Modality Lower Extremity Ultrasound 07/04/2024 2:24 PM CDT Narrative Procedure Note Guillermo Ventura MD - 07/04/2024 Julia Rolon MD VASCULAR LAB ORDERAB LES * VAS Left Venous Duplex Le (07/04/2024 2:48 PM CDT) Anatomical Region Laterality Modality Lower Extremity, Upper Extremity Ultrasound 07/04/2024 2:05 PM CDT Narrative Procedure Note Guillermo Ventura MD - 07/04/2024 Julia Rolon MD VASCULAR LAB ORDERAB LES * (ABNORMAL) RENAL FUNCTION PANEL (01/04/2024 8:03 AM [facility]) Only the most recent of6 resultswithin the time period is included. BUN 10 7 - 26 mg/dL 01/04/2024 9:31 AM [facility] Creatinine 1.12 0.71 - 1.16 mg/dL 01/04/2024 9:31 AM [facility] Sodium 138 136 - 145 mmol/L 01/04/2024 9:31 AM [facility] Potassium 4.3 3.5 - 4.5 mmol/L 01/04/2024 9:31 AM [facility] Chloride 105 98 - 107 mmol/L 01/04/2024 9:31 AM [facility] CO2 20(L) 22 - 29 mmol/L 01/04/2024 9:31 AM [facility] Glucose 107 70 - 115 mg/dL 01/04/2024 9:31 AM [facility] Albumin 3.9 3.4 - 5.0 g/dL 01/04/2024 9:31 AM [facility] Calcium 10.2 8.4 - 10.2 mg/dL 01/04/2024 9:31 AM [facility] Phosphorus 2.8 2.8 - 5.1 mg/dL 01/04/2024 9:31 AM [facility] Anion Gap 13 6 - 16 01/04/2024 9:31 AM [facility] BUN/Creatinine Ratio 9 7 - 23 01/04/2024 9:31 AM [facility] Osmolality Calculated 286 275 - 295 mOsm/kg 01/04/2024 9:31 AM [facility] eGFR by CKD-EPI 77(L) >=90 mL/min/1.7 3 m2 01/04/2024 9:31 AM [facility] Blood BLOOD SPECIMEN / Unknown Lab Venipuncture / Unknown 01/04/2024 8:03 AM CDT 01/04/2024 8:52 AM T Kenny Shepherd MD LAB - CHEMISTRY [facility] [id number] [place] [address], [facility] [phone] * ECHO COMPLETE W CONTRAST W BUBBLE STUDY (01/02/2024 9:35 AM CDT) BSA 2.34 m2 [facility] CV FUJ I PACS LV biplane EF 56 52 - 72 % [facility] CV FUJI PACS LV A2C EF 60 48 - 76 % [facility] CV FUJ I PACS LV A4C EF 54 46 - 74 % [facility] CV FUJ I PACS EF 2D Bullet 51.328 % [facility] CV FU[facility]I PACS LV stroke vol BP 68.4 mL SSM CV FUJI PACS LV stroke vol BP index 29.2 mL/m2 SSM CV FUJI PACS LV stroke vol 2D teich 51.456 ml SSM CV FUJI PACS LV Stroke Index 2D Teich 21.99 mL/m2 SSM CV FUJI PACS LV stroke vol index A4C MOD 67.219 ml/m2 SSM CV FUJI PACS LVIDd 4.83 4.2 - 5.8 cm SSM CV FUJI PACS LVIDs 3.69 2.5 - 4.0 cm SSM CV FUJI PACS IVSd 2D 1.264 0.6 - 1 cm SSM CV [facility]I PACS LVPWd 1.29 0.6 - 1 cm SSM CV [facility]I PACS Fractional Shortening 2D 24 28 - 44 % [facility]SM CV FUJI PACS LV ESV BP 54.605 21 - 61 mL SSM CV FUJI PACS LV ESV index BP 23.3 11 - 31 mL/m2 SSM CV FUJI PACS LV ESV A2C 56.285 15 - 75 mL SSM CV FUJI PACS LV ESV index A2C 24.05 9 - 37 mL/m2 SSM CV FUJI PACS LV EDV BP 122.966 62 - 150 mL SSM CV FUJI PACS LV ESV A4C 46.943 22 - 78 mL SSM CV FUJI PACS LV ESV index A4C 20.06 12 - 40 mL/m2 SSM CV FUJI PACS LV EDV index BP 52.5 34 - 74 mL/m2 SSM CV FUJI PACS LV EDV A2C 116.563 59 - 175 mL SSM CV FUJI PACS LV EDV index A2C 49.81 31 - 87 mL/m2 SSM CV FUJI PACS LV EDV A4C 123.504 mL SSM CV FU JI PACS LV ESV 2D 57.696 21 - 61 mL SSM CV FUJI PACS LV EDV index A4C 52.78 37 - 93 mL/m2 SSM CV FUJI PACS LV ESV index 2D 24.66 11 - 31 mL/m2 SSM CV FUJI PACS LV EDV 2D 109.152 62 - 150 mL SSM CV FUJI PACS LV EDV index 2D 46.65 34 - 74 mL/m2 SSM CV FUJI PACS LV EDV A/L A4C 131.137 mL SSM C V FUJI PACS LV EDV index A/L A4C 56.04 mL/m2 SSM CV FUJI PACS LVOT diam 2.2 cm SSM CV [facility] I PACS LVOT area 3.67 cm2 SSM CV [facility] I PACS LV RWT 0.535 SSM CV [facility] I PACS LV Mane A2C 9.074 cm SSM CV F U PACS LV Mane A4C 9.519 cm SSM CV F U PACS LV Area Mane A2C 36.403 cm2 [facility] Area Mane A4C 38.321 cm2 [facility] IVS/LVPW 0.979 SSM CV [facility] I PACS LV mass 2D 242.028 96 - 200 g [facility] mass index 2D 103.43 50 - 102 g/m2 [facility] LA size 5.388 3.0 - 4.0 cm [facility] RVIDd 2.7 cm SSM CV [facility] I PACS RV wall thickness 0.5 0.1 - 0.5 cm [facility] RV[facility] diam Doppler 2.594 cm SS M CV FUJI PACS RVOT area Doppler 5.29 10 - 24 cm2 [facility] RV[facility] stroke vol 65.48 cm3 [facility] RVOT VTI 12.389 cm SSM CV [facility] I PACS RVOT pk lupe 0.51 m/s SSM CV F UJI PACS RVOT envelope time 361 ms SSM CV FUJI PACS PV envelope time 352 ms SSM CV FUJI PACS RVOT mn grad 1 mmHg SSM CV FUJI PACS RVOT pk grad 1 mmHg SSM CV FUJI PACS PV area cont eq 4.2 cm2 SSM CV FUJI PACS PV mn grad 1 mmHg SSM CV FU JI PACS PV pk lupe 76.581 cm/s SSM CV FUJ I PACS PV pk grad 2 mmHg SSM CV FU JI PACS PV VTI 15.614 cm SSM CV FUJ I PACS PV mn lupe 44.383 cm/s SSM CV FUJ I PACS Sinus of Valsalva 3.26 cm SS M CV FUJI PACS Ascending aorta 3.98 cm SSM CV FUJI PACS ST junction 3.002 cm SSM CV F UJI PACS Sinus of valsalva index 1.39 cm/m2 SSM CV FUJI PACS ST junction index 1.28 cm/m2 SS M CV FUJI PACS RV stroke vol 65.44 mL SSM CV FUJI PACS Aortic annulus 2.5 cm SSM C V FUJI PACS [id number] 8.42 cm SSM CV [facility] I PACS [id number] 7.434 cm SSM CV [facility] I PACS LVOT stroke vol 65.07 mL SSM CV FUJI PACS LVOT stroke vol index 27.81 mL/m2 SSM CV FUJI PACS MV lat S' lupe 11.113 cm/s SSM CV FUJI PACS AV envelope time 289 ms SSM CV FUJI PACS LVOT envelope time 328 ms SSM CV FUJI PACS MV E pk lupe 44.084 cm/s SSM CV F UJI PACS MV avg E/e' ratio 5.83 SS M CV FUJI PACS MV A pk lupe 66.986 cm/s SSM CV F UJI PACS MV E A ratio 0.66 SSM CV FUJI PACS LV IVRT 87 ms SSM CV FUJ I PACS MV E' lateral lupe 9.359 cm/s SS M CV FUJI PACS MV DT 236 ms SSM CV FUJ I PACS MV E' septal lupe 6.349 cm/s SSM CV FUJI PACS MV A duration 116 ms SSM CV FUJI PACS MV E/e' septal 6.944 SSM C V FUJI PACS MV E/e' lateral 4.71 SSM CV FUJI PACS LA vol BP 77.815 mL SSM CV FUJ I PACS TR pk lupe 224.0 cm/s SSM CV FUJ I PACS P vein A lupe 21.3 cm/s SSM CV FUJI PACS P vein A duration 149 msec SS M CV FUJI PACS P vein S/D ratio 1.78 SSM CV FUJI PACS MV septal a' lupe 11.286 cm/s SSM CV FUJI PACS MV lat a' lupe 13.213 cm/s SSM CV FUJI PACS LVOT pk lupe 0.84 m/s SSM CV F UJI PACS LVOT mn lupe 0.54 m/s SSM CV F UJI PACS LVOT mn grad 1.4 mmHg SSM CV FUJI PACS Qp:Qs 1.01 SSM CV FUJ I PACS LA vol index 33.3 16 - 34 mL/m2 SSM CV FUJI PACS LA area A4C 23.321 20 cm2 SSM CV F UJI PACS LA vol BP A-L 81.385 mL SSM CV FUJI PACS RV-mane basal diam 3.4 2.5 - 4.1 cm SSM CV FUJI PACS RV-mane mid diam 3.6 1.9 - 3.5 cm SSM CV FUJI PACS RV-mane longitudinal diam 8.6 5.9 - 8.3 cm SSM CV FUJI PACS RV LAYO 11.193 3 - 15 cm2 SSM CV FUJI PACS RV LAYO index 4.78 2.0 - 7.4 cm2/m2 SSM CV FUJI PACS RV EFREN 24.0 cm2 SSM CV FUJ I PACS RV EFREN index 10.26 5 - 12.6 cm2/m2 SSM CV FUJI PACS TV S' lupe 10.27 cm/s SSM CV FUJ I PACS RV FAC 53.42 35 % SSM CV FUJ I PACS TAPSE 1.85 1.7 cm SSM CV FUJ I PACS RA area 17.271 cm2 SSM CV FUJ I PACS AV mn grad 2 mmHg SSM CV FU JI PACS AV pk grad 3 mmHg SSM CV FU JI PACS AV mn lupe 0.64 m/s SSM CV FUJ I PACS AV pk lupe 0.86 m/s SSM CV FUJ I PACS AV VTI 18.595 cm SSM CV FUJ I PACS LVOT pk grad 2.795 mmHg SSM CV FUJI PACS LVOT VTI 17.713 cm SSM CV FUJ I PACS AV area cont VTI 3.5 cm2 SSM CV FUJI PACS AV area pk lupe 3.6 cm2 SSM C V FUJI PACS AV Doppler lupe index pk lupe 0.973 SSM CV FUJI PACS Dimensionless Index 0.953 SSM CV FUJI PACS MV RVol cont eq 2.935 mL SSM CV FUJI PACS MV mn grad 1 mmHg SSM CV FU JI PACS MV pk grad 2 mmHg SSM CV FU JI PACS MV mn lupe 0.36 m/s SSM CV FUJ I PACS MV pk lupe 69.65 cm/s SSM CV FUJ I PACS MV area cont eq 4.67 cm2 SSM CV FUJI PACS MV area planimetry 5.20 cm2 SSM CV FUJI PACS MV VTI 13.924 cm SSM CV FUJ I PACS MV VTI AT ANNULUS PEAK VELOCITY 59.53 cm/s SSM CV FUJI PACS MV VTI AT ANNULUS PEAK GRADIENT 1.418 mmHg SSM CV FUJI PACS MV VTI AT ANNULUS MEAN VELOCITY 27.031 cm/s SSM CV FUJI PACS MV VTI AT ANNULUS MEAN GRADIENT 0.389 mmHg SSM CV FUJI PACS MV VTI AT ANNULUS EJECTION TIME 0.371 s SSM CV FUJI PACS MV area index 2.22 cm2/m2 SSM CV FUJI PACS MV regurgitant SV 1 68.00 cm3 SSM CV FUJI PACS TV annulus 2.88 cm SSM CV FU JI PACS TR VTI 66.1 cm SSM CV FUJ I PACS TR pk grad 20 mmHg SSM CV FU JI PACS TV mn lupe 42.558 m/s SSM CV FUJ I PACS TV pk lupe [id number] cm/s SSM CV FUJI PACS TV mn grad 1 mmHg SSM CV FU JI PACS TV pk grad 2 mmHg SSM CV FU JI PACS TV area PHT 3.98 cm2 SSM CV F UJI PACS TV area continuity 3.63 cm2 SSM CV FUJI PACS TV VTI 18.049 cm SSM CV FUJ I PACS TV PHT 55 ms SSM CV FUJ I PACS TV DT 0.191 ms SSM CV FUJ I PACS AV Rvol cont eq -2.94 mL SSM CV FUJI PACS MV annulus diameter 3.2 cm SSM CV FUJI PACS LA AREA (2C) 23.917 SSM CV FUJI PACS RA area length vol 43.0 mL SSM CV FUJI PACS RA vol index 18.38 mL/m2 SSM CV FUJI PACS MV RF cont eq 3.0 % SSM CV FUJI PACS MV EOA 5.0 cm2 SSM CV FUJ I PACS MV EOA index 2.14 cm2/m2 SSM CV FUJI PACS RAP 3.0 mmHg SSM CV FUJ I PACS sPAP 23.0 mmHg SSM CV FUJ I PACS RVSP 23.0 mmHg SSM CV FUJ I PACS TR mn grad 12 mmHg SSM CV FU JI PACS TV area 5.5 cm2 SSM CV FUJ I PACS GLS -14.0 % SSM CV FUJ I PACS GPLS AVG -14.0 % SSM CV FUJ I PACS GPLS A2C -14.0 % SSM CV FUJ I PACS GPLS A4C -14.0 % SSM CV FUJ I PACS GPLS APLAX -14.0 % SSM CV FU JI PACS AA pk sys strain -8.0 % SSM CV FUJI PACS AAS pk sys strain -8.0 % SS M CV FUJI PACS AI pk sys strain -8.0 % SSM CV FUJI PACS AL pk sys strain -8.0 % SSM CV FUJI PACS AP pk sys strain -8.0 % SSM CV FUJI PACS pk sys strain -8.0 % SSM CV FUJI PACS BA pk sys strain -22.0 % SSM CV FUJI PACS BAS pk sys strain -22.0 % SS M CV FUJI PACS BI pk sys strain -22.0 % SSM CV FUJI PACS BL pk sys strain -22.0 % SSM CV FUJI PACS BS pk sys strain -22.0 % SSM CV FUJI PACS MA pk sys strain -10.0 % SSM CV FUJI PACS MAS pk sys strain -10.0 % SS M CV FUJI PACS IA pk sys strain -22.0 % SSM CV FUJI PACS ML pk sys strain -10.0 % SSM CV FUJI PACS MP pk sys strain -22.0 % SSM CV FUJI PACS MS pk sys strain -22.0 % SSM CV FUJI PACS Posterior dimension 0.0 cm SSM CV FUJI PACS Anatomical Region Laterality Modality Ultrasound Narrative 01/02/2024 11:18 PM CDT Left Ventricle: Left ventricle size is normal. LVIDd is 4.83 cm. EDV Index BP is 52.5 mL/m2. ESV Index BP is 23.3 mL/m2. Mildly increased wall thickness. LVPWd is 1.29 cm. Mildly increased ventricular mass. Mass index 2D is 103.43 g/m2. RWT 0.53. Findings consistent with mild concentric hypertrophy. Low normal systolic function with a visually estimated EF of 55 - 60%. EF by 2D Kramer biplane is 56%. Global longitudinal strain is -14.0% (-8 to -10% in apical and mid anterior, anterolateral and mid inferolateral oden and normal at 20-22% in other oden) . Unable to assess wall motion. Normal diastolic function. Normal mean left atrial pressure. Tissue Doppler velocity is normal. MV peak E velocity is 44.084 cm/s. MV peak A velocity is 66.986 cm/s. E/A ratio is 0.66. MV e' lateral velocity is 9.359 cm/s. MV e' septal velocity is 6.349 cm/s. Average E/e' ratio 5.8. The following segments are hypokinetic: mid anterior, mid anteroseptal, mid anterolateral, apical anterior, apical septal, apical inferior, apical lateral and apex. All other segments are normal. Right Ventricle: Right ventricle size is normal. Normal free wall thickness. RV basal diameter is 3.4 cm. RV mid diameter is 3.6 cm. RV longitudinal diameter is 8.6 cm. RVIDd is 2.7 cm. RV LAYO index is 4.78 cm2/m2. RV EFREN index is 10.26 cm2/m2. RV wall thickness is 0.5 cm. Normal wall motion. Normal systolic function. TAPSE is 1.85 cm. Fractional area change (FAC) is 53.42%. No mass present. Left Atrium: Left atrium is mildly dilated. Left atrium volume index is 33.3 mL/m2. Right to left intracardiac shunt present viewable with agitated saline and Valsalva maneuver. PFO present with a right to left shunt viewable by saline contrast. Few bubbles intermittently crossing. No mass present. Right Atrium: Right atrium size is normal. RA volume index is 18.38 mL/m2. No mass present. IVC/SVC: IVC is normal in size Aortic Valve: Valve structure is trileaflet. Mildly thickened leaflets. No restricted motion. No regurgitation. No stenosis. AV mean gradient is 2 mmHg. AV peak gradient is 3 mmHg. AV peak velocity is 0.86 m/s. AV area by continuity VTI is 3.5 cm2. AV area by peak velocity is 3.6 cm2. Valve area index 1.5 cm2/M2. Stroke volume index 28 ml/M2. Cardiac index > 2.2 L/min/M2. Mitral Valve: Mildly thickened posterior leaflet. Trace regurgitation. MV regurgitant volume by continuity equation is 2.935 mL. MV regurgitant fraction by continuity equation is 3.0%. No stenosis. Valve: Valve structure is normal. No leaflet thickening. No restricted motion. Trace regurgitation. The pulmonary artery systolic pressure is normal (under 35 mmHg). TR VTI is 66.1 cm. TR peak velocity is 224.0 cm/s. Estimated sPAP is 23.0 mmHg. Estimated RVSP is 23.0 mmHg. RAP is 3.0 mmHg.Mean PA presure of 15 mmHg. PVR 1.9 Wood units. No stenosis. No pericardial effusion. Findings consistent with ischemic event or Takotsubo cardiomyopathy. PFO noted. Other findings as listed. Left Ventricle Left ventricle size is normal. LVIDd is 4.83 cm. EDV Index BP is 52.5 mL/m2. ESV Index BP is 23.3 mL/m2. Mildly increased wall thickness. LVPWd is 1.29 cm. Mildly increased ventricular mass. Mass index 2D is 103.43 g/m2. RWT 0.53. Findings consistent with mild concentric hypertrophy. Low normal systolic function with a visually estimated EF of 55 - 60%. EF by 2D Kramer biplane is 56%. Global longitudinal strain is -14.0% (-8 to -10% in apical and mid anterior, anterolateral and mid inferolateral oden and normal at 20-22% in other oden) . Unable to assess wall motion. Normal diastolic function. Normal mean left atrial pressure. Tissue Doppler velocity is normal. MV peak E velocity is 44.084 cm/s. MV peak A velocity is 66.986 cm/s. E/A ratio is 0.66. MV e' lateral velocity is 9.359 cm/s. MV e' septal velocity is 6.349 cm/s. Average E/e' ratio 5.8. Right Ventricle Right ventricle size is normal. Normal free wall thickness. RV basal diameter is 3.4 cm. RV mid diameter is 3.6 cm. RV longitudinal diameter is 8.6 cm. RVIDd is 2.7 cm. RV LAYO index is 4.78 cm2/m2. RV EFREN index is 10.26 cm2/m2. RV wall thickness is 0.5 cm. Normal wall motion. Normal systolic function. TAPSE is 1.85 cm. Fractional area change (FAC) is 53.42%. No mass present. Left Atrium Left atrium is mildly dilated. Left atrium volume index is 33.3 mL/m2. Right to left intracardiac shunt present viewable with agitated saline and Valsalva maneuver. PFO present with a right to left shunt viewable by saline contrast. Few bubbles intermittently crossing. No mass present. Right Atrium Right atrium size is normal. RA volume index is 18.38 mL/m2. No mass present. IVC/SVC IVC was not assessed. IVC is normal in size. SVC was not assessed. Mitral Valve Mildly thickened posterior leaflet. Mildly calcified posterior leaflet. Mild annular dilation. Mildly calcified subvalvular apparatus. Mildly restricted motion of the posterior leaflet. Trace regurgitation. MV regurgitant volume by continuity equation is 2.935 mL. MV regurgitant fraction by continuity equation is 3.0%. No stenosis. MV mean gradient is 1 mmHg. MV area by continuity equation is 4.67 cm2. MV area by planimetry is 5.20 cm2. MV EOA is 5.0 cm2. MV EOA index is 2.14 cm2/m2. Tricuspid Valve Valve structure is normal. No leaflet thickening. No restricted motion. Trace regurgitation. The pulmonary artery systolic pressure is normal (under 35 mmHg). TR VTI is 66.1 cm. TR peak velocity is 224.0 cm/s. Estimated sPAP is 23.0 mmHg. Estimated RVSP is 23.0 mmHg. RAP is 3.0 mmHg.Mean PA presure of 15 mmHg. PVR 1.9 Wood units. No stenosis. TV mean gradient is 1 mmHg. TV area is 5.5 cm2. Aortic Valve Valve structure is trileaflet. Mildly thickened leaflets. No restricted motion. No regurgitation. No stenosis. AV mean gradient is 2 mmHg. AV peak gradient is 3 mmHg. AV peak velocity is 0.86 m/s. AV area by continuity VTI is 3.5 cm2. AV area by peak velocity is 3.6 cm2. Valve area index 1.5 cm2/M2. Stroke volume index 28 ml/M2. Cardiac index > 2.2 L/min/M2. Pulmonic Valve Valve structure is normal. No cusp thickening. No restricted motion. No regurgitation. No stenosis. PV mean gradient is 1 mmHg. PV area by continuity equation is 4.2 cm2. Main pulmonary artery size is normal. Ascending Aorta Normal sized annulus and sinus of Valsalva (aortic root). Mildly enlarged ascending aorta. Ascending Aorta is 3.98 cm. Sinotubular junction indexed to BSA is 1.28 cm/m2. Sinus of Valsalva indexed to BSA is 1.39 cm/m2. Pericardium The pericardium is normal. No pericardial effusion. Study Details Study quality was good. A complete 2D, color Doppler, spectral Doppler, strain and M-mode echocardiogram was performed. The apical, parasternal and subcostal views were obtained. Optison and saline ultrasound enhancing agent used. Patient exhibited sinus rhythm. Technical difficulties due to patient's body habitus. Prior Study No prior study available for comparison. Wall Scoring Baseline Score Index: 1.47 The following segments are hypokinetic: mid anterior, mid anteroseptal, mid anterolateral, apical anterior, apical septal, apical inferior, apical lateral and apex. All other segments are normal. Procedure Note Ant Sims MD - 01/02/2024 Left Ventricle: Left ventricle size is normal. LVIDd is 4.83 cm. EDVIndex BP is 52.5 mL/m2. ESV Index BP is 23.3 mL/m2. Mildly increased wallthickness. LVPWd is 1.29 cm. Mildly increased ventricular mass. Mass evtlb1J is 103.43 g/m2. RWT 0.53. Findings consistent with mild concentrichypertrophy. Low normal systolic function with a visually estimated EF of55 - 60%. EF by 2D Kramer biplane is 56%. Global longitudinal strain is-14.0% (-8 to -10% in apical and mid anterior, anterolateral and midinferolateral oden and normal at 20-22% in other oden) . Unable toassess wall motion. Normal diastolic function. Normal mean left atrialpressure. Tissue Doppler velocity is normal. MV peak E velocity is 44.084cm/s. MV peak A velocity is 66.986 cm/s. E/A ratio is 0.66. MV e' lateralvelocity is 9.359 cm/s. MV e' septal velocity is 6.349 cm/s. Average E/e'ratio 5.8. The following segments are hypokinetic: mid anterior, mid anteroseptal,mid anterolateral, apical anterior, apical septal, apical inferior, apicallateral and apex. All other segments are normal. Right Ventricle: Right ventricle size is normal. Normal free wallthickness. RV basal diameter is 3.4 cm. RV mid diameter is 3.6 cm. RVlongitudinal diameter is 8.6 cm. RVIDd is 2.7 cm. RV LAYO index is 4.78cm2/m2. RV EFREN index is 10.26 cm2/m2. RV wall thickness is 0.5 cm. Normalwall motion. Normal systolic function. TAPSE is 1.85 cm. Fractional areachange (FAC) is 53.42%. No mass present. Left Atrium: Left atrium is mildly dilated. Left atrium volume index is33.3 mL/m2. Right to left intracardiac shunt present viewable withagitated saline and Valsalva maneuver. PFO present with a right to leftshunt viewable by saline contrast. Few bubbles intermittently crossing. Nomass present. Right Atrium: Right atrium size is normal. RA volume index is 18.38mL/m2. No mass present. IVC/SVC: IVC is normal in size Aortic Valve: Valve structure is trileaflet. Mildly thickened leaflets.No restricted motion. No regurgitation. No stenosis. AV mean gradient is 2mmHg. AV peak gradient is 3 mmHg. AV peak velocity is 0.86 m/s. AV area bycontinuity VTI is 3.5 cm2. AV area by peak velocity is 3.6 cm2. Valve areaindex 1.5 cm2/M2. Stroke volume index 28 ml/M2. Cardiac index > 2.2L/min/M2. Mitral Valve: Mildly thickened posterior leaflet. Trace regurgitation.MV regurgitant volume by continuity equation is 2.935 mL. MV regurgitantfraction by continuity equation is 3.0%. No stenosis. Valve: Valve structure is normal. No leaflet thickening. No restrictedmotion. Trace regurgitation. The pulmonary artery systolic pressure isnormal (under 35 mmHg). TR VTI is 66.1 cm. TR peak velocity is 224.0 cm/s.Estimated sPAP is 23.0 mmHg. Estimated RVSP is 23.0 mmHg. RAP is 3.0mmHg.Mean PA presure of 15 mmHg. PVR 1.9 Wood units. No stenosis. No pericardial effusion. Findings consistent with ischemic event or Takotsubo cardiomyopathy. PFOnoted. Other findings as listed. Ubaldo Scott MD ECHO CUPID * VAS BILATERAL VENOUS DUPLEX LE (01/02/2024 8:57 AM CDT) Anatomical Region Laterality Modality Lower Extremity Intravascular Ul trasound 01/02/2024 7:57 AM CDT Narrative Procedure Note Mahnaz Shrestha MD - 01/02/2024 Klever Jurado MD VASCULAR LAB ORDERAB LES * PSA FREE (12/31/2023 11:29 AM CDT) PSA Free 0.19 0.00 - 0.50 ng/mL 12/31/2023 12:47 PM CDT [facility] Blood BLOOD SPECIMEN / Unknown Lab Venipuncture / Unknown 12/31/2023 11:29 AM CDT 12/31/2023 11:56 AM CDT Klever Jurado MD LAB - CHEMISTRY [facility] [address] [place] [address], [facility] [phone] * (ABNORMAL) HEMOGLOBIN A1C (12/31/2023 11:29 AM CDT) Hemoglobin A1c 10.7(H) <=5.6 % 01/01/2024 11:52 AM CDT [facility] Estimated Average Glucose 260 mg/dL 01/01/2024 11:52 AM CDT [facility] Comment: HbA1c Interpretation: Normal : < 5.7% Pre-diabetes: 5.7-6.4% Diabetes: Equal to or greater than 6.5% Test results diagnostic of diabetes should be repeated for confirmation. Treatment target values recommended by ADA and other clinical organizations should be used to evaluate metabolic control in patients. Reference: [place] [employer], Standards of Care in Diabetes [...] Jurado MD LAB - CHEMISTRY [facility] [address] [place] [address], [facility] [phone] * LIPID PROFILE (12/31/2023 11:29 AM CDT) Cholesterol Total 163 <200 mg/dL 12/31/2023 12:26 PM CDT [facility] HDL 43 >40 mg/dL 12/31/2023 12:26 PM CDT [facility] Comment: ATP III Classification of HDL Cholesterol: <40 mg/dL: Considered a major risk factor. >60 mg/dL: Considered a negative risk factor. LDL Calculated 98 <100 mg/dL 12/31/2023 12:26 PM CDT [facility] Comment: ATP III Classification of LDL Cholesterol: <100 mg/dL: Optimal 100 - 129 mg/dL: Near Optimal/Above Optimal 130 - 159 mg/dL: Borderline High 160 - 189 mg/dL: High >190 mg/dL: Very High Triglycerides 111 <150 mg/dL 12/31/2023 12:26 PM CDT [facility] Comment: ATP III Classification of Triglycerides: <150 mg/dL: Normal 150 - 199 mg/dL: Borderline High 200 - 400 mg/dL: High >500 mg/dL: Very High Blood BLOOD SPECIMEN / Unknown Lab Venipuncture / Unknown 12/31/2023 11:29 AM CDT 12/31/2023 11:56 AM CDT Klever Jurado MD LAB - CHEMISTRY 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 The main pulmonary artery is mildly enlarged measuring 3.5 cm, suggestive pulmonary artery hypertension. 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 3.Incidental note of the [place] hernia on the right. > Dictated by Ailyn Silva MD (radiology services manager). I, Burke Salguero MD have personally reviewed and interpreted this examination/study. > Interpreting Provider: Burke Salguero MD on 12/31/2023 8:23 AM Narrative 12/31/2023 8:23 AM CDT EXAMINATION: CT ANGIO CHEST PULM EMBOLISM DATE/TIME OF EXAM: 12/30/2023 4:28 PM, LOCATION [facility] HISTORY: R06.00: Dyspnea and respiratory abnormalities known pe, worsening symptoms despite treatment COMPARISON: Outside hospital CT PE from 12/10/2023 report reviewed (images unavailable). TECHNIQUE: CT of the chest was performed following the uneventful administration of 75 mL of Isovue 370 intravenous contrast according to a pulmonary embolism protocol. Multiplanar reconstructions were created. Findings: Study Quality This examination for the diagnosis of pulmonary embolism is adequate. Pulmonary Arteries: Large thrombi are noted in the right and left main pulmonary artery bifurcation, extending to the bilateral segmental and subsegmental arteries. The main pulmonary artery is mildly dilated, measuring 3.5 cm in diameter, suggestive of pulmonary artery hypertension. Lines and tubes: None. Lower Neck and Axillae: The thyroid gland enhances homogenously. No abnormal supraclavicular or axillary lymphadenopathy is seen. Airway, Lungs and pleura: The trachea is patent. Mild bilateral peripheral/dependent ground glass opacities likely represent atelectasis. No suspicious pulmonary nodule is identified. No pleural effusion or focal pleural thickening is identified. There is no evidence of pneumothorax. A right-sided Bochdalek hernia is noted. Heart and Pericardium: The heart is normal in size. The right ventricle is slightly larger than the left ventricle, with straightening/leftward pouching of the interventricular septum, suggestive of right heart strain. No pericardial effusion is present. Mediastinum and Ashly: No enlarged lymph nodes are present. No mediastinal mass is identified. 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 The ascending aorta is borderline enlarged measuring 4.0 cm (series 5 image 138). Bones and Chest Wall: Bone windows demonstrate no suspicious lytic or blastic lesions. The visible osseous structures are intact. Small right posterior diaphragmatic hernia. Upper Abdomen: The stomach is distended. Gaseous distention of the transverse colon measuring up to 6.7 cm in width (series 6 image 93) without pericolonic stranding. 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 Procedure Note Burke Salguero MD - 12/31/2023 EXAMINATION: CT ANGIO CHEST PULM EMBOLISM DATE/TIME OF EXAM: 12/30/2023 4:28 PM, LOCATION [facility] HISTORY: R06.00: Dyspnea and respiratory abnormalities known pe,worsening symptoms despite treatment COMPARISON: Outside hospital CT PE from 12/10/2023 report reviewed (images unavailable). TECHNIQUE: CT of the chest was performed following the uneventful administration of 75 mL of Isovue 370 intravenous contrast according toa pulmonary embolism protocol. Multiplanar reconstructions were created. Findings: Study Quality This examination for the diagnosis of pulmonary embolism is adequate. Pulmonary Arteries: Large thrombi are noted in the right and left main pulmonary artery bifurcation, extending to the bilateral segmental and subsegmental arteries. The main pulmonary artery is mildly dilated, measuring 3.5 cmin diameter, suggestive of pulmonary artery hypertension. Lines and tubes: None. Lower Neck and Axillae: The thyroid gland enhances homogenously. No abnormal supraclavicular or axillary lymphadenopathy is seen. Airway, Lungs and pleura: The trachea is patent. Mild bilateral peripheral/dependent ground glass opacities likely represent atelectasis. No suspicious pulmonary noduleis identified. No pleural effusion or focal pleural thickening isidentified. There is no evidence of pneumothorax. A right-sided Bochdalek hernia is noted. Heart and Pericardium: The heart is normal in size. The right ventricle is slightly larger than the left ventricle, with straightening/leftward pouching of the interventricular septum, suggestive of right heart strain. Nopericardial effusion is present. Mediastinum and Ashly: No enlarged lymph nodes are present. No mediastinal mass is identified. 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 The ascending aorta is borderline enlarged measuring 4.0 cm (series 5 image 138). Bones and Chest Wall: Bone windows demonstrate no suspicious lytic or blastic lesions. The visible osseous structures are intact. Small right posteriordiaphragmatic hernia. Upper Abdomen: The stomach is distended. Gaseous distention of the transverse colon measuring up to 6.7 cm in width (series 6 image 93) without pericolonic stranding. 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 The main pulmonary artery is mildly enlarged measuring 3.5 cm, suggestive pulmonary arteryhypertension. 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 3.Incidental note of the Bochdalek hernia on the right. > Dictated by Ailyn Silva MD (radiology services manager). I, Burke Salguero MD have personally reviewed and interpreted this examination/study. > Interpreting Provider: Burke Salguero MD on 12/31/2023 8:[address] MD [address] ORDERABLES * TROPONIN-I HIGH SENSITIVE REFLEX 1HOUR (12/30/2023 1:57 PM CDT) Troponin I High Sensitive <3 <=35 ng/L 12/30/2023 2:44 PM CDT [facility] Delta Troponin I HS 12/30/2023 2:44 PM CDT [facility] Comment:Delta value intentio cory not calculated. Baseline to 1 hour specimen collection interval exceeded. Blood BLOOD SPECIMEN / Unknown Venipuncture / Unknown 12/30/2023 1:57 PM CDT 12/30/2023 2:04 PM CDT Kenny Shepherd MD LAB - CHEMISTRY [facility] Organization Address City/State/[facility] Co de Phone Number [facility] [address] [place] [phone], [facility] [phone] Care Teams Slope Tender Relationship Specialty Start Date End Date Arturo Carrasquillo MD [address] [place] [id number] PCP - General Family Medicine 01/11/24
--- OUTSIDE RECORDS SUMMARY | 2024-11-16 11:19 | XMS_ITS | Clinical Summary ---
Author Organization [facility] Address [address] [place] [phone] Phone Care Team Providers Care Drilling Superintendent Name Role Phone Unavailable Primary Care Provider Unavailabl e Allergies No known active allergies Medications Medication Sig Dispensed Refills Start Date End Date Status insulin glargine (LANTUS) 100 UNIT/ML injection Inject 20 Units under the skin every night Active apixaban (Eliquis) 5 MG tablet Take 5 mg by mouth in the morning and 5 mg in the evening. Active rosuvastatin (CRESTOR) 20 MG tablet Take 20 mg by mouth 1 (one) time each day Active losartan (COZAAR) 50 MG tablet Take 50 mg by mouth 1 (one) time each day Active oxyCODONE (ROXICODONE) 5 MG immediate release tablet Take 5 mg by mouth if needed for moderate pain Active Active Problems Problem Noted Date Diagnosed Date Renal insufficiency 07/11/2024 Essential hypertension 07/11/2024 Hyperlipidemia 07/11/2024 Diabetes mellitus 07/11/2024 Family History Medical History Relation Comments Diabetes Brother Diabetes Father Heart disease Father Cancer Mother Diabetes Mother Hypertension Mother Relation Status Comments Brother Father Mother Social History Tobacco Use Types Packs/Day Years Used Date Smoking Tobacco: Never Smokeless Tobacco: Never Alcohol Use Standard Drinks/Week Comments Yes 0 (1 standard drink = 0.6 oz pur e alcohol) Sex and Gender Information Value Date Recorded Sex Assigned at Not on file Gender Identity Not on file Sexual Orientation Not on file Last Filed Vital Signs Vital Sign Reading Time Taken Comments Blood Pressure 128/83 07/12/2024 11:17 AM CDT Pulse 94 07/12/2024 11:17 AM CDT Temperature - - Respiratory Rate - - Oxygen Saturation - - Inhaled Oxygen Concentration - - Weight 117 kg (257 lb) 07/12/2024 11:17 AM CDT Height 180.3 cm (5' 11 ) 07/12/2024 11:17 AM CDT Body Mass Index 35.84 07/12/2024 11:17 AM CDT Plan of Treatment Upcoming Encounters Date Type Department Care Team (Late st Contact Info) Description 11/29/2024 12:40 PM CLINICAL RESOURCE COORDINATOR Office Visit [facility] [address] [facility] [address] [place] [address] Morgan Quinonez MD [address] [facility] 1 [place] [address] Health Maintenance Due Date Last Done Comments Diabetic Foot Exam 1977 Ophthalmology Exam 1977 Pneumococcal PPSV23 Highest Risk Adult (1 of 3 - PCV13 ) 1986 Influenza Vaccine (#1) 2024
--- OUTSIDE RECORDS SUMMARY | 2024-11-16 11:19 | XMS_ITS | Clinical Summary ---
Author Organization [address] Address [address] [place] [phone] Care Team Providers Care Tunneling Machine Operator Name Role Phone Arturo Carrasquillo MD Primary Care Provider [phone] Joseph Cortes MD Unavailable [phone] Allergies Active Allergy Reactions Criticality Noted Date [...] hyperglycemia, with long-term current use of insulin ([facility]) Check blood sugar 3 times a day 200 each 11 4 Active lancets miscIndications :Type 2 diabetes mellitus with hyperglycemia, with long-term current use of insulin ([facility]) Check blood sugar 3 times daily 200 each 3 4 Active nystatin creamIndication s:Yeast infection Apply topically 2 (two) times a day On affected area for 14 days 30 g 4 Active pen needle, diabetic (BD Ultra-Fine Joan Pen Needle) 32 gauge x 5/32 needleIndicatio ns:Type 2 diabetes mellitus with hyperglycemia, with long-term current use of insulin ([facility]) One each daily 100 each 3 4 Active glipiZIDE (GLUCOTROL) 10 mg tabletIndicatio ns:type 2 diabetes mellitus Take 1 tablet (10 mg total) by mouth 2 (two) times a day before breakfast and dinner 180 tablet 3 5 11/12/19 26 Active insulin glargine (LANTUS) 100 unit/mL (3 mL) pen for injectionIndica tions:Type 2 diabetes mellitus with hyperglycemia, with long-term current use of insulin ([facility]) Inject 25 Units under the skin daily 22.5 mL 3 5 11/12/19 26 Active losartan (COZAAR) 50 mg tabletIndicatio ns:Hypertension associated with diabetes (HCC) Take 1 tablet (50 mg total) by [...] hyperglycemia, with long-term current use of insulin ([facility]) Inject 30-40 Units under the skin daily 36 mL 1 4 11/12/19 25 Discontinu ed(Reorder ) Active Problems Problem Noted Date Diagnosed Date Type 2 diabetes mellitus wit h hyperglycemia, with long-term current use of insulin 02/22/2024 Assessment & Plan (09/11/2024 12:30 PM FORMING AND ASSEMBLING SUPERVISOR): Chronic, poorly controlled, worsening Hemoglobin A1c 13.3% [...] hydration Hyperlipidemia associated with type 2 diabetes pooja duong 02/22/2024 Assessment & Plan (09/11/2024 12:31 PM FORMING AND ASSEMBLING SUPERVISOR): Continue statin therapy Assessment & Plan (02/22/2024 9:30 PM CDT): Continue statin therapy Class 2 severe obesity due t o excess calories with serious comorbidity and body mass index (BMI) of 36.0 to 36.9 in adult 02/22/2024 Assessment & Plan (09/11/2024 12:31 PM FORMING AND ASSEMBLING SUPERVISOR): Chronic, worsening Discussed about healthy lifestyle habits [...] habits Discussed about healthy diet and exercise Encounters Date Type Department Care Team Description 11/12/2024 12:45 PM FORMING AND ASSEMBLING SUPERVISOR Office Visit [facility] [address] [place] [phone] Severino Martinez MD Type 2 diabetes mellitus with hyperglycemia, with long-term current use of insulin (HCC) (Primary Dx); Hyperlipidemia associated with type 2 diabetes mellitus (HCC); Class 2 severe obesity due to excess calories with serious comorbidity and body mass index (BMI) of 37.0 to 37.9 in adult (HCC); Hypertension associated with diabetes (HCC) 11/09/2024 Telephone [facility] [address] [place] [phone] Severino Martinez MD Appointment Pre registration 09/10/2024 3:15 PM FORMING AND ASSEMBLING SUPERVISOR Office Visit [facility] [address] [place] [phone] Severino Martinez MD Type 2 diabetes mellitus with hyperglycemia, with long-term current use of insulin (HCC) (Primary Dx); Yeast infection; Hyperlipidemia associated with type 2 diabetes mellitus (HCC); Class 2 severe obesity due to excess calories with serious comorbidity and body mass index (BMI) of 36.0 to 36.9 in adult (HCC) from Last 3 Months Medical History Medical History Date Comments Diabetes (HCC) Hypertension Family History Medical History Relation Name Comments Diabetes Father Cancer Mother Diabetes Mother Relation Name Status Comments Father Mother [...] on file Legal Sex Male 3:36 PM FORMING AND ASSEMBLING SUPERVISOR Gender Identity Not on file Sexual Orientation Not on file Obstetrics History Last Filed Vital Signs Vital Sign Reading Time Taken Comments Blood Pressure 138/88 11/12/2024 12:49 PM FORMING AND ASSEMBLING SUPERVISOR Pulse 77 11/12/2024 12:49 PM FORMING AND ASSEMBLING SUPERVISOR Temperature 36.4 C (97.5 F) 05/26/2021 2:36 PM CDT Respiratory Rate 15 11/12/2024 12:49 PM FORMING AND ASSEMBLING SUPERVISOR Oxygen Saturation 98% 05/26/2021 2:36 PM CDT Inhaled Oxygen Concentration - - Weight 120.7 kg (266 lb) 11/12/2024 12:49 PM FORMING AND ASSEMBLING SUPERVISOR Height 180.3 cm (5' 11 ) 11/12/2024 12:49 PM FORMING AND ASSEMBLING SUPERVISOR Body Mass Index 37.1 11/12/2024 12:49 PM FORMING AND ASSEMBLING SUPERVISOR Plan of Treatment Health Maintenance Due Date Last Done Comments Colon Cancer Screening-Colonoscopy 1967 Hepatitis C Screening 1967 Prostate Cancer Screening-PSA 1967 Dilated Eye Exam 1967 Pneumococcal vaccine <65 (1 of 2 - PCV) 1973 Hepatitis B Screening 1985 Regular Well Visit/Exam 18-64 1985 Zoster Vaccine (1 of 2) 2017 Influenza Vaccine (#1) 2024 Albumin Creatinine Ratio, Urine 02/21/2025 Depression Screening 02/21/2025 02/22/2024 Lipid Panel 02/21/2025 02/22/2024, 03/2 12/2023, 12/11/2023, Additional history exists eGFR 02/21/2025 02/22/2024 Hemoglobin A1C 05/12/2025 11/12/2024, 12/0 11/2023, 02/22/2024 Foot Exam 09/10/2025 09/10/2024, 02/22/2024 DTaP/Tdap/Td Vaccine (2 - Td or Tdap) 09/21/2028 09/21/2018 Procedures Procedure Name Priority Date/Time Associated Diagnosis Comments POCT HEMOGLOBIN A1C Routine 11/12/2024 1 2:53 PM FORMING AND ASSEMBLING SUPERVISOR Type 2 diabetes mellitus with hyperglycemia, with long-term current use of insulin (HCC) POCT GLUCOSE Routine 11/12/2024 12:51 PM FORMING AND ASSEMBLING SUPERVISOR Type 2 diabetes mellitus with hyperglycemia, with long-term current use of insulin (HCC) POCT HEMOGLOBIN A1C Routine 09/10/2024 3 :26 PM FORMING AND ASSEMBLING SUPERVISOR Type 2 diabetes mellitus with hyperglycemia, with long-term current use of insulin (HCC) POCT GLUCOSE Routine 09/10/2024 3:26 PM FORMING AND ASSEMBLING SUPERVISOR Type 2 diabetes mellitus with hyperglycemia, with [...] * POCT hemoglobin A1c (11/12/2024 12:53 PM FORMING AND ASSEMBLING SUPERVISOR) Hemoglobin A1C, POC 10.3 4.0 - 5.6 % Blood 11/12/2024 12:5 3 PM FORMING AND ASSEMBLING SUPERVISOR Severino Thrasher MD POINT OF CARE TEST ORDERABLES Final Result * POCT glucose (11/12/2024 12:51 PM FORMING AND ASSEMBLING SUPERVISOR) Glucose Blood, POC 152 mg/dL Blood 11/12/2024 12:5 1 PM FORMING AND ASSEMBLING SUPERVISOR Severino Thrasher MD POINT OF CARE TEST ORDERABLES Final Result * POCT hemoglobin A1c (09/10/2024 3:26 PM FORMING AND ASSEMBLING SUPERVISOR) Hemoglobin A1C, POC 13.3 4.0 - 5.6 % Blood 09/10/2024 3:26 PM FORMING AND ASSEMBLING SUPERVISOR us Severino Thrasher MD POINT OF CARE TEST ORDERABLES Final Result * POCT glucose (09/10/2024 3:26 PM FORMING AND ASSEMBLING SUPERVISOR) Glucose Blood, POC 282 mg/dL Blood 09/10/2024 3:26 PM FORMING AND ASSEMBLING SUPERVISOR us Severino Thrasher MD POINT OF CARE TEST [...] Inclusion of Race in Diagnosing Kidney Disease, JASN 2020). The CKD-EPI equation should not be used for patients with unstable renal function and has not been validated in children and those over 70. Current interpretive data was last reviewed 2021. Blood 02/22/2024 3:36 PM CDT 02/22/2024 8:49 PM CDT us Severino Thrasher MD LAB BLOOD ORDERABLE S Final Result [facility] [id number] Department [place] [address] * Albumin Creatinine Ratio, Urine (02/22/2024 3:36 PM CDT) Albumin Ur <12.0 mg/L Comment: Interpretive Data No reference range established. Current interpretive data was last revised 2019. Creatinine Ur 92.5 mg/dL [facility] Comment: Interpretive Data No reference range established. Current interpretive data was last revised 2019. Albumin Creatinine Ratio, Ur <13 1 - 29 mg/g [facility] Urine 02/22/2024 3:36 PM CDT 02/22/2024 8:14 PM CDT us Louja Price Thrasher MD LAB URINE ORDERABLE S Final Result [facility] [id number] [address] Department [place] [address] * (ABNORMAL) Lipid panel (02/22/2024 3:36 PM [...] on 2018. HDL 39(L) >=40 mg/dL [facility] Comment: Interpretive Data Ages [...] 2018. LDL, calculated 120 <=129 mg/dL [facility] Comment: Interpretive Data Ages [...] revised on 2018. Non-HDL Cholesterol 163 mg/dL [facility] Comment: Interpretive Data Ages < or [...] revised on 2018. Chol/HDL ratio 5 [facility] Blood 02/22/2024 3:36 PM CDT 02/22/2024 8:14 PM CDT us Severino Thrasher MD LAB BLOOD ORDERABLE S Final Result [facility] [id number] Department [place] [address] from Last 3 Months or Most Recently Relevant to Health Maintenance Insurance [facility] Care Teams Tunneling Machine Operator Relationship Specialty Start Date End Date Arturo Carrasquillo MD [address] [address] PCP - General Emergency Medicine 02/22/24 Joseph Cortes MD [address] [place] [address] Referring Physician Ophthalmology 09/12/24
[2024-11-16 11:21] LABS: Add Urine Microscopic? NO; Appearance Urine Clear (Clear); Bilirubin Urine Negative (Negative); Blood Urine Negative (Negative); Color Urine Yellow (Yellow); Glucose Urine UA 3+ mg/dL (Negative); Ketones Urine Negative (Negative); Leukocyte Esterase Ur Negative LEU/UL (Negative); Nitrate Urine Negative (Negative); Protein Urine Negative (Negative); Specific Grav Ur 1.026 (1.001-1.035); Urobilinogen Urine 0.2 mg/dL (<2.0)
[2024-11-16 11:35] LABS: Vitamin D 25 Hydroxy 23.5 ng/mL
== END 2024-11-16 10:33 | disposition home or self-care (01) ==
PROVIDERS: PCP Emergency Medicine
DX: I12.9 Hypertensive chronic kidney disease with stage 1 through stage 4 chronic kidney disease, or unspecified chronic kidney disease (principal); E11.22 Type 2 diabetes mellitus with diabetic chronic kidney disease; N18.2 Chronic kidney disease, stage 2 (mild)
CPT/HCPCS: 36415; 80069; 81003; 82306

== ENCOUNTER 2024-11-29 14:18 | Outpatient (CLI) | payer OTHER, SELFPAY ==
--- NOTE | ~2024-11-29 | US_ITS ---
EXAMINATION: US venous doppler [facility] DATE: 11/29/2024 15:02 INDICATION: Left lower limb deep vein thrombosis. TECHNIQUE: Grayscale ultrasound images without and with compression and Doppler ultrasound images of the left lower extremity veins were obtained. COMPARISON: Ultrasound FINDINGS: The visualized portions of left common femoral vein, profunda (deep) femoral vein, femoral vein, marjorie yaniv veins, posterior tibial veins, and greater saphenous vein outflow are patent. There is echogenic nonocclusive thrombus in popliteal vein. IMPRESSION: 1. Chronic deep vein thrombosis involving left popliteal vein. Reviewed, dictated and finalized at location A. EKEEPING ASSISTANT
--- OUTSIDE RECORDS SUMMARY | 2024-11-29 14:24 | XMS_ITS | Data Portability ---
Author Organization [facility] KATARINAAmando Bradford Address [address] [place] [address] Care Team Providers Care Medical Director Occupational Health Name Role Phone LEYDISALLY GUALLPAPAKOChad Primary Care Provider Assessment No assessment recorded. Plan of Treatment Reminders Order Date Submit Date Provider Last Modified By Organization Details Last Modified Time Details Appointments None recorde d. Lab HbA1c (hemogl obin A1c), blood 2022 023 eclardy In-Office Order, Internal Use Only DO Not Attach Compendium DO Not Attach Compendium, Do Not Delete/merge, [id number] 3 09:49:24 HbA1c (hemogl obin A1c), blood 2021 022 eclardy In-Office Order, Internal Use Only DO Not Attach Compendium DO Not Attach Compendium, Do Not Delete/merge, [id number] 2 23:23:09 lipid panel, serum 2021 022 [facility], [address], [address], [place], [address], 3 12:17:06 CMP, serum or plasma 2021 022 [facility], [address], [address], [place], [address], 2 11:20:05 noninva sive colorec marta cancer DNA + occult blood screeni ng, QL, stool 08/2021 [facility]Cologuard Orders Only), [address] , [facility] [address], [place], [address], 3 11:11:11 BMP, serum or plasma 2021 [facility], [address] [place] [address], [address], [place], [address], 2 12:11:04 albumin /creati nine, mass ratio, urine 2021 [facility], [address] [place] [address], [address], [place], [address], 2 12:11:05 lipid panel, serum 2021 [facility], [address] [place] [address], [facility] [address], [place], [address], 2 12:11:05 HbA1c (hemogl obin A1c), blood 2021 eclardy In-Office Order, Internal Use Only DO Not Attach Compendium DO Not Attach Compendium, Do Not Delete/merge, [id number] 22:43:07 Referral diabeti c nutriti on educati on referra l 2021 [facility] (Diabetes/Nut rition), [address], [place], [address], 4 14:01:37 Procedures None recorde d. Surgeries None recorde d. Imaging None recorde d. Medication Orders Lantus Solosta r U-100 Insulin 100 unit/mL (3 mL) subcuta neous pen 2022 023 [facility], [address] [address], [place], [place], [id number], 3 10:01:23 Jardian ce 25 mg tablet 2022 023 [facility], [facility], [address] [place] [address], [id number], 3 10:01:23 lisinop ril 10 mg tablet 2022 023 [facility], [facility], [address] [place] [address], [id number], 3 09:41:33 Jardian ce 10 mg tablet 2022 023 [facility], [facility], [address] [place] [address], [id number], 3 09:54:22 ibuprof en 600 mg tablet 2022 023 [facility], [address] [place] [address], [id number], 3 11:01:45 Jardian ce 10 mg tablet 2021 022 [facility], [facility], [address] [place] [address], [id number], 3 09:54:22 atorvas tatin 40 mg tablet 2021 022 [facility], [facility], [address] [place] [address], [id number], 2 11:31:05 melaton in 5 mg tablet 2021 [facility], [facility], [address] [place] [address], [id number], 2 14:41:16 Januvia 100 mg tablet 2021 022 [facility], [address] [address], [place], [place], [id number], 17:09:31 atorvas tatin 40 mg tablet 2021 [facility], [address] [facility] [address], [place], [place], [id number], 14:31:19 Jardian ce 10 mg tablet 2021 [facility], [address] [place] [address] [address], [place], [address], 09:54:22 Lantus Solosta r U-100 Insulin 100 unit/mL (3 mL) subcuta neous pen 2021 [facility], [address] [place] [address], [address], 11:13:43 Alcohol Pads 2021 [facility], [address] [place], [address], 11:16:21 Patient TargetsNo targets recorded. Patient Instructions Encounter Date Encounter Id Patient Instructions Last Modified By Organization Details Last Modified Time 04/07/2022 [id number] dash diet: care instructions eclardy Not available [...] to be followed by the ordering provider. [email or web address] Not available 04/21/2022 10:30:59 05/25/2022 [id number] I was present an d available in the Family Medicine clinic to discuss this patient's care during the appointment. I agree with the resident's assessment and plan as documented. GRETA Not available 06/16/2022 10:09:54 07/28/2022 [id number] I was present an d available in the Family Medicine clinic to discuss this patient's care during the appointment. I agree with the resident's assessment and plan as documented. GRETA Not available 08/03/2022 08:22:31 01/05/2023 [id number] I was present an d available in the Family Medicine clinic to discuss this patient's care for the duration of the appointment. I agree with the resident's assessment and plan as documented with the following addendum: None. Dr. Connor Dhillon MD Attending Physician, [facility]. [email or web address] Not available 01/14/2023 10:23:20 02/10/2023 [id number] I was present an d available in the Family Medicine clinic to discuss this patient's care during the appointment. I agree with the resident's assessment and plan as documented. Tyson Bell MD [email or web address] Not available 02/15/2023 09:42:43 Reason for Referral [...] Only) [address], [place], [address], 05/25/2023 11:11:11 04/07/20 22 04/07/2022 HbA1c (hemo globi n A1c), blood HbA1c 14.0 Not Available In-Office Order Internal Use Only DO Not Attach Compendium DO Not Attach Compendium, Do Not Delete/merge, [id number] 04/07/2022 16:26:43 04/27/20 22 04/28/2022 BASIC METAB OLIC PANEL (8) glucose 149 mg/dL 65-99 above high normal Not Available [facility] ([facility]) [address] [facility], [place], [address], 04/28/2022 12:11:04 04/27/20 22 04/28/2022 BASIC METAB OLIC PANEL (8) BUN 15 mg/dL 6-24 Not Available [facility] ([facility]) [address] [facility], [place], [address], 04/28/2022 12:11:04 04/27/20 22 04/28/2022 BASIC METAB OLIC PANEL (8) creatinine 1.27 mg/dL 0.76-1 .27 Not Available [facility] ([facility]) [address] [facility], [place], [address], 04/28/2022 12:11:04 04/27/20 22 04/28/2022 BASIC METAB OLIC PANEL (8) eGFR 67 mL/mi n/1.7 3 >59 Not Available [facility] ([facility]) [address] [facility], [place], [address], 04/28/2022 12:11:04 04/27/20 22 04/28/2022 BASIC METAB OLIC PANEL (8) BUN/creatini ne ratio 12 9-20 Not Available [facility] ([facility]) [address] [facility], [place], [address], 04/28/2022 12:11:04 04/27/20 22 04/28/2022 BASIC METAB OLIC PANEL (8) sodium 139 mmol/ L 134-14 4 Not Available [facility] ([facility]) [address] [facility], [place], [address], 04/28/2022 12:11:04 04/27/20 22 04/28/2022 BASIC METAB OLIC PANEL (8) potassium 4.5 mmol/ L 3.5-5. 2 Not Available [facility] ([facility]) [address] [facility] [place], [address], 04/28/2022 12:11:04 04/27/20 22 04/28/2022 BASIC METAB OLIC PANEL (8) chloride 104 mmol/ L 96-106 Not Available [facility] ([facility]) [address] [place], [address], 04/28/2022 12:11:04 04/27/20 22 04/28/2022 BASIC METAB OLIC PANEL (8) carbon dioxide, total 20 mmol/ L 20-29 Not Available [facility] ([facility]) [address] [place], [address], 04/28/2022 12:11:04 04/27/20 22 04/28/2022 BASIC METAB OLIC PANEL (8) calcium 9.8 mg/dL 8.7-10 .2 Not Available [facility] ([facility]) [address] [place], [address], 04/28/2022 12:11:04 04/27/20 22 04/28/2022 LIPID PANEL cholesterol, total 215 mg/dL 100-19 9 above high normal Not Available [facility] ([facility]) [address] [place], [address], 04/28/2022 12:11:05 04/27/20 22 04/28/2022 LIPID PANEL triglyceride s 88 mg/dL 0-149 Not Available [facility] ([facility]) [address] [place], [address], 04/28/2022 12:11:05 04/27/20 22 04/28/2022 LIPID PANEL HDL cholesterol 43 mg/dL >39 Not Available [facility]) [address] [place], [address], 04/28/2022 12:11:05 04/27/20 22 04/28/2022 LIPID PANEL VLDL cholesterol trinh 16 mg/dL 5-40 Not Available [facility] ([facility]) [address] [place], [address], 04/28/2022 12:11:05 04/27/20 22 04/28/2022 LIPID PANEL LDL chol calc ([facility]) 156 mg/dL 0-99 above high normal Not Available [facility] (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) [address] [place], [address], 04/28/2022 12:11:05 04/27/20 22 04/28/2022 ALBUM IN/CR EATIN INE RATIO ,URIN E creatinine, urine 52.9 mg/dL not estab. Not Available [facility] ([facility]) [address] [place], [address], 04/28/2022 12:11:05 04/27/20 22 04/28/2022 ALBUM IN/CR EATIN INE RATIO ,URIN E albumin, urine <3.0 ug/mL not estab. Aileen ified by shiv gross mane sis Not Available [facility] ([facility]) [address] [place], [address], 04/28/2022 12:11:05 04/27/20 22 04/28/2022 ALBUM IN/CR EATIN INE RATIO ,URIN E alb/creat ratio <6 mg/g_ creat 0-29 Daya l: 0 - 29 Moder ately incre ased: 30 - 300 Sever rosa incre ased: >300 Not Available [facility] ([facility]) [address] [place], [address], 04/28/2022 12:11:05 04/27/20 22 04/28/2022 CARDI OVASC ULAR REPOR T interpretati on Note Suppl ement al repor t is avail able. Not Available [facility] ([facility]) [address] [place], [address], 04/28/2022 12:11:06 04/27/20 22 04/28/2022 HANS Gross pdf . Not Available [facility] ([facility]) [address], [place], [address], 04/28/2022 12:11:06 08/01/20 22 08/01/2022 HbA1c (hemo globi n A1c), blood HbA1c 8.1 Not Available In-Office Order Internal Use Only DO Not Attach Compendium DO Not Attach Compendium, Do Not Delete/merge, [id number] 08/01/2022 23:22:51 02/11/20 23 02/10/2023 HbA1c (hemo globi n A1c), blood HbA1c 11.4 Not Available In-Office Order Internal Use Only DO Not Attach Compendium DO Not Attach Compendium, Do Not Delete/merge, [id number] 02/10/2023 09:49:15 02/23/20 23 02/22/2023 LIPID PANEL cholesterol 209 mg/dL <200 high Not Available [facility] (Lab) [place], [address], 02/22/2023 12:17:06 02/23/20 23 02/22/2023 LIPID PANEL triglyceride 103 mg/dL <150 Not Available [facility] (Lab) [address], [place], [address], 02/22/2023 12:17:06 02/23/20 23 02/22/2023 LIPID PANEL HDL cholesterol 46 mg/dL >40.0 Not Available [facility] (Lab) [address] [facility], [place], [address], 02/22/2023 12:17:06 02/23/20 23 02/22/2023 LIPID PANEL LDL calculated 142 mg/dL <100 high Not Available [facility] (Lab) [address] [facility], [place], [address], 02/22/2023 12:17:06 02/23/20 23 02/22/2023 LIPID PANEL non HDL cholesterol 163 mg/dL <130 high Not Available [facility] (Lab) [address], [place], [address], 02/22/2023 12:17:06 02/23/20 23 02/22/2023 LIPID PANEL chol/HDL ratio 4.5 0.0-4. 5 Not Available [facility] (Lab) [address], [place], [address], 02/22/2023 12:17:06 02/23/20 23 02/22/2023 LIPID PANEL VLDL 21 mg/dL 5-55 Not Available [facility] (Lab) [address], [place], [address], 02/22/2023 12:17:06 02/23/20 23 02/22/2023 LIPID PANEL [...] <40 --- LDL >=160 >=130 Not Available [facility] (Lab) [address], [place], [address], 02/22/2023 12:17:06 02/03/20 23 MRI brain wo con [facility] [place] [address] EXAM: MRI BRAIN WO CON DATE: COMPAR VALENTINA: None. Head CT 12/10/19 23. INDICA TION: [...] flow voids in the basila r and qa intern al caroti d arteri es. Normal orbits and parana roxi sinuse s. IMPRES JSESE: Mild nonspe cific white matter findin gs. Referr ed By: MARGARET PUGA Electr onical ly Signed By: Weston Sanchez MD on 3:33 PM Interp reted By: Weston Sanchez MD, 3:27 PM eclardy [facility] [address] [facility], [place], [address], 02/03/2023 09:04:49 02/03/20 23 MRA head wo con [facility] [place] [address] EXAM: MR angiog magdy of the head DATE: TECHNI QUE: Noncon trast imagin g. Additi onal 3D and/or MIP images were create d. INDICA TION: Severe headac hes for 6 months COMPAR VALENTINA: None. FINDIN GS: The pre-co ntrast source images show normal direct ion of flow in the distal caroti d and verteb ral arteri es. MRA HEAD: The right library helper ior inferi or cerebe llar artery is [...] findin gs in the anteri or and library helper ior circul ations which probab ly repres ent normal variat ion. Referr ed By: MARGARET PUGA Electr onical ly Signed By: Weston Sanchez MD on 3:41 PM Interp reted By: Weston Sanchez MD, 3:34 PM eclardy [facility] [address], [place], [address], 02/03/2023 09:04:50 02/24/20 23 use stres s ECHO W cholo W [facility] [place] [address] Stress Echoca rdiogr aphy Report Pat.Na me: KAYLYN RICCI Pat.ID : [id number] e: Refer. MD: [id number] STEFFI Gross EWDPRO V EWDPRO V [...] The study qualit y is techni senthil [facility] ult. Race: B ++++++ ++++++ ++++++ [...] 99 % Max BP: 180/98 Max RPP: [id number]: Defini ty 3 ml Sympto [...] [facility] [address] [facility] [address], [place], [address], 02/23/2023 12:11:04 04/27/20 23 use echoc ardio gram [facility] [place] [address] Echoca rdiogr aphy Report Pat.Na me: KAYLYN RICCI Pat.ID : [id number] .Adrian e: 023 Refer. MD: [id number] STEFFI Gross EWDPRO V EWDPRO V [...] Right Ventri desiree 24.3 mm Right Ventri desiree 24.2 mm Major [place] 83.7 mm MMODE Ratios LA/Ao 0.686 (0.87- 1.1)* Aorta Ao Rt 3.5 cm (2-3.7 ) Left Atrium LAIDs 2.4 cm TA Tricus pid Annul 15.6 mm 2022 08:17 PM Eduardo Dale M.D. [facility], [facility] [address], [place], [address], 05/02/2023 13:35:58 12/10/19 24 xr chest Pa+la t [facility] [place] [address] EXAMIN ATION: PA AND LATERA L CHEST Access ion: [id number] Exam date/t robert: 12/10/19 24 3:40 PM Reason For Exam: shortn ess of breath Compar valentina: 01/10/20 Techni que: 2 views. Findin gs: [...] reted By: Stephon Clark, 12/10/19 4:[address], [place], [address], 12/12/2023 10:07:23 Result Notes None recorded. Problems Name Problem SNOMED Code Status Onset Date Resolution Date Notes Provider Name and Address Organization Details Recorded Time Diabetes mellitus 61128848 Active 2017 Not Available [facility] 17:53:06 Morbid obesity 576181954 Active 2017 Not Available [facility] 17:53:06 Heart murmur 52918119 Active 2017 Not appreciate d on todays exam Not Available [facility] 17:53:06 Snoring 62898698 Active 2017 Not Available [facility] 17:53:06 Hypertens ar disorder 05182185 Active 2019 Not Available [facility] 17:53:06 Headache 40035933 Active 2019 Not Available [facility] 1 17:53:06 Tension-t ype headache 260126034 Active 2022 Edward Lemon [facility] [place] - [place] 3 10:58:59 Problem Notes None recorded. Procedures Surgical History None recorded. Imaging Results Imaging Date Name Status LastModified by Organization Details LastModified Time 02/02/2023 MRI brain wo con completed [address], [place], [address], 02/03/2023 09:04:49 02/02/2023 MRA head wo con completed [address], [address], 02/03/2023 09:04:50 02/23/2023 use stress ECHO W cholo Dai md completed [address], [address], 02/23/2023 12:11:04 04/27/2023 use echocardiogram completed [address], [address], 05/02/2023 13:35:58 12/10/2023 xr chest Pa+lat completed [address], [address], 12/12/2023 10:07:23 Procedure Notes None recorded. Medical Equipment None Reported. Allergies Allergen ID Allergen Name Allergen Category Reaction Reaction Severity Criticality Documentation Date Start Date Code Code System Note Provider Name and Address Organization Details Recorded Time 983626 peanut allergeni c extract food,medi cation palpitati ons respirato ry distress Not available Not available high 04/07/2022 33067 8 RxNorm Not Available Not Available Not [...] Updated DateTime 2 180.34 cm 35.4 kg/m2 770006. 02 g 85 /min 97 % 97 % 18 /min 122 mm[Hg] 72 mm[Hg] Arelis Segura [place] [facility] 2 12:41:54 Date Recorded Body height Body mass index (BMI) Body weight Heart rate Oxygen saturation Oxygen saturation in Arterial blood by Pulse oximetry Body temperature Provider Name and Address Organization Details Last Updated DateTime 2 180.34 cm 36 kg/m2 032522. 93 g 86 /min 98 % 98 % 97.8 [degF] Jeni Escobedo MA [facility] 2 13:58:47 Date Recorded Systolic blood pressure Diastolic blood pressure Provider Name and Address Organization Details Last Updated DateTime 05/25/2022 119 mm[Hg] 89 mm[Hg] HAYES HERRERA DO Attn: Accounting,[address] [place], [address], [facility] 05/25/2022 14:27:33 Date Recorded Body height Body mass index (BMI) Body weight Heart rate Oxygen saturation Oxygen saturation in Arterial blood by Pulse oximetry Body temperature Systolic blood pressure Diastolic blood pressure Provider Name and Address Organization Details Last Updated DateTime 2 180.34 cm 36.6 kg/m2 291817. 9 g 70 /min 99 % 99 % 97.4 [degF] 130 mm[Hg] 98 mm[Hg] Jeni Escobedo MA [facility] 2 10:56:43 Date Recorded Body height Body mass index (BMI) Body weight Heart rate Body temperature Oxygen saturation Oxygen saturation in Arterial blood by Pulse oximetry Systolic blood pressure Diastolic blood pressure Provider Name and Address Organization Details Last Updated DateTime 3 180.34 cm 36.3 kg/m2 942242. 82 g 95 /min 97.8 [degF] 96 % 96 % 142 mm[Hg] 88 mm[Hg] Katina Segovia MA [facility] 3 10:44:24 Date Recorded Body height Body mass index (BMI) Body weight Body temperature Oxygen saturation Oxygen saturation in Arterial blood by Pulse oximetry Heart rate Systolic blood pressure Diastolic blood pressure Provider Name and Address Organization Details Last Updated DateTime 3 180.34 cm 35.4 kg/m2 488046. 02 g 97.6 [degF] 95 % 95 % 79 /min 138 mm[Hg] 98 mm[Hg] Doug Puga MA [facility] 3 09:03:32 Social History Question Answer Notes LastModified by Organizat ion Details LastModified Time Tobacco Smoking Status Never Smoker Pearl Aaron MA [facility], [place] - [facility] 09/21/2018 11:47:22 What Is Your [...] available 2017 11:47:10 Medical History Condition Response Headaches Y Allergies Y Immunizations Vaccine Type Date Status Note Provider Nam e and Address Organization Details Recorded Time Tdap 09/21/2018 completed Not Available [facility] 10/27/2019 02:37:00 Past Encounters Encounter ID Performer Location Encounter Start Date Encounter Closed Date Diagnosis/Indication Diagnosis SNOMED-CT Code Diagnosis ICD10 Code Diagnosis Note [id number] Bernice Scales MD [facility] [address] [address] 09/21/2018 11:34:57 09/25/2018 09:52:45 Morbid obesity 870939369 E66.01 Chronic. Patient states not able to [...] of 1-2 lbs/weekly Adult heal th examination 056778360 Z00.00 53 yo M:- Never had colon cancer screening; after discussing options, will refer to GI for setup of c-scope.- Due for TDap, given during visit, booster q 10 yrs; refused seasonal flu vax- PHQ negative- Labs checked Screening for malignant neoplasm of colon 650082056 Z12.11 Snoring 93288868 R06.83 With witnessed apneic periods (per ) and body habitus, highly suspicious for ORA.- Pulm referral for polysomnog magdy Heart murmur 22461235 R0 1.1 New finding, no known murmur in history. May represent mild TR/MR.- Cards referral for Echo, considerat ion of further work-up. Active or passive immunization 609836002 Z23 Diabetes mellitus 673979 09 E11.9 New diagnosis found incidental ly on screening labs as above. A1c 6.9%- RTC 09/25 for discussion and comprehens ar DM visit. [id number] Jayde Smith MD [facility] [address] [address] 09/25/2018 10:00:05 09/26/2018 08:56:20 Type 2 diabetes mellitus without complication 410152847 E11.9 New diagnosis. Screening A1c 6.9% on [...] to achieve healthy BMI- Pt and deferred Brand Recorder referral at this time.- Start Metformin 500 [...] time- RTC 4 weeks for f/u. Hyperlipidemia 94441597 E78.5 [id number] Jenn Hernandez [address] [facility] [address] [place] [address] 11/15/2019 08:53:17 11/16/2019 09:54:35 Essential hypertension 59600403 I10 Chronic, controlled BP at goal today [...] BMP Screening for malignant neoplasm of colon 931212124 Z12.11 Pt has never had colonoscop y. Discussed screening with patient who declines colonoscop y at this time. Will start yearly occult blood. Advised patient that if blood is found in the stool he will likely need further workup such as a colonoscop y. Pt reports understand ing Diabetes mellitus 097541 09 E11.9 POC A1C 6.9%, stable from [...] dilated eye exam; pt previously followed [facility]. Encouraged patient to re-establi sh - Recommende d Pneumovax, which pt declines at this time RTC in 3 months Snoring 05595934 R06.83 STOP-BANG score: 7, high risk for OSAWill refer to pulmonolog y for sleep study Headache 98193427 R51 Tension vs hypertensi on related. No red flag symptoms. No focal neuro deficits on exam. Symptoms have improved since starting BP medication . Will continue to monitor. Pt advised to RTC or go to ED if worsening headache despite medication , increasing severity of headache, loss of vision etc.-Tylen ol as needed for symptoms-C ontinue blood pressure management [id number] MD David De La Paz [address] [place] [address] 01/11/2020 12:13:45 01/14/2020 11:16:27 Essential hypertension 50258592 I10 Chronic, uncontroll edVitals reviewed from ED [...] is able to come in Diabetes mellitus 670598 09 E11.9 Chronic, controlled Last POC A1C 6.9 on 11/15/2019-P t still not amenable to Metformin due to side effects. Will continue Jardiance 10mg daily and obtain through [facility]-Pt complainin g of severe muscle cramps from simvastati n. Will switch to Crestor 10mg to see if more tolerable- Continue Lisinopril 10mg dailyNext A1C ~02/2020 Cough 17350874 R05 Acute, unresolved Concern for COVID-19. Results pending. Discussed course of illness with patient and advised patient to report to ER if he experience s worsening shortness of breath with difficulty completing sentences [id number] MD David ALEGRIA [address] [address] 06/08/2021 11:17:43 06/09/2021 13:27:25 Disorder of rotator cuff 935200915 M75.81 - Pt presents for evaluation of [...] at f/u Spasm of back muscles 20 0673017 M62.830 - Pt has paraspinal spasms in the cervical region- Will treat with tizanidine at this time- Medication side effect profile discussed- F/u in 2-3 weeks for sx eval Bilateral weakness of upper limbs 0052867697 0863716 M62.81 - Pt presents for eval of neck pain, limited ROM, and new onset bilateral weakness and numbness in the upper extremitie s s/p work injury- C-spine XR in the ER was negative for fracture, signs of cervical radiculopa thy- Will obtain MRI for further evaluation - Consider NSGY referral if significan t findings- ER precaution s discussed- F/u after imaging [id number] Julia Sanford DO [facility] [address] [address] 04/07/2022 12:00:40 04/09/2022 10:41:56 Diabetes mellitus [id number] E11.9 Chronic, uncontroll ed. Pt has been [...] Follow up in two weeks Essential hypertension 03986181 I10 Chronic, well controlled . Pt has not been on medication for months. BP normal today. Will stop lisinopril given he is normotensi ve without medication s. No red flag symptoms.- <2g sodium per day and 150 minutes moderate intensity exercise per week- Discontinu e lisinopril - Follow up in 3 mo [id number] Alphonso Olivares MD [facility] [address] [address] 05/25/2022 13:42:49 06/03/2022 12:51:26 Type 2 diabetes mellitus [id number] E11.9 Chronic, uncontroll ed on jardiance and [...] at home- Fu in one month Hyperlipidemia 76680238 E78.5 Newly diagnosed. ASCVD 11.1%.- Discussed foods high in cholestero l to avoid- 150 minutes moderate intensity exercise per week- Will start atorvastat in 40 mg- Recheck lipid panel in 6 weeks Screening for malignant neoplasm of colon [id number] Z12.11 No prior screenings . No family hx of colon ca. No red flag symptoms.- Discussed various methods of screening for colon ca and pros and cons of each. Pt decided cologuard was best for him. Insomnia [id number] G47.0 0 Chronic, uncontroll ed. Issues falling asleep but not staying asleep.- Discussed sleep hygeine- Will start melatonin [id number] Alphonso Olivares MD [facility] [address] [address] 07/28/2022 10:44:27 08/03/2022 15:51:35 Hyperlipidemia 70776333 E78.5 ASCVD 11.1%. Started on atorvastat in 40 mg qd 05/2022. Tolerating medicaton well.- Discussed foods high in cholestero l to avoid- 150 minutes moderate intensity exercise per week- Continue atorvastat in 40 mg- Recheck lipid panel today- Will monitor CMP Type 2 loco betes mellitus 11569079 E11.9 Chronic, previously managed with jardiance, januvia, [...] Fu in 3 months Hypertensive disorder 38 730539 I10 Not on any medication s currently. BP slightly elevated today.- Check BP at home [id number] CONNOR DHILLON MD [facility] [address] [address] 01/05/2023 10:32:57 01/07/2023 10:14:47 Tension-type headache [id number] G44.209 F/u chronic headaches. Seen by Neurology [...] sooner PRN. Type 2 loco betes mellitus 26404491 E11.9 Hypertensive disorder 38 868780 I10 Not on any medication s currently. BP slightly elevated today (142/88).- Continue to monitor, consider starting anti-hyper tensive at next visit. [id number] Tyson Bell MD [facility] 47 3 [facility] [address] [place] [address] 02/10/2023 08:51:12 02/11/2023 10:16:30 Essential hypertension 80996276 I10 Chronic, uncontroll ed. Not currently on any medication s. BP has been elevated at the last two visits. No red flag symptoms. UTD on labs.- <2g sodium per day and 150 minutes moderate intensity exercise per week- Start lisinopril 10 mg qd- Follow up in 2 weeks Type 2 loco betes mellitus 91542237 E11.9 Chronic, managed with jardiance. UTD on [...] Jose Roberto 04/07/2022 1 [employer] [id number] Vincent Jose Roberto [id number] Vincent Jose Roberto 05/25/2022 2 *SELF PAY* Vi ncent Jose Roberto 05/25/2022 1 [employer] [id number] Vincent Jose Roberto [id number] Vincent Jose Roberto 07/28/2022 2 *SELF PAY* Vi ncent Jose Roberto 07/28/2022 1 [employer] [id number] Vincent Jose Roberto [id number] Vincent Jose Roberto 01/05/2023 2 *SELF PAY* Vi ncent Jose Roberto 01/05/2023 1 [employer] [id number] Vincent Jose Roberto [id number] Vincent Jose Roberto 02/10/2023 2 *SELF PAY* Vi ncent Jose Roberto 02/10/2023 1 [employer] [id number] Vincent Jose Roberto [id number] Vincent Jose Roberto Notes Date Note Type [...] Julia Sanford DO Attn: Accounting,[address] [facility], [place], [address], [facility] 04/21/2022 10:31:03 05/25/2022 text/html Fu for T2DM. [...] Alphonso Olivares MD Attn: Accounting,[address] [facility], [place], [address], [facility] 06/16/2022 10:09:59 07/28/2022 text/html 57 yo here for f u of diabetes. Pt states he has only been on jardiance since his last visit. Unsure why he stopped his insulin or januvia. Glucose at home has been 120s-130s. No episodes of lightheadedness, confusion, diaphoresis, or documented hypoglycemia. Pt tolerating statin well and denies any myalgias. Alphonso Olivares MD Attn: Accounting,[address] [facility], [place], [address], [facility] 08/03/2022 08:22:37 01/05/2023 text/html HeadacheReported bypatient.Location:ban d around head Quality:3-4x weekly Severity:pain level 05/19 Alleviating factors:OTC medication (Tylenol); Steroid 7d pack helped briefly. MRI/MRA Brain scheduled for January 2023 - ordered by Dr. Puga (Neurology). CONNOR DHILLON MD Attn: Accounting,[address] [facility], [place], [address], [facility] 01/14/2023 10:23:37 02/10/2023 text/html Pt here for fu o f HTN and DM. Pt denies urinary frequency, urgency, increased thirst, appetite changes, or episodes of confusion, lightheadedness, shakiness, or diaphoresis. Pt denies ADAM, vision changes, chest pian, palpitations, SOB, or increased LE edema. Tyson Bell MD Attn: Accounting,[address] [facility], [place], [address], [facility] 02/15/2023 09:42:46
--- OUTSIDE RECORDS SUMMARY | 2024-11-29 14:24 | XMS_ITS | Referral Summary ---
Author Organization [facility] Address [address] [place] [address] Care Team Providers Care Lpc Name Role Phone Arturo Carrasquillo MD Primary Care Provider [phone] Source Comments [facility],non-owned Affiliates and Associated Physician Practices is amultiple site organization consisting of ambulatory clinics and hospital sitesin [place], [place], [place] and [place]. This disclosure is being madepursuant to the Care Everywhere program and may not contain all information available regarding this patient. Last updated 18.[facility] Allergies Active Allergy Reactions Criticality Noted Date [...] - 26 mg/dL 07/06/2024 6:17 AM [facility] Creatinine 1.10 0.71 - 1.16 mg/dL 07/06/2024 6:17 AM [facility] Sodium 135(L) 136 - 145 mmol/L 07/06/2024 6:17 AM [facility] Potassium 4.0 3.5 - 4.5 mmol/L 07/06/2024 6:17 AM [facility] Chloride 107 98 - 107 mmol/L 07/06/2024 6:17 AM [facility] CO2 22 22 - 29 mmol/L 07/06/2024 6:17 AM [facility] Glucose 243(H) 70 - 115 mg/dL 07/06/2024 6:17 AM [facility] Calcium 9.2 8.4 - 10.2 mg/dL 07/06/2024 6:17 AM [facility] Anion Gap 6 6 - 16 07/06/2024 6:17 AM [facility] BUN/Creatinine Ratio 10 7 - 23 07/06/2024 6:17 AM [facility] Osmolality Calculated 287 275 - 295 mOsm/kg 07/06/2024 6:17 AM [facility] eGFR by CKD-EPI 79(L) >=90 mL/min/1.7 3 m2 07/06/2024 6:17 AM [facility] Blood BLOOD SPECIMEN / Unknown Venipuncture / Unknown 07/06/2024 5:46 AM CDT 07/06/2024 5:53 AM CDT Joshua Winter DO LAB - CHEMISTRY [facility] [address] [place] [address], [facility] [phone] * (ABNORMAL) HEMOGLOBIN A1C (12/31/2023 11:29 AM CDT) Hemoglobin A1c 10.7(H) <=5.6 % 01/01/2024 11:52 AM CDT [facility] Estimated Average Glucose 260 mg/dL 01/01/2024 11:52 AM CDT [facility] Comment: HbA1c Interpretation: Normal : < 5.7% Pre-diabetes: 5.7-6.4% Diabetes: Equal to or greater than 6.5% Test results diagnostic of diabetes should be repeated for confirmation. Treatment target values recommended by ADA and other clinical organizations should be used to evaluate metabolic control in patients. Reference: [place] Diabetes Association, Standards of Care in Diabetes [...] Jurado MD LAB - CHEMISTRY [facility] Organization Address City/State/ZIP Co de Phone Number [facility] [address] [place] [address], [facility] [phone] from Last 3 Months or Most Recently Relevant to Health Maintenance Advance Directives * Full Code (Latest Code Status on File) Date Activated Date Inactivated Comments 07/05/2024 10:48 AM 07/06/2024 12:06 PM * Full Code Date Activated Date Inactivated Comments 12/30/2023 6:29 PM 01/04/2024 12:35 PM Care Teams Lpc Relationship Specialty Start Date End Date Sajid, Arturo, MD [address] [place] [address] [address] [place] [address] PCP - General Family Medicine 01/11/24
--- OUTSIDE RECORDS SUMMARY | 2024-11-29 14:24 | XMS_ITS | Clinical Summary ---
Author Organization [facility] Lolly peralta Felicitasare[facility] Address [address] [place] [address] Care Team Providers Care Credit Or Loans Officer Name Role Phone Arturo Carrasquillo MD Primary Care Provider [phone] Allergies Active Allergy Reactions Criticality Noted Date [...] Encounters Date Type Department Care Team Description 11/20/2024 External Device Data STL ABSTRACTION Provider, Abstract 10/23/2024 External Device Data [facility] ABSTRACTION Provider, Abstract 09/18/2024 Telephone [facility] Oncology and Hematology [facility] [address] [place] [address] Marko Parada MD Leg Concerns 09/13/2024 Refill [facility] Oncology and Hematology [facility] [address] [place] [address] Marko Parada MD from Last [...] st Contact Info) Description 12/06/2024 3:30 PM WHISKEY FILTERER Office Visit [facility] Oncology and Hematology [facility] [address] [facility] [address] [place] [address] Marko Parada MD [address] [facility] [address] [place] [address] Health Maintenance Due Date Last [...] of 2) 2017 INFLUENZA VACCINE (#1) 2024 Preventative Visit- Commercial 10/10/2024 DIABETES HBA1C Q 6 MONTHS 05/12/20252024, 09/10/2024, 02/22/2024, Additional history exists DIABETES ANNUAL FOOT EXAM 09/10/2025 09/10/2024 DTAP/TDAP/TD VACCINES (2 - T d or Tdap) 09/21/2028 09/21/2018 Insurance [facility] [employer] PPO [id number] Care Teams Credit Or Loans Officer Relationship Specialty Start Date End Date Arturo Carrasquillo MD [address] [place] [address] PCP - General Family Practice 12/26/23
--- OUTSIDE RECORDS SUMMARY | 2024-11-29 14:24 | XMS_ITS | Clinical Summary ---
Author Organization [facility] [address] Address [address] [place] [address] Care Team Providers Care Plate Shear Operator Name Role Phone Arturo Carrasquillo MD Primary Care Provider [phone] Source Comments [facility],non-owned Affiliates and Associated Physician Practices is amultiple site organization consisting of ambulatory clinics and hospital sitesin [place], [place], [place] and [place]. This disclosure is being madepursuant to the Care Everywhere program and may not contain all information available regarding this patient. Last updated 18.[facility] [address] Allergies Active Allergy Reactions Criticality Noted Date [...] 7 - 26 mg/dL 07/06/2024 6:17 AM [facility] Creatinine 1.10 0.71 - 1.16 mg/dL 07/06/2024 6:17 AM [facility] Sodium 135(L) 136 - 145 mmol/L 07/06/2024 6:17 AM [facility] Potassium 4.0 3.5 - 4.5 mmol/L 07/06/2024 6:17 AM [facility] Chloride 107 98 - 107 mmol/L 07/06/2024 6:17 AM [facility] CO2 22 22 - 29 mmol/L 07/06/2024 6:17 AM [facility] Glucose 243(H) 70 - 115 mg/dL 07/06/2024 6:17 AM [facility] Calcium 9.2 8.4 - 10.2 mg/dL 07/06/2024 6:17 AM [facility] Anion Gap 6 6 - 16 07/06/2024 6:17 AM [facility] BUN/Creatinine Ratio 10 7 - 23 07/06/2024 6:17 AM [facility] Osmolality Calculated 287 275 - 295 mOsm/kg 07/06/2024 6:17 AM [facility] eGFR by CKD-EPI 79(L) >=90 mL/min/1.7 3 m2 07/06/2024 6:17 AM [facility] Blood BLOOD SPECIMEN / Unknown Venipuncture / Unknown 07/06/2024 5:46 AM CDT 07/06/2024 5:53 AM T Joshua Winter DO LAB - CHEMISTRY [facility] [address] [place] [address], [facility] [phone] * (ABNORMAL) HEMOGLOBIN A1C (12/31/2023 11:29 AM T) Hemoglobin A1c 10.7(H) <=5.6 % 01/01/2024 11:52 AM [facility] Estimated Average Glucose 260 mg/dL 01/01/2024 11:52 AM CDT [facility] Comment: HbA1c Interpretation: Normal : < 5.7% Pre-diabetes: 5.7-6.4% Diabetes: Equal to or greater than 6.5% Test results diagnostic of diabetes should be repeated for confirmation. Treatment target values recommended by ADA and other clinical organizations should be used to evaluate metabolic control in patients. Reference: [place] Diabetes Association, Standards of Care in Diabetes [...] LAB - CHEMISTRY [facility] Organization Address City/State/ZIP Co de Phone Number [facility] [address] [place] [address], [facility] [phone] from Last 3 Months or Most Recently Relevant to Health Maintenance Advance Directives * Full Code (Latest Code Status on File) Date Activated Date Inactivated Comments 07/05/2024 10:48 AM 07/06/2024 12:06 PM * Full Code Date Activated Date Inactivated Comments 12/30/2023 6:29 PM 01/04/2024 12:35 PM Care Teams Plate Shear Operator Relationship Specialty Start Date End Date Arturo Carrasquillo MD [address] [facility] [address] [place] [address] PCP - General Family Medicine 01/11/24
--- OUTSIDE RECORDS SUMMARY | 2024-11-29 14:24 | XMS_ITS | Clinical Summary ---
Author Organization [facility] Address [address] [place] [phone] Phone Care Team Providers Care Mortgage Loan Funder Name Role Phone Unavailable Primary Care Provider [...] Care Team (Late st Contact Info) Description 12/13/2024 11:20 AM [facility] Office Visit [facility] [address] [facility] [address] [place] [address] Morgan Quinonez MD [address] [address] Health Maintenance Due Date Last Done Comments Diabetic Foot Exam 1977 Ophthalmology Exam 1977 Pneumococcal PPSV23 Highest Risk Adult (1 of 3 - PCV13 ) 1986 Influenza Vaccine (#1) 2024
--- OUTSIDE RECORDS SUMMARY | 2024-11-29 14:24 | XMS_ITS | Data Portability ---
Author Organization [facility], Main Office Address [address] [place] [address] Assessment No assessment recorded. Plan of Treatment Reminders Order Date Submit Date Provider Last Modified By Organization Details Last Modified Time Details Appointments None recorded. Lab None recorded. Referral None recorded. Procedures colonoscopy screening (PROC) [address] (Pre-Screen), [address] [place] [address], [address], 08:03:53 Surgeries None recorded. Imaging None recorded. Medication Orders Sutab 1.479-0.188 -0.225 gram tablet 2023 [facility], [address], [facility] [address], [place], [place], [phone], 11:23:26 Patient TargetsNo targets recorded. Patient Instructions Encounter Date Encounter Id Patient Instructions Last Modified By Organization Details Last Modified Time 02/08/2024 [id number] JONAS TAB Not available 10/2023 11:21:00 PT NEEDS A SCREENING COLON . R/O POLYP . RECOMMEND A COLONOSOPY . Risks benefits and complications were explained to the pt. ( BLEEDING PERFORATION , INFECTION , ). PT VERBALIZES UNDERSTANDING AND IS WILLING TO PROCEDE . Not available 02/08/2024 11:21:07 Reason for Referral None Reported. Problems Name Problem SNOMED Code Status Onset Date Resolution Date Notes Provider Name and Address Organization Details Recorded Time Pulmonary embolism [id number] Active CHANTEL Mobley, [facility] 11:39:15 Problem Notes None recorded. Medical Equipment None Reported. Allergies No known drug allergies Medications Name Sig Start Date Stop Date Status Note LastModified by Organization Details LastModified Time atorvastati n 40 mg tablet TAKE ONE TABLET BY MOUTH EVERY DAY (TO LOWER CHOLESTER OL) 12/18 completed Not Available Not Available Not Available fluconazole 150 mg tablet TAKE ONE TABLET BY MOUTH A SINGLE DOSE active Not Available Not Available No t Available Lovenox 100 mg/mL subcutaneou s syringe Inject 2 mL every day by subcutane ous route for 3 days. 2023 active Not Available Not Available Not Avai lable Voltage SecurityTouch Ultra Test strips USE TO TEST BLOOD SUGAR 2 TO 3 TIMES A DAY active Not Available Not Available No t Available nystatin 100,000 unit/gram topical cream APPLY TOPICALLY TO THE AFFECTED AREA(S) TWICE DAILY FOR 14 DAYS active Not Available Not Available No t Available lisinopril 10 mg tablet TAKE ONE TABLET BY MOUTH EVERY DAY 12/18 completed Not Available Not Available Not Available nitroglycer in 0.4 mg sublingual tablet DISSOLVE 1 TABLET UNDER THE TONGUE EVERY 5 MINUTES NEEDED FOR CHEST PAIN. DO NOT EXCEED A TOTAL OF 3 DOSES IN 15 MINUTES. 12/18 completed Not Available Not Available Not Available ergocalcife rol (vitamin D2) 1,250 mcg (50,000 unit) capsule TAKE ONE Capsule BY MOUTH EVERY WEEK active Not Available Not Available No t Available ibuprofen 600 mg tablet TAKE ONE TABLET BY MOUTH THREE TIMES DAILY NEEDED active Not Available Not Available No t Available methylpredn isolone 4 mg tablets in a dose pack TAKE ONE TABLET BY MOUTH DAILY FOR 7 DAYS 12/18 completed Not Available Not Available Not Available rosuvastati n 20 mg tablet TAKE ONE TABLET BY MOUTH AT BEDTIME TO LOWER CHOLESTER OL 12/18 completed Not Available Not Available Not Available Lantus Solostar U-100 Insulin 100 unit/mL (3 mL) subcutaneou s pen INJECT 10 UNITS AT BEDTIME SUBCUTANE OUSLY active Not Available Not Available No t Available Eliquis 5 mg tablet TAKE TWO TABLETS BY MOUTH TWICE DAILY FOR SIX DAYS, THEN decrease TO TAKE ONE Tablet BY MOUTH TWICE DAILY active Not Available Not Available No t Available Jardiance 10 mg tablet TAKE ONE TABLET BY MOUTH EVERY DAY 12/18 completed Not Available Not Available Not Available Jardiance 25 mg tablet TAKE ONE TABLET BY MOUTH EVERY DAY active Not Available Not Available No t Available TRUEplus Pen Needle 31 gauge x 3/16 INJECT ONCE DAILY active Not Available Not Available No t Available OneTouch Ultra2 Meter USE TO TEST BLOOD SUGAR 2 TO 3 TIMES A DAY active Not Available Not Available No t Available OneTouch Delica Plus Lancet 33 gauge USE TO TEST BLOOD SUGAR 2 TO 3 TIMES DAY active Not Available Not Available No t Available Sutab 1.479-0.188 -0.225 gram tablet DIRECTED 2023 active Not Available Not Available Not Avai lable Vitals Date Recorded Body height Body mass index (BMI) Body weight Heart rate Oxygen saturation Oxygen saturation in Arterial blood by Pulse oximetry Systolic blood pressure Diastolic blood pressure Provider Name and Address Organization Details Last Updated DateTime 180.34 cm 35.1 kg/m2 177334. 28 g 96 /min 97 % 97 % 130 mm[Hg] 94 mm[Hg] CHANTEL Mobley [facility] 10:59:00 Social History Question Answer Notes LastModified by [employer] Details LastModified Time Tobacco Smoking Status Never Smoker HCANTEL Mobley [facility] 12/19/2023 11:08:55 What Is Your Level Of Alcohol Consumption? None Information not available 12/19/2023 Do You Use Any Illicit Or Recreational Drugs? No Information not available 12/19/2023 Sex: Unknown Functional Status None recorded. Mental Status None recorded. Family History Relationship Description Onset Age of this Age Resolved Age Notes LastModified by Organization Details LastModified Time Mother Family history of malignant neoplasm [email or web address] Not available 2023 11:06:55 Mother Diabetes mellitus [email or web address] Not available 2023 11:07:03 Mother Hypertensive disorder [email or web address] Not available 2023 11:07:13 Father Myocardial infarction [email or web address] Not available 12/18 11:07:22 Brother Diabetes mellitus [email or web address] Not available 2023 11:07:31 Maternal Grandmother Alzheimer's disease [email or web address] Not available 2023 11:08:00 Maternal Grandfather Heart disease [email or web address] Not available 2023 11:08:11 Medical History Condition Response DIABETES, TYPE Y HEADACHES/MIGRAINES Y BLOOD CLOTS Y HYPERTENSION Y Past Encounters Encounter ID Performer Location Encounter Start Date Encounter Closed Date Diagnosis/Indication Diagnosis SNOMED-CT Code Diagnosis ICD10 Code Diagnosis Note [id number] Yamilet Stevens MD [facility] General Surgery [address] [place] [address] 02/08/2024 10:54:22 02/08/2024 11:40:59 Screening for malignant neoplasm of colon 878804056 Z12.11 Health Concerns Section Related Observation LastModified by Organization Detai ls LastModified Time None Recorded Concern Status LastModified by Organization Details LastModified Time None Recorded Advance Directives Directive None Recorded Payers Encounter Date Sequence Insurance Name Policy Number Policy Zhong Covered Member ID Zhong Member ID Guarantor Name 02/08/2024 1 [facility] [id number] Mayur Cid [id number] Mayur Cid Notes Date Note Type Note Provider Name and Address Organization Details Recorded Time 02/08/2024 text/html PT WAS SEEN IN THE OFFICE TODAY FOR COLON SCREENING . PT DENIES ABD PAIN /N/V/D/BLEEDING /WT LOSS. FIRST COLON Yamilet Stevens MD [address] [facility], [address], [place], [address], [facility] 02/08/2024 11:22:49
--- OUTSIDE RECORDS SUMMARY | 2024-11-29 14:24 | XMS_ITS | Referral Summary ---
Author Organization [address] Address [address] [address] Care Team Providers Care Counselor Marriage And Family Name Role Phone Arturo Carrasquillo MD Primary Care Provider [phone] Joseph Cortes MD Unavailable Encounters Date Type Department Care Team Description 11/12/2024 12:45 PM INSOLVENCY CONSULTANT Office Visit [facility] Diabetes and Endocrinology [address] [place] [phone] Severino Martinez MD Type 2 diabetes mellitus with hyperglycemia, with long-term current use of insulin (HCC) (Primary Dx); Hyperlipidemia associated with type 2 diabetes mellitus (HCC); Class 2 severe obesity due to excess calories with serious comorbidity and body mass index (BMI) of 37.0 to 37.9 in adult (HCC); Hypertension associated with diabetes (HCC) 11/09/2024 Telephone [facility] Diabetes and Endocrinology [address] [place] [phone] Severino Martinez MD Appointment Pre registration 09/10/2024 3:15 PM INSOLVENCY CONSULTANT Office Visit [facility] Diabetes and Endocrinology [address] [place] [phone] Severino Martinez MD Type 2 diabetes mellitus with hyperglycemia, with long-term current use of insulin (HCC) (Primary Dx); Yeast infection; Hyperlipidemia associated with type 2 diabetes mellitus (HCC); Class 2 severe obesity due to excess calories with serious comorbidity and body mass index (BMI) of 36.0 to 36.9 in adult ([facility]) from Last 3 Months Allergies Active Allergy [...] hyperglycemia, with long-term current use of insulin ([facility]) Check blood sugar 3 times a day 200 each 11 4 Active lancets miscIndications :Type 2 diabetes mellitus with hyperglycemia, with long-term current use of insulin ([facility]) Check blood sugar 3 times daily 200 each 3 4 Active nystatin creamIndication s:Yeast infection Apply topically 2 (two) times a day On affected area for 14 days 30 g 4 Active pen needle, diabetic (BD Ultra-Fine Joan Pen Needle) 32 gauge x 5/32 needleIndicatio ns:Type 2 diabetes mellitus with hyperglycemia, with long-term current use of insulin ([facility]) One each daily 100 each 3 4 Active glipiZIDE (GLUCOTROL) 10 mg tabletIndicatio ns:type 2 diabetes mellitus Take 1 tablet (10 mg total) by mouth 2 (two) times a day before breakfast and dinner 180 tablet 3 5 11/12/19 26 Active insulin glargine (LANTUS) 100 unit/mL (3 mL) pen for injectionIndica tions:Type 2 diabetes mellitus with hyperglycemia, with long-term current use of insulin ([facility]) Inject 25 Units under the skin daily 22.5 mL 3 5 11/12/19 26 Active losartan (COZAAR) 50 mg tabletIndicatio ns:Hypertension associated with diabetes ([facility]) Take 1 tablet (50 mg total) by [...] 02/22/2024 Assessment & Plan (09/11/2024 12:30 PM INSOLVENCY CONSULTANT): Chronic, poorly controlled, worsening Hemoglobin A1c 13.3% [...] 02/22/2024 Assessment & Plan (09/11/2024 12:31 PM INSOLVENCY CONSULTANT): Continue statin therapy Assessment & Plan (02/22/2024 9:30 PM CDT): Continue statin therapy Class 2 severe obesity due t o excess calories with serious comorbidity and body mass index (BMI) of 36.0 to 36.9 in adult 02/22/2024 Assessment & Plan (09/11/2024 12:31 PM INSOLVENCY CONSULTANT): Chronic, worsening Discussed about healthy lifestyle habits [...] on file Legal Sex Male 3:36 PM INSOLVENCY CONSULTANT Gender Identity Not on file Sexual Orientation Not on file Last Filed Vital Signs Vital Sign Reading Time Taken Comments Blood Pressure 138/88 11/12/2024 12:49 PM INSOLVENCY CONSULTANT Pulse 77 11/12/2024 12:49 PM INSOLVENCY CONSULTANT Temperature 36.4 C (97.5 F) 05/26/2021 2:36 PM CDT Respiratory Rate 15 11/12/2024 12:49 PM INSOLVENCY CONSULTANT Oxygen Saturation 98% 05/26/2021 2:36 PM CDT Inhaled Oxygen Concentration - - Weight 120.7 kg (266 lb) 11/12/2024 12:49 PM INSOLVENCY CONSULTANT Height 180.3 cm (5' 11 ) 11/12/2024 12:49 PM INSOLVENCY CONSULTANT Body Mass Index 37.1 11/12/2024 12:49 PM INSOLVENCY CONSULTANT Plan of Treatment Not on file Procedures Procedure Name Priority Date/Time Associated Diagnosis Comments POCT HEMOGLOBIN A1C Routine 11/12/2024 1 2:53 PM INSOLVENCY CONSULTANT Type 2 diabetes mellitus with hyperglycemia, with long-term current use of insulin (HCC) POCT GLUCOSE Routine 11/12/2024 12:51 PM INSOLVENCY CONSULTANT Type 2 diabetes mellitus with hyperglycemia, with long-term current use of insulin (HCC) POCT HEMOGLOBIN A1C Routine 09/10/2024 3 :26 PM INSOLVENCY CONSULTANT Type 2 diabetes mellitus with hyperglycemia, with long-term current use of insulin (HCC) POCT GLUCOSE Routine 09/10/2024 3:26 PM INSOLVENCY CONSULTANT Type 2 diabetes mellitus with hyperglycemia, with [...] * POCT hemoglobin A1c (11/12/2024 12:53 PM INSOLVENCY CONSULTANT) Hemoglobin A1C, POC 10.3 4.0 - 5.6 % Blood 11/12/2024 12:5 3 PM INSOLVENCY CONSULTANT Result [facility] Severino Thrasher MD POINT OF CARE TEST ORDERABLES Final Result * POCT glucose (11/12/2024 12:51 PM INSOLVENCY CONSULTANT) Glucose Blood, POC 152 mg/dL Blood 11/12/2024 12:5 1 PM INSOLVENCY CONSULTANT Result [facility] Severino Thrasher MD POINT OF CARE TEST ORDERABLES Final Result * POCT hemoglobin A1c (09/10/2024 3:26 PM INSOLVENCY CONSULTANT) Hemoglobin A1C, POC 13.3 4.0 - 5.6 % Blood 09/10/2024 3:26 PM INSOLVENCY CONSULTANT Result [facility] Severino Thrasher MD POINT OF CARE TEST ORDERABLES Final Result * POCT glucose (09/10/2024 3:26 PM INSOLVENCY CONSULTANT) Glucose Blood, POC 282 mg/dL Blood 09/10/2024 3:26 PM INSOLVENCY CONSULTANT Result [facility] Severino Thrasher MD POINT OF CARE TEST [...] ORDERABLE S Final Result Performing Organization Address [facility] Co de Phone Number [facility] [id number] [facility] [place], [place] [id number] * Albumin Creatinine Ratio, Urine (02/22/2024 3:36 [...] ORDERABLE S Final Result Performing Organization Address [facility] Co de Phone Number [facility] [address] [place] [address] * (ABNORMAL) Lipid panel (02/22/2024 3:36 PM [...] BLOOD ORDERABLE S Final Result [facility] [id number] Department [place] [address] from Last 3 Months or Most Recently Relevant to Health Maintenance Insurance [facility] Care Teams Counselor Marriage And Family Relationship Specialty Start Date End Date Arturo Carrasquillo MD [address] [address] PCP - General Emergency Medicine 02/22/24 Joseph Cortes MD [address] [place] [address] Referring Physician Ophthalmology 09/12/24
--- OUTSIDE RECORDS SUMMARY | 2024-11-29 14:24 | XMS_ITS | Clinical Summary ---
Author Organization [address] Address [address] [place] [phone] Care Team Providers Care Mesh Worker Name Role Phone Arturo Carrasquillo MD Primary Care Provider [phone] Joseph Cortes MD Unavailable [phone] Allergies Active Allergy Reactions Criticality Noted Date [...] hyperglycemia, with long-term current use of insulin ([facility]) Check blood sugar 3 times a day 200 each 11 4 Active lancets miscIndications :Type 2 diabetes mellitus with hyperglycemia, with long-term current use of insulin ([facility]) Check blood sugar 3 times daily 200 each 3 4 Active nystatin creamIndication s:Yeast infection Apply topically 2 (two) times a day On affected area for 14 days 30 g 4 Active pen needle, diabetic (BD Ultra-Fine Joan Pen Needle) 32 gauge x 5/32 needleIndicatio ns:Type 2 diabetes mellitus with hyperglycemia, with long-term current use of insulin ([facility]) One each daily 100 each [...] hyperglycemia, with long-term current use of insulin ([facility]) Inject 25 Units under the [...] hyperglycemia, with long-term current use of insulin ([facility]) Inject 30-40 Units under the skin daily 36 mL 1 4 11/12/19 25 Discontinu ed(Reorder ) Active Problems Problem Noted Date Diagnosed Date Type 2 diabetes mellitus wit h hyperglycemia, with long-term current use of insulin 02/22/2024 Assessment & Plan (09/11/2024 12:30 PM COVERAGE SPECIALIST): Chronic, poorly controlled, worsening Hemoglobin A1c 13.3% [...] 02/22/2024 Assessment & Plan (09/11/2024 12:31 PM COVERAGE SPECIALIST): Continue statin therapy Assessment & Plan (02/22/2024 9:30 PM CDT): Continue statin therapy Class 2 severe obesity due t o excess calories with serious comorbidity and body mass index (BMI) of 36.0 to 36.9 in adult 02/22/2024 Assessment & Plan (09/11/2024 12:31 PM COVERAGE SPECIALIST): Chronic, worsening Discussed about healthy lifestyle habits [...] Department Care Team Description 11/12/2024 12:45 PM COVERAGE SPECIALIST Office Visit [facility] Diabetes and Endocrinology [address] [place] [phone] Severino Martinez MD Type 2 diabetes mellitus with hyperglycemia, with long-term current use of insulin (HCC) (Primary Dx); Hyperlipidemia associated with type 2 diabetes mellitus (HCC); Class 2 severe obesity due to excess calories with serious comorbidity and body mass index (BMI) of 37.0 to 37.9 in adult (HCC); Hypertension associated with diabetes (HCC) 11/09/2024 Telephone [facility] Diabetes and Endocrinology [address] [place] [phone] Severino Martinez MD Appointment Pre registration 09/10/2024 3:15 PM COVERAGE SPECIALIST Office Visit [facility] Diabetes and Endocrinology [address] [place] [phone] Severino Maritnez MD Type 2 diabetes mellitus with hyperglycemia, [...] on file Legal Sex Male 3:36 PM COVERAGE SPECIALIST Gender Identity Not on file Sexual Orientation Not on file Obstetrics History Last Filed Vital Signs Vital Sign Reading Time Taken Comments Blood Pressure 138/88 11/12/2024 12:49 PM COVERAGE SPECIALIST Pulse 77 11/12/2024 12:49 PM COVERAGE SPECIALIST Temperature 36.4 C (97.5 F) 05/26/2021 2:36 PM CDT Respiratory Rate 15 11/12/2024 12:49 PM COVERAGE SPECIALIST Oxygen Saturation 98% 05/26/2021 2:36 PM CDT Inhaled Oxygen Concentration - - Weight 120.7 kg (266 lb) 11/12/2024 12:49 PM COVERAGE SPECIALIST Height 180.3 cm (5' 11 ) 11/12/2024 12:49 PM COVERAGE SPECIALIST Body Mass Index 37.1 11/12/2024 12:49 PM COVERAGE SPECIALIST Plan of Treatment Health Maintenance Due Date Last Done Comments Colon Cancer Screening-Colonoscopy 1967 Hepatitis C Screening 1967 Prostate Cancer Screening-PSA 1967 Dilated Eye Exam 1967 Hepatitis B Screening 1985 Regular Well Visit/Exam 18-64 1985 Pneumococcal vaccine <65 (1 of 2 - PCV) 1986 Zoster Vaccine (1 of 2) 2017 Influenza Vaccine (#1) 2024 Albumin Creatinine Ratio, Urine 02/21/2025 Depression Screening 02/21/2025 02/22/2024 Lipid Panel 02/21/2025 02/22/2024, 032 12/2023, 12/11/2023, Additional history exists eGFR 02/21/2025 02/22/2024 Hemoglobin A1C 05/12/2025 11/12/2024, 12/0 11/2023, 02/22/2024 Foot Exam 09/10/2025 09/10/2024, 02/22/2024 DTaP/Tdap/Td Vaccine (2 - Td or Tdap) 09/21/2028 09/21/2018 Procedures Procedure Name Priority Date/Time Associated Diagnosis Comments POCT HEMOGLOBIN A1C Routine 11/12/2024 1 2:53 PM COVERAGE SPECIALIST Type 2 diabetes mellitus with hyperglycemia, with long-term current use of insulin (HCC) POCT GLUCOSE Routine 11/12/2024 12:51 PM COVERAGE SPECIALIST Type 2 diabetes mellitus with hyperglycemia, with long-term current use of insulin (HCC) POCT HEMOGLOBIN A1C Routine 09/10/2024 3 :26 PM COVERAGE SPECIALIST Type 2 diabetes mellitus with hyperglycemia, with long-term current use of insulin (HCC) POCT GLUCOSE Routine 09/10/2024 3:26 PM COVERAGE SPECIALIST Type 2 diabetes mellitus with hyperglycemia, with [...] * POCT hemoglobin A1c (11/12/2024 12:53 PM COVERAGE SPECIALIST) Hemoglobin A1C, POC 10.3 4.0 - 5.6 % Blood 11/12/2024 12:5 3 PM COVERAGE SPECIALIST Severino Thrasher MD POINT OF CARE TEST ORDERABLES Final Result * POCT glucose (11/12/2024 12:51 PM COVERAGE SPECIALIST) Glucose Blood, POC 152 mg/dL Blood 11/12/2024 12:5 1 PM COVERAGE SPECIALIST Severino Thrasher MD POINT OF CARE TEST ORDERABLES Final Result * POCT hemoglobin A1c (09/10/2024 3:26 PM COVERAGE SPECIALIST) Hemoglobin A1C, POC 13.3 4.0 - 5.6 % Blood 09/10/2024 3:26 PM COVERAGE SPECIALIST us Severino Thrasher MD POINT OF CARE TEST ORDERABLES Final Result * POCT glucose (09/10/2024 3:26 PM COVERAGE SPECIALIST) Glucose Blood, POC 282 mg/dL Blood 09/10/2024 3:26 PM COVERAGE SPECIALIST us Severino Thrsaher MD POINT OF CARE TEST ORDERABLES Final [...] LAB BLOOD ORDERABLE S Final Result [facility] [id number] Department [place] [address] * Albumin Creatinine Ratio, Urine [...] MD LAB URINE ORDERABLE S Final Result [facility] [id number] Department [place] [address] * (ABNORMAL) Lipid panel (02/22/2024 3:36 PM [...] BLOOD ORDERABLE S Final Result [facility] [id number] Department [place] [address] from Last 3 Months or Most Recently Relevant to Health Maintenance Insurance [facility] Care Teams Mesh Worker Relationship Specialty Start Date End Date Arturo Carrasquillo MD [address] [address] PCP - General Emergency Medicine 02/22/24 Joseph Cortes MD [address] [place] [address] Referring Physician Ophthalmology 09/12/24
--- OUTSIDE RECORDS SUMMARY | 2024-11-29 14:24 | XMS_ITS | Patient Health Summary ---
Author Organization [facility] Address [address] [place] [address] Care Team Providers Care Software Support Specialist Name Role Phone Arturo Carrasquillo MD Primary Care Provider [phone] [facility],non-owned Affiliates and Associated Physician Practices is amultiple site organization consisting of ambulatory clinics and hospital sitesin [place], [place], [place] and [place]. This disclosure is being madepursuant to the Care Everywhere program and may not contain all information available regarding this patient. Last updated 18.[facility] Allergies * Peanut-Derived(Anaphylaxis) -High Criticality * [...] of left lower extremity (HCC) * PROTHROMBIN [id number] PANEL(Performed 07/06/2024) Performed for Acute deep vein [...] LEIDEN MUTATION PANEL (07/11/2024 3:51 PM CDT) [facility] Factor V Leiden Source Whole Blood 07/16/2024 1:19 PM CDT [facility] ([facility]) Factor V Leiden PCR/FRET Negative 07/16/2024 1:19 PM CDT [facility] ([facility]) Comment: Indication for testing: Assess genetic risk for thrombosis. NEGATIVE: The factor V Leiden variant, c.1601G>A; p.Jfg009Wtd, was not detected. This does not exclude [...] function in the F5 gene variant c.1601G>A (p.Akz908Imv). Legacy nomenclature: [id number] (1691G>A) CLINICAL SENSITIVITY: 20-50 percent of individuals with an isolated VTE have the FVL variant. METHODOLOGY: Polymerase chain reaction and fluorescence monitoring. ANALYTICAL SENSITIVITY AND SPECIFICITY: 99 percent. LIMITATIONS: Diagnostic errors can occur due to rare sequence variations. F5 gene mutations, other than p.Jsn014Lmp, will not be detected. This test was developed and its performance characteristics determined by [facility]. It has not been cleared or approved by the US Food and Drug Administration. This test was performed in a CLIA certified laboratory and is intended for clinical purposes. Counseling and informed consent are recommended for genetic testing. Consent forms are available online. Performed By: [facility] [address] [place] [address] Elementary [employer] Director: Baldev Spence MD, PhD CLIA Number: [id number] Blood BLOOD SPECIMEN / Unknown Lab Venipuncture / Unknown 07/11/2024 3:51 PM CDT 07/11/2024 4:14 PM CDT Joshua Winter DO LAB - COAGULATION OR DERABLES Performing Organization Address [facility] de Phone Number [facility] [employer] [facility]) [address] [place] [address] * CARDIOLIPIN ANTIBODY IGA (07/11/2024 3:51 PM CDT) Cardiolipin Antibody IgA <10 <=11 APL 07/13/2024 6:29 AM CDT [facility] [employer] ([facility]) Comment: INTERPRETIVE INFORMATION: Cardiolipin Antibodies, IgA <=11 APL: Negative 12-19 APL: Indeterminate 20-80 APL: Low to Moderately Positive 81 APL or above: High Positive Performed By: [facility] [address] [place] [address] Elementary School Director: Baldev Spence MD, PhD CLIA Number: [id number] Blood BLOOD SPECIMEN / Unknown Lab Venipuncture / Unknown 07/11/2024 3:51 PM CDT 07/11/2024 4:13 PM CDT Joshua Winter DO LAB - SEROLOGY ORDER SUZANNE Performing Organization Address [facility] de Phone Number [facility] [employer] ([facility]) [address] * CARDIOLIPIN ANTIBODY IGG (07/11/2024 3:51 PM CDT) Cardiolipin Antibody IgG 14 <=14 GPL 07/13/2024 5:13 PM CDT [facility] [employer] ([facility]) Comment: INTERPRETIVE INFORMATION: Anti-Cardiolipin IgG Ab <=14 [...] other criteria phospholipid antibody tests. Performed By: [facility] [address] [place] [address] Elementary School Director: Baldev Spence MD, PhD CLIA Number: [id number] Blood BLOOD SPECIMEN / Unknown Lab Venipuncture / Unknown 07/11/2024 3:51 PM CDT 07/11/2024 4:13 PM CDT Joshua Winter DO LAB - SEROLOGY ORDER SUZANNE [facility] [employer] [facility]) [address] [place] [address], [facility] * BETA-2 GLYCOPROTEIN 1 ANTIBODY IGG/IGM PANEL (07/11/2024 3:51 PM CDT) Only the most recent of2 resultswithin the time period is included. Beta-2 Glycoprotein Antibody IgG <10 <=20 SGU 07/14/2024 12:34 AM CDT [facility] [employer] ([facility]) Beta-2 Glycoprotein Antibody IgM <10 <=20 SMU 07/14/2024 12:34 AM CDT [facility] [employer] [facility]) Comment: INTERPRETIVE INFORMATION: [id number] I, IgG and IgM Antibody The persistent [...] other criteria phospholipid antibody tests. Performed By: [facility] [address] [place] [address] Elementary School Director: Baldev Spence MD, PhD CLIA Number: [id number] Blood BLOOD SPECIMEN / Unknown Lab Venipuncture / Unknown 07/11/2024 3:51 PM CDT 07/11/2024 4:13 PM CDT Joshua Winter DO LAB - CHEMISTRY ORDE LUCIANO [employer] [facility]) [address] [place] [address], [facility] * VASCULAR LAB ORDER (07/09/2024 11:39 AM CDT) Anatomical Region Laterality Modality Other Narrative 07/09/2024 11:39 AM CDT Ordered by an unspecified provider. Scanned Document VASCULAR LAB ORDERAB LES * CARDIAC EKG ORDER (07/06/2024 10:40 AM CDT) Narrative 07/06/2024 10:40 AM CDT Ordered by an unspecified provider. Scanned Document CARDIAC SERVICES ORD ERABLES * PROTHROMBIN [id number] PANEL (07/06/2024 9:40 AM CDT) Prothrombin D52789H Negative 07/11/2024 4:00 PM CDT [facility] ([facility]) Comment: Indication for testing: Assess genetic risk for thrombosis. NEGATIVE: The Factor II, prothrombin Y38648G mutation, was not detected. Other causes of [...] M.D., Ph.D. 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 PATHOGENIC VARIANT TESTED: F2 c.*97G>A (O21253G). CLINICAL SENSITIVITY FOR VENOUS THROMBOSIS: Approximately 10 percent. METHODOLOGY: Polymerase chain reaction and fluorescence monitoring. ANALYTICAL SENSITIVITY AND SPECIFICITY: 99 percent. LIMITATIONS: Diagnostic errors can occur due to rare sequence variations. F2 gene variants, other than c.*97G>A (R15302A), will not be detected. This test was developed and its performance characteristics determined by [facility]. It has not been cleared or approved by the US Food and Drug Administration. This test was performed in a CLIA certified laboratory and is intended for clinical purposes. Counseling and informed consent are recommended for genetic testing. Consent forms are available online. Performed By: [facility] [address] [place] [address] Elementary [employer] Director: Baldev Spence MD, PhD CLIA Number: [id number] Source PT [id number] PCR Whole Blood 07/11/2024 4:00 PM CDT [employer] ([facility]) Blood BLOOD SPECIMEN / Unknown Venipuncture / Unknown 07/06/2024 9:40 AM CDT 07/06/2024 9:49 AM CDT Joshua Winter DO LAB - COAGULATION OR DERABLES [facility] [employer] [facility]) [address] [place] [address], [facility] * CARDIOLIPIN ANTIBODY IGM (07/06/2024 9:40 AM CDT) Cardiolipin Antibody IgM <10 <=12 MPL 07/08/2024 11:22 PM CDT [employer] [facility]) Comment: INTERPRETIVE INFORMATION: Anti-Cardiolipin IgM <=12 MPL: [...] other criteria phospholipid antibody tests. Performed By: [facility] [address] [place] [address] Elementary School Director: Baldev Spence MD, PhD CLIA Number: [id number] Blood BLOOD SPECIMEN / Unknown Venipuncture / Unknown 07/06/2024 9:40 AM CDT 07/06/2024 9:49 AM CDT Joshua Winter DO LAB - SEROLOGY ORDER SUZANNE Performing Organization Address [facility] Co de Phone Number [employer] [facility]) [address] * (ABNORMAL) ANTITHROMBIN III ANTIGEN (07/06/2024 9:40 AM CDT) Pathologist [facility] AT III Ag % Blood 75(L) 82 - 136 % 07/08/2024 5:25 PM CDT [employer] ([facility]) Comment: Antithrombin may be decreased due to [...] reference intervals for this test in the [employer] [facility] ([facility]). Performed By: [facility] [address] [place] [address] Elementary School Director: Baldev Spence MD, PhD CLIA Number: [id number] Blood BLOOD SPECIMEN / Unknown Venipuncture / Unknown 07/06/2024 9:40 AM CDT 07/06/2024 9:49 AM CDT Joshua Winter DO LAB - COAGULATION OR DERABLES Performing Organization Address City/[facility]/ZIP Co de Phone Number [facility] [employer] ([facility]) [address] * ANTITHROMBIN III ACTIVITY (07/06/2024 9:40 AM CDT) Pathologist [facility] Antithrombin III Activity 91.0 80.0 - 120.0 % 07/06/2024 10:38 AM CDT [facility] Blood BLOOD SPECIMEN / Unknown Venipuncture / Unknown 07/06/2024 9:40 AM CDT 07/06/2024 9:49 AM CDT Narrative [facility] - 07/06/2024 10:38 AM CDT Thrombin inhibitors (i.e., hirudin, argatroban...) present in the sample to be tested may lead to an over-estimation of the AT level. Joshua Winter DO LAB - COAGULATION OR DERABLES [facility] [address] [place] [address], [facility] [phone] * (ABNORMAL) GLUCOSE - POINT OF CARE (07/06/2024 6:27 AM CDT) Only the most recent of26 resultswithin the time period is included. Glucose WB/POC 216(H) 70 - 115 mg/dL 07/06/2024 7:23 AM [facility] Specimen Type Cap Fingerstick 2023 7:23 AM T [facility] Blood BLOOD SPECIMEN / Unknown 07/06/2024 6:27 AM CDT 07/06/2024 7:23 AM CDT Joshua Winter DO LAB - POINT OF CARE ORDERABLES Performing Organization Address City/[facility]/ZIP Co de Phone Number [facility] [address] [place] [address], [place] [phone] * (ABNORMAL) PTT [facility] (07/06/2024 5:46 AM CDT) Only the most recent of13 resultswithin the time period is included. APTT 98.3(H) 23.0 - 38.4 Seconds 07/06/2024 6:16 AM T [facility] Comment:Suggested therapeuti c range for full dose I.V. unfractionated heparin therapy for venous thromboembolism is 71 to 109 seconds. Blood BLOOD SPECIMEN / Unknown Venipuncture / Unknown 07/06/2024 5:46 AM CDT 07/06/2024 5:52 AM CDT Jayde Barnett MD LAB - COAGULATION OR DERABLES [facility] [address] [place] [address], [facility] [phone] * PT-INR [facility] (07/06/2024 5:46 AM CDT) Only the most recent of9 resultswithin the time period is included. PT 13.3 12.1 - 14.8 Seconds 07/06/2024 6:16 AM CDT [facility] INR 1.0 See Comment 07/06/2024 6:16 AM CDT [facility] Comment:The suggested therap eutic range for standard coumadin (warfarin) therapy is an INR of 2.0-3.0. For high-risk patients (Mechanical Mitral Valve Prosthesis, etc.), the suggested prophylactic therapeutic range is an INR of 2.5-3.5. Blood BLOOD SPECIMEN / Unknown Venipuncture / Unknown 07/06/2024 5:46 AM CDT 07/06/2024 5:52 AM CDT Jayde Barnett MD LAB - COAGULATION OR DERABLES Performing Organization Address City/[facility] Co de Phone Number [facility] [address] [place] [address], [facility] [phone] * (ABNORMAL) CBC W AUTO DIFFERENTIAL (07/06/2024 5:46 AM CDT) Only the most recent of8 resultswithin the time period is included. WBC 6.8 4.0 - 10.7 x10E9/L 07/06/2024 6:15 AM CDT [facility] RBC Count 5.74 4.30 - 5.80 x10E12/L 07/06/2024 6:15 AM CDT [facility] Hemoglobin 16.1 13.3 - 17.5 g/dL 07/06/2024 6:15 AM CDT [facility] Hematocrit 47.5 38.7 - 51.1 % 07/06/2024 6:15 AM [facility] MCV 82.8 80.0 - 98.0 fL 07/06/2024 6:15 AM [facility] MCH 28.0 26.7 - 33.6 pg 07/06/2024 6:15 AM [facility] MCHC 33.9 31.7 - 36.3 g/dL 07/06/2024 6:15 AM [facility] RDW-CV 12.8 11.3 - 14.8 % 07/06/2024 6:15 AM [facility] Platelet Count 151 150 - 420 x10E9/L 07/06/2024 6:15 AM [facility] MPV 11.7(H) 7.8 - 11.4 fL 07/06/2024 6:15 AM [facility] Neutrophil % 51.5 41.0 - 74.0 % 07/06/2024 6:15 AM [facility] Lymphocyte % 33.9 17.0 - 47.0 % 07/06/2024 6:15 AM [facility] Monocyte % 12.7(H) 3.0 - 11.0 % 07/06/2024 6:15 AM [facility] Eosinophil % 1.2 0.0 - 7.0 % 07/06/2024 6:15 AM [facility] Basophil % 0.4 0.0 - 1.6 % 07/06/2024 6:15 AM [facility] Immature Granulocytes % 0.3 0.0 - 1.0 % 07/06/2024 6:15 AM [facility] Neutrophil Absolute 3.49 1.60 - 7.50 x10E9/L 07/06/2024 6:15 AM [facility] Lymphocyte Absolute 2.30 1.00 - 4.40 x10E9/L 07/06/2024 6:15 AM [facility] Monocyte Absolute 0.86 0.15 - 1.00 x10E9/L 07/06/2024 6:15 AM [facility] Eosinophil Absolute 0.08 0.00 - 0.60 x10E9/L 07/06/2024 6:15 AM [facility] Basophil Absolute 0.03 0.00 - 0.13 x10E9/L 07/06/2024 6:15 AM [facility] Blood BLOOD SPECIMEN / Unknown Venipuncture / Unknown 07/06/2024 5:46 AM CDT 07/06/2024 5:53 AM CDT Jayde Barnett MD LAB - HEMATOLOGY ORD ERABLES [facility] [address] [place] [address], [facility] [phone] * (ABNORMAL) BASIC METABOLIC PANEL (CALCIUM TOTAL) (07/06/2024 5:46 AM T) BUN 11 7 - 26 mg/dL 07/06/2024 6:17 AM [facility] Creatinine 1.10 0.71 - 1.16 mg/dL 07/06/2024 6:17 AM [facility] Sodium 135(L) 136 - 145 mmol/L 07/06/2024 6:17 AM [facility] Potassium 4.0 3.5 - 4.5 mmol/L 07/06/2024 6:17 AM [facility] Chloride 107 98 - 107 mmol/L 07/06/2024 6:17 AM [facility] CO2 22 22 - 29 mmol/L 07/06/2024 6:17 AM [facility] Glucose 243(H) 70 - 115 mg/dL 07/06/2024 6:17 AM [facility] Calcium 9.2 8.4 - 10.2 mg/dL 07/06/2024 6:17 AM [facility] Anion Gap 6 6 - 16 07/06/2024 6:17 AM [facility] BUN/Creatinine Ratio 10 7 - 23 07/06/2024 6:17 AM [facility] Osmolality Calculated 287 275 - 295 mOsm/kg 07/06/2024 6:17 AM [facility] eGFR by CKD-EPI 79(L) >=90 mL/min/1.7 3 m2 07/06/2024 6:17 AM CDT [facility]ORATORY [facility] Blood BLOOD SPECIMEN / Unknown Venipuncture / Unknown 07/06/2024 5:46 AM CDT 07/06/2024 5:53 AM CDT Joshua Winter DO LAB - CHEMISTRY ORDBella ALMANZAJENIFER [facility] [address] [address], [facility] [phone] * BILL ONLY THROMBIN TIME (07/05/2024 10:01 AM CDT) Lab Bill Only Tests For Interface Bill Only 07/09/2024 11:44 PM CDT [employer] [facility] ([facility]) Blood BLOOD SPECIMEN / Unknown Venipuncture / Unknown 07/05/2024 10:01 AM CDT 07/05/2024 10:13 AM CDT Joshua Winter DO LAB - COAGULATION OR DERABLES Performing Organization Address City/[facility]/ZIP Co de Phone Number [employer] [facility]) [address] [place] [address] * BILL ONLY RFLXD TO HEPZYME TREATMENT (07/05/2024 10:01 AM CDT) Bill Only HEP Billed 07/09/2024 10:44 PM CDT [employer] ([facility]) Comment: Performed By: [facility] [address] [place] [address] Elementary School Director: Baldev Spence MD, PhD CLIA Number: [id number] Blood BLOOD SPECIMEN / Unknown Venipuncture / Unknown 07/05/2024 10:01 AM CDT 07/05/2024 10:13 AM CDT Joshua Winter DO LAB - CHEMISTRY ORDE LUCIANO [employer] ([facility]) [address] * BILL ONLY RFLXD TO ANTI-XA QUAL INTERP (07/05/2024 10:01 AM CDT) Bill Only [employer] Billed 07/09/20 10:44 PM CDT [employer] ([facility]) Comment: Performed By: [facility] [address] [place] [address] Elementary School Director: Baldev Spence MD, PhD CLIA Number: [id number] Blood BLOOD SPECIMEN / Unknown Venipuncture / Unknown 07/05/2024 10:01 AM CDT 07/05/2024 10:13 AM CDT [facility] - CHEMISTRY ORDBella ALMANZAJENIFER Performing Organization Address City/[facility]/ZIP Co de Phone Number [facility] [employer] [facility]) [address] [place] [address] * BILL ONLY RFLXD TO PTT RATIO, TREATED (07/05/2024 10:01 AM CDT) Bill Only PTT T Billed 10:44 PM CDT [employer] ([facility]) Comment: Performed By: [employer] [address] [place] [address] Elementary School Director: Baldev Spence MD, PhD CLIA Number: [id number] Blood BLOOD SPECIMEN / Unknown Venipuncture / Unknown 07/05/2024 10:01 AM CDT 07/05/2024 10:13 AM CDT Joshua Winter DO LAB - CHEMISTRY MAYLIN WOLF Performing Organization Address City/[facility]/ZIP Co de Phone Number [employer] ([facility]) [address] [place] [address] * ANTIPHOSPHOLIPID ANTIBODY PANEL (07/05/2024 10:01 AM CDT) Pathologist [facility] Test Summary APS See Note 07/09/20 10:44 PM CDT [employer] ([facility]) Comment: See individual results for interpretive data. Panel components include Beta-2 Glycoprotein 1 Antibodies, IgG and IgM ([id number]); Cardiolipin Antibodies, IgG and IgM ([id number]); and Lupus Anticoagulant Reflex Panel ([id number]). INTERPRETIVE INFORMATION: Antiphospholipid Syndrome Reflex Panel See individual components This test was developed and its performance characteristics determined by [employer]. It has not been cleared or approved by the U.S. Food and Drug Administration. This test was performed in a CLIA-certified laboratory and is intended for clinical purposes. Performed By: [facility] [address] [place] [address] Elementary School Director: Baldev Spence MD, PhD CLIA Number: [id number] Blood BLOOD SPECIMEN / Unknown Venipuncture / Unknown 07/05/2024 10:01 AM CDT 07/05/2024 10:13 AM CDT Joshua Winter DO LAB - SEROLOGY ORDER SUZANNE [facility] [employer] ([facility]) [address] [place], [place] [id number], [facility] * CARDIOLIPIN ANTIBODY IGG/IGM PANEL (07/05/2024 10:01 AM CDT) Cardiolipin Antibody IgG 13 <=14 GPL 07/06/2024 11:14 PM CDT [facility] [employer] ([facility]) Comment: INTERPRETIVE INFORMATION: Anti-Cardiolipin IgG Ab <=14 [...] <10 <=12 MPL 07/06/2024 11:14 PM CDT [facility] ([facility]) Comment: INTERPRETIVE INFORMATION: Anti-Cardiolipin IgM <=12 MPL: [...] other criteria phospholipid antibody tests. Performed By: [employer] [address] [place] [address] Elementary School Director: Baldev Spence MD, PhD CLIA Number: [id number] Blood BLOOD SPECIMEN / Unknown Venipuncture / Unknown 07/05/2024 10:01 AM CDT 07/05/2024 10:13 AM CDT Narrative [facility]) - 07/06/2024 11:14 PM CDT This test has been ordered as a part of the Antiphospholipid Syndrome Reflex Panel ([id number]). Joshua Winter DO LAB - SEROLOGY ORDER SUZANNE [facility] [employer] [facility]) [address] [place] [address], [facility] * (ABNORMAL) LUPUS ANTICOAGULANT PANEL W RFLX (07/05/2024 10:01 AM CDT) Prothrombin Time (PT) 14.3 12.0 - 15.5 s 07/09/2024 10:44 PM CDT [facility] [employer] ([facility]) PTT-LA Ratio 3.52(H) <=1.20 07/09/2024 10:44 PM CDT [facility] ([facility]) dRVVT Screen Ratio 1.03 <=1.20 2023 10:44 PM CDT [facility] ([facility]) Anti-Xa Qualitative Interpretation Present Not Present 07/09/2024 10:44 PM CDT [facility] ([facility]) Thrombin Time (TT) >150.0(H) <=19.5 s 2023 10:44 PM CDT [facility] ([facility]) Anticoagulant Medication Neutralization Hepzyme Not Performed 07/09/2024 10:44 PM CDT [facility] ([facility]) Neutralized PTT-LA Ratio 0.89 <=1.20 07/09/2024 10:44 PM CDT [facility] ([facility]) Neutralized dRVVT Screen Ratio Not Performed <=1.20 07/09/2024 10:44 PM CDT [facility] ([facility]) dRVVT 1:1 Mix Ratio Not Performed <=1.20 07/09/2024 10:44 PM CDT [facility] ([facility]) dRVVT Confirmation Ratio Not Performed <=1.20 07/09/2024 10:44 PM CDT [facility] ([facility]) Hexagonal Phospholipid Confirmation Not Performed <=7.9 s 07/09/2024 10:44 PM CDT [facility] ([facility]) Lupus Anticoagulant, Interpretation See Note 07/09/2024 10:44 PM CDT [facility] ([facility]) Comment: INTERPRETIVE INFORMATION: Lupus Anticoagulant Reflex Panel This test was developed and its performance characteristics determined by [employer]. It has not been cleared or approved [...] with warfarin effect (J Thromb Haemost. 2020; 18:9436-1775). Lupus anticoagulant antibodies are heterogeneous and antibody [...] has not already been performed. Performed By: [facility] [address] [place] [address] Elementary [employer] Director: Baldev Spence MD, PhD CLIA Number: [id number] Blood BLOOD SPECIMEN / Unknown Venipuncture / Unknown 07/05/2024 10:01 AM CDT 07/05/2024 10:13 AM CDT Narrative [facility]) - 07/09/2024 10:44 PM CDT This test has been ordered as a part of the Antiphospholipid Syndrome Reflex Panel ([id number]). Joshua Winter DO LAB - HEMATOLOGY ORD ERABLES [facility]) [address] [place] [address], [facility] * VEENA BLOOD SCREEN W/REFLEX TITER (07/05/2024 10:01 AM CDT) VEENA IgG None Detected None Detected 07/07/2024 5:25 AM CDT [facility] [facility] Comment: If suspicion of connective tissue disease is strong and VEENA EIA is negative, consider testing for VEENA by IFA ([id number]). INTERPRETIVE INFORMATION: Anti-Nuclear Antibodies (VEENA), IgG by JENN Antinuclear Antibodies (VEENA), IgG by JENN: VEENA specimens are screened using enzyme-linked immunosorbent assay (JENN) methodology. All JENN results reported as Detected are further tested by indirect fluorescent assay (IFA) using HEp-2 substrate with an IgG-specific conjugate. The VEENA JENN screen is designed to detect antibodies against dsDNA, histones, SS-A (Ro), SS-B (La), Carpenter, Carpenter/RAILWAY TRACTION LINE WORKER, Scl-70, Rocío-1, centromeric proteins, other antigens extracted from the HEp-2 cell nucleus. VEENA JENN assays have been reported to have lower sensitivities than VEENA IFA for systemic autoimmune rheumatic diseases (SARD). Negative results do not necessarily rule out SARD. Performed By: [employer] [address] [place] [address] Elementary [employer] Director: Baldev Spence MD, PhD CLIA Number: [id number] Blood BLOOD SPECIMEN / Unknown Venipuncture / Unknown 07/05/2024 10:01 AM CDT 07/05/2024 10:13 AM CDT Joshua Winter DO LAB - CHEMISTRY MAYLIN [facility] [address] [place], [place] [address] * TROPONIN-I HIGH SENSITIVE BASELINE + 1HR (07/05/2024 12:14 AM CDT) Only the most recent of2 resultswithin the time period is included. Pathologist [facility] Troponin I High Sensitive <3 <=35 ng/L 07/05/2024 12:52 AM CDT [facility] Blood BLOOD SPECIMEN / Unknown Venipuncture / Unknown 07/05/2024 12:14 AM CDT 07/05/2024 12:19 AM CDT Jayde Barnett MD LAB - CHEMISTRY GURVINDERBella ALMANZAJENIFER Performing Organization Address City/[facility]/ZIP Co de Phone Number [facility] [address] [place] [address] [phone] * B-TYPE NATRIURETIC PEPTIDE (07/05/2024 12:14 AM CDT) Only the most recent of2 resultswithin the time period is included. Pathologist [facility] BNP <10 <100 pg/mL 07/05/2024 12:51 AM CDT [facility] Comment: A decision threshold of 100 pg/mL [...] Barnett MD LAB - CHEMISTRY MAYLIN WOLF [facility] Organization Address City/State/ZIP Co de Phone Number [facility] [address] [place] [address], [facility] [phone] * (ABNORMAL) COMPREHENSIVE METABOLIC PANEL (07/05/2024 12:14 AM CDT) Only the most recent of2 resultswithin the time period is included. BUN 16 7 - 26 mg/dL 07/05/2024 12:49 AM [facility] Creatinine 1.03 0.71 - 1.16 mg/dL 07/05/2024 12:49 AM [facility] Sodium 136 136 - 145 mmol/L 07/05/2024 12:49 AM [facility] Potassium 3.9 3.5 - 4.5 mmol/L 07/05/2024 12:49 AM [facility] Chloride 104 98 - 107 mmol/L 07/05/2024 12:49 AM [facility] CO2 25 22 - 29 mmol/L 07/05/2024 12:49 AM [facility] Glucose 309(H) 70 - 115 mg/dL 07/05/2024 12:49 AM [facility] Calcium 9.5 8.4 - 10.2 mg/dL 07/05/2024 12:49 AM [facility] Protein Total 7.6 6.0 - 8.3 g/dL 07/05/2024 12:49 AM [facility] Albumin 3.7 3.4 - 5.0 g/dL 07/05/2024 12:49 AM [facility] Bilirubin Total 0.4 0.2 - 1.2 mg/dL 07/05/2024 12:49 AM [facility] Alkaline Phosphatase 99 40 - 150 U/L 07/05/2024 12:49 AM [facility] ALT 22 5 - 55 U/L 07/05/2024 12:49 AM [facility] AST 13 5 - 34 U/L 07/05/2024 12:49 AM [facility] Anion Gap 7 6 - 16 07/05/2024 12:49 AM [facility] BUN/Creatinine Ratio 16 7 - 23 07/05/2024 12:49 AM [facility] Osmolality Calculated 295 275 - 295 mOsm/kg 07/05/2024 12:49 AM [facility] Albumin/Globulin Ratio 0.9(L) 1.1 - 2.3 07/05/2024 12:49 AM [facility] eGFR by CKD-EPI 85(L) >=90 mL/min/1.7 3 m2 07/05/2024 12:49 AM [facility] Blood BLOOD SPECIMEN / Unknown Venipuncture / Unknown 07/05/2024 12:14 AM CDT 07/05/2024 12:19 AM CDT Jayde Barnett MD LAB - CHEMISTRY MAYLIN WOLF [address] [address], [facility] [phone] * MAGNESIUM BLOOD (07/05/2024 12:14 AM CDT) Only the most recent of7 resultswithin the time period is included. Magnesium 1.9 1.6 - 2.6 mg/dL 07/05/2024 12:49 AM [facility] Blood BLOOD SPECIMEN / Unknown Venipuncture / Unknown 07/05/2024 12:14 AM CDT 07/05/2024 12:19 AM CDT Jayde Barnett MD LAB - CHEMISTRY MAYLIN WOLF [address] [address], [place] [phone] * EKG 12-LEAD (07/05/2024 12:03 AM CDT) Only the most recent of3 resultswithin the time period is included. Ventricular Rate 79 BPM [facility] MUSE Atrial Rate 79 BPM [facility] MUSE P-R Interval 182 ms [facility] MUSE QRS Duration ms 78 ms SL MUSE Q-T Interval ms 372 ms [facility] MUSE QTC Calculation (Bezet) 426 ms [facility] MUSE Calculated P [place] 40 degrees [facility] MUSE Calculated R [place] 5 degrees [facility] MUSE Calculated T [place] 20 degrees SL MUSE Interpretation EKG NORMAL SINUS RHYTHM MINIMAL VOLTAGE CRITERIA FOR LVH, MAY BE NORMAL VARIANT ( R in aVL ) BORDERLINE ECG WHEN COMPARED WITH ECG OF 30-DEC-2023 11:54, CRITERIA FOR INFERIOR INFARCT ARE NO LONGER PRESENT VENT. RATE HAS DECREASED by 11 bpm Confirmed by ANT SIMS MD ([id number]) on 07/07/2024 7:15:20 PM [facility] MUSE 07/05/2024 12:0 3 AM CDT 07/07/2024 7:15 PM CDT Jayde Barnett MD ECG ORDERABLES [facility] MUSE * VAS Left Arterial Duplex Le [...] (ABNORMAL) RENAL FUNCTION PANEL (01/04/2024 8:03 AM [facility]) Only the most recent of6 resultswithin the time period is included. BUN 10 7 - 26 mg/dL 01/04/2024 9:31 AM [facility] Creatinine 1.12 0.71 - 1.16 mg/dL 01/04/2024 9:31 AM [facility] Sodium 138 136 - 145 mmol/L 01/04/2024 9:31 AM [facility] Potassium 4.3 3.5 - 4.5 mmol/L 01/04/2024 9:31 AM [facility] Chloride 105 98 - 107 mmol/L 01/04/2024 9:31 AM [facility] CO2 20(L) 22 - 29 mmol/L 01/04/2024 9:31 AM [facility] Glucose 107 70 - 115 mg/dL 01/04/2024 9:31 AM [facility] Albumin 3.9 3.4 - 5.0 g/dL 01/04/2024 9:31 AM [facility] Calcium 10.2 8.4 - 10.2 mg/dL 01/04/2024 9:31 AM [facility] Phosphorus 2.8 2.8 - 5.1 mg/dL 01/04/2024 9:31 AM [facility] Anion Gap 13 6 - 16 01/04/2024 9:31 AM [facility] BUN/Creatinine Ratio 9 7 - 23 01/04/2024 9:31 AM [facility] Osmolality Calculated 286 275 - 295 mOsm/kg 01/04/2024 9:31 AM [facility] eGFR by CKD-EPI 77(L) >=90 mL/min/1.7 3 m2 01/04/2024 9:31 AM [facility] Blood BLOOD SPECIMEN / Unknown Lab Venipuncture / Unknown 01/04/2024 8:03 AM CDT 01/04/2024 8:52 AM T Kenny Shepherd MD LAB - CHEMISTRY ORDBella WOLF [place] [id number] [place] [address], [facility] [phone] * ECHO COMPLETE W CONTRAST W BUBBLE [...] PACS LVOT diam 2.2 cm [facility] I PACS LVOT area 3.67 cm2 [facility] I PACS LV RWT 0.535 [facility] I PACS LV Mane A2C 9.074 cm [facility] CV F U PACS LV Mane A4C 9.519 cm [facility] CV F U PACS LV Area Mane A2C 36.403 cm2 [facility] Area Mane A4C 38.321 cm2 [facility] IVS/LVPW 0.979 [facility] I PACS LV mass 2D 242.028 96 - 200 g [facility] mass index 2D 103.43 50 - 102 g/m2 [facility] LA size 5.388 3.0 - 4.0 cm [facility] RVIDd 2.7 cm [facility] I PACS RV wall thickness 0.5 0.1 - 0.5 cm [facility] RVOT diam Doppler 2.594 cm SS M CV FUJI PACS RVOT area Doppler 5.29 10 - 24 cm2 [facility] RVOT stroke vol 65.48 cm3 [facility] RVOT VTI 12.389 cm [facility] I PACS RVOT pk lupe 0.51 [...] 2.5 cm [facility]SM C V FUJI PACS [id number] 8.42 cm [facility] I PACS [id number] 7.434 cm [facility] I PACS LVOT stroke vol 65.07 [...] CV FUJ I PACS TV pk lupe [id number] cm/s [facility] CV FUJI PACS TV mn [...] -10.0 % SS M CV FUJI PACS MS pk sys strain [...] 1.29 cm. Mildly increased ventricular mass. Mass cjusd3O is 103.43 g/m2. RWT 0.53. Findings consistent [...] - 0.50 ng/mL 12/31/2023 12:47 PM CDT [facility] Blood BLOOD SPECIMEN / Unknown Lab Venipuncture / Unknown 12/31/2023 11:29 AM CDT 12/31/2023 11:56 AM CDT Klever Jurado MD LAB - CHEMISTRY MAYLIN WOLF [facility] [address] [place] [address], [facility] [phone] * (ABNORMAL) HEMOGLOBIN A1C (12/31/2023 11:29 AM CDT) Hemoglobin A1c 10.7(H) <=5.6 % 01/01/2024 11:52 AM CDT [facility] Estimated Average Glucose 260 mg/dL 01/01/2024 11:52 AM CDT [facility] Comment: HbA1c Interpretation: Normal : < 5.7% Pre-diabetes: 5.7-6.4% Diabetes: Equal to or greater than 6.5% Test results diagnostic of diabetes should be repeated for confirmation. Treatment target values recommended by ADA and other clinical organizations should be used to evaluate metabolic control in patients. Reference: [place] [employer] Association, Standards of Care in Diabetes [...] Jurado MD LAB - CHEMISTRY MAYLIN WOLF [facility] [address] [place] [address], [facility] [phone] * LIPID PROFILE (12/31/2023 11:29 AM CDT) Cholesterol Total 163 <200 mg/dL 12/31/2023 12:26 PM CDT [facility]ORY [facility] HDL 43 >40 mg/dL 12/31/2023 12:26 PM CDT [facility] Comment: ATP III Classification of HDL Cholesterol: <40 mg/dL: Considered a major risk factor. >60 mg/dL: Considered a negative risk factor. LDL Calculated 98 <100 mg/dL 12/31/2023 12:26 PM CDT [facility] Comment: ATP III Classification of LDL Cholesterol: <100 mg/dL: Optimal 100 - 129 mg/dL: Near Optimal/Above Optimal 130 - 159 mg/dL: Borderline High 160 - 189 mg/dL: High >190 mg/dL: Very High Triglycerides 111 <150 mg/dL 12/31/2023 12:26 PM CDT [facility] Comment: ATP III Classification of Triglycerides: <150 mg/dL: Normal 150 - 199 mg/dL: Borderline High 200 - 400 mg/dL: High >500 mg/dL: Very High Blood BLOOD SPECIMEN / Unknown Lab Venipuncture / Unknown 12/31/2023 11:29 AM CDT 12/31/2023 11:56 AM CDT Klever Jurado MD LAB - CHEMISTRY MAYLIN WOLF [facility] Organization Address City/State/ZIP Co de Phone Number [address] [address], [facility] [phone] * CT ANGIO CHEST PULM EMBOLISM (12/30/2023 [...] right. > Dictated by Ailyn Silva MD (care program resident). I, Burke Salguero MD have personally reviewed and interpreted this examination/study. > Interpreting Provider: Burke Salguero MD on 12/31/2023 8:23 AM Narrative 12/31/2023 8:23 AM CDT EXAMINATION: CT ANGIO CHEST PULM EMBOLISM DATE/TIME OF EXAM: 12/30/2023 4:28 PM, LOCATION [facility] HISTORY: R06.00: Dyspnea and respiratory abnormalities [...] DATE/TIME OF EXAM: 12/30/2023 4:28 PM, LOCATION [facility] HISTORY: R06.00: Dyspnea and respiratory abnormalities [...] right. > Dictated by Ailyn Silva MD (care program resident). I, Burke Salguero MD have personally reviewed and interpreted this examination/study. > Interpreting Provider: Burke Salguero MD on 12/31/2023 8:23 AM Kenny Shepherd MD CT ORDERABLES * TROPONIN-I HIGH SENSITIVE REFLEX 1HOUR (12/30/2023 1:57 PM CDT) Troponin I High Sensitive <3 <=35 ng/L 12/30/2023 2:44 PM CDT [facility] Delta Troponin I HS 12/30/2023 2:44 PM CDT [facility] Comment:Delta value intentio cory not calculated. Baseline to 1 hour specimen collection interval exceeded. Blood BLOOD SPECIMEN / Unknown Venipuncture / Unknown 12/30/2023 1:57 PM CDT 12/30/2023 2:04 PM CDT Kenny Shepherd MD LAB - CHEMISTRY MAYLIN WOLF [facility] Organization Address City/State/[facility] Co de Phone Number [facility] [address] [place] [address], [facility] [phone] Care Teams Software Support Specialist Relationship Specialty Start Date End Date Arturo Carrasquillo MD [address] [place] [id number] PCP - General Family Medicine 01/11/24
--- OUTSIDE RECORDS SUMMARY | 2024-11-29 14:24 | XMS_ITS | Clinical Summary ---
Author Organization [facility] Address [address] [place] [address] Care Team Providers Care Defense Attorney Name Role Phone Arturo Carrasquillo MD Primary Care Provider [phone] Allergies Active Allergy Reactions Criticality Noted Date [...] Problem Noted Date Diagnosed Date Pulmonary embolism ([facility]) 12/12/2023 Bilateral pulmonary embolism ([facility]) 0 12/10/2023 Hypertensive disorder 11/15/2019 Diabetes mellitus ([facility]) 09/23/2018 Heart murmur 09/23/2018 Morbid obesity ([facility]) 09/23/2018 Persistent headaches 08/17/2018 Chest tightness [...] drink = 0.6 oz pur e alcohol) [facility] Utilities Answer Date Recorded In the past 12 months has e [employer], gas, oil, or water [employer] threatened to shut off services in your [...] place to sleep or slept in a senior care (including now)? 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 Not on file Not [...] Vaccines (1 of 2) 2017 PHQ-2 ([employer]) 12/22/2023 12/21/2022 Hemoglobin A1C 04/01/2024 12/31/2023 COVID-19 Vaccine (1 - 2023-2 5 season) 2024 Influenza Adult (#1) 2024 PHQ-2 ([employer]) 10/10/2024 12/21/2022 Lipid Panel 12/10/2024 12/11/2023, 02/22/2023 [...] to perform ADLs independently Lifestyle Jamie Astudillo, doctor of medicine Procedure Name Priority Date/Time Associated Diagnosis Comments LIPID PANEL Routine 12/11/2023 8:27 AM DELICATESSEN SLICER from Last 3 Months or Most Recently Relevant to Health Maintenance Results * (ABNORMAL) LIPID PANEL (12/11/2023 8:27 AM DELICATESSEN [facility]ICER) CHOLESTEROL 164 <200 MG/DL 12/11/2023 9:10 AM [facility] TRIGLYCERIDES 64 <150 MG/DL 12/11/2023 9:10 AM [facility] HDL 48 >40.0 MG/DL 12/11/2023 9:10 AM [facility] LDL (CALCULATED) 103(H) <100 MG/DL 12/11/2023 9:10 AM [facility] NON HDL CHOLESTEROL 116 <130 MG/DL 12/11/2023 9:10 AM [facility] CHOL/HDL RATIO 3.4 0.0 - 4.5 12/11/2023 9:10 AM [facility] VLDL CALCULATION 13 5 - 55 MG/DL 12/11/2023 9:10 AM [facility] LIPID INTERPRETATION 12/11/2023 9:10 AM [facility] Comment: [facility] CONCENSUS REPORT RECOMMENDATIONS: ADULT CHILD LOW RISK: CHOLESTEROL <200 <170 TRIGLYCERIDE <150 --- HDL >=60 --- LDL <100 <110 BORDERLINE: CHOLESTEROL 200-239 170-199 TRIGLYCERIDE 150-199 --- HDL 40-59 --- LDL 100-159 110-129 HIGH RISK: CHOLESTEROL >=240 >=200 TRIGLYCERIDE >=200 --- HDL <40 --- LDL >=160 >=130 12/11/2023 8:27 AM DELICATESSEN SLICER us Elyssa Reed MD LABORATORY Final Resu lt [facility] [address] [place] [address], [place] [phone] from Last 3 Months or Most Recently Relevant to Health Maintenance Insurance [employer] Advance Directives * Full Code (Latest Code Status on File) Date Activated Date Inactivated Comments 12/10/2023 8:19 PM 12/13/2023 3:47 PM Care Teams Defense Attorney Relationship Specialty Start Date End Date Arturo Carrasquillo MD [address] [address] PCP - General FAMILY PRACTICE 12/10/23
== END 2024-11-29 14:19 | disposition home or self-care (01) ==
PROVIDERS: PCP Emergency Medicine; Visit Provider Internal Medicine Hematology & Oncology
DX: I82.532 Chronic embolism and thrombosis of left popliteal vein (principal)
CPT/HCPCS: 93971

== ENCOUNTER 2025-05-09 09:15 | Outpatient (CLI) | payer OTHER, SELFPAY ==
--- OUTSIDE RECORDS SUMMARY | 2025-05-09 09:34 | XMS_ITS | Clinical Summary ---
Author Organization [facility] Address [address] [place] [phone] Phone Care Team Providers Care Customer Support Consultant Name Role Phone Unavailable Primary Care Provider Unavailabl e Allergies Active Allergy Reactions Criticality Noted Date Comments Other 12/26/2024 Peanuts Medications insulin glargine (LANTUS) 100 UNIT/ML injection Inject [...] mouth if needed for moderate pain Active Ergocalciferol 50 MCG (1999 UT) tablet Take 1 tablet by mouth 1 (one) time each day 90 tablet 3 12/31/2024 Active losartan (COZAAR) 50 MG tablet Take 1 tablet (50 mg total) by mouth 1 (one) time each day 90 tablet 3 12/31/2024 Active Active Problems Problem Noted Date Diagnosed Date Chronic kidney disease stage 2 12/26/2024 Essential hypertension 07/11/2024 Diabetes mellitus 07/11/2024 Resolved Problems Problem Noted Date Diagnosed Date Resolved Date Renal insufficiency 07/11/2024 12/27/19 25 Hyperlipidemia 07/11/2024 12/26/2024 Family History Medical History Relation Comments Diabetes [...] at Not on file Legal Sex Male 11:55 AM MDT Gender Identity Not on file Sexual Orientation Not on file Last Filed Vital Signs Vital Sign Reading Time Taken Comments Blood Pressure 128/83 07/12/2024 11:17 AM CDT Pulse 94 07/12/2024 11:17 AM CDT Temperature - - Respiratory Rate - - Oxygen Saturation - - Inhaled Oxygen Concentration - - Weight 117 kg (257 lb) 07/12/2024 11:17 AM CDT Height 180.3 cm (5' 11) 07/12/2024 11:17 AM CDT Body Mass Index 35.84 07/12/2024 11:17 AM CDT Plan of Treatment Upcoming Encounters Date Type Department Care Team ([facility] st Contact Info) Description 06/27/2025 12:20 PM CDT Office Visit [facility] [address] [place], [place] [phone] Morgan Quinonez MD [address] [phone] Health Maintenance Due Date Last Done Comments Diabetic Foot Exam 1977 Ophthalmology Exam 1977 Pneumococcal PPSV23 Highest Risk Adult (1 of 3 - PCV13 ) 1986 Influenza Vaccine (#1) 2025 Insurance PM [employer] [place] [id number]
--- OUTSIDE RECORDS SUMMARY | 2025-05-09 09:34 | XMS_ITS | Clinical Summary ---
Author Organization [facility] Address [address] [place] [address] Care Team Providers Care Hopper Filler Name Role Phone Arturo Carrasquillo MD Primary Care Provider [phone] [facility],non-owned Affiliates and Associated Physician Practices is amultiple site organization consisting of ambulatory clinics and hospital sitesin [place], [place], [place] and [place]. This disclosure is being madepursuant to the Care Everywhere program and may not contain all information available regarding this patient. 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 Alwaysverify current medications with the patient. rosuvastatin (Crestor) 20 MG tablet Take 1 (one) tablet by mouth once daily Active oxyCODONE, immediate release, (Roxicodone) 5 MG tabletIndicati ons:Acute deep vein thrombosis (DVT) of distal vein of left lower extremity (HCC) Take 1 (one) tablet by mouth every 4 hours as needed 12 tablet 4 Active apixaban (Eliquis) 5 MG tablet Take 1 (one) tablet by mouth 2 times daily 60 tablet 1 4 Active losartan (Cozaar) 50 MG tablet Take 1 (one) tablet by mouth once daily 30 tablet 4 Active OneTouch Ultra Test test strip Use 1 (one) strip 3 times daily Active vitamin D3 (Cholecalcifer ol) 25 MCG (1000 UNITS) tablet Take 1 (one) tablet by mouth once daily Active lancets Use 3 times daily 4 Active insulin glargine (Lantus SoloStar) pen Inject 23 (twenty three) Units subcutaneously at bedtime 15 mL 4 Active Active Problems Problem Noted Date Diagnosed Date Left leg pain 07/05/2024 Acute deep vein thrombosis ( DVT) of distal vein of left lower extremity 07/05/2024 Other hyperlipidemia 07/05/2024 Other acute pulmonary embolism with acute cor [place] 12/30/2023 Insulin dependent type 2 diabetes mellitus 12/29 Essential (primary) hypertension 12/30/2023 DVT (deep venous thrombosis) 12/30/2023 Immunizations Immunization Administration Dates Next Due TDAP (7yrs+) 09/21/2018 [...] at Not on file Legal Sex Male 10:59 AM CDT Gender Identity Not on file [...] 2:17 PM CDT Height 180.3 cm (5' 11) 07/13/2024 2:17 PM CDT Body Mass Index [...] 50+ (1 of 2 - PCV) 1986 ZOSTER VACCINE (1 of 2) 2017 DIABETES RETINOPATHY SCREENING 12/30/2023 DIABETES-FOOT EXAM WITH MONOFILAMENT 12/30/2023 DIABETES-HGB A1C 05/24/2024 02/22/2024, , 12/31/2023 COVID-19 VACCINE ( - season) 2024 DEPRESSION SCREENING 10/10/2024 DIABETES - URINE PROTEIN SCREENING 10/10/2024 INFLUENZA VACCINE (#1) 2025 DIABETES-SERUM CREATININE 07/06/20252023, 07/05/2024, 06/04/2024, Additional history exists DTAP/TDAP/TD VACCINES (2 - Td or Tdap) 09/21/2028 09/21/2018 HIB VACCINE Aged Out No longer eligi ble based on patient's age to complete this topic HPV VACCINE Aged Out No longer eligi ble based on patient's age to complete this topic MENINGOCOCCAL (Group B) VACCINE SHARED DECISION-MAKING Aged Out No longer eligible based on patient's age to complete this topic MENINGOCOCCAL GROUPS A/C/Y/W VACCINE Aged Out No longer eligible based on patient's age to complete this topic Procedures Procedure Name Priority Date/Time Associated Diagnosis Comments BASIC METABOLIC PANEL (CALCIUM TOTAL) AM Draw 07/06/2024 5:46 AM CDT Insulin dependent type 2 diabetes mellitus HEMOGLOBIN A1C Routine 12/31/2023 11:29 AM CDT from Last 3 Months or Most Recently Relevant to Health Maintenance Results * (ABNORMAL) BASIC METABOLIC PANEL (CALCIUM TOTAL) (07/06/2024 5:46 AM CDT) BUN 11 7 - 26 mg/dL 07/06/2024 6:17 AM [facility] Creatinine 1.10 0.71 - 1.16 mg/dL 07/06/2024 6:17 AM [facility] Sodium 135(L) 136 - 145 mmol/L 07/06/2024 6:17 AM [facility] Potassium 4.0 3.5 - 4.5 mmol/L 07/06/2024 6:17 AM [facility] Chloride 107 98 - 107 mmol/L 07/06/2024 6:17 AM [facility] CO2 22 22 - 29 mmol/L 07/06/2024 6:17 AM [facility] Glucose 243(H) 70 - 115 mg/dL 07/06/2024 6:17 AM [facility] Calcium 9.2 8.4 - 10.2 mg/dL 07/06/2024 6:17 AM [facility] Anion Gap 6 6 - 16 07/06/2024 6:17 AM [facility] BUN/Creatinine Ratio 10 7 - 23 07/06/2024 6:17 AM [facility] Osmolality Calculated 287 275 - 295 mOsm/kg 07/06/2024 6:17 AM [facility] eGFR by CKD-EPI 79(L) >=90 mL/min/1.7 3 m2 07/06/2024 6:17 AM [facility] Blood BLOOD SPECIMEN / Unknown Venipuncture / Unknown 07/06/2024 5:46 AM CDT 07/06/2024 5:53 AM T us Joshua Winter DO LAB - CHEMISTRY ORDERABLES Edna l Result [facility] [address] [place] [address], [facility] [phone] * (ABNORMAL) HEMOGLOBIN A1C (12/31/2023 11:29 AM CDT) Hemoglobin A1c 10.7(H) <=5.6 % 01/01/2024 11:52 AM CDT [facility] Estimated Average Glucose 260 mg/dL 01/01/2024 11:52 AM T [facility] Comment: HbA1c Interpretation: Normal : < 5.7% Pre-diabetes: 5.7-6.4% Diabetes: Equal to or greater than 6.5% Test results diagnostic of diabetes should be repeated for confirmation. Treatment target values recommended by ADA and other clinical organizations should be used to evaluate metabolic control in patients. Reference: [place] [employer], Standards of Care in Diabetes [...] CDT Klever Jurado MD LAB - CHEMISTRY ORDERABLES Fin al Result [facility] [address] [place] [address], [facility] [phone] from Last 3 Months or Most Recently Relevant to Health Maintenance Insurance [facility] Address: [facility] [address] [place] [address] Advance Directives * Full Code (Latest Code Status on File) Date Activated Date Inactivated Comments 07/05/2024 10:48 AM 07/06/2024 12:06 PM * Full Code Date Activated Date Inactivated Comments 12/30/2023 6:29 PM 01/04/2024 12:35 PM Care Teams Hopper Filler Relationship Specialty Start Date End Date Arturo Carrasquillo MD [address] [place] [id number] PCP - General Family Medicine 01/11/24
--- OUTSIDE RECORDS SUMMARY | 2025-05-09 09:34 | XMS_ITS | Referral Summary ---
Author Organization [address] Address [address] [place] [phone] Care Team Providers Care Exchange Underwriting Consultant Name Role Phone Arturo Carrasquillo MD Primary Care Provider [phone] Joseph Cortes MD Unavailable [phone] Encounters Date Type Department Care Team Description 03/21/2025 Orders Only [facility] Diabetes and Endocrinology [address] [place] [phone] ProviderAna Laura MD 03/14/2025 10:00 AM CDT Office Visit [facility] Diabetes [facility] Endocrinology [address] [place] [phone] Tracie Osorio NP Type 2 diabetes mellitus with hyperglycemia, with long-term current use of insulin (HCC) (Primary Dx); Hyperlipidemia associated with type 2 diabetes mellitus (HCC); Hypertension associated with type 2 diabetes mellitus (HCC) 03/12/2025 Telephone [facility] of [address] [address] Tracie Osorio NP from Last 3 Months Allergies Active Allergy Reactions Criticality Noted Date Comments Empagliflozin Other (See comments) High 04/30/2024 Other Other (See comments) 12/26/2024 Peanuts Tree Nuts Anaphylaxis High 12/30/2023 Unclassified Drug Other (See comments),Palpitations, Shortness of breath High 04/24/2015 Breathing Difficulty Medications Eliquis 5 mg tablet TAKE TWO TABLETS BY MOUTH TWICE DAILY FOR SIX DAYS, THEN decrease TO TAKE ONE Tablet BY MOUTH TWICE DAILY Active lancets miscIndication s:Type 2 diabetes mellitus with hyperglycemia, with long-term current use of insulin ([facility]) Check blood sugar 3 times daily 200 each 3 09/10/20 24 Active nystatin creamIndicatio ns:Yeast infection Apply topically 2 (two) times a day On affected area for 14 days 30 g 09/10/20 24 Active pen needle, diabetic (BD Ultra-Fine Joan Pen Needle) 32 gauge x 5/32 needleIndicati ons:Type 2 diabetes mellitus with hyperglycemia, with long-term current use of insulin ([facility]) One each daily 100 each 3 09/10/20 24 Active glipiZIDE (GLUCOTROL) 10 mg tabletIndicati ons:type 2 diabetes mellitus Take 1 tablet (10 mg total) by mouth 2 (two) times a day before breakfast and dinner 180 tablet 3 11/12/19 25 026 Active insulin glargine (LANTUS) 100 unit/mL (3 mL) pen for injectionIndic ations:Type 2 diabetes mellitus with hyperglycemia, with long-term current use of insulin ([facility]) Inject 25 Units under the skin daily 22.5 mL 3 11/12/19 25 026 Active losartan (COZAAR) 50 mg tabletIndicati ons:Hypertensi on associated with diabetes ([facility]) Take 1 tablet (50 mg total) by mouth daily 90 tablet 3 11/12/19 25 026 Active rosuvastatin (CRESTOR) 20 mg tabletIndicati ons:Hyperlipid emia associated with type 2 diabetes mellitus ([facility]) Take 1 tablet (20 mg total) by mouth daily 90 tablet 3 11/12/19 25 026 Active cyclobenzaprin e (FLEXERIL) 10 mg tablet cyclobenzaprine 10 mg tablet Active ergocalciferol (VITAMIN D) 50,000 unit capsule TAKE 1 CAPSULE BY MOUTH EVERY WEEK FOR VITAMIN D DEFICIENCY Active ergocalciferol , vitamin D2, 50 mcg (2,000 unit) tablet Take 1 tablet by mouth daily 01/01/20 25 Active ergocalciferol , vitamin D2, 50 mcg (2,000 unit) capsule ergocalciferol (vitamin D2) 50 mcg (2,000 unit) capsule Active losartan-hydro chlorothiazide (HYZAAR) 100-25 mg per tablet Take 1 tablet by mouth daily Active promethazine (PHENERGAN) 25 mg tablet Take 1 tablet (25 mg total) by mouth daily 11/30/19 25 Active tirzepatide (Mounjaro) 5 mg/0.5 mL pen injector injectionIndic ations:type 2 diabetes mellitus Inject 0.5 mL (5 mg total) under the skin every 7 days 6 mL 3 03/14/20 25 026 Active blood glucose diagnostic (glucose blood) stripIndicatio ns:Type 2 diabetes mellitus with hyperglycemia, with long-term current use of insulin ([facility]) Check blood sugar 2 times a day 200 each 11 03/14/20 25 Active Active Problems Problem Noted Date Diagnosed Date Hypertension associated with type 2 diabetes mala litus 03/14/2025 Assessment & Plan (03/14/2025 10:26 AM CDT): Chronic problem. BP elevated upon arrival today. Currently taking losartan 50mg daily. Will update labs. Does not mychart. Verified phone #/address to contact re: results. Type 2 diabetes mellitus wit h hyperglycemia, with long-term current use of insulin 02/22/2024 Assessment & Plan (03/14/2025 10:54 AM CDT): Chronic problem. A1c uncontrolled & worsened from 10.3% 11/12/24 to now 10.9%. was started on Mounjaro 2.5mg by web weaver 2 weeks ago approximately. No SE from taking. After completing the Mounjaro 2.5mg weekly--garbage pick up man the Mounjaro 5mg weekly Current medications: Glipizide 10mg twice daily Mounjaro 2.5 mg weekly then increase to 5mg after 4 wks Lantus 25 units daily Will update labs. Does not mychart. Verified phone #/address to contact re: results. DM eye exam 2023 [facility] then [facility]. Will send letter to get copy of report. Discussed with Mayur Cid: Strive for regular exercise (30min most days) and diet (get at least 4-5 servings of fruit and veggies daily, avoid processed foods, increase lean protein intake and decrease carb portions as well as fruit juices, regular soda & desserts). Watch carbs and simple sugars. Check the blood sugar: daily. Check the feet daily for skin breakdown and infection. Assessment & Plan (09/11/2024 12:30 PM CAR MECHANIC): Chronic, poorly controlled, worsening Hemoglobin A1c 13.3% [...] diabetes pooja duong 02/22/2024 Assessment & Plan (03/14/2025 10:24 AM CDT): Chronic problem. Currently taking Rosuvastatin 20mg. Last lipid panel: 02/22/24 LEA=677, FG=888. Will update labs. Does not mychart. Verified phone #/address to contact re: results. Assessment & Plan (09/11/2024 12:31 PM CAR MECHANIC): Continue statin therapy Assessment & Plan (02/22/2024 9:30 PM CDT): Continue statin therapy Class 2 severe obesity due t o excess calories with serious comorbidity and body mass index (BMI) of 36.0 to 36.9 in adult 02/22/2024 Assessment & Plan (09/11/2024 12:31 PM CAR MECHANIC): Chronic, worsening Discussed about healthy lifestyle habits [...] Date Smoking Tobacco: Never Smokeless Tobacco: Never PHQ-2 Answer Date Recorded PHQ-2 Total Score (If total score is 3 or more points, staff should administer the PHQ-9) 0 02/22/2024 Sex and Gender Information Value Date Recorded Sex Assigned at Not on file Legal Sex Male 3:36 PM CAR MECHANIC Gender Identity Not on file Sexual Orientation Not on file Last Filed Vital Signs Vital Sign Reading Time Taken Comments Blood Pressure 146/96 03/14/2025 10:10 AM CDT Pulse 82 03/14/2025 10:10 AM CDT Temperature 36.4 C (97.5 F) 05/26/2021 2:36 PM CDT Respiratory Rate 16 03/14/2025 10:10 AM CDT Oxygen Saturation 98% 05/26/2021 2:36 PM CDT Inhaled Oxygen Concentration - - Weight 119.7 kg (264 lb) 03/14/2025 10:10 AM CDT Height 180.3 cm (5' 10.98) 03/14/2025 10:10 AM CDT Body Mass Index 36.84 03/14/2025 10:10 AM CDT Plan of Treatment Not on file Procedures Procedure Name Priority Date/Time Associated Diagnosis Comments POCT GLUCOSE Routine 03/14/2025 10:13 AM CDT Type 2 diabetes mellitus with hyperglycemia, with long-term current use of insulin (HCC) POCT HEMOGLOBIN A1C Routine 03/14/2025 1 0:13 AM CDT Type 2 diabetes mellitus with hyperglycemia, [...] with long-term current use of insulin (HCC) HM DIABETES EYE EXAM Routine 11/28/2023 8:15 AM CAR MECHANIC from Last 3 Months or Most Recently Relevant to Health Maintenance Results * (ABNORMAL) POCT hemoglobin A1c (03/14/2025 10:13 AM CDT) Hemoglobin A1C, POC 10.9(A) 4.0 - 5.6 % Blood 03/14/2025 10:1 3 AM CDT us Tracie Osorio NP POINT OF CARE TEST ORDERA BLES Final Result * (ABNORMAL) POCT glucose (03/14/2025 10:13 AM CDT) Glucose Blood, POC 356 Normal Fasting 70 - 100, Random <200 mg/dL Blood 03/14/2025 10:1 3 AM CDT us Tracie Osorio FORENSIC MEDICAL EXAMINER POINT OF CARE TEST ORDERA BLES Final Result * eGFR (02/22/2024 3:36 PM [...] ORDERABLE S Final Result Performing Organization Address [facility]/ZIP Co de Phone Number VIVIEN BRICE [id number] [place] [address] * Albumin Creatinine Ratio, Urine (02/22/2024 3:36 PM CDT) Albumin Ur <12.0 mg/L Comment: Interpretive Data No reference range established. Current interpretive data was last revised 2019. Creatinine Ur 92.5 mg/dL VIVIEN BRICE Comment: Interpretive Data No reference range established. Current interpretive data was last revised 2019. Albumin Creatinine Ratio, Ur <13 1 - 29 mg/g VIVIEN BRICE Urine 02/22/2024 3:36 PM CDT 02/22/2024 8:14 PM CDT us Severino Thrasher MD LAB URINE ORDERABLE S Final Result Performing Organization Address City/[facility]/ZIP Co de Phone Number VIVIEN [address] [facility] [place] [address] * (ABNORMAL) Lipid panel (02/22/2024 3:36 PM [...] on 2018. Triglycerides 214(H) <=149 mg/dL VIVIEN BRICE Comment: Interpretive Data Ages [...] 8:14 PM CDT Severino Thrasher MD LAB BLOOD ORDERABLE S Final Result VIVIEN [id number] Department [place] [address] * DIABETES EYE EXAM (11/28/2023 8:15 AM CAR MECHANIC) us Historical Provider HEALTH MAINTENANCE Final Result from Last 3 Months or Most Recently Relevant to Health Maintenance Insurance [facility] H[facility]/PPO Address: [address] [address] Care Teams Exchange Underwriting Consultant Relationship Specialty Start Date End Date Arturo Carrasquillo MD [address] [address] PCP - General Emergency Medicine 02/22/24 Joseph Cortes MD [address] [place] [address] Referring Physician Ophthalmology 09/12/24
--- OUTSIDE RECORDS SUMMARY | 2025-05-09 09:34 | XMS_ITS | Clinical Summary ---
Author Organization [address] Address [address] [place] [phone] Care Team Providers Care Cook Frozen Dessert Name Role Phone Arturo Carrasquillo MD Primary Care Provider [phone] Joseph Cortes MD Unavailable [phone] Allergies Active Allergy Reactions Criticality Noted Date [...] hyperglycemia, with long-term current use of insulin ([facility]) Check blood sugar 3 times daily 200 each 3 09/10/20 24 Active nystatin creamIndicatio ns:Yeast infection Apply topically 2 (two) times a day On affected area for 14 days 30 g 09/10/20 24 Active pen needle, diabetic (BD Ultra-Fine Joan Pen Needle) 32 gauge x 5/32 needleIndicati ons:Type 2 diabetes mellitus with hyperglycemia, with long-term current use of insulin ([facility]) One each daily 100 each 3 09/10/20 24 Active glipiZIDE (GLUCOTROL) 10 mg tabletIndicati ons:type 2 diabetes mellitus Take 1 tablet (10 mg total) by mouth 2 (two) times a day before breakfast and dinner 180 tablet 11/12/19 026 Active insulin glargine (LANTUS) 100 unit/mL (3 mL) pen for injectionIndic ations:Type 2 diabetes mellitus with hyperglycemia, with long-term current use of insulin (HCC) Inject 25 Units under the skin daily 22.5 mL 3 11/12/19 25 026 Active losartan (COZAAR) 50 mg tabletIndicati ons:Hypertensi on associated with diabetes (HCC) Take 1 tablet (50 mg total) by mouth daily 90 tablet 3 11/12/19 25 026 Active rosuvastatin (CRESTOR) 20 mg tabletIndicati ons:Hyperlipid emia associated with type 2 diabetes mellitus (HCC) Take 1 tablet (20 mg total) by mouth daily 90 tablet 11/12/19 25 026 Active cyclobenzaprin e (FLEXERIL) [...] hyperglycemia, with long-term current use of insulin ([facility]) Check blood sugar 2 times a day [...] 10.9%. was started on Mounjaro 2.5mg by gas shovel operator 2 weeks ago approximately. No SE from taking. After completing the Mounjaro 2.5mg weekly--hop picker the Mounjaro 5mg weekly Current medications: Glipizide 10mg twice daily Mounjaro 2.5 mg weekly then increase to 5mg after 4 wks Lantus 25 units daily Will update labs. Does not mychart. Verified phone #/address to contact re: results. DM eye exam 2023 [facility] then [facility]. Will send letter to get copy of [...] infection. Assessment & Plan (09/11/2024 12:30 PM MANUFACTURING ENGINEER): Chronic, poorly controlled, worsening Hemoglobin A1c 13.3% [...] Hyperlipidemia associated with type 2 diabetes m rhoda 02/22/2024 Assessment & Plan (03/14/2025 10:24 AM CDT): Chronic problem. Currently taking Rosuvastatin 20mg. Last lipid panel: 02/22/24 EIM=008, CY=473. Will update labs. Does not mychart. Verified phone #/address to contact re: results. Assessment & Plan (09/11/2024 12:31 PM MANUFACTURING ENGINEER): Continue statin therapy Assessment & Plan (02/22/2024 9:30 PM CDT): Continue statin therapy Class 2 severe obesity due t o excess calories with serious comorbidity and body mass index (BMI) of 36.0 to 36.9 in adult 02/22/2024 Assessment & Plan (09/11/2024 12:31 PM MANUFACTURING ENGINEER): Chronic, worsening Discussed about healthy lifestyle habits [...] Department Care Team Description 03/21/2025 Orders Only [facility] Diabetes and Endocrinology [address] [place] [address] ProviderAna Laura MD 03/14/2025 10:00 AM CDT Office Visit [facility] Diabetes and Endocrinology [address] [place] [phone] Tracie Osorio, ALEJANDRA Type 2 diabetes mellitus with hyperglycemia, with long-term current use of insulin (HCC) (Primary Dx); Hyperlipidemia associated with type 2 diabetes mellitus (HCC); Hypertension associated with type 2 diabetes mellitus (HCC) 03/12/2025 Telephone [facility] [id number] [place] [address] [address], [place] [address] Tracie Osorio NP from Last 3 Months Medical History Medical [...] on file Legal Sex Male 3:36 PM MANUFACTURING ENGINEER Gender Identity Not on file Sexual Orientation [...] 03/14/2025 10:10 AM CDT Plan of Treatment Health Maintenance Due Date Last Done Comments Colon Cancer Screening-Colonoscopy 1967 Hepatitis C Screening 1967 Prostate Cancer Screening-PSA 1967 Hepatitis B Screening 1985 Regular Well Visit/Exam 18-64 1985 Pneumococcal vaccine <65 (1 of 2 - PCV) 1986 Zoster Vaccine (1 of 2) 2017 Dilated Eye Exam 11/28/2024 11/28/2023 Albumin Creatinine Ratio, Urine 02/21/2025 Depression Screening 02/21/2025 02/22/2024 Lipid Panel 02/21/2025 02/22/2024, 03/2 12/2023, 12/11/2023, Additional history exists eGFR 02/21/2025 02/22/2024 Influenza Vaccine (#1) 2025 Hemoglobin A1C 09/13/2025 03/14/2025, 02/0 12/2024, 09/10/2024, Additional history exists Foot Exam 03/14/2026 03/14/2025, 120 11/2023, 02/22/2024 DTaP/Tdap/Td Vaccine (2 - Td or [...] with long-term current use of insulin (HCC) DIABETES EYE EXAM Routine 11/28/2023 8:15 AM MANUFACTURING ENGINEER from Last 3 Months or Most Recently Relevant to Health Maintenance Results * (ABNORMAL) POCT hemoglobin A1c (03/14/2025 10:13 AM CDT) Hemoglobin A1C, POC 10.9(A) 4.0 - 5.6 % Blood 03/14/2025 10:1 3 AM CDT Tracie Osorio SERVICE AGENT POINT OF CARE TEST ORDERA BLES Final Result * (ABNORMAL) POCT glucose (03/14/2025 10:13 AM CDT) Pathologist [facility] Glucose Blood, POC 356 Normal Fasting 70 - 100, Random <200 mg/dL Blood 03/14/2025 10:1 3 AM CDT Tracie Osorio SERVICE AGENT POINT OF CARE TEST ORDERA BLES Final [...] ORDERABLE S Final Result Performing Organization Address [facility] Co de Phone Number VIVIEN [address] [address] [facility] [place] [address] * Albumin Creatinine Ratio, Urine (02/22/2024 3:36 [...] ORDERABLE S Final Result Performing Organization Address [facility] Co de Phone Number VIVIEN [address] [facility] [place] [address] * (ABNORMAL) Lipid panel (02/22/2024 3:36 PM [...] BLOOD ORDERABLE S Final Result VIVIEN BRICE [address] Department [place] [address] * DIABETES EYE EXAM (11/28/2023 8:15 AM MANUFACTURING ENGINEER) us Historical Provider HEALTH MAINTENANCE Final Result from Last 3 Months or Most Recently Relevant to Health Maintenance Insurance [facility] Care Teams Cook Frozen Dessert Relationship Specialty Start Date End Date Arturo Carrasquillo MD [address] [address] PCP - General Emergency Medicine 02/22/24 Joseph Cortes MD [address] [place] [address] Referring Physician Ophthalmology 09/12/24
--- OUTSIDE RECORDS SUMMARY | 2025-05-09 09:34 | XMS_ITS | Clinical Summary ---
Author Organization [facility] Address [address] [place] [address] [place] [address] Care Team Providers Care Supervisor Modern Languages Name Role Phone Arturo Carrasquillo MD Primary Care Provider [phone] Allergies Active Allergy Reactions Criticality Noted Date [...] Encounters Date Type Department Care Team Description 04/02/2025 External Device Data [facility] ABSTRACTION Provider, Abstract 02/27/2025 External Device Data [facility] ABSTRACTION Provider, Abstract 02/26/2025 External Device Data [facility]STRACTION Provider, Abstract from Last 3 Months Family History Medical [...] Sign Reading Time Taken Comments Blood Pressure 145/98 12/06/2024 3:32 PM PROCESS DESIGN ENGINEER Pulse 81 12/06/2024 3:30 PM PROCESS DESIGN ENGINEER Temperature 36.6 C (97.9 F) 12/06/2024 3:30 PM PROCESS DESIGN ENGINEER Respiratory Rate 15 12/06/2024 3:30 PM PROCESS DESIGN ENGINEER Oxygen Saturation 98% 12/06/2024 3:30 PM PROCESS DESIGN ENGINEER Inhaled Oxygen Concentration - - Weight 119.8 kg (264 lb 3.2 oz) 12/06/2024 3:30 PM PROCESS DESIGN ENGINEER Height 180.3 cm (5' 11) 12/26/2023 10: 07 AM CDT Body Mass Index 36.85 12/26/2023 10:07 AM CDT Plan of Treatment Upcoming Encounters Date Type Department Care Team (Late st Contact Info) Description 06/27/2025 2:45 PM CDT Office Visit [facility] Oncology and Hematology - [place] [address] [facility] [address] [place] [address] Marko Parada MD [address] [facility] [address] [place] [address] Health Maintenance Due Date Last [...] (1 of 2) 2017 INFLUENZA VACCINE (#1) 2025 DIABETES HBA1C Q 6 MONTHS 05/12/20252024, 09/10/2024, 02/22/2024, Additional history exists DIABETES ANNUAL FOOT EXAM 09/10/2025 09/10/2024 DTAP/TDAP/TD VACCINES (2 - T d or Tdap) 09/21/2028 09/21/2018 Insurance [facility] OPT[employer] PPO [id number] Care Teams Supervisor Modern Languages Relationship Specialty Start Date End Date Arturo Carrasquillo MD [address] [place] [phone] PCP - General Family Practice 12/26/23
--- OUTSIDE RECORDS SUMMARY | 2025-05-09 09:34 | XMS_ITS | Clinical Summary ---
Author Organization [facility] Address [address] [place] [address] Care Team Providers Care Assayer Name Role Phone None, Provider MD Primary Care Provider Unavaila ble Allergies Active Allergy Reactions Criticality Noted Date [...] a Deep Vein 60 tablet 4 Active promethazine (PHENERGAN) 25 MG tablet Take 1 tablet (25 mg total) by mouth nightly at bedtime. 10 tablet 5 Active Active Problems Problem Noted Date Diagnosed Date Pulmonary embolism ([facility]) 12/12/2023 Bilateral pulmonary embolism ([facility]) 0 12/10/2023 Hypertensive disorder 11/15/2019 Diabetes mellitus ([facility]) 09/23/2018 Heart murmur 09/23/2018 Morbid obesity 09/23/2018 Persistent headaches 08/17/2018 Chest tightness 08/17/2018 Elevated BP without diagnosis of hypertension Shortness of breath 08/17/2018 Immunizations Immunization Administration Dates Next Due Tdap (Generic) 09/21/2018 [...] drink = 0.6 oz pur e alcohol) [facility] Utilities Answer Date Recorded In the past 12 months has [facility] [employer], gas, oil, or water [employer] threatened to shut off services in your [...] place to sleep or slept in a group home (including now)? 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 Not on file Not on file Not on file [employer] Not on file Not on file Not on file Last Filed Vital Signs Vital Sign Reading Time Taken Comments Blood Pressure 169/105 11/30/2024 4:00 PM CUT OUT MARKER Pulse 90 11/30/2024 4:00 PM CUT OUT MARKER Temperature 36.8 C (98.3 F) 11/30/2024 2:40 PM CUT OUT MARKER Respiratory Rate 18 11/30/2024 4:00 PM CUT OUT MARKER Oxygen Saturation 100% 11/30/2024 4:00 PM CUT OUT MARKER Inhaled Oxygen Concentration - - Weight 119.6 kg (263 lb 10.7 oz) 11/30/2024 2:40 PM CUT OUT MARKER Height 180.3 cm (5' 11) 11/30/2024 2:40 PM CUT OUT MARKER Body Mass Index 36.77 11/30/2024 2:40 PM CUT OUT MARKER Plan of Treatment Health Maintenance Due Date Last Done Comments Colorectal Cancer Screening Colonoscopy (10 Years) 1967 Kidney Health Evaluation 1967 Annual Physical 1970 Diabetes: Retinopathy Eye Exam 1985 Hepatitis C 1985 Hepatitis B Vaccines (1 of 3 - 19+ 3-dose series) 1986 Pneumococcal Vaccine: 50+ Years (1 of 2 - PCV) 1986 Zoster Vaccines (1 of 2) 2017 Hemoglobin A1C 04/01/2024 12/31/2023 COVID-19 Vaccine (1 - 2023-2 5 season) 2024 Lipid Panel 12/10/2024 12/11/2023, 02/22/2023 DTaP, Tdap [...] able to perform ADLs independently 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 Procedure Name Priority Date/Time Associated Diagnosis Comments LIPID PANEL Routine 12/11/2023 8:27 AM CUT OUT MARKER from Last 3 Months or Most Recently Relevant to Health Maintenance Results * (ABNORMAL) LIPID PANEL (12/11/2023 8:27 AM CUT OUT MARKER) CHOLESTEROL 164 <200 MG/DL 12/11/2023 9:10 AM CUT OUT MARKER [facility] TRIGLYCERIDES 64 <150 MG/DL 12/11/2023 9:10 AM [facility] HDL 48 >40.0 MG/DL 12/11/2023 9:10 AM [facility] LDL (CALCULATED) 103(H) <100 MG/DL 12/11/2023 9:10 AM [facility] NON HDL CHOLESTEROL 116 <130 MG/DL 12/11/2023 9:10 AM [facility] CHOL/HDL RATIO 3.4 0.0 - 4.5 12/11/2023 9:10 AM [facility] VLDL CALCULATION 13 5 - 55 MG/DL 12/11/2023 9:10 AM [facility] LIPID INTERPRETATION 12/11/2023 9:10 AM [facility] Comment: [facility] CONCENSUS REPORT RECOMMENDATIONS: ADULT CHILD LOW RISK: CHOLESTEROL <200 <170 TRIGLYCERIDE <150 --- HDL >=60 --- LDL <100 <110 BORDERLINE: CHOLESTEROL 200-239 170-199 TRIGLYCERIDE 150-199 --- HDL 40-59 --- LDL 100-159 110-129 HIGH RISK: CHOLESTEROL >=240 >=200 TRIGLYCERIDE >=200 --- HDL <40 --- LDL >=160 >=130 12/11/2023 8:27 AM CUT OUT MARKER us Elyssa Reed MD LABORATORY Final Resu lt [facility] [address] [place] [address], [place] [phone] from Last 3 Months or Most Recently Relevant to Health Maintenance [facility] Advance Directives * Full Code (Latest Code Status on File) Date Activated Date Inactivated Comments 12/10/2023 8:19 PM 12/13/2023 3:47 PM Care Teams Assayer Relationship Specialty Start Date End Date None, Provider, PCP - General UNKNOWN PHYSICIAN SPECIALTY 11/30/24
[2025-05-09 10:02] LABS: Hematocrit 42.4 % (42.0-52.0); Hemoglobin 14.1 g/dL (14.0-18.0); Immature Granulocyte Percent A 0.2 % (0-0.5); Lymphocytes Absolute Auto 1.83 K/mm3 (0.9-3.2); Mean Corpuscular HGB Conc 33.3 g/dl (32-36); Mean Corpuscular Hemoglobin 27.9 pg (26-34); Mean Corpuscular Volume 84.0 fl (80-100); Nucleated Red Blood Cells Absolute Auto 0.000 K/mm3 (0.0-0.012); Nucleated Red Blood Cells Perc 0.0 % (0.0-0.2); Platelet Count Result 145 k/mm3 (150-375); Red Blood Count 5.05 M/mm3 (4.6-6.20); White Blood Count 4.6 K/mm3 (4.5-10.0)
[2025-05-09 10:22] LABS: Hemoglobin A1C 11.4 % (<5.7)
[2025-05-09 10:31] LABS: Alanine Aminotransferase 30 U/L (6-50); Albumin Level 3.9 g/dL (3.5-5.1); Alkaline Phosphatase 85 U/L (38-126); Anion Gap 8 mmol/L (4-12); Aspartate Amino Transferase 27 U/L (17-59); Bilirubin,Total 0.5 mg/dL (0.2-1.3); Blood Urea Nitrogen 13 mg/dL (9-20); Calcium 9.1 mg/dL (8.4-10.2); Carbon Dioxide 22 mmol/L (22-30); Chloride 107 mmol/L (98-107); Cholesterol 233 mg/dL (0-200); Estimated Glomerular Filt Rate > 60; Glucose 304 mg/dL (65-110); HDL Direct 40 mg/dL; Potassium 4.0 mmol/L (3.4-5.0); Sodium 137 mmol/L (137-145); Total Protein 7.3 g/dL (6.3-8.2); Triglycerides 100 mg/dL (<150)
== END 2025-05-09 09:16 | disposition home or self-care (01) ==
PROVIDERS: PCP Emergency Medicine; Visit Provider Internal Medicine Cardiovascular Disease
DX: M79.606 Pain in leg, unspecified (principal); I10 Essential (primary) hypertension; I82.90 Acute embolism and thrombosis of unspecified vein; R06.02 Shortness of breath; R07.9 Chest pain, unspecified; I26.99 Other pulmonary embolism without acute cor pulmonale; G47.39 Other sleep apnea; R42 Dizziness and giddiness; R55 Syncope and collapse; E78.5 Hyperlipidemia, unspecified; E11.9 Type 2 diabetes mellitus without complications
CPT/HCPCS: 36415; 80053; 80061; 83036; 85025

== ENCOUNTER 2025-09-09 09:26 | Outpatient (CLI) | payer OTHER, SELFPAY ==
[2025-09-09 10:09] LABS: Hematocrit 41.5 % (42.0-52.0); Hemoglobin 13.7 g/dL (14.0-18.0); Immature Granulocyte Percent A 0.2 % (0-0.5); Lymphocytes Absolute Auto 2.15 K/mm3 (0.9-3.2); Mean Corpuscular HGB Conc 33.0 g/dl (32-36); Mean Corpuscular Hemoglobin 28.3 pg (26-34); Mean Corpuscular Volume 85.7 fl (80-100); Nucleated Red Blood Cells Absolute Auto 0.000 K/mm3 (0.0-0.012); Nucleated Red Blood Cells Perc 0.0 % (0.0-0.2); Platelet Count Result 147 k/mm3 (150-375); Red Blood Count 4.84 M/mm3 (4.6-6.20); White Blood Count 5.2 K/mm3 (4.5-10.0)
--- OUTSIDE RECORDS SUMMARY | 2025-09-09 10:22 | XMS_ITS | Clinical Summary ---
Author Organization [facility] Address [address] [facility] [place] [address] Care Team Providers Care Cook Mess Name Role Phone Arturo Carrasquillo MD Primary Care Provider [phone] Allergies Active Allergy Reactions Criticality Noted Date [...] times daily. 60 Tablet 4 4 Active aspirin (ECOTRIN EC) 81 mg Tablet, Delayed Release (E.C.) Take 81 mg by mouth daily. Active losartan (COZAAR) 50 mg tablet Take 50 mg by mouth daily. 4 Active glipiZIDE (GLUCOTROL) 10 mg tablet Take 10 mg by mouth daily with breakfast. 5 Active ezetimibe (ZETIA) 10 mg tablet Take 10 mg by mouth daily. Active Active Problems No known active problems Encounters Date Type Department Care Team Description 08/27/2025 External Device Data [facility] ABSTRACTION Provider, Abstract 08/13/2025 External Device Data [facility] ABSTRACTION Provider, Abstract 08/07/2025 External Device Data [facility] ABSTRACTION Provider, Abstract 08/07/2025 External Device Data [facility] ABSTRACTION Provider, Abstract 06/27/2025 2:45 PM CDT Office Visit [facility] Oncology and Hematology [place] [address] [place] [address] Marko Parada MD Acute pulmonary embolism, unspecified pulmonary embolism type, unspecified whether acute cor pulmonale present (CMS/HCC) (Primary Dx) from Last 3 Months Family History Medical [...] Sign Reading Time Taken Comments Blood Pressure 121/81 06/27/2025 3:02 PM CDT Pulse 86 06/27/2025 3:02 PM CDT Temperature 36.2 C (97.2 F) 06/27/2025 3:02 PM CDT Respiratory Rate 15 06/27/2025 3:02 PM CDT Oxygen Saturation 98% 06/27/2025 3:02 PM CDT Inhaled Oxygen Concentration - - Weight 117.9 kg (260 lb) 06/27/2025 3:02 PM CDT Height 180.3 cm (5' 11) 12/26/2023 10:07 AM CDT Body Mass Index 36.26 12/26/2023 10:07 AM CDT Plan of Treatment Upcoming Encounters Date Type Department Care Team (Late st Contact Info) Description 12/26/2025 2:30 PM CDT Office Visit [facility] Oncology and Hematology [place] [address] [place] [address] Marko Parada MD [address] [facility] [address] [place] [address] Health Maintenance Due Date Last [...] (#1) 2025 DIABETES HBA1C Q 6 MONTHS 12/07/20252024, 06/07/2025, 03/14/2025, Additional history exists DIABETES ANNUAL FOOT EXAM 03/14/2026 03/14/2025 DTAP/TDAP/TD VACCINES (2 - T d or Tdap) 09/21/2028 09/21/2018 Insurance Care Teams Cook Mess Relationship Specialty Start Date End Date Arturo Carrasquillo MD [address] [place] [phone] PCP - General Family Practice 12/26/23
--- OUTSIDE RECORDS SUMMARY | 2025-09-09 10:22 | XMS_ITS | Clinical Summary ---
Author Organization [facility] Address [facility] [place] [address] Care Team Providers Care Fitter Tacker Name Role Phone None, Provider MD Primary Care Provider Unavaila ble Allergies Active Allergy Reactions Criticality Noted Date Comments Peanut-Containing Drug Products Shortness of Breath,Palpitations,Other (see comment) High 10/30/2019 Medications acetaminophen (TYLENOL) 500 MG tablet Take 1-2 tablets (500-1,000 mg total) by mouth every 8 (eight) hours as needed for Pain. Active apixaban (ELIQUIS) 5 MG tabletIndicatio ns:Deep Vein Thrombosis Take 1 tablet (5 mg total) by mouth 2 (two) times daily. Indications: Blood Clot in a Deep Vein 60 tablet 4 Active glipiZIDE (GLUCOTROL) 10 MG tablet Take 1 tablet (10 mg total) by mouth 2 (two) times daily before meals. 5 Active LANTUS SOLOSTAR 100 UNIT/ML injection (PEN) Inject 25 Units into the skin nightly at bedtime. Active aspirin EC 81 MG tablet Take 1 tablet (81 mg total) by mouth daily. Active losartan-hydroC HLOROthiazide (HYZAAR) 100-25 MG tablet Take 1 tablet by mouth daily. Active rosuvastatin (CRESTOR) 40 MG tablet Take 1 tablet (40 mg total) by mouth daily. Active nystatin (MYCOSTATIN) cream Apply topically 2 (two) times daily as needed (rash). Apply to groin area Active Active Problems Problem Noted Date Diagnosed Date NSTEMI (non-ST elevated myocardial infarction) 0 06/07/2025 Pulmonary embolism 12/12/2023 Bilateral pulmonary embolism 12/10/2023 Hypertensive disorder 11/15/2019 Diabetes mellitus 09/23/2018 Heart murmur 09/23/2018 Morbid obesity 09/23/2018 Persistent headaches 08/17/2018 Chest tightness 08/17/2018 Elevated BP without diagnosis of hypertension Shortness of breath 08/17/2018 Encounters Date Type Department Care Team Description 09/06/2025 Telephone [facility] [address] [address] Kathi Bates, PT No Show 08/29/2025 12:33 PM SPOUTER - 08/29/2025 5:26 PM SPOUTER Emergency [facility] [place] [address] Celina Brady, PA Chest Pain Discharge Disposition: Home or Self Care (Routine Discharge) 08/29/2025 Travel 08/26/2025 Therapy Plan [facility] [address] [address] Sarahi Walker, ROOM CLEANER 08/22/2025 11:00 AM SPOUTER - 08/22/2025 11:59 PM SPOUTER Hospital Encounter [facility] [address] [address] Isabelle Unger, Keyanna Mejias, ROOM CLEANER Discharge Disposition: Home or Self Care (Routine Discharge) 08/22/2025 Travel 08/15/2025 8:45 AM SPOUTER - 08/15/2025 11:59 PM SPOUTER Hospital Encounter [facility] [address] [address] Isabelle Unger, Keyanna Mejias, ROOM CLEANER Discharge Disposition: Home or Self Care (Routine Discharge) 08/15/2025 Travel 08/09/2025 8:28 AM CDT - 08/09/2025 11:59 PM CDT Hospital Encounter [facility] [address] [place] [id number] Isabelle Unger MD Kohnen, Haley M, ROOM CLEANER Discharge Disposition: Home or Self Care (Routine Discharge) 08/09/2025 Travel 07/31/2025 7:20 AM CDT - 07/31/2025 11:59 PM CDT Hospital Encounter [facility] [address] [place] [id number] Isabelle Unger MD McPherson, Abigail E, PT Discharge Disposition: Home or Self Care (Routine Discharge) 07/31/2025 Travel 06/07/2025 5:38 PM CDT - 06/10/2025 1:46 PM CDT Hospital Encounter [facility] [place] [address] Derrell Vang MD Dale, Maurice D, DO Ade Peña, DO Shortness Of Breath Discharge Disposition: Home or Self Care (Routine Discharge) from Last 3 Months Immunizations Immunization Administration Dates Next Due Tdap [...] drink = 0.6 oz pur e alcohol) [facility] Utilities Answer Date Recorded In the past 12 months has [employer], gas, oil, or water [employer] threatened to shut off services in your home? No 06/10/2025 Humiliation, Afraid, Rape, and Kick questionnair e Answer Date Recorded Within the last year, have y ou been afraid of your partner or ex-partner? No 06/10/2025 Within the last year, have y ou been humiliated or emotionally abused in other ways by your partner or ex-partner? No Within the last year, have y ou been kicked, hit, slapped, or otherwise physically hurt by your partner or ex-partner? No 06/10/2025 Within the last year, have y ou been raped or forced to have any kind of sexual activity by your partner or ex-partner? No 06/10/2025 AUDIT-C Answer Date Recorded Frequency of Alcohol Consumption Never 08/16/2018 Average Number of Drinks Not on file 018 Frequency of Binge Drinking Not on file 04/2018 Overall Financial Resource Strain (CARDIA) Answe r Date Recorded How hard is it for you to pa y for the very basics like food, housing, medical care, and heating? Not hard at all 06/10/2025 PHQ-2 Answer Date Recorded Patient Health Questionnaire-2 Score 0 12/21/2022 Hunger Vital Sign Answer Date Recorded Within the past 12 months, y ou worried that your food would run out before you got the money to buy more. Never true 06/10/20 25 Within the past 12 months, t he food you bought just didn't last and you didn't have money to get more. Never true 06/10/2025 PRAPARE - Transportation Answer Date Re corded In the past 12 months, has l ack of transportation kept you from medical appointments or from getting medications? No 10/2024 In the past 12 months, has l ack of transportation kept you from meetings, work, or from getting things needed for daily living? No 06/10/2025 Housing Stability Vital Sign Answer Adrian e [...] place to sleep or slept in a retirement (including now)? No 12/10/2023 Housing Stability Vital Sign Answer Adrian e Recorded In the last 12 months, was t here a time when you were not able to pay the mortgage or rent on time? No 06/10/2025 In the past 12 months, how m any times have you moved where you were living? 0 06/10/2025 At any time in the past 12 m [facility], were you homeless or living in a retirement (including now)? 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 Not on file Not on file Last Filed Vital Signs Vital Sign Reading Time Taken Comments Blood Pressure 135/84 08/29/2025 3:08 PM SPOUTER Pulse 80 08/29/2025 3:08 PM SPOUTER Temperature 36.1 C (97 F) 08/29/2025 12:14 PM SPOUTER Respiratory Rate 20 08/29/2025 3:08 PM SPOUTER Oxygen Saturation 100% 08/29/2025 3:08 PM SPOUTER Inhaled Oxygen Concentration - - Weight 118.8 kg (262 lb) 08/29/2025 12:14 PM SPOUTER Height 180.3 cm (5' 11) 08/29/2025 12:14 PM SPOUTER Body Mass Index 36.54 08/29/2025 12:14 PM SPOUTER Plan of Treatment Health Maintenance Due Date Last Done Comments Colorectal Cancer Screening Colonoscopy (10 Years) 1965 Kidney Health Evaluation 1967 Annual Physical 1970 Diabetes: Retinopathy Eye Exam 1985 Hepatitis C 1985 Hepatitis B Vaccines (1 of 3 - 19+ 3-dose series) 1986 Pneumococcal Vaccine: 50+ Years (1 of 2 - PCV) 1986 Zoster Vaccines (1 of 2) 2017 COVID-19 Vaccine ( - 2024-2 6 season) 2025 Influenza Adult (#1) 2025 Hemoglobin A1C 09/07/2025 06/07/2025, 12/31/2023 Lipid Panel 06/08/2026 06/08/2025, 12/11/2023, 02/22/2023 DTaP, Tdap and Td Vaccines ( 2 - Td or Tdap) 09/21/2028 09/21/2018 Hepatitis A Vaccines Aged Out No long er eligible based on patient's age to complete this topic Meningococcal B Vaccine Aged Out No l [...] patient able to perform ADLs independently Lifestyle No Jamie Jane, RN Health - patient able to perform ADLs independently Lifestyle No Mary Ivy, FORMING PROCESS WORKER Procedures Procedure Name Priority Date/Time Associated Diagnosis Comments TROPONIN, QUANT STAT 08/29/2025 4:17 PM SPOUTER XR CHEST PORTABLE STAT 08/29/2025 1:2 3 PM SPOUTER TROPONIN, QUANT STAT 08/29/2025 12:18 PM SPOUTER COMPREHENSIVE METABOLIC PANEL STAT 08/29/2025 12:18 PM SPOUTER HC CBC AUTO W/AUTO DIFF STAT 08/29/2025 12:18 PM SPOUTER ECG 12-LEAD Routine 08/29/2025 12:15 PM SPOUTER NM EXER NUC STRESS TEST 1 DAY W TRACING Routine 06/10/2025 12:36 PM CDT CARDIOLOGY STRESS TEST ONLY, EXERCISE Routine 06/10/2025 8:26 AM CDT HC MAGNESIUM Routine 06/10/2025 6:00 AM CDT HEPARIN, ANTI XA, UFH TIMED 06/10/2025 6:00 AM CDT HC BASIC METABOLIC PANEL Routine 06/10/2025 6:00 AM CDT HC CBC AUTO W/AUTO DIFF Routine 06/10/2025 6:00 AM CDT HC PROTHROMBIN TIME (PT) Routine 06/10/2025 6:00 AM CDT HC LIPID PANEL Routine 06/08/2025 1:00 AM CDT HC GLYCOSYLATED HGB Routine 06/07/2025 8 :59 PM CDT from Last 3 Months or Most Recently Relevant to Health Maintenance Results * TROPONIN, QUANT (08/29/2025 4:17 PM SPOUTER) Only the most recent of2 resultswithin the time period is included. TROPONIN I HIGH SENSITIVITY 4 <79 ng/L 08/29/2025 4:[address] [facility] Comment: HIGH DOSES OF BIOTIN, TROPONIN-SPECIFIC AUTOANTIBODIES, AND ANTIBODY THERAPY CONTAINING HAMA MAY INTERFERE WITH THIS TEST RESULT. CORRELATION TO CLINICAL HISTORY AND PRESENTATION RECOMMENDED. BLOOD VENOUS BLOOD SPECIMEN / Unknown 08/29/2025 4:17 PM SPOUTER [facility] Final Result [facility] [address] [place] [address], [place] [phone] * XR CHEST PORTABLE (08/29/2025 1:23 PM SPOUTER) Anatomical Region Laterality Modality Chest Radiographic Savanna ging 08/29/2025 1:25 PM SPOUTER Impressions 08/29/2025 1:26 PM SPOUTER IMPRESSION:===== Stable chest, no acute findings. Referred By: Interpreted By: Patrice Sierra MD, 08/29/2025 1:25 PM Narrative 08/29/2025 1:26 PM SPOUTER [address] [address] EXAMINATION: XR CHEST, 1 VIEW Exam date/time: 08/29/2025 12:47 PM Reason For Exam: Chest pain. Comparison: Chest radiograph 06/07/2025. CTA chest 06/07/2075. Technique: Portable AP view of the chest. Findings: Cardiomediastinal silhouette is stable with similar ectasia and tortuosity of the thoracic aorta, better evaluated on prior CTA. Atherosclerotic calcification of the thoracic aorta. No pulmonary vascular congestion. No focal pulmonary consolidation. No sizable pleural effusions or pneumothorax. ===== Procedure Note Patrice Sierra MD - 08/29/[address] [address] EXAMINATION: XR CHEST, 1 VIEW Exam date/time: 08/29/2025 12:47 PM Reason For Exam: Chest pain. Comparison: Chest radiograph 06/07/2025. CTA chest 06/07/2075. Technique: Portable AP view of the chest. Findings: Cardiomediastinal silhouette is stable with similar ectasia andtortuosity of the thoracic aorta, better evaluated on prior CTA.Atherosclerotic calcification of the thoracic aorta. No pulmonaryvascular congestion. No focal pulmonary consolidation. No sizablepleural effusions or pneumothorax. ===== IMPRESSION:===== Stable chest, no acute findings. Referred By: Interpreted By: Patrice Sierra MD, 08/29/2025 1:25 PM [facility] Final Result * (ABNORMAL) COMPREHENSIVE METABOLIC PANEL (08/29/2025 12:18 PM SPOUTER) GLUCOSE 197(H) 70 - 99 MG/DL 08/29/2025 12:[address] [facility] BUN 14 7 - 18 MG/DL 08/29/2025 12:58 PM [facility] CREATININE S/P/B 1.28 0.7 - 1.3 MG/DL 08/29/2025 12:58 PM [facility] SODIUM S/P/B 139 136 - 145 MMOL/L 08/29/2025 12:58 PM [facility] POTASSIUM S/P/B 4.0 3.5 - 5.1 MMOL/L 08/29/2025 12:58 PM [facility] CHLORIDE S/P/B 105 97 - 115 MMOL/L 08/29/2025 12:58 PM [facility] CO2 26.8 21 - 32 MMOL/L 08/29/2025 12:58 PM [facility] CALCIUM S/P/B 9.5 8.5 - 10.1 MG/DL 08/29/2025 12:58 PM [facility] BILIRUBIN TOTAL S/P/B 0.6 0.2 - 1.2 MG/DL 08/29/2025 12:58 PM [facility] Comment: THIS ASSAY IS NOT RECOMMENDED FOR PATIENTS UNDERGOING TREATMENT WITH ELTROMBOPAG DUE TO THE POTENTIAL FOR FALSELY ELEVATED RESULTS. TOTAL PROTEIN S/P/B 7.9 6.4 - 8.2 G/DL 08/29/2025 12:58 PM [facility] ALBUMIN S/P/B 3.8 3.4 - 5.0 G/DL 08/29/2025 12:58 PM [facility] AST 21 15 - 37 U/L 08/29/2025 12:58 PM [facility] ALT 53 16 - 60 U/L 08/29/2025 12:58 PM [facility] ALKALINE PHOSPHATASE S/P/B 90 50 - 136 U/L 08/29/2025 12:[address] [facility] ANION GAP 7.2 2 - 10 MMOL/L 08/29/2025 12:[address] [facility] BUN CREATININE RATIO 10.9 6 - 26 08/29/2025 12:[address] [facility] A/G RATIO 0.9(L) 1.0 - 2.0 RATIO 08/29/2025 12:[address] [facility] GFR ESTIMATE 65(L) >90 ML/MIN/1.7 3 M2 08/29/2025 12:[address] [facility] Comment: NOTE: eGFR is not calculated for patients <18 years of age or gender unknown. This is an estimated GFR calculation using the new CKD EPI creatinine equation without race and so does not require a correction factor for race. This estimated GFR should not be used for calculating drug doses. BLOOD VENOUS BLOOD SPECIMEN / Unknown 08/29/2025 12:18 PM SPOUTER [facility] Final Result [facility] [address] [place] [address], [place] [phone] * (ABNORMAL) CBC W/DIFF (08/29/2025 12:18 PM SPOUTER) WBC 5.22 4.5 - 11.0 x10'3/uL 08/29/2025 12:[address] [facility] RBC 5.33 4.70 - 6.10 x10'6/uL 08/29/2025 12:[address] [facility] HGB 14.7 14.0 - 18.0 G/DL 08/29/2025 12:[address] [facility] HCT 44.4 43.0 - 54.0 % 08/29/2025 12:37 PM [facility] MCV 83.3 80.0 - 94.0 FL 08/29/2025 12:37 PM [facility] MCH 27.6 27.0 - 31.0 PG 08/29/2025 12:37 PM [facility] MCHC 33.1 32.0 - 36.0 G/DL 08/29/2025 12:37 PM [facility] RDW 13.0 11.5 - 14.5 % 08/29/2025 12:37 PM [facility] PLT 168 130 - 400 x10'3/uL 08/29/2025 12:37 PM [facility] MPV 11.7 9.3 - 12.2 FL 08/29/2025 12:37 PM [facility] DIFFERENTIAL TYPE AUTOMATED DIFFERENTIAL 08/29/2025 12:37 PM [facility] NEUTROPHILS % 56.6 % 08/29/2025 12:37 PM [facility] LYMPHOCYTES % 30.1 % 08/29/2025 12:37 PM [facility] MONOCYTES % 12.1 % 08/29/2025 12:37 PM [facility] EOSINOPHILS 0.6 % 08/29/2025 12:37 PM [facility] BASOPHILS 0.4 % 08/29/2025 12:37 PM [facility] IMMATURE GRANS % 0.2 % 08/29/20 12:37 PM [facility] ABS. NEUTROPHILS 2.96 1.80 - 7.70 x10'3/uL 08/29/2025 12:37 PM [facility] ABS. LYMPHOCYTES 1.57 1.00 - 4.80 x10'3/uL 08/29/2025 12:[address] [facility] ABS. MONOCYTES 0.63 0.30 - 0.82 x10'3/uL 08/29/2025 12:[address] [facility] ABS. EOSINOPHILS 0.03(L) 0.04 - 0.54 x10'3/uL 08/29/2025 12:[address] [facility] ABS. BASOPHILS 0.02 0.01 - 0.08 x10'3/uL 08/29/2025 12:[address] [facility] ABS. IMMATURE GRANULOCYTES 0.01 0.00 - 0.49 x10'3/uL 08/29/2025 12:[address] [facility] BLOOD VENOUS BLOOD SPECIMEN / Unknown 08/29/2025 12:18 PM SPOUTER [facility] Final Result 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 SINUS RHYTHM TER us Celina ESTRADA ECG ORDERABLES Final Result [facility] RAD * NM EXER NUC STRESS TEST 1 DAY W TRACING (06/10/2025 12:36 PM CDT) Anatomical Region Laterality Modality Cardiac Nuclear Medicine 06/10/2025 9:07 AM CDT Narrative 06/10/2025 12:21 PM CDT Myocardial Perfusion Imaging Pat.Name: MAYUR RICCI Pat.ID: [id number] .Date: 06/10/2025 Refer.: Xiomara Ly [id number] Exam Time: 9:07:00 AM Study Type:VERNA NC HT MUSCLE IMAGE SPECT MULTI Height: 71 in Weight: 255 lb BSA: 2.34 m2 Age: 10 1965,59Y Sex: M Sonogrphr: BONNY Harden Pat. Stat.:Inpatient Reason for Study:Chest pain, Shortness of breath, NSTEMI History / Clinical:Diabetes, Hypertension, Family history CAD, Dyslipidemia, Hx of PE Procedures: Nuclear Stress Test with Exercise Race: B Surgery: Echocardiogram ++++++++++++++++++++++++++++++++++++ SUMMARY: ++++++++++++++++++++++++++++++++++++ Stress conclusion: 1. Clinically negative. 2. Electrocardiographically negative treadmill test for ischemia. 3. Adequate exercise capacity. 4. Rodas Treadmill Score is 7, which indicates low risk. 5. Blood pressure response was normal. 6. Scintigraphic images to follow. Perfusion conclusion: 1. Good study quality. Resting motion correction was applied to images. No attenuation is noted. Prone imaging was performed. 2. Normal myocardial perfusion SPECT imaging. 3. Normal wall motion with an ejection fraction of 59%. 4. Stress test with myocardial perfusion imaging shows overall low risk for a cardiac event. ++++++++++++++++++++++++++++++++++++ FINDINGS: ++++++++++++++++++++++++++++++++++++ Protocol: The images were processed using the standard SPECT technique. A gated study was performed on the stress images. Impression: SPECT images demonstrate normal perfusion of normal intensity. Heart Size: The left ventricle is normal. Dilated left ventricle. LV Wall Motion: The LVEF is calculated to be 59%. Gated SPECT images reveal normal wall motion. Transient Ischemic Dilatation: The TID is 0.86. ++++++++++++++++++++++++++++++++++++ STRESS: ++++++++++++++++++++++++++++++++++++ Baseline Vital Signs: ECG: Sinus rhythm HR: 92 bmp Rest BP: 117/92 Treadmill Test Protocol: Marc Duration: 07:00 min:sec Stress Test Results: Max HR: 147 bmp Target HR: 163 bmp % Target: 90 % Max BP: 152/92 Max RPP: [id number] O2 sat: 100 % Symptoms and Complications: Terminated: Attainment of adequate heart rate, Leg fatigue Symptoms: Leg fatigue Complications: None Stress ECG Interp: Sinus tachycardia <Electronic Signature> 06/10/2025 12:21 PM Xiomara Ly M.D. Procedure Note Xiomara Ly MD - 06/10/2025 Myocardial Perfusion Imaging Pat.Name: MAYUR RICCI Pat.ID: [id number] St.Date: 06/10/2025 Refer.MD: Xiomara Ly [id number] Exam Time: 9:07:00 AM Study Type:VERNA NC HT MUSCLE IMAGE SPECT MULTI Height: 71 in Weight: 255 lb BSA: 2.34 m2 Age: 10 1965,59Y Sex: M Sonogrphr: BONNY Harden Pat. Stat.:Inpatient Reason for Study:Chest pain, Shortness of breath, NSTEMI History / Clinical:Diabetes, Hypertension, Family history CAD, Dyslipidemia, Hx of PE Procedures: Nuclear Stress Test with Exercise Race: B Surgery: Echocardiogram ++++++++++++++++++++++++++++++++++++ SUMMARY: ++++++++++++++++++++++++++++++++++++ Stress conclusion: 1. Clinically negative. 2. Electrocardiographically negative treadmill test for ischemia. 3. Adequate exercise capacity. 4. Rodas Treadmill Score is 7, which indicates low risk. 5. Blood pressure response was normal. 6. Scintigraphic images to follow. Perfusion conclusion: 1. Good study quality. Resting motion correction was applied to images. No attenuation is noted. Prone imaging was performed. 2. Normal myocardial perfusion SPECT imaging. 3. Normal wall motion with an ejection fraction of 59%. 4. Stress test with myocardial perfusion imaging shows overall low risk for a cardiac event. ++++++++++++++++++++++++++++++++++++ FINDINGS: ++++++++++++++++++++++++++++++++++++ Protocol: The images were processed using the standard SPECT technique. A gated study was performed on the stress images. Impression: SPECT images demonstrate normal perfusion of normal intensity. Heart Size: The left ventricle is normal. Dilated left ventricle. LV Wall Motion: The LVEF is calculated to be 59%. Gated SPECT images reveal normal wall motion. Transient Ischemic Dilatation: The TID is 0.86. ++++++++++++++++++++++++++++++++++++ STRESS: ++++++++++++++++++++++++++++++++++++ Baseline Vital Signs: ECG: Sinus rhythm HR: 92 bmp Rest BP: 117/92 Treadmill Test Protocol: Marc Duration: 07:00 min:sec Stress Test Results: Max HR: 147 bmp Target HR: 163 bmp % Target: 90 % Max BP: 152/92 Max RPP: 59486 O2 sat: 100 % Symptoms and Complications: Terminated: Attainment of adequate heart rate, Leg fatigue Symptoms: Leg fatigue Complications: None Stress ECG Interp: Sinus tachycardia <Electronic Signature> 06/10/2025 12:21 PM Xiomara Ly M.D. Xiomara Ly MD [facility] Final Resul t * HEPARIN, ANTI XA, UFH (06/10/2025 6:00 AM CDT) HEPARIN ANTI XA UFH 0.41 0.30 - 0.70 IU/ML 06/10/2025 6:41 AM CDT [facility] Comment: UFH Therapeutic Anti Xa Ranges: Medical Therapeutic Range: 0.30 - 0.70 IU/mL Cardiac Therapeutic Range: 0.30 - 0.50 IU/mL Neuro Therapeutic Range: 0.20 - 0.40 IU/mL 06/10/2025 6:00 AM CDT Ade Peña DO LABORATORY Final Result Performing Organization Address [facility]/ZIP Co de Phone Number [facility] [address] [place] [address], [place] [phone] * PROTIME/INR, VENOUS (06/10/2025 6:00 AM CDT) PROTIME 11.7 10.2 - 12.9 SEC 06/10/2025 6:[address] [facility] INR 1.0 06/10/2025 6:[address] [facility] Comment: Recommended INR Therapeutic Goals: 2.0-3.0 Routine Therapy 2.5-3.5 Mechanical Prosthetic Valves (High Risk) 06/10/2025 6:00 AM CDT Xavier Darling DO LABORATORY Final Result Performing Organization Address [facility] Co de Phone Number [facility] [address] [place] [address], [place] [phone] * (ABNORMAL) BASIC METABOLIC PANEL (06/10/2025 6:00 AM CDT) GLUCOSE 170(H) 70 - 99 MG/DL 06/10/2025 6:[address] [facility] BUN 15 7 - 18 MG/DL 06/10/2025 6:[address] [facility] CREATININE S/P/B 1.29 0.7 - 1.3 MG/DL 06/10/2025 6:[address] [facility] SODIUM S/P/B 134(L) 136 - 145 MMOL/L 06/10/2025 6:[address] [facility] POTASSIUM S/P/B 3.8 3.5 - 5.1 MMOL/L 06/10/2025 6:[address] [facility] CHLORIDE S/P/B 105 97 - 115 MMOL/L 06/10/2025 6:[address] [facility] CO2 23.7 21 - 32 MMOL/L 06/10/2025 6:[address] [facility] CALCIUM S/P/B 9.5 8.5 - 10.1 MG/DL 06/10/2025 6:[address] [facility] ANION GAP 5.3 2 - 10 MMOL/L 06/10/2025 6:[address] [facility] BUN CREATININE RATIO 11.6 6 - 26 06/10/2025 6:[address] [facility] GFR ESTIMATE 65(L) >90 ML/MIN/1.7 3 M2 06/10/2025 6:[address] [facility] Comment: NOTE: eGFR is not calculated for patients <18 years of age or gender unknown. This is an estimated GFR calculation using the new CKD EPI creatinine equation without race and so does not require a correction factor for race. This estimated GFR should not be used for calculating drug doses. 06/10/2025 6:00 AM CDT us Xavier Darling DO LABORATORY Final Result [facility] [address] [place] [address], [place] [phone] * (ABNORMAL) CBC W/DIFF AUTOMATED (06/10/2025 6:00 AM CDT) WBC 6.59 4.5 - 11.0 x10'3/uL 06/10/2025 6:38 AM CDT [facility] RBC 6.04 4.70 - 6.10 x10'6/uL 06/10/2025 6:[address] [facility] HGB 16.8 14.0 - 18.0 G/DL 06/10/2025 6:[address] [facility] HCT 49.5 43.0 - 54.0 % 06/10/2025 6:[address] [facility] MCV 82.0 80.0 - 94.0 FL 06/10/2025 6:[address] [facility] MCH 27.8 27.0 - 31.0 PG 06/10/2025 6:[address] [facility] MCHC 33.9 32.0 - 36.0 G/DL 06/10/2025 6:[address] [facility] RDW 12.9 11.5 - 14.5 % 06/10/2025 6:[address] [facility] PLT 183 130 - 400 x10'3/uL 06/10/2025 6:[address] [facility] MPV 12.6(H) 9.3 - 12.2 FL 06/10/2025 6:[address] [facility] DIFFERENTIAL TYPE AUTOMATED DIFFERENTIAL 06/10/2025 6:[address] [facility] NEUTROPHILS % 45.9 % 06/10/2025 6:[address] [facility] LYMPHOCYTES % 38.2 % 06/10/2025 6:[address] [facility] MONOCYTES % 14.3 % 06/10/2025 6:[address] [facility] EOSINOPHILS 0.9 % 06/10/2025 6:[address] [facility] BASOPHILS 0.5 % 06/10/2025 6:[address] [facility] IMMATURE GRANS % 0.2 % 06/10/20 6:[address] [facility] ABS. NEUTROPHILS 3.03 1.80 - 7.70 x10'3/uL 06/10/2025 6:[address] [facility] ABS. LYMPHOCYTES 2.52 1.00 - 4.80 x10'3/uL 06/10/2025 6:[address] [facility] ABS. MONOCYTES 0.94(H) 0.30 - 0.82 x10'3/uL 06/10/2025 6:[address] [facility] ABS. EOSINOPHILS 0.06 0.04 - 0.54 x10'3/uL 06/10/2025 6:[address] [facility] ABS. BASOPHILS 0.03 0.01 - 0.08 x10'3/uL 06/10/2025 6:[address] [facility] ABS. IMMATURE GRANULOCYTES 0.01 0.00 - 0.49 x10'3/uL 06/10/2025 6:[address] [facility] 06/10/2025 6:00 AM CDT Xavier Darling DO LABORATORY Final Result Performing Organization Address City/State/[facility] Co de Phone Number [facility] [address] [place] [address], * MAGNESIUM (06/10/2025 6:00 AM CDT) MAGNESIUM 2.0 1.8 - 2.4 MG/DL 06/10/2025 7:[address] [facility] 06/10/2025 6:00 AM CDT Augie Cabezas MD LABORATORY Final Result [facility] [address] [place] [address], * (ABNORMAL) LIPID PANEL (06/08/2025 1:00 AM CDT) CHOLESTEROL 196 <200 MG/DL 06/08/2025 1:[address] [facility] TRIGLYCERIDES 74 <150 MG/DL 06/08/2025 1:[address] [facility] HDL 39(L) >40.0 MG/DL 06/08/2025 1:[address] [facility] LDL (CALCULATED) 142(H) <100 MG/DL 06/08/2025 1:[address] [facility] Comment:CALCULATED USING THE FRIEDEWALD EQUATION NON HDL CHOLESTEROL 157(H) <130 MG/DL 06/08/2025 1:[address] [facility] CHOL/HDL RATIO 5.0(H) 0.0 - 4.5 06/08/2025 1:[address] [facility] VLDL CALCULATION 15 5 - 55 MG/DL 06/08/2025 1:[address] [facility] LIPID INTERPRETATION 06/08/2025 1:[address] [facility] Comment: [facility] REPORT RECOMMENDATIONS: ADULT CHILD LOW RISK: CHOLESTEROL <200 <170 TRIGLYCERIDE <150 --- HDL >=60 --- LDL <100 <110 BORDERLINE: CHOLESTEROL 200-239 170-199 TRIGLYCERIDE 150-199 --- HDL 40-59 --- LDL 100-159 110-129 HIGH RISK: CHOLESTEROL >=240 >=200 TRIGLYCERIDE >=200 --- HDL <40 --- LDL >=160 >=130 06/08/2025 1:00 AM CDT us Xavier Darling DO LABORATORY Final Result Performing Organization Address City/[facility]/ZIP Co de Phone Number [facility] [address] [place] [address], [place] [phone] * (ABNORMAL) HEMOGLOBIN, GLYCATED (06/07/2025 8:59 PM CDT) HGB A1C 12.9(H) <5.7 % 06/08/2025 12:[address] [facility] Comment: ADA GUIDELINES 2010 5.7 TO 6.4% INCREASED RISK OF DIABETES > OR = 6.5% CONSISTENT WITH DIABETES ESTIMATED AVG GLUCOSE 324 mg/dL 06/08/2025 12:[address] [facility] 06/07/2025 8:59 PM CDT Xavier Sverhmarket Lisset DO LABORATORY Final Result Performing Organization Address [facility] Co de Phone Number 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
--- OUTSIDE RECORDS SUMMARY | 2025-09-09 10:22 | XMS_ITS | Data Portability ---
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 Plan of Treatment Reminders Order Date Submit Date Provider Last Modified By Organization Details Last Modified Time Details Appointments None recorded. Lab HbA1c (hemoglobin A1c), blood 2022 023 [email or web address] In-Office Order, Internal Use Only DO Not Attach Compendium DO Not Attach Compendium, Do Not Delete/merge, [id number] 3 09:49:24 Referral physical therapist referral 2024 025 [facility] (Outpatient Therapy), [address] [facility], [place], [address], 5 10:11:43 Procedures None recorded. Surgeries None recorded. Imaging None recorded. Medication Orders OneTouch Ultra Test strips 2024 025 [facility]/Pharmacy #[id number], [address] [place], [address], 5 12:12:40 Eliquis 5 mg tablet 2024 025 [id number] [address] [place], [address], 5 12:12:40 cyclobenzap rine 10 mg tablet 2024 025 [facility]/Pharmacy #[id number], [address] [place], [address], 13:51:54 Lantus Solostar U-100 Insulin 100 unit/mL (3 mL) subcutaneou s pen 2022 023 [facility], [address] [place] [address], [place], [place], [id number], 3 10:01:23 Jardiance 25 mg tablet 2022 023 [facility], [address] [place] [address] 100, [place], [place], [id number], 5 12:06:02 lisinopril 10 mg tablet 2022 023 [facility], [address] [place] [address], [place], [id number], 12:06:42 Patient TargetsNo targets recorded. Patient Instructions Encounter Date Encounter Id Patient Instructions Last Modified By Organization Details Last Modified Time 02/10/2023 [id number] I was present an d available in the Family Medicine clinic to discuss this patient's care during the appointment. I agree with the resident's assessment and plan as documented. Tyson Bell MD [email or web address] Not available 02/15/2023 09:42:43 12/13/2024 [id number] A healthy lifestyle: care instructions [email or web address] Not available 12/15/2024 23:35:58 I was present an d available in the Family Medicine clinic to discuss the patient's care during the time of the appointment. All labs/imaging/cons ults/prescription s to be followed by the resident rendering services on day of encounter. I agree with the resident's assessment and plan as documented with the following addendum: [None] Patrice Mansfield Not available 12/17/2024 16:18:08 06/18/2025 [id number] I certify that I was present for case discussion in the Family Medicine preceptor room at the time of this encounter. I have reviewed the note and agree with the findings, assessment, and plan except as I have documented below. Follow up as listed. All labs/imaging/cons ults to be followed by the ordering provider. Capt Jos, [facility], Staff Physician. see note from 06/13/2025 pt with recent missed work from [facility] [email or web address] Not available 06/24/2025 21:44:08 07/11/2025 [id number] neck pain: care instructions [email or web address] Not available 07/11/2025 11:55:03 I was present an d available in the Family Medicine clinic to discuss the patient's care during the time of the appointment. All labs/imaging/cons ults/prescription s to be followed by the resident rendering services on day of encounter. I agree with the resident's assessment and plan as documented with the following addendum: [None] Patrice Shyla Not available 07/14/2025 14:25:51 Reason for Referral Physical Therapist Referral for Neck pain neck pain Referring Physician: Isabelle Chan, Buttonhole Tacker, Encounter Date: 07/11/2025 Results Created Date Observation Date Name Description Value Unit Range Abnormal Flag Note LastModifiedBy Organization Detail LastModifiedTime 05/25/2005/25/2023 COLOG UARD cologuard result Cancel led - Order d not applic able Not Available [facility] [address], [place], [address], 05/25/2023 11:11:11 02/11/20 23 02/10/2023 HbA1c (hemo globi n A1c), blood HbA1c 11.4 Not Available In-Office Order Internal Use Only DO Not Attach Compendium DO Not Attach Compendium, Do Not Delete/merge, [id number] 02/10/2023 09:49:15 02/23/2002/22/2023 LIPID PANEL cholesterol 209 mg/dL <200 high Not Available [facility] [address] [facility], [place], [address], 02/22/2023 12:17:06 02/23/20 23 02/22/2023 LIPID PANEL triglyceride 103 mg/dL <150 Not Available [facility] (Lab) [address] [facility], [place], [address], 02/22/2023 12:17:06 02/23/20 23 02/22/2023 LIPID PANEL HDL cholesterol 46 mg/dL >40.0 Not Available [facility] (Lab) [address] [facility], [place], [address], 02/22/2023 12:17:06 02/23/2002/22/2023 LIPID PANEL LDL calculated 142 mg/dL <100 high Not Available [facility] (Lab) [address] [facility], [place], [address], 02/22/2023 12:17:06 02/23/20 23 02/22/2023 LIPID PANEL non HDL cholesterol 163 mg/dL <130 high Not Available [facility] (Lab) [address] [facility], [place], [address], 02/22/2023 12:17:06 02/23/20 23 02/22/2023 LIPID PANEL chol/HDL ratio 4.5 0.0-4. 5 Not Available [facility] (Lab) [address] [facility], [place], [address], 02/22/2023 12:17:06 02/23/20 23 02/22/2023 LIPID PANEL VLDL 21 mg/dL 5-55 Not Available [facility] (Lab) [address] [facility], [place], [address], 02/22/2023 12:17:06 02/23/20 23 02/22/2023 LIPID PANEL interpretati on NIH MIRNA NSUS REPOR T RECOM MENDA TIONS : ADULT CHILD LOW RISK: KANNAN STERO L <200 <170 TRIGL YCERI DE <150 --- HDL >=60 --- LDL <100 <110 BORDE RLINE : KANNAN STERO L 200-2 39 170-1 99 TRIGL YCERI DE 150-1 99 --- HDL 40-59 --- LDL 100-1 59 110-1 29 HIGH RISK: AKNNAN STERO L >=240 >=200 TRIGL YCERI DE >=200 --- HDL <40 --- LDL >=160 >=130 Not Available [facility] (Lab) [address] [facility], [place], [address], 02/22/2023 12:17:06 12/11/19 24 12/11/2023 Lipid 1996 panel - Serum or Plasm a cholesterol [mass/volume ] in serum or plasma 164 text: <200 mg/dL KANNAN STERO L 164 <200 MG/DL 12/10 9:[address] [facility] Not Available Not Available 12/13/2024 07:14:35 12/11/19 24 12/11/2023 Lipid 1996 panel - Serum or Plasm a triglyceride [mass/volume ] in serum or plasma 64 text: <150 mg/dL TRIGL YCERI TEO 64 <150 MG/DL 12/10 9:[address] [facility] Not Available Not Available 12/13/2024 07:14:35 12/11/19 24 12/11/2023 Lipid 1996 panel - Serum or Plasm a cholesterol in HDL [mass/volume ] in serum or plasma 48 text: >40.0 mg/dL HDL 48 >40.0 MG/DL 12/10 9:[address] [facility] Not Available Not Available 12/13/2024 07:14:35 12/11/19 24 12/11/2023 Lipid 1996 panel - Serum or Plasm a cholesterol in LDL [mass/volume ] in serum or plasma by calculation 103 text: <100 mg/dL high LDL (CALC ULATE D) 103 (H) <100 MG/DL 12/10 9:[address] [facility] Not Available Not Available 12/13/2024 07:14:35 12/11/19 24 12/11/2023 Lipid 1996 panel - Serum or Plasm a cholesterol non HDL [mass/volume ] in serum or plasma 116 text: <130 mg/dL NON HDL KANNAN STERO L 116 <130 MG/DL 12/10 9:[address] [facility] Not Available Not Available 12/13/2024 07:14:35 12/11/19 24 12/11/2023 Lipid 1996 panel - Serum or Plasm a cholesterol. total/choles terol in HDL [mass ratio] in serum or plasma 3.4 low: 0high: 4.5 CHOL/ HDL RATIO 3.4 0.0 - 4.5 12/10 9:[address] [facility] Not Available Not Available 12/13/2024 07:14:35 12/11/19 24 12/11/2023 Lipid 1996 panel - Serum or Plasm a cholesterol in VLDL [mass/volume ] in serum or plasma by calculation 13 text: 5 - 55 mg/dL VLDL CALCU LATIO N 13 5 - 55 MG/DL 12/10 9:[address] [facility] Not Available Not Available 12/13/2024 07:14:35 12/11/19 24 12/11/2023 Lipid 1996 panel - Serum or Plasm a service comment LIPID INTER PRETA TION 12/10 9:[address] [facility] Not Available Not Available 12/13/2024 07:14:35 12/11/19 24 12/11/2023 Lipid 1996 panel - Serum or Plasm a interpretati on and review of laboratory results Abnorm al Not Available Not Available 07:14:35 12/30/19 24 12/30/2023 Gluco se [Mass /volu me] in Arter ial blood glucose [mass/volume ] in capillary blood by glucometer 242 mg/dL low: 70mg/d Lhigh: 115mg/ dL high Gluco se WB/PO C 242 (H) 70 - 115 mg/dL 12/29 9:56 PM CDT [facility] Not Available Not Available 12/13/2024 11:16:16 12/30/19 24 12/30/2023 Gluco se [Mass /volu me] in Arter ial blood specimen source identified Cap Finger stick Speci men Type Cap Finge rstic k 12/29 9:56 PM CDT [facility] Not Available Not Available 12/13/2024 11:16:16 12/30/19 24 12/30/2023 Gluco se [Mass /volu me] in Arter ial blood interpretati on and review of laboratory results Abnorm al Not Available Not Available 11:16:16 12/30/19 24 12/30/2023 Renal funct ion 1999 panel - Serum or Plasm a urea nitrogen [mass/volume ] in serum or plasma 12 mg/dL low: 7mg/dL high: 26mg/d L BUN 12 7 - 26 mg/dL 12/29 8:59 PM CDT [facility] Not Available Not Available 12/13/2024 11:16:16 12/30/19 24 12/30/2023 Renal funct ion 1999 panel - Serum or Plasm a creatinine [mass/volume ] in serum or plasma 1.08 mg/dL low: 0.71mg /dLhig h: 1.16mg /dL Creat inine 1.08 0.71 - 1.16 mg/dL 12/29 8:59 PM T [facility] Not Available Not Available 12/13/2024 11:16:16 12/30/19 24 12/30/2023 Renal funct ion 1999 panel - Serum or Plasm a sodium [moles/volum e] in serum or plasma 140 mmol/ L low: 136mmo l/Lhig h: 145mmo l/L Sodiu m 140 136 - 145 mmol/ L 12/29 8:59 PM CDT [facility] Not Available Not Available 12/13/2024 11:16:16 12/30/19 24 12/30/2023 Renal funct ion 1999 panel - Serum or Plasm a potassium [moles/volum e] in serum or plasma 3.8 mmol/ L low: 3.5mmo l/Lhig h: 4.5mmo l/L Potas sium 3.8 3.5 - 4.5 mmol/ L 12/29 8:59 PM T [facility] Not Available Not Available 12/13/2024 11:16:16 12/30/19 24 12/30/2023 Renal funct ion 1999 panel - Serum or Plasm a chloride [moles/volum e] in serum or plasma 109 mmol/ L low: 98mmol /Lhigh : 107mmo l/L high Chlor sia 109 (H) 98 - 107 mmol/ L 12/29 8:59 PM CDT [facility] Not Available Not Available 12/13/2024 11:16:16 12/30/19 24 12/30/2023 Renal funct ion 1999 panel - Serum or Plasm a carbon dioxide, total [moles/volum e] in serum or plasma 23 mmol/ L low: 22mmol /Lhigh : 29mmol /L CO2 23 22 - 29 mmol/ L 12/29 8:59 PM T [facility] Not Available Not Available 12/13/2024 11:16:16 12/30/19 24 12/30/2023 Renal funct ion 1999 panel - Serum or Plasm a glucose [mass/volume ] in serum or plasma 124 mg/dL low: 70mg/d Lhigh: 115mg/ dL high Gluco se 124 (H) 70 - 115 mg/dL 12/29 8:59 PM [facility] Not Available 12/13/2024 11:16:16 12/30/19 24 12/30/2023 Renal funct ion 1999 panel - Serum or Plasm a albumin [mass/volume ] in serum or plasma by bromocresol green (bcg) dye binding method 3.8 g/dL low: 3.4g/d Lhigh: 5g/dL Album in 3.8 3.4 - 5.0 g/dL 12/29 8:59 PM [facility] Not Available Not Available 12/13/2024 11:16:16 12/30/19 24 12/30/2023 Renal funct ion 1999 panel - Serum or Plasm a calcium [moles/volum e] in serum or plasma 9.9 mg/dL low: 8.4mg/ dLhigh : 10.2mg /dL Calci um 9.9 8.4 - 10.2 mg/dL 12/29 8:59 PM CDT [facility] Not Available Not Available 12/13/2024 11:16:16 12/30/19 24 12/30/2023 Renal funct ion 1999 panel - Serum or Plasm a phosphate [mass/volume ] in serum or plasma 3.6 mg/dL low: 2.8mg/ dLhigh : 5.1mg/ dL Phosp horus 3.6 2.8 - 5.1 mg/dL 12/29 8:59 PM CDT [facility] Not Available Not Available 12/13/2024 11:16:16 12/30/19 24 12/30/2023 Renal funct ion 1999 panel - Serum or Plasm a anion gap 8 low: 6high: 16 Anion Gap 8 6 - 16 12/29 8:59 PM CDT [facility] Not Available Not Available 12/13/2024 11:16:16 12/30/19 24 12/30/2023 Renal funct ion 1999 panel - Serum or Plasm a urea nitrogen/cre atinine [mass ratio] in serum or plasma 11 low: 7high: 23 BUN/C reati nine Ratio 11 7 - 23 12/29 8:59 PM CDT [facility] Not Available Not Available 12/13/2024 11:16:16 12/30/19 24 12/30/2023 Renal funct ion 1999 panel - Serum or Plasm a osmolality calculated 291 text: 275 - 295 mOsm/k g Osmol alipapi Calcu lated 291 275 - 295 mOsm/ kg 12/29 8:59 PM CDT [facility] Not Available Not Available 12/13/2024 11:16:16 12/30/19 24 12/30/2023 Renal funct ion 1999 panel - Serum or Plasm a glomerular filtration rate/1.73 sq M.predicted [volume rate/area] in serum, plasma or blood by creatinine-b ased formula (CKD-epi) 81 text: >=90 mL/min /1.73 m2 low eGFR by CKD-E PI 81 (L) >=90 mL/mi n/1.7 3 m2 12/29 8:59 PM CDT [facility] Not Available Not Available 12/13/2024 11:16:16 12/30/19 24 12/30/2023 Renal funct ion 1999 panel - Serum or Plasm a interpretati on and review of laboratory results Abnorm al Not Available Not Available 11:16:16 12/30/19 24 12/30/2023 Magne sium [Mass /volu me] in Serum or Plasm a magnesium [mass/volume ] in serum or plasma 2.2 mg/dL low: 1.6mg/ dLhigh : 2.6mg/ dL Magne sium 2.2 1.6 - 2.6 mg/dL 12/29 8:59 PM CDT [facility] Not Available Not Available 12/13/2024 11:16:16 12/30/19 24 12/30/2023 Magne sium [Mass /volu me] in Serum or Plasm a interpretati on and review of laboratory results Normal Not Available Not Available 03/2025 11:16:16 12/30/19 24 12/30/2023 Natri ureti c pepti de B [Mass /volu me] in Serum or Plasm a natriuretic peptide B [mass/volume ] in serum or plasma high: 100pg/ mL BNP <10 <100 pg/mL 12/29 4:15 PM CDT [email or web address] Not Available Not Available 12/13/2024 11:16:15 12/30/19 24 12/30/2023 Natri ureti c pepti de B [Mass /volu me] in Serum or Plasm a interpretati on and review of laboratory results Normal Not Available Not Available 03/2025 11:16:15 12/30/19 24 12/30/2023 Compr ehens samuel metab olic 1999 panel - Serum or Plasm a urea nitrogen [mass/volume ] in serum or plasma 14 mg/dL low: 7mg/dL high: 26mg/d L BUN 14 7 - 26 mg/dL 12/29 12:48 PM CDT [facility] Not Available Not Available 12/13/2024 11:16:15 12/30/19 24 12/30/2023 Compr ehens samuel metab olic 1999 panel - Serum or Plasm a creatinine [mass/volume ] in serum or plasma 1.12 mg/dL low: 0.71mg /dLhig h: 1.16mg /dL Creat inine 1.12 0.71 - 1.16 mg/dL 12/29 12:48 PM CDT [facility] Not Available Not Available 12/13/2024 11:16:15 12/30/19 24 12/30/2023 Compr ehens samuel metab olic 1999 panel - Serum or Plasm a sodium [moles/volum e] in serum or plasma 139 mmol/ L low: 136mmo l/Lhig h: 145mmo l/L Sodiu m 139 136 - 145 mmol/ L 12/29 12:48 PM CDT [facility] Not Available Not Available 12/13/2024 11:16:15 12/30/19 24 12/30/2023 Compr ehens samuel metab olic 1999 panel - Serum or Plasm a potassium [moles/volum e] in serum or plasma 4 mmol/ L low: 3.5mmo l/Lhig h: 4.5mmo l/L Potas sium 4.0 3.5 - 4.5 mmol/ L 12/29 12:48 PM CDT [facility] Not Available Not Available 12/13/2024 11:16:15 12/30/19 24 12/30/2023 Compr ehens samuel metab olic 1999 panel - Serum or Plasm a chloride [moles/volum e] in serum or plasma 106 mmol/ L low: 98mmol /Lhigh : 107mmo l/L Chlor sia 106 98 - 107 mmol/ L 12/29 12:48 PM CDT [facility] Not Available Not Available 12/13/2024 11:16:15 12/30/19 24 12/30/2023 Compr blogfosterens samuel metab olic 1999 panel - Serum or Plasm a carbon dioxide, total [moles/volum e] in serum or plasma 20 mmol/ L low: 22mmol /Lhigh : 29mmol /L low CO2 20 (L) 22 - 29 mmol/ L 12/29 12:48 PM CDT [facility] Not Available Not Available 12/13/2024 11:16:15 12/30/19 24 12/30/2023 Compr blogfosterens samuel metab olic 1999 panel - Serum or Plasm a glucose [mass/volume ] in serum or plasma 276 mg/dL low: 70mg/d Lhigh: 115mg/ dL high Gluco se 276 (H) 70 - 115 mg/dL 12/29 12:48 PM CDT [facility] Not Available Not Available 12/13/2024 11:16:15 12/30/19 24 12/30/2023 Compr ens samuel metab olic 1999 panel - Serum or Plasm a calcium [moles/volum e] in serum or plasma 9.3 mg/dL low: 8.4mg/ dLhigh : 10.2mg /dL Calci um 9.3 8.4 - 10.2 mg/dL 12/29 12:48 PM CDT [facility] Not Available Not Available 12/13/2024 11:16:15 12/30/19 24 12/30/2023 Compr blogfosterens samuel metab olic 1999 panel - Serum or Plasm a protein [mass/volume ] in serum or plasma 7.8 g/dL low: 6g/dLh igh: 8.3g/d L Prote in Total 7.8 6.0 - 8.3 g/dL 12/29 12:48 PM CDT [facility] Not Available Not Available 12/13/2024 11:16:15 12/30/19 24 12/30/2023 Compr blogfosterens samuel metab olic 1999 panel - Serum or Plasm a albumin [mass/volume ] in serum or plasma by bromocresol green (bcg) dye binding method 3.9 g/dL low: 3.4g/d Lhigh: 5g/dL Album in 3.9 3.4 - 5.0 g/dL 12/29 12:48 PM CDT [facility] Not Available Not Available 12/13/2024 11:16:15 12/30/19 24 12/30/2023 Compr ehens samuel metab olic 1999 panel - Serum or Plasm a bilirubin.to bridget [mass/volume ] in serum or plasma 0.4 mg/dL low: 0.2mg/ dLhigh : 1.2mg/ dL Bilir ubin Total 0.4 0.2 - 1.2 mg/dL 12/29 12:48 PM CDT [facility] Not Available Not Available 12/13/2024 11:16:15 12/30/19 24 12/30/2023 Compr ehens samuel metab olic 1999 panel - Serum or Plasm a alkaline phosphatase [enzymatic activity/vol ume] in serum or plasma 82 U/L low: 40U/Lh igh: 150U/L Alkal ine Phosp hatas e 82 40 - 150 U/L 12/29 12:48 PM CDT [facility] Not Available Not Available 12/13/2024 11:16:15 12/30/19 24 12/30/2023 Compr ehens samuel metab olic 1999 panel - Serum or Plasm a alanine aminotransfe rase [enzymatic activity/vol ume] in serum or plasma by no addition of P-5'-P 30 U/L low: 5U/Lhi gh: 55U/L ALT 30 5 - 55 U/L 12/29 12:48 PM CDT [facility] Not Available Not Available 12/13/2024 11:16:15 12/30/19 24 12/30/2023 Compr ehens samuel metab olic 1999 panel - Serum or Plasm a aspartate aminotransfe rase [enzymatic activity/vol ume] in serum or plasma 16 U/L low: 5U/Lhi gh: 34U/L AST 16 5 - 34 U/L 12/29 12:48 PM CDT [facility] Not Available Not Available 12/13/2024 11:16:15 12/30/19 24 12/30/2023 Compr ehens samuel metab olic 1999 panel - Serum or Plasm a anion gap 13 low: 6high: 16 Anion Gap 13 6 - 16 12/29 12:48 PM CDT [facility] Not Available Not Available 12/13/2024 11:16:15 12/30/19 24 12/30/2023 Compr ehens samuel metab olic 1999 panel - Serum or Plasm a urea nitrogen/cre atinine [mass ratio] in serum or plasma 13 low: 7high: 23 BUN/C reati nine Ratio 13 7 - 23 12/29 12:48 PM CDT [facility] Not Available Not Available 12/13/2024 11:16:15 12/30/19 24 12/30/2023 Compr ehens samuel metab olic 1999 panel - Serum or Plasm a osmolality calculated 298 text: 275 - 295 mOsm/k g high Osmol ality Calcu lated 298 (H) 275 - 295 mOsm/ kg 12/29 12:48 PM CDT [facility] Not Available Not Available 12/13/2024 11:16:15 12/30/19 24 12/30/2023 Compr ehens samuel metab olic 1999 panel - Serum or Plasm a albumin/glob ulin ratio 1 low: 1.1hig h: 2.3 low Album in/Gl obuli n Ratio 1.0 (L) 1.1 - 2.3 12/29 12:48 PM CDT [facility] Not Available Not Available 12/13/2024 11:16:15 12/30/19 24 12/30/2023 Compr ehens samuel metab olic 1999 panel - Serum or Plasm a glomerular filtration rate/1.73 sq M.predicted [volume rate/area] in serum, plasma or blood by creatinine-b ased formula (CKD-epi) 77 text: >=90 mL/min /1.73 m2 low eGFR by CKD-E PI 77 (L) >=90 mL/mi n/1.7 3 m2 12/29 12:48 PM CDT [facility] Not Available Not Available 12/13/2024 11:16:15 12/30/19 24 12/30/2023 Compr ehens samuel metab olic 2000 panel - Serum or Plasm a interpretati on and review of laboratory results Abnorm al Not Available Not Available 11:16:15 12/30/19 24 12/30/2023 CBC W Auto Diffe katherin al panel - Blood leukocytes [#/volume] in blood by automated count 5.3 text: 4.0 - 10.7 x10e9/ L WBC 5.3 4.0 - 10.7 x10E9 /L 12/29 12:36 PM CDT [facility] Not Available Not Available 12/13/2024 11:16:15 12/30/19 24 12/30/2023 CBC W Auto Diffe katherin ramirez panel - Blood erythrocytes [#/volume] in blood by automated count 5.58 text: 4.30 - 5.80 x10e12 /L RBC Count 5.58 4.30 - 5.80 x10E1 2/L 12/29 12:36 PM CDT [facility] Not Available Not Available 12/13/2024 11:16:15 12/30/19 24 12/30/2023 CBC W Auto Diffe katherin ramirez panel - Blood hemoglobin [mass/volume ] in blood 15.7 g/dL low: 13.3g/ dLhigh : 17.5g/ dL Hemog lobin 15.7 13.3 - 17.5 g/dL 12/29 12:36 PM CDT [facility] Not Available Not Available 12/13/2024 11:16:15 12/30/19 24 12/30/2023 CBC W Auto Diffe katherin ramirez panel - Blood hematocrit [volume fraction] of blood by automated count 46.4 % low: 38.7%h igh: 51.1% Hemat ocrit 46.4 38.7 - 51.1 % 12/29 12:36 PM CDT [facility] Not Available Not Available 12/13/2024 11:16:15 12/30/19 24 12/30/2023 CBC W Auto Diffe renizzy al panel - Blood MCV [entitic volume] by automated count 83.2 fL low: 80fLhi gh: 98fL MCV 83.2 80.0 - 98.0 fL 03/22 /2024 12:36 PM CDT [facility] Not Available Not Available 12/13/2024 11:16:15 12/30/19 24 12/30/2023 CBC W Auto Diffe renti al panel - Blood MCH [entitic mass] by automated count 28.1 pg low: 26.7pg high: 33.6pg MCH 28.1 26.7 - 33.6 pg 12/29 12:36 PM CDT [facility] Not Available Not Available 12/13/2024 11:16:15 12/30/19 24 12/30/2023 CBC W Auto Diffe renti al panel - Blood MCHC [mass/volume ] by automated count 33.8 g/dL low: 31.7g/ dLhigh : 36.3g/ dL MCHC 33.8 31.7 - 36.3 g/dL 12/29 12:36 PM CDT [facility] Not Available Not Available 12/13/2024 11:16:15 12/30/19 24 12/30/2023 CBC W Auto Diffe renti al panel - Blood erythrocyte distribution width [ratio] by automated count 12.6 % low: 11.3%h igh: 14.8% RDW-C V 12.6 11.3 - 14.8 % 12/29 12:36 PM CDT [facility] Not Available Not Available 12/13/2024 11:16:15 12/30/19 24 12/30/2023 CBC W Auto Diffe renti al panel - Blood platelets [#/volume] in blood by automated count 169 text: 150 - 420 x10e9/ L Plate let Count 169 150 - 420 x10E9 /L 12/29 12:36 PM CDT [facility] Not Available Not Available 12/13/2024 11:16:15 12/30/19 24 12/30/2023 CBC W Auto Diffe renti al panel - Blood platelet mean volume [entitic volume] in blood by automated count 11.3 fL low: 7.8fLh igh: 11.4fL MPV 11.3 7.8 - 11.4 fL 12/29 12:36 PM CDT [facility] Not Available Not Available 12/13/2024 11:16:15 12/30/19 24 12/30/2023 CBC W Auto Diffe renti al panel - Blood neutrophils/ 100 leukocytes in blood by automated count 59.4 % low: 41%hig h: 74% Neutr ophil % 59.4 41.0 - 74.0 % 12/29 12:36 PM CDT [facility] Not Available Not Available 12/13/2024 11:16:15 12/30/19 24 12/30/2023 CBC W Auto Diffe renti al panel - Blood lymphocytes/ 100 leukocytes in blood by automated count 28.4 % low: 17%hig h: 47% Lymph ocyte % 28.4 17.0 - 47.0 % 12/29 12:36 PM CDT [facility] [place] Not Available Not Available 12/13/2024 11:16:15 12/30/19 24 12/30/2023 CBC W Auto Diffe renti al panel - Blood monocytes/10 0 leukocytes in blood by automated count 10.8 % low: 3%high : 11% Monoc yte % 10.8 3.0 - 11.0 % 12/29 12:36 PM CDT [facility] Not Available Not Available 12/13/2024 11:16:15 12/30/19 24 12/30/2023 CBC W Auto Diffe renti al panel - Blood eosinophils/ 100 leukocytes in blood by automated count 0.8 % low: 0%high : 7% Eosin ophil % 0.8 0.0 - 7.0 % 12/29 12:36 PM CDT [facility] Not Available Not Available 12/13/2024 11:16:15 12/30/19 24 12/30/2023 CBC W Auto Diffe renti al panel - Blood basophils/10 0 leukocytes in blood by automated count 0.4 % low: 0%high : 1.6% Basop hil % 0.4 0.0 - 1.6 % 12/29 12:36 PM CDT [facility] Not Available Not Available 12/13/2024 11:16:15 12/30/19 24 12/30/2023 CBC W Auto Diffe renti al panel - Blood immature granulocytes /100 leukocytes in blood by automated count 0.2 % low: 0%high : 1% Immat ure Granu locyt es % 0.2 0.0 - 1.0 % 12/29 12:36 PM CDT [facility] Not Available Not Available 12/13/2024 11:16:15 12/30/19 24 12/30/2023 CBC W Auto Diffe renti al panel - Blood neutrophils [#/volume] in blood by automated count 3.15 text: 1.60 - 7.50 x10e9/ L Neutr ophil Absol [place] 3.15 1.60 - 7.50 x10E9 /L 12/29 12:36 PM CDT [facility] Not Available Not Available 12/13/2024 11:16:15 12/30/19 24 12/30/2023 CBC W Auto Diffe renti al panel - Blood lymphocytes [#/volume] in blood by automated count 1.5 text: 1.00 - 4.40 x10e9/ L Lymph ocyte Absol [place] 1.50 1.00 - 4.40 x10E9 /L 12/29 12:36 PM CDT [facility] Not Available Not Available 12/13/2024 11:16:15 12/30/19 24 12/30/2023 CBC W Auto Diffe renti al panel - Blood monocytes [#/volume] in blood by automated count 0.57 text: 0.15 - 1.00 x10e9/ L Monoc yte Absol [place] 0.57 0.15 - 1.00 x10E9 /L 12/29 12:36 PM CDT [facility] [place] Not Available Not Available 12/13/2024 11:16:15 12/30/19 24 12/30/2023 CBC W Auto Diffe renti al panel - Blood eosinophils [#/volume] in blood 0.04 text: 0.00 - 0.60 x10e9/ L Eosin ophil Absol [place] 0.04 0.00 - 0.60 x10E9 /L 12/29 12:36 PM CDT [facility] Not Available Not Available 12/13/2024 11:16:15 12/30/19 24 12/30/2023 CBC W Auto Diffe renti al panel - Blood basophils [#/volume] in blood by automated count 0.02 text: 0.00 - 0.13 x10e9/ L Basop hil Absol [place] 0.02 0.00 - 0.13 x10E9 /L 12/29 12:36 PM CDT [facility] Not Available Not Available 12/13/2024 11:16:15 12/30/19 24 12/30/2023 CBC W Auto Diffe renti al panel - Blood interpretati on and review of laboratory results Normal Not Available Not Available 03/2025 11:16:15 12/31/19 24 12/31/2023 Gluco se [Mass /volu me] in Arter ial blood glucose [mass/volume ] in capillary blood by glucometer 120 mg/dL low: 70mg/d Lhigh: 115mg/ dL high Gluco se WB/PO C 120 (H) 70 - 115 mg/dL 12/30 9:03 PM [facility]T [facility] Not Available 12/13/2024 11:16:17 12/31/19 24 12/31/2023 Gluco se [Mass /volu me] in Arter ial blood specimen source identified Cap Finger stick Speci men Type Cap Finge rstic k 12/30 9:03 PM [facility] Not Available Not Available 12/13/2024 11:16:17 12/31/19 24 12/31/2023 Gluco se [Mass /volu me] in Arter ial blood interpretati on and review of laboratory results Abnorm al Not Available Not Available 11:16:17 12/31/19 24 12/31/2023 Gluco se [Mass /volu me] in Arter ial blood glucose [mass/volume ] in capillary blood by glucometer 117 mg/dL low: 70mg/d Lhigh: 115mg/ dL high Gluco se WB/PO C 117 (H) 70 - 115 mg/dL 12/30 4:27 PM CDT [facility] Not Available Not Available 12/13/2024 11:16:17 12/31/19 24 12/31/2023 Gluco se [Mass /volu me] in Arter ial blood specimen source identified Cap Finger stick Speci men Type Cap Finge rstic k 12/30 4:27 PM CDT [facility] [place] Not Available Not Available 12/13/2024 11:16:17 12/31/19 24 12/31/2023 Gluco se [Mass /volu me] in Arter ial blood interpretati on and review of laboratory results Abnorm al Not Available Not Available 11:16:17 12/31/19 24 12/31/2023 Renal funct ion 1999 panel - Serum or Plasm a urea nitrogen [mass/volume ] in serum or plasma 13 mg/dL low: 7mg/dL high: 26mg/d L BUN 13 7 - 26 mg/dL 12/30 12:26 PM CDT [facility] Not Available Not Available 12/13/2024 11:16:17 12/31/19 24 12/31/2023 Renal funct ion 1999 panel - Serum or Plasm a creatinine [mass/volume ] in serum or plasma 1.22 mg/dL low: 0.71mg /dLhig h: 1.16mg /dL high Creat inine 1.22 (H) 0.71 - 1.16 mg/dL 12/30 12:26 PM CDT [facility] Not Available Not Available 12/13/2024 11:16:17 12/31/19 24 12/31/2023 Renal funct ion 1999 panel - Serum or Plasm a sodium [moles/volum e] in serum or plasma 138 mmol/ L low: 136mmo l/Lhig h: 145mmo l/L Sodiu m 138 136 - 145 mmol/ L 12/30 12:26 PM CDT [facility] [place] Not Available Not Available 12/13/2024 11:16:17 12/31/19 24 12/31/2023 Renal funct ion 1999 panel - Serum or Plasm a potassium [moles/volum e] in serum or plasma 4 mmol/ L low: 3.5mmo l/Lhig h: 4.5mmo l/L Potas sium 4.0 3.5 - 4.5 mmol/ L 12/30 12:26 PM CDT [facility] [place] Not Available Not Available 12/13/2024 11:16:17 12/31/19 24 12/31/2023 Renal funct ion 1999 panel - Serum or Plasm a chloride [moles/volum e] in serum or plasma 106 mmol/ L low: 98mmol /Lhigh : 107mmo l/L Chlor sia 106 98 - 107 mmol/ L 12/30 12:26 PM CDT [facility] [place] Not Available Not Available 12/13/2024 11:16:17 12/31/19 24 12/31/2023 Renal funct ion 1999 panel - Serum or Plasm a carbon dioxide, total [moles/volum e] in serum or plasma 20 mmol/ L low: 22mmol /Lhigh : 29mmol /L low CO2 20 (L) 22 - 29 mmol/ L 12/30 12:26 PM T [facility] [place] Not Available Not Available 12/13/2024 11:16:17 12/31/19 24 12/31/2023 Renal funct ion 1999 panel - Serum or Plasm a glucose [mass/volume ] in serum or plasma 138 mg/dL low: 70mg/d Lhigh: 115mg/ dL high Gluco se 138 (H) 70 - 115 mg/dL 12/30 12:26 PM T [facility] [place] Not Available Not Available 12/13/2024 11:16:17 12/31/19 24 12/31/2023 Renal funct ion 1999 panel - Serum or Plasm a albumin [mass/volume ] in serum or plasma by bromocresol green (bcg) dye binding method 4 g/dL low: 3.4g/d Lhigh: 5g/dL Album in 4.0 3.4 - 5.0 g/dL 12/30 12:26 PM T [facility] [place] Not Available Not Available 12/13/2024 11:16:17 12/31/19 24 12/31/2023 Renal funct ion 1999 panel - Serum or Plasm a calcium [moles/volum e] in serum or plasma 10.2 mg/dL low: 8.4mg/ dLhigh : 10.2mg /dL Calci um 10.2 8.4 - 10.2 mg/dL 12/30 12:26 PM CDT [facility] Not Available Not Available 12/13/2024 11:16:17 12/31/19 24 12/31/2023 Renal funct ion 1999 panel - Serum or Plasm a phosphate [mass/volume ] in serum or plasma 3.6 mg/dL low: 2.8mg/ dLhigh : 5.1mg/ dL Phosp horus 3.6 2.8 - 5.1 mg/dL 12/30 12:26 PM CDT [facility] Not Available Not Available 12/13/2024 11:16:17 12/31/19 24 12/31/2023 Renal funct ion 1999 panel - Serum or Plasm a anion gap 12 low: 6high: 16 Anion Gap 12 6 - 16 12/30 12:26 PM CDT [facility] Not Available Not Available 12/13/2024 11:16:17 12/31/19 24 12/31/2023 Renal funct ion 1999 panel - Serum or Plasm a urea nitrogen/cre atinine [mass ratio] in serum or plasma 11 low: 7high: 23 BUN/C reati nine Ratio 11 7 - 23 12/30 12:26 PM CDT [facility] Not Available Not Available 12/13/2024 11:16:17 12/31/19 24 12/31/2023 Renal funct ion 1999 panel - Serum or Plasm a osmolality calculated 288 text: 275 - 295 mOsm/k g Osmol ality Calcu lated 288 275 - 295 mOsm/ kg 12/30 12:26 PM CDT [facility] Not Available Not Available 12/13/2024 11:16:17 12/31/19 24 12/31/2023 Renal funct ion 1999 panel - Serum or Plasm a glomerular filtration rate/1.73 sq M.predicted [volume rate/area] in serum, plasma or blood by creatinine-b ased formula (CKD-epi) 70 text: >=90 mL/min /1.73 m2 low eGFR by CKD-E PI 70 (L) >=90 mL/mi n/1.7 3 m2 12/30 12:26 PM CDT [facility] Not Available Not Available 12/13/2024 11:16:17 12/31/19 24 12/31/2023 Renal funct ion 2000 panel - Serum or Plasm a interpretati on and review of laboratory results Abnorm al Not Available Not Available 11:16:17 12/31/19 24 12/31/2023 Magne sium [Mass /volu me] in Serum or Plasm a magnesium [mass/volume ] in serum or plasma 2.2 mg/dL low: 1.6mg/ dLhigh : 2.6mg/ dL Magne sium 2.2 1.6 - 2.6 mg/dL 12/30 12:26 PM CDT [facility] Not Available Not Available 12/13/2024 11:16:16 12/31/19 24 12/31/2023 Magne sium [Mass /volu me] in Serum or Plasm a interpretati on and review of laboratory results Normal Not Available Not Available 03/2025 11:16:16 12/31/19 24 12/31/2023 CBC W Auto Diffe renti al panel - Blood leukocytes [#/volume] in blood by automated count 5.6 text: 4.0 - 10.7 x10e9/ L WBC 5.6 4.0 - 10.7 x10E9 /L 12/30 12:18 PM CDT [facility] Not Available Not Available 12/13/2024 11:16:16 12/31/19 24 12/31/2023 CBC W Auto Diffe renti al panel - Blood erythrocytes [#/volume] in blood by automated count 6.04 text: 4.30 - 5.80 x10e12 /L high RBC Count 6.04 (H) 4.30 - 5.80 x10E1 2/L 12/30 12:18 PM CDT [facility] [place] Not Available Not Available 12/13/2024 11:16:16 12/31/19 24 12/31/2023 CBC W Auto Diffe renti al panel - Blood hemoglobin [mass/volume ] in blood 16.8 g/dL low: 13.3g/ dLhigh : 17.5g/ dL Hemog lobin 16.8 13.3 - 17.5 g/dL 12/30 12:18 PM CDT [facility] Not Available Not Available 12/13/2024 11:16:16 12/31/19 24 12/31/2023 CBC W Auto Diffe renti al panel - Blood hematocrit [volume fraction] of blood by automated count 49.9 % low: 38.7%h igh: 51.1% Hemat ocrit 49.9 38.7 - 51.1 % 12/30 12:18 PM CDT [facility] Not Available Not Available 12/13/2024 11:16:16 12/31/19 24 12/31/2023 CBC W Auto Diffe renti al panel - Blood MCV [entitic volume] by automated count 82.6 fL low: 80fLhi gh: 98fL MCV 82.6 80.0 - 98.0 fL 12/30 12:18 PM CDT [facility] Not Available Not Available 12/13/2024 11:16:16 12/31/19 24 12/31/2023 CBC W Auto Diffe renti al panel - Blood MCH [entitic mass] by automated count 27.8 pg low: 26.7pg high: 33.6pg MCH 27.8 26.7 - 33.6 pg 12/30 12:18 PM CDT [facility] Not Available Not Available 12/13/2024 11:16:16 12/31/19 24 12/31/2023 CBC W Auto Diffe renti al panel - Blood MCHC [mass/volume ] by automated count 33.7 g/dL low: 31.7g/ dLhigh : 36.3g/ dL MCHC 33.7 31.7 - 36.3 g/dL 12/30 12:18 PM CDT [facility] Not Available Not Available 12/13/2024 11:16:16 12/31/19 24 12/31/2023 CBC W Auto Diffe renti al panel - Blood erythrocyte distribution width [ratio] by automated count 12.8 % low: 11.3%h igh: 14.8% RDW-C V 12.8 11.3 - 14.8 % 12/30 12:18 PM CDT [facility] Not Available Not Available 12/13/2024 11:16:16 12/31/19 24 12/31/2023 CBC W Auto Diffe renti al panel - Blood platelets [#/volume] in blood by automated count 162 text: 150 - 420 x10e9/ L Plate let Count 162 150 - 420 x10E9 /L 12/30 12:18 PM CDT [facility] Not Available Not Available 12/13/2024 11:16:16 12/31/19 24 12/31/2023 CBC W Auto Diffe renti al panel - Blood platelet mean volume [entitic volume] in blood by automated count 11.7 fL low: 7.8fLh igh: 11.4fL high MPV 11.7 (H) 7.8 - 11.4 fL 12/30 12:18 PM CDT [facility] Not Available Not Available 12/13/2024 11:16:16 12/31/19 24 12/31/2023 CBC W Auto Diffe renti al panel - Blood neutrophils/ 100 leukocytes in blood by automated count 54 % low: 41%hig h: 74% Neutr ophil % 54.0 41.0 - 74.0 % 12/30 12:18 PM CDT [facility] Not Available Not Available 12/13/2024 11:16:16 12/31/19 24 12/31/2023 CBC W Auto Diffe renti al panel - Blood lymphocytes/ 100 leukocytes in blood by automated count 30.7 % low: 17%hig h: 47% Lymph ocyte % 30.7 17.0 - 47.0 % 12/30 12:18 PM T [facility] Not Available Not Available 12/13/2024 11:16:16 12/31/19 24 12/31/2023 CBC W Auto Diffe renti al panel - Blood monocytes/10 0 leukocytes in blood by automated count 13.1 % low: 3%high : 11% high Monoc yte % 13.1 (H) 3.0 - 11.0 % 12/30 12:18 PM CDT [facility] [place] Not Available Not Available 12/13/2024 11:16:16 12/31/19 24 12/31/2023 CBC W Auto Diffe renti al panel - Blood eosinophils/ 100 leukocytes in blood by automated count 1.3 % low: 0%high : 7% Eosin ophil % 1.3 0.0 - 7.0 % 12/30 12:18 PM CDT [facility] [place] Not Available Not Available 12/13/2024 11:16:16 12/31/19 24 12/31/2023 CBC W Auto Diffe renti al panel - Blood basophils/10 0 leukocytes in blood by automated count 0.5 % low: 0%high : 1.6% Basop hil % 0.5 0.0 - 1.6 % 12/30 12:18 PM CDT [facility] [place] Not Available Not Available 12/13/2024 11:16:16 12/31/19 24 12/31/2023 CBC W Auto Diffe renti al panel - Blood immature granulocytes /100 leukocytes in blood by automated count 0.4 % low: 0%high : 1% Immat ure Granu locyt es % 0.4 0.0 - 1.0 % 12/30 12:18 PM CDT [facility] [place] Not Available Not Available 12/13/2024 11:16:16 12/31/19 24 12/31/2023 CBC W Auto Diffe renti al panel - Blood neutrophils [#/volume] in blood by automated count 3.01 text: 1.60 - 7.50 x10e9/ L Neutr ophil Absol [place] 3.01 1.60 - 7.50 x10E9 /L 12/30 12:18 PM CDT [facility] [place] Not Available Not Available 12/13/2024 11:16:16 12/31/19 24 12/31/2023 CBC W Auto Diffe renti al panel - Blood lymphocytes [#/volume] in blood by automated count 1.71 text: 1.00 - 4.40 x10e9/ L Lymph ocyte Absol [place] 1.71 1.00 - 4.40 x10E9 /L 12/30 12:18 PM CDT [facility] [place] Not Available Not Available 12/13/2024 11:16:16 12/31/19 24 12/31/2023 CBC W Auto Diffe renti al panel - Blood monocytes [#/volume] in blood by automated count 0.73 text: 0.15 - 1.00 x10e9/ L Monoc yte Absol [place] 0.73 0.15 - 1.00 x10E9 /L 12/30 12:18 PM CDT [facility] [place] Not Available Not Available 12/13/2024 11:16:16 12/31/19 24 12/31/2023 CBC W Auto Diffe renti al panel - Blood eosinophils [#/volume] in blood 0.07 text: 0.00 - 0.60 x10e9/ L Eosin ophil Absol [place] 0.07 0.00 - 0.60 x10E9 /L 12/30 12:18 PM CDT [facility] [place] Not Available Not Available 12/13/2024 11:16:16 12/31/19 24 12/31/2023 CBC W Auto Diffe renti al panel - Blood basophils [#/volume] in blood by automated count 0.03 text: 0.00 - 0.13 x10e9/ L Basop hil Absol [place] 0.03 0.00 - 0.13 x10E9 /L 12/30 12:18 PM CDT [facility] [place] Not Available Not Available 12/13/2024 11:16:16 12/31/19 24 12/31/2023 CBC W Auto Diffe renti al panel - Blood interpretati on and review of laboratory results Abnorm al Not Available Not Available 11:16:16 12/31/19 24 12/31/2023 Lipid 1996 panel - Serum or Plasm a cholesterol [mass/volume ] in serum or plasma 163 mg/dL high: 200mg/ dL Kannan stero l Total 163 <200 mg/dL 12/30 12:26 PM CDT [email or web address] Not Available Not Available 12/13/2024 11:16:16 12/31/19 24 12/31/2023 Lipid 1995 panel - Serum or Plasm a cholesterol in HDL [mass/volume ] in serum or plasma 43 mg/dL low: 40mg/d L HDL 43 >40 mg/dL 12/30 12:26 PM CDT [facility] [place] Not Available Not Available 12/13/2024 11:16:16 12/31/1912/31/2023 Lipid 1995 panel - Serum or Plasm a cholesterol in LDL [mass/volume ] in serum or plasma by calculation 98 mg/dL high: 100mg/ dL LDL Calcu lated 98 <100 mg/dL 12/30 12:26 PM T [email or web address] Not Available Not Available 12/13/2024 11:16:16 12/31/1912/31/2023 Lipid 1995 panel - Serum or Plasm a tricyclic antidepressa nts [mass/volume ] in serum or plasma 111 mg/dL high: 150mg/ dL Trigl yceri teo 111 <150 mg/dL 12/30 12:26 PM CDT [facility] Not Available Not Available 12/13/2024 11:16:16 12/31/1912/31/2023 Lipid 1996 panel - Serum or Plasm a interpretati on and review of laboratory results Normal Not Available Not Available 03/2025 11:16:16 12/31/1901/01/2024 Hemog lobin A1c/H emogl obin. total in Blood hemoglobin A1C/hemoglob in.total in blood 10.7 % high: 5.6% high Hemog lobin A1c 10.7 (H) <=5.6 % 12/31 11:52 AM CDT [facility] Not Available Not Available 12/13/2024 11:16:01 12/31/19 24 01/01/2024 Hemog lobin A1c/H emogl obin. total in Blood glucose mean value [mass/volume ] in blood estimated from glycated hemoglobin 260 mg/dL Estim mariangel hopkins Gluco se 260 mg/dL 12/31 11:52 AM CDT [facility] [place] Not Available Not Available 12/13/2024 11:16:01 12/31/19 24 01/01/2024 Hemog lobin A1c/H emogl obin. total in Blood interpretati on and review of laboratory results Abnorm al Not Available Not Available 11:16:01 12/31/19 24 12/31/2023 Gluco se [Mass /volu me] in Arter ial blood glucose [mass/volume ] in capillary blood by glucometer 135 mg/dL low: 70mg/d Lhigh: 115mg/ dL high Gluco se WB/PO C 135 (H) 70 - 115 mg/dL 12/30 11:33 AM CDT [facility] Not Available Not Available 12/13/2024 11:16:16 12/31/19 24 12/31/2023 Gluco se [Mass /volu me] in Arter ial blood specimen source identified Cap Finger stick Speci men Type Cap Finge rstic k 12/30 11:33 AM CDT [facility] Not Available Not Available 12/13/2024 11:16:16 12/31/19 24 12/31/2023 Gluco se [Mass /volu me] in Arter ial blood interpretati on and review of laboratory results Abnorm al Not Available Not Available 11:16:16 12/31/19 24 12/31/2023 Gluco se [Mass /volu me] in Arter ial blood glucose [mass/volume ] in capillary blood by glucometer 129 mg/dL low: 70mg/d Lhigh: 115mg/ dL high Gluco se WB/PO C 129 (H) 70 - 115 mg/dL 12/30 7:46 AM CDT [facility] Not Available Not Available 12/13/2024 11:16:16 12/31/19 24 12/31/2023 Gluco se [Mass /volu me] in Arter ial blood specimen source identified Cap Finger stick Speci men Type Cap Finge rstic k 12/30 7:46 AM CDT [facility] Not Available Not Available 12/13/2024 11:16:16 12/31/19 24 12/31/2023 Gluco se [Mass /volu me] in Arter ial blood interpretati on and review of laboratory results Abnorm al Not Available Not Available 11:16:16 01/01/20 24 01/01/2024 Gluco se [Mass /volu me] in Arter ial blood glucose [mass/volume ] in capillary blood by glucometer 181 mg/dL low: 70mg/d Lhigh: 115mg/ dL high Gluco se WB/PO C 181 (H) 70 - 115 mg/dL 12/31 8:54 PM CDT [facility] Not Available Not Available 12/13/2024 11:16:18 01/01/20 24 01/01/2024 Gluco se [Mass /volu me] in Arter ial blood specimen source identified Cap Finger stick Speci men Type Cap Finge rstic k 12/31 8:54 PM CDT [facility] Not Available Not Available 12/13/2024 11:16:18 01/01/20 24 01/01/2024 Gluco se [Mass /volu me] in Arter ial blood interpretati on and review of laboratory results Abnorm al Not Available Not Available 11:16:18 01/01/20 24 01/01/2024 Gluco se [Mass /volu me] in Arter ial blood glucose [mass/volume ] in capillary blood by glucometer 99 mg/dL low: 70mg/d Lhigh: 115mg/ dL Gluco se WB/PO C 99 70 - 115 mg/dL 12/31 4:25 PM CDT [facility] Not Available Not Available 12/13/2024 11:16:18 01/01/20 24 01/01/2024 Gluco se [Mass /volu me] in Arter ial blood specimen source identified Cap Finger stick Speci men Type Cap Finge rstic k 12/31 4:25 PM CDT [facility] Not Available Not Available 12/13/2024 11:16:18 01/01/20 24 01/01/2024 Gluco se [Mass /volu me] in Arter ial blood glucose [mass/volume ] in capillary blood by glucometer 183 mg/dL low: 70mg/d Lhigh: 115mg/ dL high Gluco se WB/PO C 183 (H) 70 - 115 mg/dL 12/31 11:51 AM CDT [facility] Not Available Not Available 12/13/2024 11:16:17 01/01/20 24 01/01/2024 Gluco se [Mass /volu me] in Arter ial blood specimen source identified Cap Finger stick Speci men Type Cap Finge rstic k 12/31 11:51 AM [facility]T [facility] Not Available Not Available 12/13/2024 11:16:17 01/01/20 24 01/01/2024 Gluco se [Mass /volu me] in Arter ial blood interpretati on and review of laboratory results Abnorm al Not Available Not Available 11:16:17 01/01/20 24 01/01/2024 Gluco se [Mass /volu me] in Arter ial blood glucose [mass/volume ] in capillary blood by glucometer 127 mg/dL low: 70mg/d Lhigh: 115mg/ dL high Gluco se WB/PO C 127 (H) 70 - 115 mg/dL 12/31 7:55 AM CDT [facility] Not Available Not Available 12/13/2024 11:16:17 01/01/20 24 01/01/2024 Gluco se [Mass /volu me] in Arter ial blood specimen source identified Cap Finger stick Speci men Type Cap Finge rstic k 12/31 7:55 AM CDT [facility] Not Available Not Available 12/13/2024 11:16:17 01/01/20 24 01/01/2024 Gluco se [Mass /volu me] in Arter ial blood interpretati on and review of laboratory results Abnorm al Not Available Not Available 11:16:17 01/01/20 24 01/01/2024 Renal funct ion 1999 panel - Serum or Plasm a urea nitrogen [mass/volume ] in serum or plasma 12 mg/dL low: 7mg/dL high: 26mg/d L BUN 12 7 - 26 mg/dL 12/31 5:40 AM CDT [facility] Not Available Not Available 12/13/2024 11:16:17 01/01/2001/01/2024 Renal funct ion 1999 panel - Serum or Plasm a creatinine [mass/volume ] in serum or plasma 1.13 mg/dL low: 0.71mg /dLhig h: 1.16mg /dL Creat inine 1.13 0.71 - 1.16 mg/dL 12/31 5:40 AM CDT [facility] Not Available Not Available 12/13/2024 11:16:17 01/01/2001/01/2024 Renal funct ion 1999 panel - Serum or Plasm a sodium [moles/volum e] in serum or plasma 137 mmol/ L low: 136mmo l/Lhig h: 145mmo l/L Sodiu m 137 136 - 145 mmol/ L 12/31 5:40 AM CDT [facility] Not Available Not Available 12/13/2024 11:16:17 01/01/2001/01/2024 Renal funct ion 1999 panel - Serum or Plasm a potassium [moles/volum e] in serum or plasma 3.9 mmol/ L low: 3.5mmo l/Lhig h: 4.5mmo l/L Potas sium 3.9 3.5 - 4.5 mmol/ L 12/31 5:40 AM CDT [facility] Not Available Not Available 12/13/2024 11:16:17 01/01/2001/01/2024 Renal funct ion 1999 panel - Serum or Plasm a chloride [moles/volum e] in serum or plasma 103 mmol/ L low: 98mmol /Lhigh : 107mmo l/L Chlor sia 103 98 - 107 mmol/ L 12/31 5:40 [facility] Not Available 12/13/2024 11:16:17 01/01/20 24 01/01/2024 Renal funct ion 1999 panel - Serum or Plasm a carbon dioxide, total [moles/volum e] in serum or plasma 21 mmol/ L low: 22mmol /Lhigh : 29mmol /L low CO2 21 (L) 22 - 29 mmol/ L 12/31 5:40 AM [facility] Not Available 12/13/2024 11:16:17 01/01/20 24 01/01/2024 Renal funct ion 1999 panel - Serum or Plasm a glucose [mass/volume ] in serum or plasma 111 mg/dL low: 70mg/d Lhigh: 115mg/ dL Gluco se 111 70 - 115 mg/dL 12/31 5:40 AM [facility] Not Available 12/13/2024 11:16:17 01/01/2001/01/2024 Renal funct ion 1999 panel - Serum or Plasm a albumin [mass/volume ] in serum or plasma by bromocresol green (bcg) dye binding method 3.6 g/dL low: 3.4g/d Lhigh: 5g/dL Album in 3.6 3.4 - 5.0 g/dL 12/31 5:40 AM [facility] Not Available 12/13/2024 11:16:17 01/01/2001/01/2024 Renal funct ion 1999 panel - Serum or Plasm a calcium [moles/volum e] in serum or plasma 9.7 mg/dL low: 8.4mg/ dLhigh : 10.2mg /dL Calci um 9.7 8.4 - 10.2 mg/dL 12/31 5:40 AM [facility] Not Available 12/13/2024 11:16:17 01/01/20 24 01/01/2024 Renal funct ion 1999 panel - Serum or Plasm a phosphate [mass/volume ] in serum or plasma 3.6 mg/dL low: 2.8mg/ dLhigh : 5.1mg/ dL Phosp horus 3.6 2.8 - 5.1 mg/dL 12/31 5:40 AM CDT [facility] Not Available Not Available 12/13/2024 11:16:17 01/01/20 24 01/01/2024 Renal funct ion 2000 panel - Serum or Plasm a anion gap 13 low: 6high: 16 Anion Gap 13 6 - 16 12/31 5:40 AM CDT [facility] Not Available Not Available 12/13/2024 11:16:17 01/01/20 24 01/01/2024 Renal funct ion 2000 panel - Serum or Plasm a urea nitrogen/cre atinine [mass ratio] in serum or plasma 11 low: 7high: 23 BUN/C reati nine Ratio 11 7 - 23 12/31 5:40 AM CDT [facility] Not Available Not Available 12/13/2024 11:16:17 01/01/20 24 01/01/2024 Renal funct ion 2000 panel - Serum or Plasm a osmolality calculated 284 text: 275 - 295 mOsm/k g Osmol ality Calcu lated 284 275 - 295 mOsm/ kg 12/31 5:40 AM CDT [facility] Not Available Not Available 12/13/2024 11:16:17 01/01/2001/01/2024 Renal funct ion 2000 panel - Serum or Plasm a glomerular filtration rate/1.73 sq M.predicted [volume rate/area] in serum, plasma or blood by creatinine-b ased formula (CKD-epi) 76 text: >=90 mL/min /1.73 m2 low eGFR by CKD-E PI 76 (L) >=90 mL/mi n/1.7 3 m2 12/31 5:40 AM CDT [facility] Not Available Not Available 12/13/2024 11:16:17 01/01/20 24 01/01/2024 Renal funct ion 2000 panel - Serum or Plasm a interpretati on and review of laboratory results Abnorm al Not Available Not Available 11:16:17 01/01/20 24 01/01/2024 Magne sium [Mass /volu me] in Serum or Plasm a magnesium [mass/volume ] in serum or plasma 2.1 mg/dL low: 1.6mg/ dLhigh : 2.6mg/ dL Magne sium 2.1 1.6 - 2.6 mg/dL 12/31 5:40 AM CDT [facility] Not Available 12/13/2024 11:16:17 01/01/2001/01/2024 Magne sium [Mass /volu me] in Serum or Plasm a interpretati on and review of laboratory results Normal Not Available Not Available 03/2025 11:16:17 01/01/2001/01/2024 CBC W Auto Diffe renti al panel - Blood leukocytes [#/volume] in blood by automated count 5.8 text: 4.0 - 10.7 x10e9/ L WBC 5.8 4.0 - 10.7 x10E9 /L 12/31 5:33 AM CDT [facility] Not Available Not Available 12/13/2024 11:16:17 01/01/2001/01/2024 CBC W Auto Diffe renti al panel - Blood erythrocytes [#/volume] in blood by automated count 5.71 text: 4.30 - 5.80 x10e12 /L RBC Count 5.71 4.30 - 5.80 x10E1 2/L 12/31 5:33 AM T [facility] Not Available Not Available 12/13/2024 11:16:17 01/01/2001/01/2024 CBC W Auto Diffe renti al panel - Blood hemoglobin [mass/volume ] in blood 15.8 g/dL low: 13.3g/ dLhigh : 17.5g/ dL Hemog lobin 15.8 13.3 - 17.5 g/dL 12/31 5:33 AM T [facility] Not Available Not Available 12/13/2024 11:16:17 01/01/20 24 01/01/2024 CBC W Auto Diffe renti al panel - Blood hematocrit [volume fraction] of blood by automated count 47.4 % low: 38.7%h igh: 51.1% Hemat ocrit 47.4 38.7 - 51.1 % 12/31 5:33 AM CDT [facility] Not Available 12/13/2024 11:16:17 01/01/2001/01/2024 CBC W Auto Diffe renti al panel - Blood MCV [entitic volume] by automated count 83 fL low: 80fLhi gh: 98fL MCV 83.0 80.0 - 98.0 fL 12/31 5:33 AM CDT [facility] Not Available Not Available 12/13/2024 11:16:17 01/01/2001/01/2024 CBC W Auto Diffe renti al panel - Blood MCH [entitic mass] by automated count 27.7 pg low: 26.7pg high: 33.6pg MCH 27.7 26.7 - 33.6 pg 12/31 5:33 AM CDT [facility] Not Available Not Available 12/13/2024 11:16:17 01/01/2001/01/2024 CBC W Auto Diffe renti al panel - Blood MCHC [mass/volume ] by automated count 33.3 g/dL low: 31.7g/ dLhigh : 36.3g/ dL MCHC 33.3 31.7 - 36.3 g/dL 12/31 5:33 AM T [facility] Not Available Not Available 12/13/2024 11:16:17 01/01/2001/01/2024 CBC W Auto Diffe renti al panel - Blood erythrocyte distribution width [ratio] by automated count 12.7 % low: 11.3%h igh: 14.8% RDW-C V 12.7 11.3 - 14.8 % 12/31 5:33 AM T [facility] Not Available Not Available 12/13/2024 11:16:17 01/01/2001/01/2024 CBC W Auto Diffe renti al panel - Blood platelets [#/volume] in blood by automated count 159 text: 150 - 420 x10e9/ L Plate let Count 159 150 - 420 x10E9 /L 12/31 5:33 AM CDT [facility] Not Available Not Available 12/13/2024 11:16:17 01/01/20 24 01/01/2024 CBC W Auto Diffe renti al panel - Blood platelet mean volume [entitic volume] in blood by automated count 11.8 fL low: 7.8fLh igh: 11.4fL high MPV 11.8 (H) 7.8 - 11.4 fL 12/31 5:33 AM CDT [facility] Not Available Not Available 12/13/2024 11:16:17 01/01/20 24 01/01/2024 CBC W Auto Diffe renti al panel - Blood neutrophils/ 100 leukocytes in blood by automated count 54.9 % low: 41%hig h: 74% Neutr ophil % 54.9 41.0 - 74.0 % 12/31 5:33 AM CDT [facility] Not Available Not Available 12/13/2024 11:16:17 01/01/20 24 01/01/2024 CBC W Auto Diffe renti al panel - Blood lymphocytes/ 100 leukocytes in blood by automated count 29.3 % low: 17%hig h: 47% Lymph ocyte % 29.3 17.0 - 47.0 % 12/31 5:33 AM CDT [facility] Not Available Not Available 12/13/2024 11:16:17 01/01/20 24 01/01/2024 CBC W Auto Diffe renti al panel - Blood monocytes/10 0 leukocytes in blood by automated count 13.1 % low: 3%high : 11% high Monoc yte % 13.1 (H) 3.0 - 11.0 % 12/31 5:33 AM CDT [facility] Not Available Not Available 12/13/2024 11:16:17 01/01/20 24 01/01/2024 CBC W Auto Diffe renti al panel - Blood eosinophils/ 100 leukocytes in blood by automated count 2.1 % low: 0%high : 7% Eosin ophil % 2.1 0.0 - 7.0 % 12/31 5:33 AM CDT [facility] Not Available Not Available 12/13/2024 11:16:17 01/01/20 24 01/01/2024 CBC W Auto Diffe renti al panel - Blood basophils/10 0 leukocytes in blood by automated count 0.3 % low: 0%high : 1.6% Basop hil % 0.3 0.0 - 1.6 % 12/31 5:33 AM CDT [facility] Not Available Not Available 12/13/2024 11:16:17 01/01/20 24 01/01/2024 CBC W Auto Diffe renti al panel - Blood immature granulocytes /100 leukocytes in blood by automated count 0.3 % low: 0%high : 1% Immat ure Granu locyt es % 0.3 0.0 - 1.0 % 12/31 5:33 AM [facility] Not Available 12/13/2024 11:16:17 01/01/2001/01/2024 CBC W Auto Diffe renti al panel - Blood neutrophils [#/volume] in blood by automated count 3.18 text: 1.60 - 7.50 x10e9/ L Neutr ophil Absol [place] 3.18 1.60 - 7.50 x10E9 /L 12/31 5:33 AM CDT [facility] Not Available Not Available 12/13/2024 11:16:17 01/01/20 24 01/01/2024 CBC W Auto Diffe renti al panel - Blood lymphocytes [#/volume] in blood by automated count 1.7 text: 1.00 - 4.40 x10e9/ L Lymph ocyte Absol [place] 1.70 1.00 - 4.40 x10E9 /L 12/31 5:33 AM CDT [facility] Not Available Not Available 12/13/2024 11:16:17 01/01/20 24 01/01/2024 CBC W Auto Diffe renti al panel - Blood monocytes [#/volume] in blood by automated count 0.76 text: 0.15 - 1.00 x10e9/ L Monoc yte Absol [place] 0.76 0.15 - 1.00 x10E9 /L 12/31 5:33 AM CDT [facility] Not Available Not Available 12/13/2024 11:16:17 01/01/20 24 01/01/2024 CBC W Auto Diffe renti al panel - Blood eosinophils [#/volume] in blood 0.12 text: 0.00 - 0.60 x10e9/ L Eosin ophil Absol [place] 0.12 0.00 - 0.60 x10E9 /L 12/31 5:33 AM CDT [facility] Not Available Not Available 12/13/2024 11:16:17 01/01/20 24 01/01/2024 CBC W Auto Diffe renti al panel - Blood basophils [#/volume] in blood by automated count 0.02 text: 0.00 - 0.13 x10e9/ L Basop hil Absol [place] 0.02 0.00 - 0.13 x10E9 /L 12/31 5:33 AM CDT [facility] Not Available Not Available 12/13/2024 11:16:17 01/01/20 24 01/01/2024 CBC W Auto Diffe renti al panel - Blood interpretati on and review of laboratory results Abnorm al Not Available Not Available 11:16:17 01/02/2001/02/2024 Gluco se [Mass /volu me] in Arter ial blood glucose [mass/volume ] in capillary blood by glucometer 168 mg/dL low: 70mg/d Lhigh: 115mg/ dL high Gluco se WB/PO C 168 (H) 70 - 115 mg/dL 01/01 7:12 PM CDT [facility] Not Available Not Available 12/13/2024 11:16:18 01/02/2001/02/2024 Gluco se [Mass /volu me] in Arter ial blood specimen source identified Cap Finger stick Speci men Type Cap Finge rstic k 01/01 7:12 PM CDT [facility] Not Available Not Available 12/13/2024 11:16:18 01/02/20 24 01/02/2024 Gluco se [Mass /volu me] in Arter ial blood interpretati on and review of laboratory results Abnorm al Not Available Not Available 11:16:18 01/02/20 24 01/02/2024 Gluco se [Mass /volu me] in Arter ial blood glucose [mass/volume ] in capillary blood by glucometer 97 mg/dL low: 70mg/d Lhigh: 115mg/ dL Gluco se WB/PO C 97 70 - 115 mg/dL 01/01 4:59 PM CDT [facility] Not Available Not Available 12/13/2024 11:16:18 01/02/20 24 01/02/2024 Gluco se [Mass /volu me] in Arter ial blood specimen source identified Cap Finger stick Speci men Type Cap Finge rstic k 01/01 4:59 PM CDT [facility] Not Available Not Available 12/13/2024 11:16:18 01/02/20 24 01/02/2024 Gluco se [Mass /volu me] in Arter ial blood glucose [mass/volume ] in capillary blood by glucometer 153 mg/dL low: 70mg/d Lhigh: 115mg/ dL high Gluco se WB/PO C 153 (H) 70 - 115 mg/dL 01/01 11:44 AM CDT [facility] Not Available Not Available 12/13/2024 11:16:18 01/02/20 24 01/02/2024 Gluco se [Mass /volu me] in Arter ial blood specimen source identified Cap Finger stick Speci men Type Cap Finge rstic k 01/01 11:44 AM CDT [facility] Not Available Not Available 12/13/2024 11:16:18 01/02/20 24 01/02/2024 Gluco se [Mass /volu me] in Arter ial blood interpretati on and review of laboratory results Abnorm al Not Available Not Available 11:16:18 01/02/20 24 01/02/2024 Gluco se [Mass /volu me] in Arter ial blood glucose [mass/volume ] in capillary blood by glucometer 115 mg/dL low: 70mg/d Lhigh: 115mg/ dL Gluco se WB/PO C 115 70 - 115 mg/dL 01/01 10:16 AM CDT [facility] [employer] [facility] Not Available Not Available 12/13/2024 11:16:18 01/02/20 24 01/02/2024 Gluco se [Mass /volu me] in Arter ial blood specimen source identified Cap Finger stick Speci men Type Cap Finge rstic k 01/01 10:16 AM T [facility] [employer] [facility] Not Available Not Available 12/13/2024 11:16:18 01/02/20 24 01/02/2024 Renal funct ion 1999 panel - Serum or Plasm a urea nitrogen [mass/volume ] in serum or plasma 14 mg/dL low: 7mg/dL high: 26mg/d L BUN 14 7 - 26 mg/dL 01/01 8:15 AM [facility] [employer] [facility] Not Available Not Available 12/13/2024 11:16:18 01/02/20 24 01/02/2024 Renal funct ion 1999 panel - Serum or Plasm a creatinine [mass/volume ] in serum or plasma 1.17 mg/dL low: 0.71mg /dLhig h: 1.16mg /dL high Creat inine 1.17 (H) 0.71 - 1.16 mg/dL 01/01 8:15 AM T [employer] [facility] Not Available Not Available 12/13/2024 11:16:18 01/02/20 24 01/02/2024 Renal funct ion 1999 panel - Serum or Plasm a sodium [moles/volum e] in serum or plasma 138 mmol/ L low: 136mmo l/Lhig h: 145mmo l/L Sodiu m 138 136 - 145 mmol/ L 01/01 8:15 AM [employer] [facility] Not Available Not Available 12/13/2024 11:16:18 01/02/20 24 01/02/2024 Renal funct ion 1999 panel - Serum or Plasm a potassium [moles/volum e] in serum or plasma 4.2 mmol/ L low: 3.5mmo l/Lhig h: 4.5mmo l/L Potas sium 4.2 3.5 - 4.5 mmol/ L 01/01 8:15 AM [facility] [employer] [facility] Not Available Not Available 12/13/2024 11:16:18 01/02/20 24 01/02/2024 Renal funct ion 1999 panel - Serum or Plasm a chloride [moles/volum e] in serum or plasma 106 mmol/ L low: 98mmol /Lhigh : 107mmo l/L Chlor sia 106 98 - 107 mmol/ L 01/01 8:15 AM T [facility] Not Available Not Available 12/13/2024 11:16:18 01/02/20 24 01/02/2024 Renal funct ion 1999 panel - Serum or Plasm a carbon dioxide, total [moles/volum e] in serum or plasma 21 mmol/ L low: 22mmol /Lhigh : 29mmol /L low CO2 21 (L) 22 - 29 mmol/ L 01/01 8:15 AM [email or web address] Not Available Not Available 12/13/2024 11:16:18 01/02/20 24 01/02/2024 Renal funct ion 1999 panel - Serum or Plasm a glucose [mass/volume ] in serum or plasma 109 mg/dL low: 70mg/d Lhigh: 115mg/ dL Gluco se 109 70 - 115 mg/dL 01/01 8:15 AM [email or web address] Not Available Not Available 12/13/2024 11:16:18 01/02/20 24 01/02/2024 Renal funct ion 1999 panel - Serum or Plasm a albumin [mass/volume ] in serum or plasma by bromocresol green (bcg) dye binding method 3.5 g/dL low: 3.4g/d Lhigh: 5g/dL Album in 3.5 3.4 - 5.0 g/dL 01/01 8:15 AM [facility] Not Available Not Available 12/13/2024 11:16:18 01/02/20 24 01/02/2024 Renal funct ion 1999 panel - Serum or Plasm a calcium [moles/volum e] in serum or plasma 9.6 mg/dL low: 8.4mg/ dLhigh : 10.2mg /dL Calci um 9.6 8.4 - 10.2 mg/dL 01/01 8:15 AM CDT [employer] [facility] Not Available Not Available 12/13/2024 11:16:18 01/02/20 24 01/02/2024 Renal funct ion 1999 panel - Serum or Plasm a phosphate [mass/volume ] in serum or plasma 3.4 mg/dL low: 2.8mg/ dLhigh : 5.1mg/ dL Phosp horus 3.4 2.8 - 5.1 mg/dL 01/01 8:15 AM CDT [facility] [facility] Not Available Not Available 12/13/2024 11:16:18 01/02/20 24 01/02/2024 Renal funct ion 1999 panel - Serum or Plasm a anion gap 11 low: 6high: 16 Anion Gap 11 6 - 16 01/01 8:15 AM [email or web address] [email or web address] Not Available Not Available 12/13/2024 11:16:18 01/02/20 24 01/02/2024 Renal funct ion 1999 panel - Serum or Plasm a urea nitrogen/cre atinine [mass ratio] in serum or plasma 12 low: 7high: 23 BUN/C reati nine Ratio 12 7 - 23 01/01 8:15 AM [email or web address] [email or web address] Not Available Not Available 12/13/2024 11:16:18 01/02/20 24 01/02/2024 Renal funct ion 1999 panel - Serum or Plasm a osmolality calculated 287 text: 275 - 295 mOsm/k g Osmol ality Calcu lated 287 275 - 295 mOsm/ kg 01/01 8:15 AM [employer] [facility] Not Available Not Available 12/13/2024 11:16:18 01/02/20 24 01/02/2024 Renal funct ion 1999 panel - Serum or Plasm a glomerular filtration rate/1.73 sq M.predicted [volume rate/area] in serum, plasma or blood by creatinine-b ased formula (CKD-epi) 73 text: >=90 mL/min /1.73 m2 low eGFR by CKD-E PI 73 (L) >=90 mL/mi n/1.7 3 m2 01/01 8:15 AM CDT [email or web address] Not Available Not Available 12/13/2024 11:16:18 01/02/20 24 01/02/2024 Renal funct ion 2000 panel - Serum or Plasm a interpretati on and review of laboratory results Abnorm al Not Available Not Available 11:16:18 01/02/20 24 01/02/2024 Magne sium [Mass /volu me] in Serum or Plasm a magnesium [mass/volume ] in serum or plasma 2.1 mg/dL low: 1.6mg/ dLhigh : 2.6mg/ dL Magne sium 2.1 1.6 - 2.6 mg/dL 01/01 8:15 AM CDT [email or web address] Not Available Not Available 12/13/2024 11:16:18 01/02/20 24 01/02/2024 Magne sium [Mass /volu me] in Serum or Plasm a interpretati on and review of laboratory results Normal Not Available Not Available 03/2025 11:16:18 01/02/20 24 01/02/2024 CBC W Auto Diffe renti al panel - Blood leukocytes [#/volume] in blood by automated count 4.4 text: 4.0 - 10.7 x10e9/ L WBC 4.4 4.0 - 10.7 x10E9 /L 01/01 7:46 AM CDT [facility] [employer] [facility] Not Available Not Available 12/13/2024 11:16:18 01/02/20 24 01/02/2024 CBC W Auto Diffe renti al panel - Blood erythrocytes [#/volume] in blood by automated count 5.5 text: 4.30 - 5.80 x10e12 /L RBC Count 5.50 4.30 - 5.80 x10E1 2/L 01/01 7:46 AM CDT [email or web address] Not Available Not Available 12/13/2024 11:16:18 01/02/20 24 01/02/2024 CBC W Auto Diffe renti al panel - Blood hemoglobin [mass/volume ] in blood 15.4 g/dL low: 13.3g/ dLhigh : 17.5g/ dL Hemog lobin 15.4 13.3 - 17.5 g/dL 01/01 7:46 AM CDT [facility] Not Available Not Available 12/13/2024 11:16:18 01/02/20 24 01/02/2024 CBC W Auto Diffe renti al panel - Blood hematocrit [volume fraction] of blood by automated count 45.7 % low: 38.7%h igh: 51.1% Hemat ocrit 45.7 38.7 - 51.1 % 01/01 7:46 AM [facility] Not Available Not Available 12/13/2024 11:16:18 01/02/20 24 01/02/2024 CBC W Auto Diffe renti al panel - Blood MCV [entitic volume] by automated count 83.1 fL low: 80fLhi gh: 98fL MCV 83.1 80.0 - 98.0 fL 01/01 7:46 AM CDT [facility] Not Available Not Available 12/13/2024 11:16:18 01/02/20 24 01/02/2024 CBC W Auto Diffe renti al panel - Blood MCH [entitic mass] by automated count 28 pg low: 26.7pg high: 33.6pg MCH 28.0 26.7 - 33.6 pg 01/01 7:46 AM CDT [facility] Not Available Not Available 12/13/2024 11:16:18 01/02/20 24 01/02/2024 CBC W Auto Diffe renti al panel - Blood MCHC [mass/volume ] by automated count 33.7 g/dL low: 31.7g/ dLhigh : 36.3g/ dL MCHC 33.7 31.7 - 36.3 g/dL 01/01 7:46 AM CDT [facility] Not Available Not Available 12/13/2024 11:16:18 01/02/20 24 01/02/2024 CBC W Auto Diffe renti al panel - Blood erythrocyte distribution width [ratio] by automated count 12.5 % low: 11.3%h igh: 14.8% RDW-C V 12.5 11.3 - 14.8 % 01/01 7:46 AM CDT [facility] Not Available Not Available 12/13/2024 11:16:18 01/02/20 24 01/02/2024 CBC W Auto Diffe renti al panel - Blood platelets [#/volume] in blood by automated count 151 text: 150 - 420 x10e9/ L Plate let Count 151 150 - 420 x10E9 /L 01/01 7:46 AM CDT [facility] Not Available Not Available 12/13/2024 11:16:18 01/02/20 24 01/02/2024 CBC W Auto Diffe renti al panel - Blood platelet mean volume [entitic volume] in blood by automated count 11.4 fL low: 7.8fLh igh: 11.4fL MPV 11.4 7.8 - 11.4 fL 01/01 7:46 AM CDT [facility] Not Available Not Available 12/13/2024 11:16:18 01/02/20 24 01/02/2024 CBC W Auto Diffe renti al panel - Blood neutrophils/ 100 leukocytes in blood by automated count 50.4 % low: 41%hig h: 74% Neutr ophil % 50.4 41.0 - 74.0 % 01/01 7:46 AM CDT [facility] Not Available Not Available 12/13/2024 11:16:18 01/02/20 24 01/02/2024 CBC W Auto Diffe renti al panel - Blood lymphocytes/ 100 leukocytes in blood by automated count 33.3 % low: 17%hig h: 47% Lymph ocyte % 33.3 17.0 - 47.0 % 01/01 7:46 AM CDT [facility] Not Available Not Available 12/13/2024 11:16:18 01/02/20 24 01/02/2024 CBC W Auto Diffe renti al panel - Blood monocytes/10 0 leukocytes in blood by automated count 14 % low: 3%high : 11% high Monoc yte % 14.0 (H) 3.0 - 11.0 % 01/01 7:46 AM CDT [facility] Not Available Not Available 12/13/2024 11:16:18 01/02/20 24 01/02/2024 CBC W Auto Diffe renti al panel - Blood eosinophils/ 100 leukocytes in blood by automated count 1.6 % low: 0%high : 7% Eosin ophil % 1.6 0.0 - 7.0 % 01/01 7:46 AM CDT [facility] Not Available Not Available 12/13/2024 11:16:18 01/02/20 24 01/02/2024 CBC W Auto Diffe renti al panel - Blood basophils/10 0 leukocytes in blood by automated count 0.5 % low: 0%high : 1.6% Basop hil % 0.5 0.0 - 1.6 % 01/01 7:46 AM [facility] Not Available Not Available 12/13/2024 11:16:18 01/02/20 24 01/02/2024 CBC W Auto Diffe renti al panel - Blood immature granulocytes /100 leukocytes in blood by automated count 0.2 % low: 0%high : 1% Immat ure Granu locyt es % 0.2 0.0 - 1.0 % 01/01 7:46 AM [facility] Not Available Not Available 12/13/2024 11:16:18 01/02/20 24 01/02/2024 CBC W Auto Diffe renti al panel - Blood neutrophils [#/volume] in blood by automated count 2.19 text: 1.60 - 7.50 x10e9/ L Neutr ophil Absol [place] 2.19 1.60 - 7.50 x10E9 /L 01/01 7:46 AM CDT [facility] Not Available Not Available 12/13/2024 11:16:18 01/02/20 24 01/02/2024 CBC W Auto Diffe renti al panel - Blood lymphocytes [#/volume] in blood by automated count 1.45 text: 1.00 - 4.40 x10e9/ L Lymph ocyte Absol [place] 1.45 1.00 - 4.40 x10E9 /L 01/01 7:46 AM CDT [facility] Not Available Not Available 12/13/2024 11:16:18 01/02/20 24 01/02/2024 CBC W Auto Diffe renti al panel - Blood monocytes [#/volume] in blood by automated count 0.61 text: 0.15 - 1.00 x10e9/ L Monoc yte Absol [place] 0.61 0.15 - 1.00 x10E9 /L 01/01 7:46 AM T [facility] Not Available Not Available 12/13/2024 11:16:18 01/02/20 24 01/02/2024 CBC W Auto Diffe renti al panel - Blood eosinophils [#/volume] in blood 0.07 text: 0.00 - 0.60 x10e9/ L Eosin ophil Absol [place] 0.07 0.00 - 0.60 x10E9 /L 01/01 7:46 AM T [facility] Not Available Not Available 12/13/2024 11:16:18 01/02/20 24 01/02/2024 CBC W Auto Diffe renti al panel - Blood basophils [#/volume] in blood by automated count 0.02 text: 0.00 - 0.13 x10e9/ L Basop hil Absol [place] 0.02 0.00 - 0.13 x10E9 /L 01/01 7:46 [facility] Not Available 12/13/2024 11:16:18 01/02/20 24 01/02/2024 CBC W Auto Diffe renti al panel - Blood interpretati on and review of laboratory results Abnorm al Not Available Not Available 11:16:18 01/03/20 24 01/03/2024 Gluco se [Mass /volu me] in Arter ial blood glucose [mass/volume ] in capillary blood by glucometer 159 mg/dL low: 70mg/d Lhigh: 115mg/ dL high Gluco se WB/PO C 159 (H) 70 - 115 mg/dL 01/02 8:23 PM CDT [email or web address] [place] Not Available Not Available 12/13/2024 11:16:19 01/03/20 24 01/03/2024 Gluco se [Mass /volu me] in Arter ial blood specimen source identified Cap Finger stick Speci men Type Cap Finge rstic k 01/02 8:23 PM CDT [facility] [place] Not Available Not Available 12/13/2024 11:16:19 01/03/20 24 01/03/2024 Gluco se [Mass /volu me] in Arter ial blood interpretati on and review of laboratory results Abnorm al Not Available Not Available 11:16:19 01/03/20 24 01/03/2024 Gluco se [Mass /volu me] in Arter ial blood glucose [mass/volume ] in capillary blood by glucometer 158 mg/dL low: 70mg/d Lhigh: 115mg/ dL high Gluco se WB/PO C 158 (H) 70 - 115 mg/dL 01/02 5:36 PM CDT [email or web address] [facility] Not Available Not Available 12/13/2024 11:16:19 01/03/20 24 01/03/2024 Gluco se [Mass /volu me] in Arter ial blood specimen source identified Arteri al Speci men Type Arter ial 01/02 5:36 PM CDT [facility] [facility] Not Available Not Available 12/13/2024 11:16:19 01/03/20 24 01/03/2024 Gluco se [Mass /volu me] in Arter ial blood interpretati on and review of laboratory results Abnorm al Not Available Not Available 11:16:19 01/03/20 24 01/03/2024 Gluco se [Mass /volu me] in Arter ial blood glucose [mass/volume ] in capillary blood by glucometer 134 mg/dL low: 70mg/d Lhigh: 115mg/ dL high Gluco se WB/PO C 134 (H) 70 - 115 mg/dL 01/02 11:33 AM CDT [facility] Not Available Not Available 12/13/2024 11:16:19 01/03/20 24 01/03/2024 Gluco se [Mass /volu me] in Arter ial blood specimen source identified Arteri al Speci men Type Arter ial 01/02 11:33 AM CDT [facility] Not Available Not Available 12/13/2024 11:16:19 01/03/20 24 01/03/2024 Gluco se [Mass /volu me] in Arter ial blood interpretati on and review of laboratory results Abnorm al Not Available Not Available 11:16:19 01/03/20 24 01/03/2024 Gluco se [Mass /volu me] in Arter ial blood glucose [mass/volume ] in capillary blood by glucometer 119 mg/dL low: 70mg/d Lhigh: 115mg/ dL high Gluco se WB/PO C 119 (H) 70 - 115 mg/dL 01/02 11:16 AM CDT [facility] Not Available Not Available 12/13/2024 11:16:19 01/03/20 24 01/03/2024 Gluco se [Mass /volu me] in Arter ial blood specimen source identified Arteri al Speci men Type Arter ial 01/02 11:16 AM CDT [facility] Not Available Not Available 12/13/2024 11:16:19 01/03/20 24 01/03/2024 Gluco se [Mass /volu me] in Arter ial blood interpretati on and review of laboratory results Abnorm al Not Available Not Available 11:16:19 01/03/20 24 01/03/2024 Renal funct ion 2000 panel - Serum or Plasm a urea nitrogen [mass/volume ] in serum or plasma 12 mg/dL low: 7mg/dL high: 26mg/d L BUN 12 7 - 26 mg/dL 01/02 4:30 AM CDT [facility] Not Available Not Available 12/13/2024 11:16:19 01/03/20 24 01/03/2024 Renal funct ion 1999 panel - Serum or Plasm a creatinine [mass/volume ] in serum or plasma 1.07 mg/dL low: 0.71mg /dLhig h: 1.16mg /dL Creat inine 1.07 0.71 - 1.16 mg/dL 01/02 4:30 AM [facility] Not Available Not Available 12/13/2024 11:16:19 01/03/20 24 01/03/2024 Renal funct ion 1999 panel - Serum or Plasm a sodium [moles/volum e] in serum or plasma 137 mmol/ L low: 136mmo l/Lhig h: 145mmo l/L Sodiu m 137 136 - 145 mmol/ L 01/02 4:30 AM [facility] Not Available Not Available 12/13/2024 11:16:19 01/03/20 24 01/03/2024 Renal funct ion 1999 panel - Serum or Plasm a potassium [moles/volum e] in serum or plasma 4.2 mmol/ L low: 3.5mmo l/Lhig h: 4.5mmo l/L Potas sium 4.2 3.5 - 4.5 mmol/ L 01/02 4:30 AM [facility] [place] Not Available Not Available 12/13/2024 11:16:19 01/03/20 24 01/03/2024 Renal funct ion 1999 panel - Serum or Plasm a chloride [moles/volum e] in serum or plasma 103 mmol/ L low: 98mmol /Lhigh : 107mmo l/L Chlor sia 103 98 - 107 mmol/ L 01/02 4:30 AM T [facility] Not Available Not Available 12/13/2024 11:16:19 01/03/20 24 01/03/2024 Renal funct ion 1999 panel - Serum or Plasm a carbon dioxide, total [moles/volum e] in serum or plasma 22 mmol/ L low: 22mmol /Lhigh : 29mmol /L CO2 22 22 - 29 mmol/ L 01/02 4:30 AM T [facility] [place] Not Available Not Available 12/13/2024 11:16:19 01/03/20 24 01/03/2024 Renal funct ion 1999 panel - Serum or Plasm a glucose [mass/volume ] in serum or plasma 127 mg/dL low: 70mg/d Lhigh: 115mg/ dL high Gluco se 127 (H) 70 - 115 mg/dL 01/02 4:30 AM CDT [facility] [facility] Not Available Not Available 12/13/2024 11:16:19 01/03/20 24 01/03/2024 Renal funct ion 1999 panel - Serum or Plasm a albumin [mass/volume ] in serum or plasma by bromocresol green (bcg) dye binding method 3.6 g/dL low: 3.4g/d Lhigh: 5g/dL Album in 3.6 3.4 - 5.0 g/dL 01/02 4:30 AM CDT [facility] Not Available Not Available 12/13/2024 11:16:19 01/03/20 24 01/03/2024 Renal funct ion 1999 panel - Serum or Plasm a calcium [moles/volum e] in serum or plasma 9.7 mg/dL low: 8.4mg/ dLhigh : 10.2mg /dL Calci um 9.7 8.4 - 10.2 mg/dL 01/02 4:30 AM [employer] [facility] Not Available Not Available 12/13/2024 11:16:19 01/03/20 24 01/03/2024 Renal funct ion 1999 panel - Serum or Plasm a phosphate [mass/volume ] in serum or plasma 3.3 mg/dL low: 2.8mg/ dLhigh : 5.1mg/ dL Phosp horus 3.3 2.8 - 5.1 mg/dL 01/02 4:30 AM CDT [facility] Not Available Not Available 12/13/2024 11:16:19 01/03/20 24 01/03/2024 Renal funct ion 1999 panel - Serum or Plasm a anion gap 12 low: 6high: 16 Anion Gap 12 6 - 16 01/02 4:30 AM CDT [facility] [facility] Not Available Not Available 12/13/2024 11:16:19 01/03/20 24 01/03/2024 Renal funct ion 1999 panel - Serum or Plasm a urea nitrogen/cre atinine [mass ratio] in serum or plasma 11 low: 7high: 23 BUN/C reati nine Ratio 11 7 - 23 01/02 4:30 AM CDT [facility] Not Available Not Available 12/13/2024 11:16:19 01/03/20 24 01/03/2024 Renal funct ion 1999 panel - Serum or Plasm a osmolality calculated 285 text: 275 - 295 mOsm/k g Osmol ality Calcu lated 285 275 - 295 mOsm/ kg 01/02 4:30 AM [employer] [facility] Not Available Not Available 12/13/2024 11:16:19 01/03/20 24 01/03/2024 Renal funct ion 1999 panel - Serum or Plasm a glomerular filtration rate/1.73 sq M.predicted [volume rate/area] in serum, plasma or blood by creatinine-b ased formula (CKD-epi) 81 text: >=90 mL/min /1.73 m2 low eGFR by CKD-E PI 81 (L) >=90 mL/mi n/1.7 3 m2 01/02 4:30 AM [employer] [facility] Not Available Not Available 12/13/2024 11:16:19 01/03/20 24 01/03/2024 Renal funct ion 2000 panel - Serum or Plasm a interpretati on and review of laboratory results Abnorm al Not Available Not Available 11:16:19 01/03/20 24 01/03/2024 Magne sium [Mass /volu me] in Serum or Plasm a magnesium [mass/volume ] in serum or plasma 2.1 mg/dL low: 1.6mg/ dLhigh : 2.6mg/ dL Magne sium 2.1 1.6 - 2.6 mg/dL 01/02 4:30 AM [employer] [facility] Not Available Not Available 12/13/2024 11:16:19 01/03/20 24 01/03/2024 Magne sium [Mass /volu me] in Serum or Plasm a interpretati on and review of laboratory results Normal Not Available Not Available 03/2025 11:16:19 01/03/20 24 01/03/2024 CBC W Auto Diffe renti al panel - Blood leukocytes [#/volume] in blood by automated count 5.4 text: 4.0 - 10.7 x10e9/ L WBC 5.4 4.0 - 10.7 x10E9 /L 01/02 2:24 AM CDT [facility] Not Available Not Available 12/13/2024 11:16:19 01/03/20 24 01/03/2024 CBC W Auto Diffe renti al panel - Blood erythrocytes [#/volume] in blood by automated count 5.64 text: 4.30 - 5.80 x10e12 /L RBC Count 5.64 4.30 - 5.80 x10E1 2/L 01/02 2:24 AM CDT [facility] Not Available Not Available 12/13/2024 11:16:19 01/03/20 24 01/03/2024 CBC W Auto Diffe renti al panel - Blood hemoglobin [mass/volume ] in blood 15.6 g/dL low: 13.3g/ dLhigh : 17.5g/ dL Hemog lobin 15.6 13.3 - 17.5 g/dL 01/02 2:24 AM CDT [facility] Not Available Not Available 12/13/2024 11:16:19 01/03/2001/03/2024 CBC W Auto Diffe renti al panel - Blood hematocrit [volume fraction] of blood by automated count 46.4 % low: 38.7%h igh: 51.1% Hemat ocrit 46.4 38.7 - 51.1 % 01/02 2:24 AM CDT [facility] Not Available Not Available 12/13/2024 11:16:19 01/03/20 24 01/03/2024 CBC W Auto Diffe renti al panel - Blood MCV [entitic volume] by automated count 82.3 fL low: 80fLhi gh: 98fL MCV 82.3 80.0 - 98.0 fL 01/02 2:24 AM CDT [facility] Available Not Available 12/13/2024 11:16:19 01/03/20 24 01/03/2024 CBC W Auto Diffe renti al panel - Blood MCH [entitic mass] by automated count 27.7 pg low: 26.7pg high: 33.6pg MCH 27.7 26.7 - 33.6 pg 01/02 2:24 AM T [facility] Not Available Not Available 12/13/2024 11:16:19 01/03/20 24 01/03/2024 CBC W Auto Diffe renti al panel - Blood MCHC [mass/volume ] by automated count 33.6 g/dL low: 31.7g/ dLhigh : 36.3g/ dL MCHC 33.6 31.7 - 36.3 g/dL 01/02 2:24 AM T [facility] Not Available Not Available 12/13/2024 11:16:19 01/03/2001/03/2024 CBC W Auto Diffe renti al panel - Blood erythrocyte distribution width [ratio] by automated count 12.5 % low: 11.3%h igh: 14.8% RDW-C V 12.5 11.3 - 14.8 % 01/02 2:24 AM T [facility] Not Available Not Available 12/13/2024 11:16:19 01/03/2001/03/2024 CBC W Auto Diffe renti al panel - Blood platelets [#/volume] in blood by automated count 154 text: 150 - 420 x10e9/ L Plate let Count 154 150 - 420 x10E9 /L 01/02 2:24 AM CDT [facility] Not Available Not Available 12/13/2024 11:16:19 01/03/20 24 01/03/2024 CBC W Auto Diffe renti al panel - Blood platelet mean volume [entitic volume] in blood by automated count 11.2 fL low: 7.8fLh igh: 11.4fL MPV 11.2 7.8 - 11.4 fL 01/02 2:24 AM CDT [facility] Not Available Not Available 12/13/2024 11:16:19 01/03/20 24 01/03/2024 CBC W Auto Diffe renti al panel - Blood neutrophils/ 100 leukocytes in blood by automated count 48.9 % low: 41%hig h: 74% Neutr ophil % 48.9 41.0 - 74.0 % 01/02 2:24 AM CDT [facility] Not Available Not Available 12/13/2024 11:16:19 01/03/20 24 01/03/2024 CBC W Auto Diffe renti al panel - Blood lymphocytes/ 100 leukocytes in blood by automated count 35.1 % low: 17%hig h: 47% Lymph ocyte % 35.1 17.0 - 47.0 % 01/02 2:24 AM CDT [facility] Not Available Not Available 12/13/2024 11:16:19 01/03/20 24 01/03/2024 CBC W Auto Diffe renti al panel - Blood monocytes/10 0 leukocytes in blood by automated count 13.9 % low: 3%high : 11% high Monoc yte % 13.9 (H) 3.0 - 11.0 % 01/02 2:24 AM CDT [facility] Not Available Not Available 12/13/2024 11:16:19 01/03/20 24 01/03/2024 CBC W Auto Diffe renti al panel - Blood eosinophils/ 100 leukocytes in blood by automated count 1.5 % low: 0%high : 7% Eosin ophil % 1.5 0.0 - 7.0 % 01/02 2:24 AM CDT [facility] Not Available Not Available 12/13/2024 11:16:19 01/03/20 24 01/03/2024 CBC W Auto Diffe renti al panel - Blood basophils/10 0 leukocytes in blood by automated count 0.4 % low: 0%high : 1.6% Basop hil % 0.4 0.0 - 1.6 % 01/02 2:24 AM CDT [facility] Not Available Not Available 12/13/2024 11:16:19 01/03/20 24 01/03/2024 CBC W Auto Diffe renti al panel - Blood immature granulocytes /100 leukocytes in blood by automated count 0.2 % low: 0%high : 1% Immat ure Granu locyt es % 0.2 0.0 - 1.0 % 01/02 2:24 AM CDT [facility] Not Available Not Available 12/13/2024 11:16:19 01/03/20 24 01/03/2024 CBC W Auto Diffe renti al panel - Blood neutrophils [#/volume] in blood by automated count 2.63 text: 1.60 - 7.50 x10e9/ L Neutr ophil Absol [place] 2.63 1.60 - 7.50 x10E9 /L 01/02 2:24 AM CDT [facility] Certess [facility] BR[facility] Not Available Not Available 12/13/2024 11:16:19 01/03/20 24 01/03/2024 CBC W Auto Diffe renti al panel - Blood lymphocytes [#/volume] in blood by automated count 1.89 text: 1.00 - 4.40 x10e9/ L Lymph ocyte Absol [place] 1.89 1.00 - 4.40 x10E9 /L 01/02 2:24 AM CDT [facility] Not Available Not Available 12/13/2024 11:16:19 01/03/20 24 01/03/2024 CBC W Auto Diffe renti al panel - Blood monocytes [#/volume] in blood by automated count 0.75 text: 0.15 - 1.00 x10e9/ L Monoc yte Absol [place] 0.75 0.15 - 1.00 x10E9 /L 01/02 2:24 AM CDT [facility] Not Available Not Available 12/13/2024 11:16:19 01/03/20 24 01/03/2024 CBC W Auto Diffe renti al panel - Blood eosinophils [#/volume] in blood 0.08 text: 0.00 - 0.60 x10e9/ L Eosin ophil Absol [place] 0.08 0.00 - 0.60 x10E9 /L 01/02 2:24 AM CDT [facility] Not Available Not Available 12/13/2024 11:16:19 01/03/20 24 01/03/2024 CBC W Auto Diffe renti al panel - Blood basophils [#/volume] in blood by automated count 0.02 text: 0.00 - 0.13 x10e9/ L Basop hil Absol [place] 0.02 0.00 - 0.13 x10E9 /L 01/02 2:24 AM CDT [facility] Not Available Not Available 12/13/2024 11:16:19 01/03/20 24 01/03/2024 CBC W Auto Diffe renti al panel - Blood interpretati on and review of laboratory results Abnorm al Not Available Not Available 11:16:19 01/04/20 24 01/04/2024 Renal funct ion 1999 panel - Serum or Plasm a urea nitrogen [mass/volume ] in serum or plasma 10 mg/dL low: 7mg/dL high: 26mg/d L BUN 10 7 - 26 mg/dL 01/03 9:31 AM T [facility] Not Available Not Available 12/13/2024 11:16:20 01/04/20 24 01/04/2024 Renal funct ion 1999 panel - Serum or Plasm a creatinine [mass/volume ] in serum or plasma 1.12 mg/dL low: 0.71mg /dLhig h: 1.16mg /dL Creat inine 1.12 0.71 - 1.16 mg/dL 01/03 9:31 AM T [facility] Not Available Not Available 12/13/2024 11:16:20 01/04/20 24 01/04/2024 Renal funct ion 1999 panel - Serum or Plasm a sodium [moles/volum e] in serum or plasma 138 mmol/ L low: 136mmo l/Lhig h: 145mmo l/L Sodiu m 138 136 - 145 mmol/ L 01/03 9:31 AM T [facility] Not Available Not Available 12/13/2024 11:16:20 01/04/20 24 01/04/2024 Renal funct ion 1999 panel - Serum or Plasm a potassium [moles/volum e] in serum or plasma 4.3 mmol/ L low: 3.5mmo l/Lhig h: 4.5mmo l/L Potas sium 4.3 3.5 - 4.5 mmol/ L 01/03 9:31 AM T [facility] [facility] Not Available Not Available 12/13/2024 11:16:20 01/04/20 24 01/04/2024 Renal funct ion 1999 panel - Serum or Plasm a chloride [moles/volum e] in serum or plasma 105 mmol/ L low: 98mmol /Lhigh : 107mmo l/L Chlor sia 105 98 - 107 mmol/ L 01/03 9:31 AM [facility] Not Available Not Available 12/13/2024 11:16:20 01/04/20 24 01/04/2024 Renal funct ion 1999 panel - Serum or Plasm a carbon dioxide, total [moles/volum e] in serum or plasma 20 mmol/ L low: 22mmol /Lhigh : 29mmol /L low CO2 20 (L) 22 - 29 mmol/ L 01/03 9:31 AM [facility] Not Available Not Available 12/13/2024 11:16:20 01/04/20 24 01/04/2024 Renal funct ion 1999 panel - Serum or Plasm a glucose [mass/volume ] in serum or plasma 107 mg/dL low: 70mg/d Lhigh: 115mg/ dL Gluco se 107 70 - 115 mg/dL 01/03 9:31 AM [facility] Not Available Not Available 12/13/2024 11:16:20 01/04/20 24 01/04/2024 Renal funct ion 1999 panel - Serum or Plasm a albumin [mass/volume ] in serum or plasma by bromocresol green (bcg) dye binding method 3.9 g/dL low: 3.4g/d Lhigh: 5g/dL Album in 3.9 3.4 - 5.0 g/dL 01/03 9:31 AM CDT [facility] [facility] Not Available Not Available 12/13/2024 11:16:20 01/04/20 24 01/04/2024 Renal funct ion 1999 panel - Serum or Plasm a calcium [moles/volum e] in serum or plasma 10.2 mg/dL low: 8.4mg/ dLhigh : 10.2mg /dL Calci um 10.2 8.4 - 10.2 mg/dL 01/03 9:31 AM CDT [facility] [employer] [facility] Not Available Not Available 12/13/2024 11:16:20 01/04/20 24 01/04/2024 Renal funct ion 1999 panel - Serum or Plasm a phosphate [mass/volume ] in serum or plasma 2.8 mg/dL low: 2.8mg/ dLhigh : 5.1mg/ dL Phosp horus 2.8 2.8 - 5.1 mg/dL 01/03 9:31 AM CDT [facility] [facility] Not Available Not Available 12/13/2024 11:16:20 01/04/20 24 01/04/2024 Renal funct ion 1999 panel - Serum or Plasm a anion gap 13 low: 6high: 16 Anion Gap 13 6 - 16 01/03 9:31 AM CDT [facility] [facility] Not Available Not Available 12/13/2024 11:16:20 01/04/20 24 01/04/2024 Renal funct ion 1999 panel - Serum or Plasm a urea nitrogen/cre atinine [mass ratio] in serum or plasma 9 low: 7high: 23 BUN/C reati nine Ratio 9 7 - 23 01/03 9:31 AM CDT [facility] [facility] Not Available Not Available 12/13/2024 11:16:20 01/04/20 24 01/04/2024 Renal funct ion 1999 panel - Serum or Plasm a osmolality calculated 286 text: 275 - 295 mOsm/k g Osmol ality Calcu lated 286 275 - 295 mOsm/ kg 01/03 9:31 AM CDT [facility] [facility] Not Available Not Available 12/13/2024 11:16:20 03/27/01/04/2024 Renal funct ion 1999 panel - Serum or Plasm a glomerular filtration rate/1.73 sq M.predicted [volume rate/area] in serum, plasma or blood by creatinine-b ased formula (CKD-epi) 77 text: >=90 mL/min /1.73 m2 low eGFR by CKD-E PI 77 (L) >=90 mL/mi n/1.7 3 m2 01/03 9:31 AM T [facility] Not Available Not Available 12/13/2024 11:16:20 01/04/20 24 01/04/2024 Renal funct ion 1999 panel - Serum or Plasm a interpretati on and review of laboratory results Abnorm al Not Available Not Available 11:16:20 01/04/20 24 01/04/2024 Magne sium [Mass /volu me] in Serum or Plasm a magnesium [mass/volume ] in serum or plasma 2.1 mg/dL low: 1.6mg/ dLhigh : 2.6mg/ dL Magne sium 2.1 1.6 - 2.6 mg/dL 01/03 9:31 AM [facility] [employer] [facility] Not Available Not Available 12/13/2024 11:16:20 01/04/20 24 01/04/2024 Magne sium [Mass /volu me] in Serum or Plasm a interpretati on and review of laboratory results Normal Not Available Not Available 03/2025 11:16:20 01/04/20 24 01/04/2024 CBC W Auto Diffe renti al panel - Blood leukocytes [#/volume] in blood by automated count 4.7 text: 4.0 - 10.7 x10e9/ L WBC 4.7 4.0 - 10.7 x10E9 /L 01/03 8:56 AM [employer] [facility] Not Available Not Available 12/13/2024 11:16:20 01/04/20 24 01/04/2024 CBC W Auto Diffe renti al panel - Blood erythrocytes [#/volume] in blood by automated count 6.15 text: 4.30 - 5.80 x10e12 /L high RBC Count 6.15 (H) 4.30 - 5.80 x10E1 2/L 01/03 8:56 AM T [facility] Not Available Not Available 12/13/2024 11:16:20 01/04/20 24 01/04/2024 CBC W Auto Diffe renti al panel - Blood hemoglobin [mass/volume ] in blood 16.8 g/dL low: 13.3g/ dLhigh : 17.5g/ dL Hemog lobin 16.8 13.3 - 17.5 g/dL 01/03 8:56 AM CDT [facility] Not Available Not Available 12/13/2024 11:16:20 01/04/20 24 01/04/2024 CBC W Auto Diffe katherin al panel - Blood hematocrit [volume fraction] of blood by automated count 50.6 % low: 38.7%h igh: 51.1% Hemat ocrit 50.6 38.7 - 51.1 % 01/03 8:56 AM [facility] Not [facility] Not Available 12/13/2024 11:16:20 01/04/20 24 01/04/2024 CBC W Auto Diffe katherin al panel - Blood MCV [entitic volume] by automated count 82.3 fL low: 80fLhi gh: 98fL MCV 82.3 80.0 - 98.0 fL 01/03 8:56 AM [facility] Not Available Not Available 12/13/2024 11:16:20 01/04/20 24 01/04/2024 CBC W Auto Diffe katehrin al panel - Blood MCH [entitic mass] by automated count 27.3 pg low: 26.7pg high: 33.6pg MCH 27.3 26.7 - 33.6 pg 01/03 8:56 AM T [facility] Not Available Not Available 12/13/2024 11:16:20 01/04/20 24 01/04/2024 CBC W Auto Diffe katherin al panel - Blood MCHC [mass/volume ] by automated count 33.2 g/dL low: 31.7g/ dLhigh : 36.3g/ dL MCHC 33.2 31.7 - 36.3 g/dL 01/03 8:56 AM [facility] Not Available Not Available 12/13/2024 11:16:20 01/04/20 24 01/04/2024 CBC W Auto Diffe renti al panel - Blood erythrocyte distribution width [ratio] by automated count 12.6 % low: 11.3%h igh: 14.8% RDW-C V 12.6 11.3 - 14.8 % 01/03 8:56 AM CDT [facility] Not Available Not Available 12/13/2024 11:16:20 01/04/20 24 01/04/2024 CBC W Auto Diffe renti al panel - Blood platelets [#/volume] in blood by automated count 148 text: 150 - 420 x10e9/ L low Plate let Count 148 (L) 150 - 420 x10E9 /L 01/03 8:56 AM CDT [facility] Not Available Not Available 12/13/2024 11:16:20 01/04/20 24 01/04/2024 CBC W Auto Diffe renti al panel - Blood platelet mean volume [entitic volume] in blood by automated count 12 fL low: 7.8fLh igh: 11.4fL high MPV 12.0 (H) 7.8 - 11.4 fL 01/03 8:56 AM T [facility] Not Available Not Available 12/13/2024 11:16:20 01/04/20 24 01/04/2024 CBC W Auto Diffe renti al panel - Blood neutrophils/ 100 leukocytes in blood by automated count 48.2 % low: 41%hig h: 74% Neutr ophil % 48.2 41.0 - 74.0 % 01/03 8:56 AM T [facility] Not Available Not Available 12/13/2024 11:16:20 01/04/20 24 01/04/2024 CBC W Auto Diffe renti al panel - Blood lymphocytes/ 100 leukocytes in blood by automated count 34.8 % low: 17%hig h: 47% Lymph ocyte % 34.8 17.0 - 47.0 % 01/03 8:56 AM CDT [facility] Not Available Not Available 12/13/2024 11:16:20 01/04/20 24 01/04/2024 CBC W Auto Diffe renti al panel - Blood monocytes/10 0 leukocytes in blood by automated count 15.3 % low: 3%high : 11% high Monoc yte % 15.3 (H) 3.0 - 11.0 % 01/03 8:56 AM CDT [facility] Not Available Not Available 12/13/2024 11:16:20 01/04/20 24 01/04/2024 CBC W Auto Diffe renti al panel - Blood eosinophils/ 100 leukocytes in blood by automated count 1.1 % low: 0%high : 7% Eosin ophil % 1.1 0.0 - 7.0 % 01/03 8:56 AM CDT [facility] Not Available Not Available 12/13/2024 11:16:20 01/04/20 24 01/04/2024 CBC W Auto Diffe renti al panel - Blood basophils/10 0 leukocytes in blood by automated count 0.4 % low: 0%high : 1.6% Basop hil % 0.4 0.0 - 1.6 % 01/03 8:56 AM T [facility] Not Available Not Available 12/13/2024 11:16:20 01/04/20 24 01/04/2024 CBC W Auto Diffe renti al panel - Blood immature granulocytes /100 leukocytes in blood by automated count 0.2 % low: 0%high : 1% Immat ure Granu locyt es % 0.2 0.0 - 1.0 % 01/03 8:56 AM T [facility] Not Available Not Available 12/13/2024 11:16:20 01/04/20 24 01/04/2024 CBC W Auto Diffe renti al panel - Blood neutrophils [#/volume] in blood by automated count 2.27 text: 1.60 - 7.50 x10e9/ L Neutr ophil Absol [place] 2.27 1.60 - 7.50 x10E9 /L 01/03 8:56 AM CDT [facility] Not Available Not Available 12/13/2024 11:16:20 01/04/20 24 01/04/2024 CBC W Auto Diffe renti al panel - Blood lymphocytes [#/volume] in blood by automated count 1.64 text: 1.00 - 4.40 x10e9/ L Lymph ocyte Absol [place] 1.64 1.00 - 4.40 x10E9 /L 01/03 8:56 AM CDT [facility] Not Available Not Available 12/13/2024 11:16:20 01/04/20 24 01/04/2024 CBC W Auto Diffe renti al panel - Blood monocytes [#/volume] in blood by automated count 0.72 text: 0.15 - 1.00 x10e9/ L Monoc yte Absol [place] 0.72 0.15 - 1.00 x10E9 /L 01/03 8:56 AM CDT [facility] Not Available Not Available 12/13/2024 11:16:20 01/04/20 24 01/04/2024 CBC W Auto Diffe renti al panel - Blood eosinophils [#/volume] in blood 0.05 text: 0.00 - 0.60 x10e9/ L Eosin ophil Absol [place] 0.05 0.00 - 0.60 x10E9 /L 01/03 8:56 AM CDT [facility] Not Available Not Available 12/13/2024 11:16:20 01/04/20 24 01/04/2024 CBC W Auto Diffe renti al panel - Blood basophils [#/volume] in blood by automated count 0.02 text: 0.00 - 0.13 x10e9/ L Basop hil Absol [place] 0.02 0.00 - 0.13 x10E9 /L 01/03 8:56 AM CDT [facility] Not Available Not Available 12/13/2024 11:16:20 01/04/20 24 01/04/2024 CBC W Auto Diffe renti al panel - Blood interpretati on and review of laboratory results Abnorm al Not Available Not Available 11:16:20 01/04/20 24 01/04/2024 Gluco se [Mass /volu me] in Arter ial blood glucose [mass/volume ] in capillary blood by glucometer 114 mg/dL low: 70mg/d Lhigh: 115mg/ dL Gluco se WB/PO C 114 70 - 115 mg/dL 01/03 7:27 AM CDT [facility] Not Available Not Available 12/13/2024 11:16:19 01/04/20 24 01/04/2024 Gluco se [Mass /volu me] in Arter ial blood specimen source identified Arteri al Speci men Type Arter ial 01/03 7:27 AM CDT [facility] Not Available Not Available 12/13/2024 11:16:19 07/05/20 24 07/05/2024 Gluco se [Mass /volu me] in Arter ial blood glucose [mass/volume ] in capillary blood by glucometer 281 mg/dL low: 70mg/d Lhigh: 115mg/ dL high Not Available Not Available 06/12/2025 11:42:03 07/05/20 24 07/05/2024 Gluco se [Mass /volu me] in Arter ial blood specimen source identified Arteri al Not Available Not Available 11:42:03 07/05/20 24 07/05/2024 Gluco se [Mass /volu me] in Arter ial blood interpretati on and review of laboratory results Abnorm al Not Available Not Available 11:42:03 07/05/20 24 07/05/2024 Gluco se [Mass /volu me] in Arter ial blood glucose [mass/volume ] in capillary blood by glucometer 189 mg/dL low: 70mg/d Lhigh: 115mg/ dL high Not Available Not Available 06/12/2025 11:42:03 07/05/20 24 07/05/2024 Gluco se [Mass /volu me] in Arter ial blood specimen source identified Cap Finger stick Not Available Not Available 11:42:03 07/05/20 24 07/05/2024 Gluco se [Mass /volu me] in Arter ial blood interpretati on and review of laboratory results Abnorm al Not Available Not Available 11:42:03 07/05/20 24 07/05/2024 Gluco se [Mass /volu me] in Arter ial blood glucose [mass/volume ] in capillary blood by glucometer 260 mg/dL low: 70mg/d Lhigh: 115mg/ dL high Not Available Not Available 06/12/2025 11:42:03 07/05/20 24 07/05/2024 Gluco se [Mass /volu me] in Arter ial blood specimen source identified Cap Finger stick Not Available Not Available 11:42:03 07/05/20 24 07/05/2024 Gluco se [Mass /volu me] in Arter ial blood interpretati on and review of laboratory results Abnorm al Not Available Not Available 11:42:03 07/05/20 24 07/05/2024 Gluco se [Mass /volu me] in Arter ial blood glucose [mass/volume ] in capillary blood by glucometer 247 mg/dL low: 70mg/d Lhigh: 115mg/ dL high Not Available Not Available 06/12/2025 11:42:03 07/05/20 24 07/05/2024 Gluco se [Mass /volu me] in Arter ial blood specimen source identified Cap Finger stick Not Available Not Available 11:42:03 07/05/20 24 07/05/2024 Gluco se [Mass /volu me] in Arter ial blood interpretati on and review of laboratory results Abnorm al Not Available Not Available 11:42:03 07/05/20 24 07/05/2024 Gluco se [Mass /volu me] in Arter ial blood glucose [mass/volume ] in capillary blood by glucometer 251 mg/dL low: 70mg/d Lhigh: 115mg/ dL high Not Available Not Available 06/12/2025 11:42:03 07/05/20 24 07/05/2024 Gluco se [Mass /volu me] in Arter ial blood specimen source identified Cap Finger stick Not Available Not Available 11:42:03 07/05/20 24 07/05/2024 Gluco se [Mass /volu me] in Arter ial blood interpretati on and review of laboratory results Abnorm al Not Available Not Available 11:42:03 07/05/20 24 07/07/2024 Beta 2 glyco prote in 1 IgG and IgM panel - Serum beta 2 glycoprotein 1 IgG Ab [units/volum e] in serum or plasma by immunoassay <10 text: <=20 sgu Not Available Not Available 06/12/2025 11:42:02 07/05/20 24 07/07/2024 Beta 2 glyco prote in 1 IgG and IgM panel - Serum beta 2 glycoprotein 1 IgM Ab [units/volum e] in serum or plasma by immunoassay <10 text: <=20 smu INTER PRETI VE INFOR MATIO N: B2Gly copro tein I, IgG and IgM Antib adry The persi stent prese nce of IgG and/o r IgM beta 2 glyco prote in I (B2GP I) antib odies is a labor atory crite edilson for the diagn osis of antip hosph olipi d syndr ome (APS) . Persi stenc e is defin ed as moder ate or high level s of IgG and/o r IgM B2GPI antib odies detec sonido in two or more speci mens drawn at least 12 weeks apart ([address] 2006; 4:295 -306) . B2GPI resul ts great er than 20 SGU (IgG) and/o r SMU (IgM) are consi dered posit samuel based on the cutof f value s estab lishe d for this test. Inter natio nal refer ence mater ials and conse nsus units for anti- B2GPI antib odies have not been estab lishe d (Clin Nikky Acta. 2012; 413(1 -2):3 58-60 ; Arthr itis Rheum . 2012; 64(1) :1-10 .); resul ts can be varia ble betwe en diffe rent comme rcial immun oassa ys and canno t be yessenia red. Stron g clini [place] corre latio n is recom tye d for a diagn osis of APS. Low posit samuel IgG and IgM B2GPI antib adry level s shoul d be inter prete d in light of APS-s pecif ic clini [place] manif estat ions and/o r other crite radha phosp holip id antib adry tests . Perfo rmed By: [facility] [address] [place] [address] Labor atory Direc tor: Sandor hinkle MD, PhD CLIA Numbe r: [id number] Not Available Not Available 06/12/2025 11:42:02 07/05/20 24 07/07/2024 Beta 2 glyco prote in 1 IgG and IgM panel - Serum this test has been ordered A part of the antiphosphol ipid syndrome reflex panel ([id number]). This test has been ordere d as a part of the Antiph osphol ipid Syndro me Reflex Panel ([id number]). Not Available Not Available 11:42:02 07/05/20 24 07/07/2024 Cardi olipi n IgG and IgM panel - Serum cardiolipin IgG Ab [units/volum e] in serum by immunoassay 13 text: <=14 gpl INTER PRETI VE INFOR MATIO N: Anti- Cardi olipi n IgG Ab <=14 GPL: Negat samuel 15-19 GPL: Indet ermin ate 20-80 GPL: Low to Moder ately Posit samuel 81 GPL or above : High Posit samuel The persi stent prese nce of IgG and/o r IgM cardi olipi n (CL) antib odies in moder ate or high level s (grea ter than 40 GPL and/o r great er than 40 MPL units ) is a labor atory crite edilson for the diagn osis of antip hosph olipi d syndr ome (APS) . Persi stenc e is defin ed as moder ate or high level s of IgG and/o r IgM CL antib odies detec sonido in two or more speci mens drawn at least 12 weeks apart ([address] [facility] 2006; 4:295 -306) . Lower posit samuel level s of IgG and/o r IgM CL antib odies (abov e cutof f but less than 40 GPL and/o r less than 40 MPL units ) may occur in patie nts with the clini [place] sympt oms of APS; there fore, the actua l signi fican ce of these level s is undef ined. Resul ts shoul d not be used alone for diagn osis and must be inter prete d in light of APS-s pecif ic clini [place] manif estat ions and/o r other crite radha phosp holip id antib adry tests . Not Available Not Available 06/12/2025 11:42:02 07/05/20 24 07/07/2024 Cardi olipi n IgG and IgM panel - Serum cardiolipin IgM Ab [units/volum e] in serum by immunoassay <10 text: <=12 mpl INTER PRETI VE INFOR MATIO N: Anti- Cardi olipi n IgM <=12 MPL: Negat samuel 13-19 MPL: Indet ermin ate 20-80 MPL: Low to Moder ately Posit samuel 81 MPL or above : High Posit samuel The persi stent prese nce of IgG and/o r IgM cardi olipi n (CL) antib odies in moder ate or high level s (grea ter than 40 GPL and/o r great er than 40 MPL units ) is a labor atory crite edilson for the diagn osis of antip hosph olipi d syndr ome (APS) . Persi stenc e is defin ed as moder ate or high level s of IgG and/o r IgM CL antib odies detec sonido in two or more speci mens drawn at least 12 weeks apart ([address] 2006; 4:295 -306) . Lower posit samuel level s of IgG and/o r IgM CL antib odies (abov e cutof f but less than 40 GPL and/o r less than 40 MPL units ) may occur in patie nts with the clini [place] sympt oms of APS; there fore, the actua l signi fican ce of these level s is undef ined. Resul ts shoul d not be used alone for diagn osis and must be inter prete d in light of APS-s pecif ic clini [place] manif estat ions and/o r other crite radha phosp holip id antib adry tests . Perfo rmed By: [facility] [address] [place] [address] Labor atory Direc tor: Sandor hinkle MD, PhD MAGALI Jain r: [id number] Not Available Not Available 06/12/2025 11:42:02 07/05/20 24 07/07/2024 Cardi olipi n IgG and IgM panel - Serum this test has been ordered A part of the antiphosphol ipid syndrome reflex panel ([id number]). This test has been ordere d as a part of the Antiph osphol ipid Syndro me Reflex Panel ([id number]). Not Available Not Available 11:42:02 07/05/20 24 07/07/2024 Nucle ar Ab [Pres ence] in Serum by Immun oassa y nuclear IgG Ab [presence] in serum by immunoassay None Detect ed text: none detect ed If suspi cion of conne ctive tissu e disea se is stron g and VEENA EIA is negat samuel, consi andres testi ng for VEENA by IFA (3000 601). INTER PRETI VE INFOR MATIO N: Anti- Nucle ar Antib odies (VEENA) , IgG by JENN Antin uclea r Antib odies (VEENA) , IgG by JENN : VEENA speci mens are scree aristeo using enzym e-thony ked immun osorb ent assay (CARLOS ENRIQUE A) metho dolog y. All JENN resul ts repor sonido as Detec sonido are furth er teste d by indir ect fluor escen t assay (IFA) using HEp-2 subst rate with an IgG-s pecif ic conju gate. The VENEA JENN scree n is desig aristeo to detec t antib odies again st dsDNA , histo mali, SS-A (Ro), SS-B (La), Carpenter , Carpenter /SENIOR BIOSTATISTICIAN, Scl-7 0, Rocío-1, centr omeri c prote ins, other antig ens extra cted from the HEp-2 cell nucle us. VEENA JENN assay s have been repor sonido to have lower sensi tivit ies than VEENA IFA for syste asa autoi mmune rheum atic disea ses (SARD ). Negat samuel resul ts do not neces saril y rule out SARD. Perfo rmed By: [facility] [address] [place] [address] Labor atory Direc tor: Sandor hinkle MD, PhD MAGALI Jain r: [id number] Not Available Not Available 06/12/2025 11:42:02 07/05/20 24 07/05/2024 Gluco se [Mass /volu me] in Arter ial blood glucose [mass/volume ] in capillary blood by glucometer 254 mg/dL low: 70mg/d Lhigh: 115mg/ dL high Not Available Not Available 06/12/2025 11:42:02 07/05/20 24 07/05/2024 Gluco se [Mass /volu me] in Arter ial blood specimen source identified Cap Finger stick Not Available Not Available 11:42:02 07/05/20 24 07/05/2024 Gluco se [Mass /volu me] in Arter ial blood interpretati on and review of laboratory results Abnorm al Not Available Not Available 11:42:02 07/05/20 24 07/05/2024 CBC W Auto Diffe renti al panel - Blood leukocytes [#/volume] in blood by automated count 6.4 text: 4.0 - 10.7 x10e9/ L Not Available Not Available 06/12/2025 11:42:02 07/05/20 24 07/05/2024 CBC W Auto Diffe renti al panel - Blood erythrocytes [#/volume] in blood by automated count 5.53 text: 4.30 - 5.80 x10e12 /L Not Available Not Available 06/12/2025 11:42:02 07/05/20 24 07/05/2024 CBC W Auto Diffe renti al panel - Blood hemoglobin [mass/volume ] in blood 15.5 g/dL low: 13.3g/ dLhigh : 17.5g/ dL Not Available Not Available 06/12/2025 11:42:02 07/05/20 24 07/05/2024 CBC W Auto Diffe renti al panel - Blood hematocrit [volume fraction] of blood by automated count 45.5 % low: 38.7%h igh: 51.1% Not Available Not Available 06/12/2025 11:42:02 07/05/20 24 07/05/2024 CBC W Auto Diffe renti al panel - Blood MCV [entitic mean volume] in red blood cells by automated count 82.3 fL low: 80fLhi gh: 98fL Not Available Not Available 06/12/2025 11:42:02 07/05/20 24 07/05/2024 CBC W Auto Diffe renti al panel - Blood MCH [entitic mass] by automated count 28 pg low: 26.7pg high: 33.6pg Not Available Not Available 06/12/2025 11:42:02 07/05/20 24 07/05/2024 CBC W Auto Diffe renti al panel - Blood MCHC [entitic mass/volume] in red blood cells by automated count 34.1 g/dL low: 31.7g/ dLhigh : 36.3g/ dL Not Available Not Available 06/12/2025 11:42:02 07/05/20 24 07/05/2024 CBC W Auto Diffe renti al panel - Blood erythrocyte [distwidth] in blood by automated count 12.6 % low: 11.3%h igh: 14.8% Not Available Not Available 06/12/2025 11:42:02 07/05/20 24 07/05/2024 CBC W Auto Diffe renti al panel - Blood platelets [#/volume] in blood by automated count 151 text: 150 - 420 x10e9/ L Not Available Not Available 06/12/2025 11:42:02 07/05/20 24 07/05/2024 CBC W Auto Diffe renti al panel - Blood platelet [entitic mean volume] in blood by automated count 11.6 fL low: 7.8fLh igh: 11.4fL high Not Available Not Available 06/12/2025 11:42:02 07/05/20 24 07/05/2024 CBC W Auto Diffe renti al panel - Blood neutrophils/ leukocytes in blood by automated count 48 % low: 41%hig h: 74% Not Available Not Available 06/12/2025 11:42:02 07/05/20 24 07/05/2024 CBC W Auto Diffe renti al panel - Blood lymphocytes/ leukocytes in blood by automated count 37.5 % low: 17%hig h: 47% Not Available Not Available 06/12/2025 11:42:02 07/05/20 24 07/05/2024 CBC W Auto Diffe renti al panel - Blood monocytes/le ukocytes in blood by automated count 12.1 % low: 3%high : 11% high Not Available Not Available 06/12/2025 11:42:02 07/05/20 24 07/05/2024 CBC W Auto Diffe renti al panel - Blood eosinophils/ leukocytes in blood by automated count 1.6 % low: 0%high : 7% Not Available Not Available 06/12/2025 11:42:02 07/05/20 24 07/05/2024 CBC W Auto Diffe renti al panel - Blood basophils/le ukocytes in blood by automated count 0.5 % low: 0%high : 1.6% Not Available Not Available 06/12/2025 11:42:02 07/05/20 24 07/05/2024 CBC W Auto Diffe renti al panel - Blood immature granulocytes /leukocytes in blood by automated count 0.3 % low: 0%high : 1% Not Available Not Available 06/12/2025 11:42:02 07/05/20 24 07/05/2024 CBC W Auto Diffe renti al panel - Blood neutrophils [#/volume] in blood by automated count 3.08 text: 1.60 - 7.50 x10e9/ L Not Available Not Available 06/12/2025 11:42:02 07/05/20 24 07/05/2024 CBC W Auto Diffe renti al panel - Blood lymphocytes [#/volume] in blood by automated count 2.41 text: 1.00 - 4.40 x10e9/ L Not Available Not Available 06/12/2025 11:42:02 07/05/20 24 07/05/2024 CBC W Auto Diffe renti al panel - Blood monocytes [#/volume] in blood by automated count 0.78 text: 0.15 - 1.00 x10e9/ L Not Available Not Available 06/12/2025 11:42:02 07/05/20 24 07/05/2024 CBC W Auto Diffe renti al panel - Blood eosinophils [#/volume] in blood 0.1 text: 0.00 - 0.60 x10e9/ L Not Available Not Available 06/12/2025 11:42:02 07/05/20 24 07/05/2024 CBC W Auto Diffe renti al panel - Blood basophils [#/volume] in blood by automated count 0.03 text: 0.00 - 0.13 x10e9/ L Not Available Not Available 06/12/2025 11:42:02 07/05/20 24 07/05/2024 CBC W Auto Diffe renti al panel - Blood interpretati on and review of laboratory results Abnorm al Not Available Not Available 11:42:02 07/05/20 24 07/05/2024 Gluco se [Mass /volu me] in Arter ial blood glucose [mass/volume ] in capillary blood by glucometer 290 mg/dL low: 70mg/d Lhigh: 115mg/ dL high Not Available Not Available 06/12/2025 11:42:02 07/05/20 24 07/05/2024 Gluco se [Mass /volu me] in Arter ial blood specimen source identified Cap Finger stick Not Available Not Available 11:42:02 07/05/20 24 07/05/2024 Gluco se [Mass /volu me] in Arter ial blood interpretati on and review of laboratory results Abnorm al Not Available Not Available 11:42:02 07/05/20 24 07/05/2024 Natri ureti c pepti de B [Mass /volu me] in Serum or Plasm a natriuretic peptide B [mass/volume ] in serum or plasma high: 100pg/ mL A decis ion thres hold of 100 pg/mL has been demon strat ed to provi de the maxim al combi natio n of sensi tivit y, speci ficit y and predi ctive value for the diagn osis of conge stive heart failu re (CHF) . Virtu ally all patie nts with no evide nce of CHF have BNP value s less than 100 pg/mL . A BNP value great er than 100 pg/mL is consi stent with the diagn osis of CHF in the appro priat e clini [place] setti ng. In a study of 693 patie nts (male and femal e) with diagn osed CHF, the follo wing value s were deter mined based on the NYHA funct ional class ifica tion syste m: NYHA Funct ional Class Mean Valul e (pg/m L) % >100 pg/mL I 320 58.1 II 432 73.0 III 656 79.0 IV 1635 98.3 Not Available Not Available 06/12/2025 11:42:02 07/05/20 24 07/05/2024 Natri ureti c pepti de B [Mass /volu me] in Serum or Plasm a interpretati on and review of laboratory results Normal Not Available Not Available 12/2024 11:42:02 07/05/20 24 07/05/2024 Magne sium [Mass /volu me] in Serum or Plasm a magnesium [mass/volume ] in serum or plasma 1.9 mg/dL low: 1.6mg/ dLhigh : 2.6mg/ dL Not Available Not Available 06/12/2025 11:42:02 07/05/20 24 07/05/2024 Magne sium [Mass /volu me] in Serum or Plasm a interpretati on and review of laboratory results Normal Not Available Not Available 12/2024 11:42:02 07/05/20 24 07/05/2024 Compr ehens samuel metab olic 1999 panel - Serum or Plasm a urea nitrogen [mass/volume ] in serum or plasma 16 mg/dL low: 7mg/dL high: 26mg/d L Not Available Not Available 06/12/2025 11:42:02 07/05/20 24 07/05/2024 Compr ehens samuel metab olic 1999 panel - Serum or Plasm a creatinine [mass/volume ] in serum or plasma 1.03 mg/dL low: 0.71mg /dLhig h: 1.16mg /dL Not Available Not Available 06/12/2025 11:42:02 07/05/20 24 07/05/2024 Compr ehens samuel metab olic 1999 panel - Serum or Plasm a sodium [moles/volum e] in serum or plasma 136 mmol/ L low: 136mmo l/Lhig h: 145mmo l/L Not Available Not Available 06/12/2025 11:42:02 07/05/20 24 07/05/[address] [facility] 1999 panel - Serum or Plasm a potassium [moles/volum e] in serum or plasma 3.9 mmol/ L low: 3.5mmo l/Lhig h: 4.5mmo l/L Not Available Not Available 06/12/2025 11:42:02 07/05/20 24 07/05/2024 [facility] 1999 panel - Serum or Plasm a chloride [moles/volum e] in serum or plasma 104 mmol/ L low: 98mmol /Lhigh : 107mmo l/L Not Available Not Available 06/12/2025 11:42:02 07/05/20 24 07/05/2024 [facility] 1999 panel - Serum or Plasm a carbon dioxide, total [moles/volum e] in serum or plasma 25 mmol/ L low: 22mmol /Lhigh : 29mmol /L Not Available Not Available 06/12/2025 11:42:02 07/05/20 24 07/05/2024 [facility] 1999 panel - Serum or Plasm a glucose [mass/volume ] in serum or plasma 309 mg/dL low: 70mg/d Lhigh: 115mg/ dL high Not Available Not Available 06/12/2025 11:42:02 07/05/20 24 07/05/2024 [facility] 1999 panel - Serum or Plasm a calcium [moles/volum e] in serum or plasma 9.5 mg/dL low: 8.4mg/ dLhigh : 10.2mg /dL Not Available Not Available 06/12/2025 11:42:02 07/05/20 24 07/05/2024 [facility] 1999 panel - Serum or Plasm a protein [mass/volume ] in serum or plasma 7.6 g/dL low: 6g/dLh igh: 8.3g/d L Not Available Not Available 06/12/2025 11:42:02 07/05/20 24 07/05/2024 [facility] 1999 panel - Serum or Plasm a albumin [mass/volume ] in serum or plasma by bromocresol green (bcg) dye binding method 3.7 g/dL low: 3.4g/d Lhigh: 5g/dL Not Available Not Available 06/12/2025 11:42:02 07/05/20 24 07/05/2024 [facility] - Serum or Plasm a bilirubin.to bridget [mass/volume ] in serum or plasma 0.4 mg/dL low: 0.2mg/ dLhigh : 1.2mg/ dL Not Available Not Available 06/12/2025 11:42:02 07/05/20 24 07/05/2024 [facility] panel - Serum or Plasm a alkaline phosphatase [enzymatic activity/vol ume] in serum or plasma 99 U/L low: 40U/Lh igh: 150U/L Not Available Not Available 06/12/2025 11:42:02 07/05/20 24 07/05/2024 [facility] panel - Serum or Plasm a alanine aminotransfe rase [enzymatic activity/vol ume] in serum or plasma by no addition of P-5'-P 22 U/L low: 5U/Lhi gh: 55U/L Not Available Not Available 06/12/2025 11:42:02 07/05/20 24 07/05/2024 [facility] panel - Serum or Plasm a aspartate aminotransfe rase [enzymatic activity/vol ume] in serum or plasma 13 U/L low: 5U/Lhi gh: 34U/L Not Available Not Available 06/12/2025 11:42:02 07/05/20 24 07/05/2024 [facility] 2000 panel - Serum or Plasm a anion gap 7 low: 6high: 16 Not Available Not Available 06/12/2025 11:42:02 07/05/20 24 07/05/2024 [facility] panel - Serum or Plasm a urea nitrogen/cre atinine [mass ratio] in serum or plasma 16 low: 7high: 23 Not Available Not Available 06/12/2025 11:42:02 07/05/20 24 07/05/2024 [facility] panel - Serum or Plasm a osmolality calculated 295 text: 275 - 295 mOsm/k g Not Available Not Available 06/12/2025 11:42:02 07/05/20 24 07/05/2024 Compr ehens samuel metab olic 1999 panel - Serum or Plasm a albumin/glob ulin ratio 0.9 low: 1.1hig h: 2.3 low Not Available Not Available 06/12/2025 11:42:02 07/05/20 24 07/05/2024 Compr ehens samuel metab olic 1999 panel - Serum or Plasm a glomerular filtration rate [volume rate/area] in serum, plasma or blood by creatinine-b ased formula (CKD-epi)/1. 73 sq M 85 text: >=90 mL/min /1.73 m2 low Not Available Not Available 06/12/2025 11:42:02 07/05/20 24 07/05/2024 Compr ehens samuel metab olic 1999 panel - Serum or Plasm a interpretati on and review of laboratory results Abnorm al Not Available Not Available 11:42:02 07/06/20 24 07/09/2024 Cardi olipi n IgM Ab [Unit s/vol ume] in Serum by Immun oassa y cardiolipin IgM Ab [units/volum e] in serum by immunoassay <10 text: <=12 mpl INTER PRETI VE INFOR MATIO N: Anti- Cardi olipi n IgM <=12 MPL: Negat samuel 13-19 MPL: Indet ermin ate 20-80 MPL: Low to Moder ately Posit samuel 81 MPL or above : High Posit samuel The persi stent prese nce of IgG and/o r IgM cardi olipi n (CL) antib odies in moder ate or high level s (grea ter than 40 GPL and/o r great er than 40 MPL units ) is a labor atory crite edilson for the diagn osis of antip hosph olipi d syndr ome (APS) . Persi stenc e is defin ed as moder ate or high level s of IgG and/o r IgM CL antib odies detec sonido in two or more speci mens drawn at least 12 weeks apart ([address] 2006; 4:295 -306) . Lower posit samuel level s of IgG and/o r IgM CL antib odies (abov e cutof f but less than 40 GPL and/o r less than 40 MPL units ) may occur in patie nts with the clini [place] sympt oms of APS; there fore, the actua l signi fican ce of these level s is undef ined. Resul ts shoul d not be used alone for diagn osis and must be inter prete d in light of APS-s pecif ic clini [place] manif estat ions and/o r other crite radha phosp holip id antib adry tests . Perfo rmed By: [facility] at[facility] [address] [place] [address] Labor atory Direc tor: Sandor hinkle MD, PhD MAGALI Jain r: [id number] Not Available Not Available 06/12/2025 11:42:04 07/06/20 24 07/08/2024 Antit hromb in Ag actua l/nor mal in Plate let poor plasm a by Immun oassa y antithrombin Ag actual/thomas l in platelet poor plasma by immunoassay 75 % low: 82%hig h: 136% low Antit hromb in may be decre ased due to liver disea se, acute throm bosis , DIC, hepar in thera py, aspar agina se thera py, or other cause s. In the absen ce of acqui red condi tions , the low value may repre sent a risk facto r for throm bosis . If clini senthil indic ated, consi andres repea t testi ng on a new speci men for confi rmati on after acqui red condi tions have been exclu ded. A diagn osis of inher ited antit hromb in defic iency shoul d be estab lishe d only after other acqui red cause s of antit hromb in defic iency have been exclu ded (J [facility] 2020; 18(1) :17-2 2). REFER ENCE INTER WALTER: Antit hromb in Antig en Acces s compl ete set of age- and/o r gende r-spe cific refer ence inter vals for this test in the [facility] atory Test Direc tory ([facility]). Perfo rmed By: [facility] at[facility] [address] [place] [address] Labor atory Direc tor: Sandor hinkle MD, PhD MAGALI Jain r: [id number] Not Available Not Available 06/12/2025 11:42:03 07/06/20 24 07/08/2024 Antit hromb in Ag actua l/nor mal in Plate let poor plasm a by Immun oassa y interpretati on and review of laboratory results Abnorm al Not Available Not Available 11:42:03 07/06/20 24 07/11/2024 F2 gene c.202 10G>A [Hilda type] in Blood or Tissu e by Molec ular mariola ics metho d Nomin al F2 gene C.[id number]>A [genotype] in blood or tissue by molecular genetics method nominal Negati ve Indic ation for testi ng: Asses s mariola ic risk for throm bosis . NEGAT SAMUEL: The Facto r II, proth rombi n G2021 0A mutat ion, was not detec sonido. Other cause s of eleva sonido proth rombi n level s and hered itary forms of venou s throm bosis have not been exclu ded. Recom menda tions : If clini senthil indic ated, testi ng for other inher ited or acqui red throm bophi lic disor ders is recom tye d inclu ding DNA testi ng for the facto r V Leide n mutat ion, measu remen t of total plasm a homoc ystei ne mirna ntrat ion, serol ogica l assay s for antic ardio lipin antib odies , multi ple phosp holip id-de pende nt coagu latio n assay s for lupus inhib itor, prote in C activ ity, prote in S activ ity or free prote in S antig en, and antit hromb in activ ity. This resul t has been revie wed and appro ralph by Venice garsia M.D., Ph.D. BACKG ROUND INFOR MATIO N: Proth rombi n (F2) c.*97 G>A (G202 10A) Patho genic Varia nt [facility] : The Facto r II, c.*97 G>A (G202 10A) patho genic varia nt is a commo n mariola ic risk facto r for venou s throm bosis assoc iated with eleva sonido proth rombi n level s leadi ng to incre ased rates of throm bin gener ation and exces sive growt h of fibri n clots . The expre ssion of Facto r II throm bophi niya is impac sonido by coexi sting mariola ic throm bophi lic disor ders, acqui red throm bophi lic disor ders (eg, malig guevara , hyper homoc ystei nemia , high facto r VIII level s), and circu mstan mima inclu ding: pregn bernardo, oral contr acept samuel use, hormo ne repla cemen t thera py, selec tive estro gen furnace operator oil or gas tor modul ators , trave l, centr al venou s jazmin ters, surge ry, and organ trans plant ation . INCID ENCE: Appro ximat rosa 2 perce nt of Cauca sians and 0.3 perce nt of Afric an Ameri cans are heter ozygo us; homoz ygosi ty occur s in 1 in 10,00 0 indiv idual s. INHER ITANC E: Incom plete autos omal domin ant. PENET GABRIEL : The risk of throm bosis is incre ased 2-4 fold for heter ozygo declan and furth er incre ased for homoz ygote s. CAUSE : Homoz ygosi ty or heter ozygo sity for F2 c.*97 G>A (G202 10A). PATHO GENIC VARIA NT TESTE D: F2 c.*97 G>A (G202 10A). CLINI SHAMEKA SENSI TIVIT Y FOR VENOU S THROM BOSIS : Appro ximat rosa 10 perce nt. METHO DOLOG Y: Polym erase chain react ion and fluor escen ce monit oring . MIRTA TICAL SENSI TIVIT Y AND SPECI FICIT Y: 99 perce nt. LIMIT ATION S: Diagn ostic error s can occur due to rare seque nce varia tions . F2 gene varia nts, other than c.*97 G>A (G202 10A), will not be detec sonido. This test was devel oped and its perfo rmanc e christina cteri stics deter mined by [employer] es. It has not been clear ed or appro ralph by the [place] Food and Drug Admin istra tion. This test was perfo rmed in a CLIA certi fied labor atory and is inten ded for clini shameka purpo ses. Couns eling and infor med conse nt are recom tye d for mariola ic testi ng. Conse nt forms are avail able onlin e. Perfo rmed By: [employer] [address] [facility] [place] [address] [employer] Direc tor: Sandor hinkle MD, PhD [place] Numbe r: [id number] Not Available Not Available 06/12/2025 11:42:03 07/06/20 24 07/11/2024 F2 gene c.202 10G>A [Hilda type] in Blood or Tissu e by Molec ular mariola ics metho d Nomin al specimen source identified Whole Blood Not Available Not Available 11:42:03 07/06/20 24 07/06/2024 Antit hromb in actua l/nor mal in Plate let poor plasm a by Chrom ogeni c metho d antithrombin actual/thomas l in platelet poor plasma by chromogenic method 91 % low: 80%hig h: 120% Not Available Not Available 06/12/2025 11:42:03 07/06/20 24 07/06/2024 Antit hromb in actua l/nor mal in Plate let poor plasm a by Chrom ogeni c metho d thrombin inhibitors (I.E., hirudin, argatroban.. .) present in the sample to BE tested may lead to an over-estimat ion of the at level. Thromb in inhibi tors (i.e., hirudi n, argatr oban.. .) presen t in the sample to be tested may lead to an over-e stimat ion of the AT level. Not Available Not Available 11:42:03 07/06/20 24 07/06/2024 Antit hromb in actua l/nor mal in Plate let poor plasm a by Chrom ogeni c metho d interpretati on and review of laboratory results Normal Not Available Not Available 12/2024 11:42:03 07/06/20 24 07/06/2024 Gluco se [Mass /volu me] in Arter ial blood glucose [mass/volume ] in capillary blood by glucometer 216 mg/dL low: 70mg/d Lhigh: 115mg/ dL high Not Available Not Available 06/12/2025 11:42:03 07/06/20 24 07/06/2024 Gluco se [Mass /volu me] in Arter ial blood specimen source identified Cap Finger stick Not Available Not Available 11:42:03 07/06/20 24 07/06/2024 Gluco se [Mass /volu me] in Arter ial blood interpretati on and review of laboratory results Abnorm al Not Available Not Available 11:42:03 07/06/20 24 07/06/2024 CBC W Auto Diffe renti al panel - Blood leukocytes [#/volume] in blood by automated count 6.8 text: 4.0 - 10.7 x10e9/ L Not Available Not Available 06/12/2025 11:42:03 07/06/20 24 07/06/2024 CBC W Auto Diffe renti al panel - Blood erythrocytes [#/volume] in blood by automated count 5.74 text: 4.30 - 5.80 x10e12 /L Not Available Not Available 06/12/2025 11:42:03 07/06/20 24 07/06/2024 CBC W Auto Diffe renti al panel - Blood hemoglobin [mass/volume ] in blood 16.1 g/dL low: 13.3g/ dLhigh : 17.5g/ dL Not Available Not Available 06/12/2025 11:42:03 07/06/20 24 07/06/2024 CBC W Auto Diffe renti al panel - Blood hematocrit [volume fraction] of blood by automated count 47.5 % low: 38.7%h igh: 51.1% Not Available Not Available 06/12/2025 11:42:03 07/06/20 24 07/06/2024 CBC W Auto Diffe renti al panel - Blood MCV [entitic mean volume] in red blood cells by automated count 82.8 fL low: 80fLhi gh: 98fL Not Available Not Available 06/12/2025 11:42:03 07/06/20 24 07/06/2024 CBC W Auto Diffe renti al panel - Blood MCH [entitic mass] by automated count 28 pg low: 26.7pg high: 33.6pg Not Available Not Available 06/12/2025 11:42:03 07/06/20 24 07/06/2024 CBC W Auto Diffe renti al panel - Blood MCHC [entitic mass/volume] in red blood cells by automated count 33.9 g/dL low: 31.7g/ dLhigh : 36.3g/ dL Not Available Not Available 06/12/2025 11:42:03 07/06/20 24 07/06/2024 CBC W Auto Diffe renti al panel - Blood erythrocyte [distwidth] in blood by automated count 12.8 % low: 11.3%h igh: 14.8% Not Available Not Available 06/12/2025 11:42:03 07/06/20 24 07/06/2024 CBC W Auto Diffe renti al panel - Blood platelets [#/volume] in blood by automated count 151 text: 150 - 420 x10e9/ L Not Available Not Available 06/12/2025 11:42:03 07/06/20 24 07/06/2024 CBC W Auto Diffe renti al panel - Blood platelet [entitic mean volume] in blood by automated count 11.7 fL low: 7.8fLh igh: 11.4fL high Not Available Not Available 06/12/2025 11:42:03 07/06/20 24 07/06/2024 CBC W Auto Diffe renti al panel - Blood neutrophils/ leukocytes in blood by automated count 51.5 % low: 41%hig h: 74% Not Available Not Available 06/12/2025 11:42:03 07/06/20 24 07/06/2024 CBC W Auto Diffe renti al panel - Blood lymphocytes/ leukocytes in blood by automated count 33.9 % low: 17%hig h: 47% Not Available Not Available 06/12/2025 11:42:03 07/06/20 24 07/06/2024 CBC W Auto Diffe renti al panel - Blood monocytes/le ukocytes in blood by automated count 12.7 % low: 3%high : 11% high Not Available Not Available 06/12/2025 11:42:03 07/06/20 24 07/06/2024 CBC W Auto Diffe renti al panel - Blood eosinophils/ leukocytes in blood by automated count 1.2 % low: 0%high : 7% Not Available Not Available 06/12/2025 11:42:03 07/06/20 24 07/06/2024 CBC W Auto Diffe renti al panel - Blood basophils/le ukocytes in blood by automated count 0.4 % low: 0%high : 1.6% Not Available Not Available 06/12/2025 11:42:03 07/06/20 24 07/06/2024 CBC W Auto Diffe renti al panel - Blood immature granulocytes /leukocytes in blood by automated count 0.3 % low: 0%high : 1% Not Available Not Available 06/12/2025 11:42:03 07/06/20 24 07/06/2024 CBC W Auto Diffe renti al panel - Blood neutrophils [#/volume] in blood by automated count 3.49 text: 1.60 - 7.50 x10e9/ L Not Available Not Available 06/12/2025 11:42:03 07/06/20 24 07/06/2024 CBC W Auto Diffe renti al panel - Blood lymphocytes [#/volume] in blood by automated count 2.3 text: 1.00 - 4.40 x10e9/ L Not Available Not Available 06/12/2025 11:42:03 07/06/20 24 07/06/2024 CBC W Auto Diffe renti al panel - Blood monocytes [#/volume] in blood by automated count 0.86 text: 0.15 - 1.00 x10e9/ L Not Available Not Available 06/12/2025 11:42:03 07/06/20 24 07/06/2024 CBC W Auto Diffe renti al panel - Blood eosinophils [#/volume] in blood 0.08 text: 0.00 - 0.60 x10e9/ L Not Available Not Available 06/12/2025 11:42:03 07/06/20 24 07/06/2024 CBC W Auto Diffe renti al panel - Blood basophils [#/volume] in blood by automated count 0.03 text: 0.00 - 0.13 x10e9/ L Not Available Not Available 06/12/2025 11:42:03 07/06/20 24 07/06/2024 CBC W Auto Diffe katherin al panel - Blood interpretati on and review of laboratory results Abnorm al Not Available Not Available 11:42:03 07/06/20 24 07/06/2024 Basic metab olic 1999 panel - Serum or Plasm a urea nitrogen [mass/volume ] in serum or plasma 11 mg/dL low: 7mg/dL high: 26mg/d L BUN 11 7 - 26 mg/dL 07/06 6:17 AM CDT [facility] Not Available Not Available 12/13/2024 11:16:01 07/06/20 24 07/06/2024 Basic metab olic 1999 panel - Serum or Plasm a creatinine [mass/volume ] in serum or plasma 1.1 mg/dL low: 0.71mg /dLhig h: 1.16mg /dL Creat inine 1.10 0.71 - 1.16 mg/dL 07/06 6:17 AM T [facility] Not Available Not Available 12/13/2024 11:16:01 07/06/20 24 07/06/2024 Basic metab olic 2000 panel - Serum or Plasm a sodium [moles/volum e] in serum or plasma 135 mmol/ L low: 136mmo l/Lhig h: 145mmo l/L low Sodiu m 135 (L) 136 - 145 mmol/ L 07/06 6:17 AM CDT [facility] Not Available Not Available 12/13/2024 11:16:01 07/06/20 24 07/06/2024 Basic metab olic 2000 panel - Serum or Plasm a potassium [moles/volum e] in serum or plasma 4 mmol/ L low: 3.5mmo l/Lhig h: 4.5mmo l/L Potas sium 4.0 3.5 - 4.5 mmol/ L 07/06 6:17 AM CDT [facility] Not Available Not Available 12/13/2024 11:16:01 07/06/20 24 07/06/2024 Basic metab olic 1999 panel - Serum or Plasm a chloride [moles/volum e] in serum or plasma 107 mmol/ L low: 98mmol /Lhigh : 107mmo l/L Chlor sia 107 98 - 107 mmol/ L 07/06 6:17 AM CDT [facility] Not Available Not Available 12/13/2024 11:16:01 07/06/20 24 07/06/2024 Basic metab olic 1999 panel - Serum or Plasm a carbon dioxide, total [moles/volum e] in serum or plasma 22 mmol/ L low: 22mmol /Lhigh : 29mmol /L CO2 22 22 - 29 mmol/ L 07/06 6:17 AM CDT [facility] Not Available Not Available 12/13/2024 11:16:01 07/06/20 24 07/06/2024 Basic metab olic 1999 panel - Serum or Plasm a glucose [mass/volume ] in serum or plasma 243 mg/dL low: 70mg/d Lhigh: 115mg/ dL high Gluco se 243 (H) 70 - 115 mg/dL 07/06 6:17 AM T [facility] Not Available Not Available 12/13/2024 11:16:01 07/06/20 24 07/06/2024 Basic metab olic 1999 panel - Serum or Plasm a calcium [moles/volum e] in serum or plasma 9.2 mg/dL low: 8.4mg/ dLhigh : 10.2mg /dL Calci um 9.2 8.4 - 10.2 mg/dL 07/06 6:17 AM CDT [facility] Not Available Not Available 12/13/2024 11:16:01 07/06/20 24 07/06/2024 Basic metab olic 1999 panel - Serum or Plasm a anion gap 6 low: 6high: 16 Anion Gap 6 6 - 16 07/06 6:17 AM CDT [facility] Not Available Not Available 12/13/2024 11:16:01 07/06/20 24 07/06/2024 Basic metab olic 1999 panel - Serum or Plasm a urea nitrogen/cre atinine [mass ratio] in serum or plasma 10 low: 7high: 23 BUN/C reati nine Ratio 10 7 - 23 07/06 6:17 AM T [facility] Not Available Not Available 12/13/2024 11:16:01 07/06/20 24 07/06/2024 Basic metab olic 2000 panel - Serum or Plasm a osmolality calculated 287 text: 275 - 295 mOsm/k g Osmol ality Calcu lated 287 275 - 295 mOsm/ kg 07/06 6:17 AM T [facility] Not Available Not Available 12/13/2024 11:16:01 07/06/20 24 07/06/2024 Basic metab olic 2000 panel - Serum or Plasm a glomerular filtration rate/1.73 sq M.predicted [volume rate/area] in serum, plasma or blood by creatinine-b ased formula (CKD-epi) 79 text: >=90 mL/min /1.73 m2 low eGFR by CKD-E PI 79 (L) >=90 mL/mi n/1.7 3 m2 07/06 6:17 AM T [facility] Not Available Not Available 12/13/2024 11:16:01 07/06/20 24 07/06/2024 Basic metab olic 2000 panel - Serum or Plasm a interpretati on and review of laboratory results Abnorm al Not Available Not Available 11:16:01 07/11/20 24 07/14/2024 Beta 2 glyco prote in 1 IgG and IgM panel - Serum beta 2 glycoprotein 1 IgG Ab [units/volum e] in serum or plasma by immunoassay <10 text: <=20 sgu Beta- 2 Glyco prote in Antib adry IgG <10 <=20 SGU 07/14 12:34 AM CDT [facility] ([facility]) Not Available Not Available 12/13/2024 11:16:02 07/11/20 24 07/14/2024 Beta 2 glyco prote in 1 IgG and IgM panel - Serum beta 2 glycoprotein 1 IgM Ab [units/volum e] in serum or plasma by immunoassay <10 text: <=20 smu Beta- 2 Glyco prote in Antib adry IgM <10 <=20 SMU 07/14 12:34 AM CDT [facility] ([facility]) Not Available Not Available 12/13/2024 11:16:02 07/11/20 24 07/13/2024 Cardi olipi n IgG Ab [Unit s/vol ume] in Serum by Immun oassa y cardiolipin IgG Ab [units/volum e] in serum by immunoassay 14 text: <=14 gpl Cardi olipi n Antib adry IgG 14 <=14 GPL 07/13 5:13 PM CDT [facility] ([facility]) Not Available Not Available 12/13/2024 11:16:02 11/12/19 25 11/12/2024 Hemog lobin A1c/H emogl obin. total in Blood hemoglobin A1C, POC 10.3 % low: 4%high : 5.6% Hemog lobin A1C, POC 10.3 4.0 - 5.6 % Not Available Not Available 12/13/2024 07:14:36 12/28/19 25 12/27/2024 Prote in/Cr eatin ine [Mass Ratio ] in Urine protein [mass/volume ] in urine 6.7 text: <10 mg/dL Not Available Not Available 06/12/2025 11:41:13 12/28/19 25 12/27/2024 Prote in/Cr eatin ine [Mass Ratio ] in Urine creatinine [mass/volume ] in urine 99.9 text: 39 - 259 mg/dL Not Available Not Available 06/12/2025 11:41:13 12/28/19 25 12/27/2024 Prote in/Cr eatin ine [Mass Ratio ] in Urine protein/crea tinine [mass ratio] in urine 0.1 Not Available Not Available 12/2024 11:41:13 03/14/20 25 03/14/2025 Hemog lobin A1c/H emogl obin. total in Blood hemoglobin A1C, POC 10.9 % low: 4%high : 5.6% abnormal Not Available Not Available 06/12/2025 11:41:57 03/14/20 25 03/14/2025 Hemog lobin A1c/H emogl obin. total in Blood interpretati on and review of laboratory results Abnorm al Not Available Not Available 11:41:57 06/07/2006/08/2025 Hemog lobin A1c/H emogl obin. total in Blood hemoglobin A1C/hemoglob in.total in blood 12.9 % high: 5.7% high ADA GUIDE LINES 2009 5.7 TO 6.4% INCRE ASED RISK OF DIABE DECLAN > OR = 6.5% CONSI STENT WITH DIABE DECLAN Not Available Not Available 06/12/2025 02:47:27 06/07/20 25 06/08/2025 Hemog lobin A1c/H emogl obin. total in Blood glucose mean value [mass/volume ] in blood estimated from glycated hemoglobin 324 mg/dL Not Available Not Available 0 06/12/2025 02:47:27 06/07/2006/08/2025 Hemog lobin A1c/H emogl obin. total in Blood interpretati on and review of laboratory results Abnorm al Not Available Not Available 02:47:27 06/07/20 25 06/07/2025 Proth rombi n time (PT) prothrombin time (PT) 11.3 text: 10.2 - 12.9 sec Not Available Not Available 06/12/2025 02:47:26 06/07/20 25 06/07/2025 Proth rombi n time (PT) INR in platelet poor plasma by coagulation assay 1 Recom tye d INR Thera peuti c Goals : 2.0-3 .0 Routi ne Thera py 2.5-3 .5 Mecha nical Prost hetic Valve s (High Risk) Not Available Not Available 06/12/2025 02:47:26 06/07/20 25 06/07/2025 Hepar in unfra ction ated [Unit s/vol ume] in Plate let poor plasm a by Chrom ogeni c metho d heparin unfractionat ed [units/volum e] in platelet poor plasma by chromogenic method 0.05 text: 0.30 - 0.70 IU/mL low UFH Thera peuti c Anti Xa Range s: Medic al Thera peuti c Range : 0.30 - 0.70 IU/mL Cardi ac Thera peuti c Range : 0.30 - 0.50 IU/mL Neuro Thera peuti c Range : 0.20 - 0.40 IU/mL Not Available Not Available 06/12/2025 02:47:26 06/07/2006/07/2025 Hepar in unfra ction ated [Unit s/vol ume] in Plate let poor plasm a by Chrom ogeni c metho d interpretati on and review of laboratory results Abnorm al Not Available Not Available 02:47:26 06/07/2006/07/2025 CBC W Auto Diffe renti al panel - Blood leukocytes [#/volume] in blood by automated count 5.41 text: 4.5 - 11.0 x10'3/ uL Not Available Not Available 06/12/2025 02:47:26 06/07/2006/07/2025 CBC W Auto Diffe renti al panel - Blood erythrocytes [#/volume] in blood by automated count 5.21 text: 4.70 - 6.10 x10'6/ uL Not Available Not Available 06/12/2025 02:47:26 06/07/2006/07/2025 CBC W Auto Diffe renti al panel - Blood hemoglobin [mass/volume ] in blood 14.6 text: 14.0 - 18.0 g/dL Not Available Not Available 06/12/2025 02:47:26 06/07/2006/07/2025 CBC W Auto Diffe renti al panel - Blood hematocrit [volume fraction] of blood by calculation 43.2 % low: 43%hig h: 54% Not Available Not Available 06/12/2025 02:47:26 06/07/2006/07/2025 CBC W Auto Diffe renti al panel - Blood MCV [entitic mean volume] in red blood cells 82.9 text: 80.0 - 94.0 fL Not Available Not Available 06/12/2025 02:47:26 06/07/2006/07/2025 CBC W Auto Diffe renti al panel - Blood MCH [entitic mass] 28 pg low: 27pghi gh: 31pg Not Available Not Available 06/12/2025 02:47:26 06/07/202025 CBC W Auto Diffe renti al panel - Blood MCHC [entitic mass/volume] in red blood cells 33.8 text: 32.0 - 36.0 g/dL Not Available Not Available 06/12/2025 02:47:26 06/07/20 25 06/07/2025 CBC W Auto Diffe renti al panel - Blood RDW 12.7 % low: 11.5%h igh: 14.5% Not Available Not Available 06/12/2025 02:47:26 06/07/20 25 06/07/2025 CBC W Auto Diffe renti al panel - Blood platelets [#/volume] in blood 146 text: 130 - 400 x10'3/ uL Not Available Not Available 06/12/2025 02:47:26 06/07/20 25 06/07/2025 CBC W Auto Diffe renti al panel - Blood platelet [entitic mean volume] in blood 12.4 text: 9.3 - 12.2 fL high Not Available Not Available 06/12/2025 02:47:26 06/07/2006/07/2025 CBC W Auto Diffe renti al panel - Blood differential cell count method - blood AUTOMA SONIDO DIFFER ENTIAL Not Available Not Available 02:47:26 06/07/2006/07/2025 CBC W Auto Diffe renti al panel - Blood neutrophils/ leukocytes in blood by automated count 44.2 % Not Available Not Available 12/2024 02:47:26 06/07/20 25 06/07/2025 CBC W Auto Diffe renti al panel - Blood lymphocytes/ leukocytes in blood by automated count 41.4 % Not Available Not Available 12/2024 02:47:26 06/07/20 25 06/07/2025 CBC W Auto Diffe renti al panel - Blood monocytes/le ukocytes in blood by automated count 13.1 % Not Available Not Available 12/2024 02:47:26 06/07/20 25 06/07/2025 CBC W Auto Diffe renti al panel - Blood eosinophils/ leukocytes in blood by automated count 0.7 % Not Available Not Available 12/2024 02:47:26 08/06/07/2025 CBC W Auto Diffe renti al panel - Blood basophils/le ukocytes in blood by automated count 0.4 % Not Available Not Available 12/2024 02:47:26 06/07/2006/07/2025 CBC W Auto Diffe renti al panel - Blood immature granulocytes /leukocytes in blood by automated count 0.2 % Not Available Not Available 12/2024 02:47:26 06/07/2006/07/2025 CBC W Auto Diffe renti al panel - Blood neutrophils [#/volume] in blood 2.39 text: 1.80 - 7.70 x10'3/ uL Not Available Not Available 06/12/2025 02:47:26 06/07/2006/07/2025 CBC W Auto Diffe renti al panel - Blood lymphocytes [#/volume] in blood 2.24 text: 1.00 - 4.80 x10'3/ uL Not Available Not Available 06/12/2025 02:47:26 06/07/2006/07/2025 CBC W Auto Diffe renti al panel - Blood monocytes [#/volume] in blood 0.71 text: 0.30 - 0.82 x10'3/ uL Not Available Not Available 06/12/2025 02:47:26 06/07/2006/07/2025 CBC W Auto Diffe renti al panel - Blood eosinophils [#/volume] in blood 0.04 text: 0.04 - 0.54 x10'3/ uL Not Available Not Available 06/12/2025 02:47:26 06/07/2006/07/2025 CBC W Auto Diffe renti al panel - Blood basophils [#/volume] in blood 0.02 text: 0.01 - 0.08 x10'3/ uL Not Available Not Available 06/12/2025 02:47:26 06/07/2006/07/2025 CBC W Auto Diffe renti al panel - Blood immature granulocytes [#/volume] in blood 0.01 text: 0.00 - 0.49 x10'3/ uL Not Available Not Available 06/12/2025 02:47:26 06/07/2006/07/2025 CBC W Auto Diffe renti al panel - Blood interpretati on and review of laboratory results Abnorm al Not Available Not Available 02:47:26 06/07/2006/07/2025 Influ jovanna virus A+B Ag [Pres ence] in Speci men specimen source identified NASAL Not Available Not Available 0 06/12/2025 02:47:26 06/07/2006/07/2025 Influ jovanna virus A+B Ag [Pres ence] in Speci men influenza virus A Ag [presence] in specimen NEGATI VE text: negati ve Not Available Not Available 06/12/2025 02:47:26 06/07/2006/07/2025 Influ jovanna virus A+B Ag [Pres ence] in Speci men haemophilus influenzae B Ag [presence] in specimen NEGATI VE text: negati ve Inter preta tion: Negat samuel for Influ jovanna A and B. A negat samuel resul t does not exclu de influ jovanna virus infec tion. If influ jovanna is circu latin g in your commu nity, a diagn osis of influ jovanna shoul d be consi dered based on a patie nt's clini shameka prese ntati on and empir ic antiv iral treat ment shoul d be consi dered , if indic ated. If more concl usive testi ng is neede d for hospi taliz ed inpat ients , follo w-up confi rmato ry testi ng with RT-PC R requi res a separ ate order . Not Available Not Available 06/12/2025 02:47:26 06/07/2006/07/2025 Natri ureti c pepti de.B proho rmone N-Ter jorge [Mass /volu me] in Serum or Plasm a natriuretic peptide.B prohormone N-terminal [mass/volume ] in serum or plasma 56 pg/mL high: 125pg/ mL CUT POINT S ESTAB LISHE D BY INTER NATIO NAL COLLA BORAT SAMUEL ON NT PROBN P (ICON ) STUDY (2005 ). AGE INDEP ENDEN T: <300 PG/ML HAS A 99% NEGAT SAMUEL PREDI CTIVE VALUE FOR EXCLU DING ACUTE CHF <50 YEARS : >450 PG/ML IS CONSI STENT WITH ACUTE CHF 50-75 YEARS : >900 PG/ML IS CONSI STENT WITH ACUTE CHF >75 YEARS : >1800 PG/ML IS CONSI STENT WITH ACUTE CHF IN PATIE NTS WITH RENAL INSUF FICIE NCY (GFR <60), >1200 PG/ML YIELD S A DIAGN OSTIC SENSI TIVIT Y AND SPECI FICIT Y OF 89% AND 72% FOR ACUTE CHF. Not Available Not Available 06/12/2025 02:47:26 06/07/20 25 06/07/2025 Compr ehens samuel metab olic 1999 panel - Serum or Plasm a glucose [mass/volume ] in serum or plasma 441 text: 70 - 99 mg/dL critical high Criti shameka gross(s) Duglas mi at: 19:16 :53 on 06/07 by: CARMEN SCHERER ANT to and read back by:NELLI BROOKS RN Not Available Not Available 06/12/2025 02:47:26 06/07/2006/07/2025 Compr ehens samuel metab olic 2000 panel - Serum or Plasm a urea nitrogen [mass/volume ] in serum or plasma 11 text: 7 - 18 mg/dL Not Available Not Available 06/12/2025 02:47:26 06/07/2006/07/2025 Compr ehens samuel metab olic 2000 panel - Serum or Plasm a creatinine [mass/volume ] in serum or plasma 1.39 text: 0.7 - 1.3 mg/dL high Not Available Not Available 06/12/2025 02:47:26 06/07/2006/07/2025 Compr ehens samuel metab olic 2000 panel - Serum or Plasm a sodium [moles/volum e] in serum or plasma 134 text: 136 - 145 mmol/L low Not Available Not Available 06/12/2025 02:47:26 06/07/2006/07/2025 Compr ehens samuel metab olic 2000 panel - Serum or Plasm a potassium [moles/volum e] in serum or plasma 4.1 text: 3.5 - 5.1 mmol/L Not Available Not Available 06/12/2025 02:47:26 06/07/20 25 06/07/2025 Compr ehens samuel metab olic 2000 panel - Serum or Plasm a chloride [moles/volum e] in serum or plasma 103 text: 97 - 115 mmol/L Not Available Not Available 06/12/2025 02:47:26 06/07/2006/07/2025 [facility] ehens samuel metab olic 1999 panel - Serum or Plasm a carbon dioxide, total [moles/volum e] in serum or plasma 23.9 text: 21 - 32 mmol/L Not Available Not Available 06/12/2025 02:47:26 06/07/2006/07/2025 Compr ehens samuel metab olic 1999 panel - Serum or Plasm a calcium [mass/volume ] in serum or plasma 9.2 text: 8.5 - 10.1 mg/dL Not Available Not Available 06/12/2025 02:47:26 06/07/2006/07/2025 Compr ens samuel metab olic 1999 panel - Serum or Plasm a bilirubin.to bridget [mass/volume ] in serum or plasma 0.3 text: 0.2 - 1.2 mg/dL THIS ASSAY IS NOT RECOM TYE D FOR PATIE NTS UNDER GOING TREAT MENT WITH ELTRO MBOPA G DUE TO THE POTEN TIAL FOR FALSE LY ELEVA SONIDO RESUL TS. Not Available Not Available 06/12/2025 02:47:26 [facility]07[facility]2006[facility] - Serum or Plasm a protein [mass/volume ] in serum or plasma 7.4 text: 6.4 - 8.2 g/dL Not Available Not Available 06/12/2025 02:47:26 06/07/2006/07/2025 Compr ens samuel metab ic 1999 panel - Serum or Plasm a albumin [mass/volume ] in serum or plasma 3.4 text: 3.4 - 5.0 g/dL Not Available Not Available 06/12/2025 02:47:26 06/07/2006/07/2025 Compr ens samuel metab olic 2000 panel - Serum or Plasm a aspartate aminotransfe rase [enzymatic activity/vol ume] in serum or plasma 19 U/L low: 15U/Lh igh: 37U/L Not Available Not Available 06/12/2025 02:47:26 06/07/20 25 06/07/2025 Compr ehens samuel metab olic 1999 panel - Serum or Plasm a alanine aminotransfe rase [enzymatic activity/vol ume] in serum or plasma 29 U/L low: 16U/Lh igh: 60U/L Not Available Not Available 06/12/2025 02:47:26 06/07/20 25 06/07/2025 Compr ehens samuel metab olic 1999 panel - Serum or Plasm a alkaline phosphatase [enzymatic activity/vol ume] in serum or plasma 106 U/L low: 50U/Lh igh: 136U/L Not Available Not Available 06/12/2025 02:47:26 06/07/20 25 06/07/2025 Compr ehens samuel metab olic 1999 panel - Serum or Plasm a anion gap in serum or plasma by calculation 7.1 text: 2 - 10 mmol/L Not Available Not Available 06/12/2025 02:47:26 06/07/20 25 06/07/2025 Compr ehens samuel metab olic 1999 panel - Serum or Plasm a urea nitrogen/cre atinine [mass ratio] in serum or plasma 7.9 low: 6high: 26 Not Available Not Available 06/12/2025 02:47:26 06/07/20 25 06/07/2025 Compr ehens samuel metab olic 2000 panel - Serum or Plasm a albumin/glob ulin [mass ratio] in serum or plasma 0.8 text: 1.0 - 2.0 ratio low Not Available Not Available 06/12/2025 02:47:26 06/07/2006/07/2025 Compr [employer] samuel [employer] olic 2000 panel - Serum or Plasm a glomerular filtration rate [volume rate/area] in serum, plasma or blood by creatinine-b ased formula (CKD-epi 2020)/1.73 sq M 59 text: >90 mL/min /1.73 M2 low NOTE: eGFR is not calcu lated for patie nts <18 years of age or gende r unkno wn. This is an estim ated GFR calcu latio n using the new CKD EPI creat inine equat ion witho ut race and so does not requi re a corre ction facto r for race. This estim ated GFR shoul d not be used for calcu latin g drug doses . Not Available Not Available 06/12/2025 02:47:26 06/07/2006/07/2025 Compr ehens samuel metab olic 2000 panel - Serum or Plasm a interpretati on and review of laboratory results Abnorm al Not Available Not Available 02:47:26 06/07/20 25 06/07/2025 CBC W Auto Diffe renti al panel - Blood leukocytes [#/volume] in blood by automated count 5.03 text: 4.5 - 11.0 x10'3/ uL Not Available Not Available 06/12/2025 02:47:26 06/07/20 25 06/07/2025 CBC W Auto Diffe renti al panel - Blood erythrocytes [#/volume] in blood by automated count 5.24 text: 4.70 - 6.10 x10'6/ uL Not Available Not Available 06/12/2025 02:47:26 06/07/2006/07/2025 CBC W Auto Diffe renti al panel - Blood hemoglobin [mass/volume ] in blood 14.7 text: 14.0 - 18.0 g/dL Not Available Not Available 06/12/2025 02:47:26 06/07/2006/07/2025 CBC W Auto Diffe renti al panel - Blood hematocrit [volume fraction] of blood by calculation 43.3 % low: 43%hig h: 54% Not Available Not Available 06/12/2025 02:47:26 06/07/2006/07/2025 CBC W Auto Diffe renti al panel - Blood MCV [entitic mean volume] in red blood cells 82.6 text: 80.0 - 94.0 fL Not Available Not Available 06/12/2025 02:47:26 06/07/2006/07/2025 CBC W Auto Diffe renti al panel - Blood MCH [entitic mass] 28.1 pg low: 27pghi gh: 31pg Not Available Not Available 06/12/2025 02:47:26 06/07/20 25 06/07/2025 CBC W Auto Diffe renti al panel - Blood MCHC [entitic mass/volume] in red blood cells 33.9 text: 32.0 - 36.0 g/dL Not Available Not Available 06/12/2025 02:47:26 06/07/20 25 06/07/2025 CBC W Auto Diffe renti al panel - Blood RDW 12.8 % low: 11.5%h igh: 14.5% Not Available Not Available 06/12/2025 02:47:26 06/07/20 25 06/07/2025 CBC W Auto Diffe renti al panel - Blood platelets [#/volume] in blood 160 text: 130 - 400 x10'3/ uL Not Available Not Available 06/12/2025 02:47:26 06/07/20 25 06/07/2025 CBC W Auto Diffe renti al panel - Blood platelet [entitic mean volume] in blood 12.6 text: 9.3 - 12.2 fL high Not Available Not Available 06/12/2025 02:47:26 06/07/20 25 06/07/2025 CBC W Auto Diffe renti al panel - Blood differential cell count method - blood AUTOMA SONIDO DIFFER ENTIAL Not Available Not Available 02:47:26 06/07/20 25 06/07/2025 CBC W Auto Diffe renti al panel - Blood neutrophils/ leukocytes in blood by automated count 46.7 % Not Available Not Available 12/2024 02:47:26 06/07/20 25 06/07/2025 CBC W Auto Diffe renti al panel - Blood lymphocytes/ leukocytes in blood by automated count 38.8 % Not Available Not Available 12/2024 02:47:26 06/07/20 25 06/07/2025 CBC W Auto Diffe renti al panel - Blood monocytes/le ukocytes in blood by automated count 12.7 % Not Available Not Available 12/2024 02:47:26 06/07/20 25 06/07/2025 CBC W Auto Diffe renti al panel - Blood eosinophils/ leukocytes in blood by automated count 1.2 % Not Available Not Available 12/2024 02:47:26 06/07/20 25 06/07/2025 CBC W Auto Diffe renti al panel - Blood basophils/le ukocytes in blood by automated count 0.4 % Not Available Not Available 12/2024 02:47:26 06/07/2006/07/2025 CBC W Auto Diffe renti al panel - Blood immature granulocytes /leukocytes in blood by automated count 0.2 % Not Available Not Available 12/2024 02:47:26 06/07/2006/07/2025 CBC W Auto Diffe renti al panel - Blood neutrophils [#/volume] in blood 2.35 text: 1.80 - 7.70 x10'3/ uL Not Available Not Available 06/12/2025 02:47:26 06/07/2006/07/2025 CBC W Auto Diffe renti al panel - Blood lymphocytes [#/volume] in blood 1.95 text: 1.00 - 4.80 x10'3/ uL Not Available Not Available 06/12/2025 02:47:26 06/07/2006/07/2025 CBC W Auto Diffe renti al panel - Blood monocytes [#/volume] in blood 0.64 text: 0.30 - 0.82 x10'3/ uL Not Available Not Available 06/12/2025 02:47:26 06/07/2006/07/2025 CBC W Auto Diffe renti al panel - Blood eosinophils [#/volume] in blood 0.06 text: 0.04 - 0.54 x10'3/ uL Not Available Not Available 06/12/2025 02:47:26 06/07/2006/07/2025 CBC W Auto Diffe renti al panel - Blood basophils [#/volume] in blood 0.02 text: 0.01 - 0.08 x10'3/ uL Not Available Not Available 06/12/2025 02:47:26 06/07/2006/07/2025 CBC W Auto Diffe renti al panel - Blood immature granulocytes [#/volume] in blood 0.01 text: 0.00 - 0.49 x10'3/ uL Not Available Not Available 06/12/2025 02:47:26 06/07/2006/07/2025 CBC W Auto Diffe renti al panel - Blood interpretati on and review of laboratory results Abnorm al Not Available Not Available 02:47:26 06/08/2006/08/2025 Hepar in unfra ction ated [Unit s/vol ume] in Plate let poor plasm a by Chrom ogeni c metho d heparin unfractionat ed [units/volum e] in platelet poor plasma by chromogenic method 0.23 text: 0.30 - 0.70 IU/mL low UFH Thera peuti c Anti Xa Range s: Medic al Thera peuti c Range : 0.30 - 0.70 IU/mL Cardi ac Thera peuti c Range : 0.30 - 0.50 IU/mL Neuro Thera peuti c Range : 0.20 - 0.40 IU/mL Not Available Not Available 06/12/2025 02:47:27 06/08/20 25 06/08/2025 Hepar in unfra ction ated [Unit s/vol ume] in Plate let poor plasm a by Chrom ogeni c metho d interpretati on and review of laboratory results Abnorm al Not Available Not Available 02:47:27 06/08/2006/08/2025 Gluco se [Mass /volu me] in Blood by Autom ated test strip glucose [mass/volume ] in blood by automated test strip 166 mg/dL low: 70mg/d Lhigh: 99mg/d L high Not Available Not Available 06/12/2025 02:47:27 06/08/20 25 06/08/2025 Gluco se [Mass /volu me] in Blood by Autom ated test strip interpretati on and review of laboratory results Abnorm al Not Available Not Available 02:47:27 06/08/2006/08/2025 Gluco se [Mass /volu me] in Blood by Autom ated test strip glucose [mass/volume ] in blood by automated test strip 203 mg/dL low: 70mg/d Lhigh: 99mg/d L high Not Available Not Available 06/12/2025 02:47:27 06/08/20 25 06/08/2025 Gluco se [Mass /volu me] in Blood by Autom ated test strip interpretati on and review of laboratory results Abnorm al Not Available Not Available 02:47:27 06/08/20 25 06/08/2025 Hepar in unfra ction ated [Unit s/vol ume] in Plate let poor plasm a by Chrom ogeni c metho d heparin unfractionat ed [units/volum e] in platelet poor plasma by chromogenic method 0.27 text: 0.30 - 0.70 IU/mL low UFH Thera peuti c Anti Xa Range s: Medic al Thera peuti c Range : 0.30 - 0.70 IU/mL Cardi ac Thera peuti c Range : 0.30 - 0.50 IU/mL Neuro Thera peuti c Range : 0.20 - 0.40 IU/mL Not Available Not Available 06/12/2025 02:47:27 06/08/20 25 06/08/2025 Hepar in unfra ction ated [Unit s/vol ume] in Plate let poor plasm a by Chrom ogeni c metho d interpretati on and review of laboratory results Abnorm al Not Available Not Available 02:47:27 06/08/20 25 06/08/2025 Gluco se [Mass /volu me] in Blood by Autom ated test strip glucose [mass/volume ] in blood by automated test strip 205 mg/dL low: 70mg/d Lhigh: 99mg/d L high Not Available Not Available 06/12/2025 02:47:27 06/08/20 25 06/08/2025 Gluco se [Mass /volu me] in Blood by Autom ated test strip interpretati on and review of laboratory results Abnorm al Not Available Not Available 02:47:27 06/08/2006/08/2025 Proth rombi n time (PT) prothrombin time (PT) 11.7 text: 10.2 - 12.9 sec Not Available Not Available 06/12/2025 02:47:27 06/08/20 25 06/08/2025 Proth rombi n time (PT) INR in platelet poor plasma by coagulation assay 1 Recom tye d INR Thera peuti c Goals : 2.0-3 .0 Routi ne Thera py 2.5-3 .5 Mecha nical Prost hetic Valve s (High Risk) Not Available Not Available 06/12/2025 02:47:27 06/08/20 25 06/08/2025 Hepar in unfra ction ated [Unit s/vol ume] in Plate let poor plasm a by Chrom ogeni c metho d heparin unfractionat ed [units/volum e] in platelet poor plasma by chromogenic method 0.37 text: 0.30 - 0.70 IU/mL UFH Thera peuti c Anti Xa Range s: Medic al Thera peuti c Range : 0.30 - 0.70 IU/mL Cardi ac Thera peuti c Range : 0.30 - 0.50 IU/mL Neuro Thera peuti c Range : 0.20 - 0.40 IU/mL Not Available Not Available 06/12/2025 02:47:27 06/08/20 25 06/08/2025 Basic metab olic 2000 panel - Serum or Plasm a glucose [mass/volume ] in serum or plasma 189 text: 70 - 99 mg/dL high Not Available Not Available 06/12/2025 02:47:27 06/08/2006/08/2025 Basic metab olic 2000 panel - Serum or Plasm a urea nitrogen [mass/volume ] in serum or plasma 9 text: 7 - 18 mg/dL Not Available Not Available 06/12/2025 02:47:27 06/08/2006/08/2025 Basic metab olic 2000 panel - Serum or Plasm a creatinine [mass/volume ] in serum or plasma 1.16 text: 0.7 - 1.3 mg/dL Not Available Not Available 06/12/2025 02:47:27 06/08/2006/08/2025 Basic metab olic 2000 panel - Serum or Plasm a sodium [moles/volum e] in serum or plasma 139 text: 136 - 145 mmol/L Not Available Not Available 06/12/2025 02:47:27 06/08/20 25 06/08/2025 Basic metab olic 2000 panel - Serum or Plasm a potassium [moles/volum e] in serum or plasma 3.9 text: 3.5 - 5.1 mmol/L Not Available Not Available 06/12/2025 02:47:27 06/08/20 25 06/08/2025 Basic metab olic 2000 panel - Serum or Plasm a chloride [moles/volum e] in serum or plasma 107 text: 97 - 115 mmol/L Not Available Not Available 06/12/2025 02:47:27 06/08/2006/08/2025 Basic metab olic 2000 panel - Serum or Plasm a carbon dioxide, total [moles/volum e] in serum or plasma 27.5 text: 21 - 32 mmol/L Not Available Not Available 06/12/2025 02:47:27 06/08/2006/08/2025 Basic metab olic 2000 panel - Serum or Plasm a calcium [mass/volume ] in serum or plasma 9 text: 8.5 - 10.1 mg/dL Not Available Not Available 06/12/2025 02:47:27 06/08/2006/08/2025 Basic metab olic 2000 panel - Serum or Plasm a anion gap in serum or plasma by calculation 4.5 text: 2 - 10 mmol/L Not Available Not Available 06/12/2025 02:47:27 06/08/2006/08/2025 Basic metab olic 2000 panel - Serum or Plasm a urea nitrogen/cre atinine [mass ratio] in serum or plasma 7.8 low: 6high: 26 Not Available Not Available 06/12/2025 02:47:27 06/08/2006/08/2025 Basic metab olic 2000 panel - Serum or Plasm a glomerular filtration rate [volume rate/area] in serum, plasma or blood by creatinine-b ased formula (CKD-epi 2020)/1.73 sq M 73 text: >90 mL/min /1.73 M2 low NOTE: eGFR is not calcu lated for patie nts <18 years of age or gende r unkno wn. This is an estim ated GFR calcu latio n using the new CKD EPI creat inine equat ion witho ut race and so does not requi re a corre ction facto r for race. This estim ated GFR shoul d not be used for calcu latin g drug doses . Not Available Not Available 06/12/2025 02:47:27 06/08/2006/08/2025 Basic metab olic 2000 panel - Serum or Plasm a interpretati on and review of laboratory results Abnorm al Not Available Not Available 02:47:27 06/08/2006/08/2025 CBC W Auto Diffe renti al panel - Blood leukocytes [#/volume] in blood by automated count 5.51 text: 4.5 - 11.0 x10'3/ uL Not Available Not Available 06/12/2025 02:47:27 06/08/2006/08/2025 CBC W Auto Diffe renti al panel - Blood erythrocytes [#/volume] in blood by automated count 5.14 text: 4.70 - 6.10 x10'6/ uL Not Available Not Available 06/12/2025 02:47:27 06/08/2006/08/2025 CBC W Auto Diffe renti al panel - Blood hemoglobin [mass/volume ] in blood 14.3 text: 14.0 - 18.0 g/dL Not Available Not Available 06/12/2025 02:47:27 06/08/2006/08/2025 CBC W Auto Diffe renti al panel - Blood hematocrit [volume fraction] of blood by calculation 42.8 % low: 43%hig h: 54% low Not Available Not Available 06/12/2025 02:47:27 06/08/2006/08/2025 CBC W Auto Diffe renti al panel - Blood MCV [entitic mean volume] in red blood cells 83.3 text: 80.0 - 94.0 fL Not Available Not Available 06/12/2025 02:47:27 06/08/2006/08/2025 CBC W Auto Diffe renti al panel - Blood MCH [entitic mass] 27.8 pg low: 27pghi gh: 31pg Not Available Not Available 06/12/2025 02:47:27 06/08/2006/08/2025 CBC W Auto Diffe renti al panel - Blood MCHC [entitic mass/volume] in red blood cells 33.4 text: 32.0 - 36.0 g/dL Not Available Not Available 06/12/2025 02:47:27 06/08/2006/08/2025 CBC W Auto Diffe renti al panel - Blood RDW 12.8 % low: 11.5%h igh: 14.5% Not Available Not Available 06/12/2025 02:47:27 06/08/2006/08/2025 CBC W Auto Diffe renti al panel - Blood platelets [#/volume] in blood 150 text: 130 - 400 x10'3/ uL Not Available Not Available 06/12/2025 02:47:27 06/08/20 25 06/08/2025 CBC W Auto Diffe renti al panel - Blood platelet [entitic mean volume] in blood 12.2 text: 9.3 - 12.2 fL Not Available Not Available 06/12/2025 02:47:27 06/08/20 25 06/08/2025 CBC W Auto Diffe renti al panel - Blood differential cell count method - blood AUTOMA SONIDO DIFFER ENTIAL Not Available Not Available 02:47:27 06/08/20 25 06/08/2025 CBC W Auto Diffe renti al panel - Blood neutrophils/ leukocytes in blood by automated count 38.7 % Not Available Not Available 12/2024 02:47:27 06/08/20 25 06/08/2025 CBC W Auto Diffe renti al panel - Blood lymphocytes/ leukocytes in blood by automated count 46.1 % Not Available Not Available 12/2024 02:47:27 06/08/20 25 06/08/2025 CBC W Auto Diffe renti al panel - Blood monocytes/le ukocytes in blood by automated count 12.9 % Not Available Not Available 12/2024 02:47:27 06/08/20 25 06/08/2025 CBC W Auto Diffe renti al panel - Blood eosinophils/ leukocytes in blood by automated count 1.5 % Not Available Not Available 12/2024 02:47:27 06/08/20 25 06/08/2025 CBC W Auto Diffe renti al panel - Blood basophils/le ukocytes in blood by automated count 0.4 % Not Available Not Available 12/2024 02:47:27 06/08/20 25 06/08/2025 CBC W Auto Diffe renti al panel - Blood immature granulocytes /leukocytes in blood by automated count 0.4 % Not Available Not Available 12/2024 02:47:27 06/08/20 25 06/08/2025 CBC W Auto Diffe renti al panel - Blood neutrophils [#/volume] in blood 2.14 text: 1.80 - 7.70 x10'3/ uL Not Available Not Available 06/12/2025 02:47:27 06/08/2006/08/2025 CBC W Auto Diffe renti al panel - Blood lymphocytes [#/volume] in blood 2.54 text: 1.00 - 4.80 x10'3/ uL Not Available Not Available 06/12/2025 02:47:27 06/08/2006/08/2025 CBC W Auto Diffe renti al panel - Blood monocytes [#/volume] in blood 0.71 text: 0.30 - 0.82 x10'3/ uL Not Available Not Available 06/12/2025 02:47:27 06/08/2006/08/2025 CBC W Auto Diffe renti al panel - Blood eosinophils [#/volume] in blood 0.08 text: 0.04 - 0.54 x10'3/ uL Not Available Not Available 06/12/2025 02:47:27 06/08/2006/08/2025 CBC W Auto Diffe renti al panel - Blood basophils [#/volume] in blood 0.02 text: 0.01 - 0.08 x10'3/ uL Not Available Not Available 06/12/2025 02:47:27 06/08/2006/08/2025 CBC W Auto Diffe renti al panel - Blood immature granulocytes [#/volume] in blood 0.02 text: 0.00 - 0.49 x10'3/ uL Not Available Not Available 06/12/2025 02:47:27 06/08/2006/08/2025 CBC W Auto Diffe renti al panel - Blood interpretati on and review of laboratory results Abnorm al Not Available Not Available 02:47:27 06/08/2006/08/2025 Lipid 1996 panel - Serum or Plasm a cholesterol [mass/volume ] in serum or plasma 196 text: <200 mg/dL Not Available Not Available 06/12/2025 02:47:27 06/08/2006/08/2025 Lipid 1996 panel - Serum or Plasm a triglyceride [mass/volume ] in serum or plasma 74 text: <150 mg/dL Not Available Not Available 06/12/2025 02:47:27 06/08/2006/08/2025 Lipid 1996 panel - Serum or Plasm a cholesterol in HDL [mass/volume ] in serum or plasma 39 text: >40.0 mg/dL low Not Available Not Available 06/12/2025 02:47:27 06/08/20 25 06/08/2025 Lipid 1996 panel - Serum or Plasm a cholesterol in LDL [mass/volume ] in serum or plasma by calculation 142 text: <100 mg/dL high CALCU LATED USING THE FRIED PATRIC EQUAT ION Not Available Not Available 06/12/2025 02:47:27 06/08/20 25 06/08/2025 Lipid 1996 panel - Serum or Plasm a cholesterol non HDL [mass/volume ] in serum or plasma 157 text: <130 mg/dL high Not Available Not Available 06/12/2025 02:47:27 06/08/2006/08/2025 Lipid 1996 panel - Serum or Plasm a cholesterol. total/choles terol in HDL [mass ratio] in serum or plasma 5 low: 0high: 4.5 high Not Available Not Available 06/12/2025 02:47:27 06/08/2006/08/2025 Lipid 1996 panel - Serum or Plasm a cholesterol in VLDL [mass/volume ] in serum or plasma by calculation 15 text: 5 - 55 mg/dL Not Available Not Available 06/12/2025 02:47:27 06/08/2006/08/2025 Lipid 1996 panel - Serum or Plasm a service comment [facility] IMRNA NSUS REPOR T RECOM MENDA TIONS : [...] <40 --- LDL >=160 >=130 Not Available Not Available 06/12/2025 02:47:27 06/08/20 25 06/08/2025 Lipid 1996 panel - Serum or Plasm a interpretati on and review of laboratory results Abnorm al Not Available Not Available 02:47:27 06/08/20 25 06/08/2025 Gluco se [Mass /volu me] in Blood by Autom ated test strip glucose [mass/volume ] in blood by automated test strip 253 mg/dL low: 70mg/d Lhigh: 99mg/d L high Not Available Not Available 06/12/2025 02:47:27 06/08/20 25 06/08/2025 Gluco se [Mass /volu me] in Blood by Autom ated test strip interpretati on and review of laboratory results Abnorm al Not Available Not Available 02:47:27 06/09/20 25 06/09/2025 Gluco se [Mass /volu me] in Blood by Autom ated test strip glucose [mass/volume ] in blood by automated test strip 138 mg/dL low: 70mg/d Lhigh: 99mg/d L high Not Available Not Available 06/12/2025 02:47:28 06/09/20 25 06/09/2025 Gluco se [Mass /volu me] in Blood by Autom ated test strip interpretati on and review of laboratory results Abnorm al Not Available Not Available 02:47:28 06/09/20 25 06/09/2025 Hepar in unfra ction ated [Unit s/vol ume] in Plate let poor plasm a by Chrom ogeni c metho d heparin unfractionat ed [units/volum e] in platelet poor plasma by chromogenic method 0.46 text: 0.30 - 0.70 IU/mL UFH Thera peuti c Anti Xa Range s: Medic al Thera peuti c Range : 0.30 - 0.70 IU/mL Cardi ac Thera peuti c Range : 0.30 - 0.50 IU/mL Neuro Thera peuti c Range : 0.20 - 0.40 IU/mL Not Available Not Available 06/12/2025 02:47:28 06/09/20 25 06/09/2025 Gluco se [Mass /volu me] in Blood by Autom ated test strip glucose [mass/volume ] in blood by automated test strip 201 mg/dL low: 70mg/d Lhigh: 99mg/d L high Not Available Not Available 06/12/2025 02:47:28 06/09/20 25 06/09/2025 Gluco se [Mass /volu me] in Blood by Autom ated test strip interpretati on and review of laboratory results Abnorm al Not Available Not Available 02:47:28 06/09/20 25 06/09/2025 Magne sium [Mass /volu me] in Serum or Plasm a magnesium [mass/volume ] in serum or plasma 2 text: 1.8 - 2.4 mg/dL Not Available Not Available 06/12/2025 02:47:28 06/09/20 25 06/09/2025 Proth rombi n time (PT) prothrombin time (PT) 11.7 text: 10.2 - 12.9 sec Not Available Not Available 06/12/2025 02:47:28 06/09/20 25 06/09/2025 Proth rombi n time (PT) INR in platelet poor plasma by coagulation assay 1 Recom tye d INR Thera peuti c Goals : 2.0-3 .0 Routi ne Thera py 2.5-3 .5 Mecha nical Prost hetic Valve s (High Risk) Not Available Not Available 06/12/2025 02:47:28 06/09/20 25 06/09/2025 Basic metab olic 2000 panel - Serum or Plasm a glucose [mass/volume ] in serum or plasma 175 text: 70 - 99 mg/dL high Not Available Not Available 06/12/2025 02:47:28 06/09/20 25 06/09/2025 Basic metab olic 2000 panel - Serum or Plasm a urea nitrogen [mass/volume ] in serum or plasma 11 text: 7 - 18 mg/dL Not Available Not Available 06/12/2025 02:47:28 06/09/20 25 06/09/2025 Basic metab olic 2000 panel - Serum or Plasm a creatinine [mass/volume ] in serum or plasma 1.23 text: 0.7 - 1.3 mg/dL Not Available Not Available 06/12/2025 02:47:28 06/09/20 25 06/09/2025 Basic metab olic 2000 panel - Serum or Plasm a sodium [moles/volum e] in serum or plasma 134 text: 136 - 145 mmol/L low Not Available Not Available 06/12/2025 02:47:28 06/09/20 25 06/09/2025 Basic metab olic 2000 panel - Serum or Plasm a potassium [moles/volum e] in serum or plasma 3.6 text: 3.5 - 5.1 mmol/L Not Available Not Available 06/12/2025 02:47:28 06/09/20 25 06/09/2025 Basic metab olic 1999 panel - Serum or Plasm a chloride [moles/volum e] in serum or plasma 103 text: 97 - 115 mmol/L Not Available Not Available 06/12/2025 02:47:28 06/09/20 25 06/09/2025 Basic metab olic 1999 panel - Serum or Plasm a carbon dioxide, total [moles/volum e] in serum or plasma 24.8 text: 21 - 32 mmol/L Not Available Not Available 06/12/2025 02:47:28 06/09/2006/09/2025 Basic metab olic 1999 panel - Serum or Plasm a calcium [mass/volume ] in serum or plasma 9.3 text: 8.5 - 10.1 mg/dL Not Available Not Available 06/12/2025 02:47:28 06/09/2006/09/2025 Basic metab olic 2000 panel - Serum or Plasm a anion gap in serum or plasma by calculation 6.2 text: 2 - 10 mmol/L Not Available Not Available 06/12/2025 02:47:28 06/09/2006/09/2025 Basic metab olic 2000 panel - Serum or Plasm a urea nitrogen/cre atinine [mass ratio] in serum or plasma 8.9 low: 6high: 26 Not Available Not Available 06/12/2025 02:47:28 06/09/20 25 06/09/2025 Basic metab olic 2000 panel - Serum or Plasm a glomerular filtration rate [volume rate/area] in serum, plasma or blood by creatinine-b ased formula (CKD-epi 2020)/1.73 sq M 68 text: >90 mL/min /1.73 M2 low NOTE: eGFR is not calcu lated for patie nts <18 years of age or gende r unkno wn. This is an estim ated GFR calcu latio n using the new CKD EPI creat inine equat ion witho ut race and so does not requi re a corre ction facto r for race. This estim ated GFR shoul d not be used for calcu latin g drug doses . Not Available Not Available 06/12/2025 02:47:28 06/09/2006/09/2025 Basic metab olic 2000 panel - Serum or Plasm a interpretati on and review of laboratory results Abnorm al Not Available Not Available 02:47:28 06/09/2006/09/2025 CBC W Auto Diffe renti al panel - Blood leukocytes [#/volume] in blood by automated count 6.09 text: 4.5 - 11.0 x10'3/ uL Not Available Not Available 06/12/2025 02:47:27 06/09/2006/09/2025 CBC W Auto Diffe renti al panel - Blood erythrocytes [#/volume] in blood by automated count 5.66 text: 4.70 - 6.10 x10'6/ uL Not Available Not Available 06/12/2025 02:47:27 06/09/2006/09/2025 CBC W Auto Diffe renti al panel - Blood hemoglobin [mass/volume ] in blood 15.8 text: 14.0 - 18.0 g/dL Not Available Not Available 06/12/2025 02:47:27 06/09/2006/09/2025 CBC W Auto Diffe renti al panel - Blood hematocrit [volume fraction] of blood by calculation 47.2 % low: 43%hig h: 54% Not Available Not Available 06/12/2025 02:47:27 06/09/2006/09/2025 CBC W Auto Diffe renti al panel - Blood MCV [entitic mean volume] in red blood cells 83.4 text: 80.0 - 94.0 fL Not Available Not Available 06/12/2025 02:47:27 06/09/2006/09/2025 CBC W Auto Diffe renti al panel - Blood MCH [entitic mass] 27.9 pg low: 27pghi gh: 31pg Not Available Not Available 06/12/2025 02:47:27 06/09/2006/09/2025 CBC W Auto Diffe renti al panel - Blood MCHC [entitic mass/volume] in red blood cells 33.5 text: 32.0 - 36.0 g/dL Not Available Not Available 06/12/2025 02:47:27 06/09/20 25 06/09/2025 CBC W Auto Diffe renti al panel - Blood RDW 13 % low: 11.5%h igh: 14.5% Not Available Not Available 06/12/2025 02:47:27 06/09/20 25 06/09/2025 CBC W Auto Diffe renti al panel - Blood platelets [#/volume] in blood 160 text: 130 - 400 x10'3/ uL Not Available Not Available 06/12/2025 02:47:27 06/09/2006/09/2025 CBC W Auto Diffe renti al panel - Blood platelet [entitic mean volume] in blood 12.7 text: 9.3 - 12.2 fL high Not Available Not Available 06/12/2025 02:47:27 06/09/2006/09/2025 CBC W Auto Diffe renti al panel - Blood differential cell count method - blood AUTOMA SONIDO DIFFER ENTIAL Not Available Not Available 02:47:27 06/09/2006/09/2025 CBC W Auto Diffe renti al panel - Blood neutrophils/ leukocytes in blood by automated count 46 % Not Available Not Available 12/2024 02:47:27 06/09/20 25 06/09/2025 CBC W Auto Diffe renti al panel - Blood lymphocytes/ leukocytes in blood by automated count 39.4 % Not Available Not Available 12/2024 02:47:27 06/09/20 25 06/09/2025 CBC W Auto Diffe renti al panel - Blood monocytes/le ukocytes in blood by automated count 12.8 % Not Available Not Available 12/2024 02:47:27 06/09/20 25 06/09/2025 CBC W Auto Diffe renti al panel - Blood eosinophils/ leukocytes in blood by automated count 1.3 % Not Available Not Available 12/2024 02:47:27 06/09/20 25 06/09/2025 CBC W Auto Diffe renti al panel - Blood basophils/le ukocytes in blood by automated count 0.3 % Not Available Not Available 12/2024 02:47:27 06/09/2006/09/2025 CBC W Auto Diffe renti al panel - Blood immature granulocytes /leukocytes in blood by automated count 0.2 % Not Available Not Available 12/2024 02:47:27 06/09/2006/09/2025 CBC W Auto Diffe renti al panel - Blood neutrophils [#/volume] in blood 2.8 text: 1.80 - 7.70 x10'3/ uL Not Available Not Available 06/12/2025 02:47:27 06/09/2006/09/2025 CBC W Auto Diffe renti al panel - Blood lymphocytes [#/volume] in blood 2.4 text: 1.00 - 4.80 x10'3/ uL Not Available Not Available 06/12/2025 02:47:27 06/09/2006/09/2025 CBC W Auto Diffe renti al panel - Blood monocytes [#/volume] in blood 0.78 text: 0.30 - 0.82 x10'3/ uL Not Available Not Available 06/12/2025 02:47:27 06/09/2006/09/2025 CBC W Auto Diffe renti al panel - Blood eosinophils [#/volume] in blood 0.08 text: 0.04 - 0.54 x10'3/ uL Not Available Not Available 06/12/2025 02:47:27 06/09/2006/09/2025 CBC W Auto Diffe renti al panel - Blood basophils [#/volume] in blood 0.02 text: 0.01 - 0.08 x10'3/ uL Not Available Not Available 06/12/2025 02:47:27 06/09/2006/09/2025 CBC W Auto Diffe renti al panel - Blood immature granulocytes [#/volume] in blood 0.01 text: 0.00 - 0.49 x10'3/ uL Not Available Not Available 06/12/2025 02:47:27 06/09/2006/09/2025 CBC W Auto Diffe renti al panel - Blood interpretati on and review of laboratory results Abnorm al Not Available Not Available 02:47:27 06/09/20 25 06/09/2025 Hepar in unfra ction ated [Unit s/vol ume] in Plate let poor plasm a by Chrom ogeni c metho d heparin unfractionat ed [units/volum e] in platelet poor plasma by chromogenic method 0.4 text: 0.30 - 0.70 IU/mL UFH Thera peuti c Anti Xa Range s: Medic al Thera peuti c Range : 0.30 - 0.70 IU/mL Cardi ac Thera peuti c Range : 0.30 - 0.50 IU/mL Neuro Thera peuti c Range : 0.20 - 0.40 IU/mL Not Available Not Available 06/12/2025 02:47:27 06/09/20 25 06/09/2025 Gluco se [Mass /volu me] in Blood by Autom ated test strip glucose [mass/volume ] in blood by automated test strip 152 mg/dL low: 70mg/d Lhigh: 99mg/d L high Not Available Not Available 06/12/2025 02:47:27 06/09/20 25 06/09/2025 Gluco se [Mass /volu me] in Blood by Autom ated test strip interpretati on and review of laboratory results Abnorm al Not Available Not Available 02:47:27 06/10/20 25 06/10/2025 Magne sium [Mass /volu me] in Serum or Plasm a magnesium [mass/volume ] in serum or plasma 2 text: 1.8 - 2.4 mg/dL Not Available Not Available 06/12/2025 02:47:28 06/10/20 25 06/10/2025 Hepar in unfra ction ated [Unit s/vol ume] in Plate let poor plasm a by Chrom ogeni c metho d heparin unfractionat ed [units/volum e] in platelet poor plasma by chromogenic method 0.41 text: 0.30 - 0.70 IU/mL UFH Thera peuti c Anti Xa Range s: Medic al Thera peuti c Range : 0.30 - 0.70 IU/mL Cardi ac Thera peuti c Range : 0.30 - 0.50 IU/mL Neuro Thera peuti c Range : 0.20 - 0.40 IU/mL Not Available Not Available 06/12/2025 02:47:28 06/10/2006/10/2025 Proth rombi n time (PT) prothrombin time (PT) 11.7 text: 10.2 - 12.9 sec Not Available Not Available 06/12/2025 02:47:28 06/10/2006/10/2025 Proth rombi n time (PT) INR in platelet poor plasma by coagulation assay 1 Recom tye d INR Thera peuti c Goals : 2.0-3 .0 Routi ne Thera py 2.5-3 .5 Mecha nical Prost hetic Valve s (High Risk) Not Available Not Available 06/12/2025 02:47:28 06/10/2006/10/2025 Basic metab olic 2000 panel - Serum or Plasm a glucose [mass/volume ] in serum or plasma 170 text: 70 - 99 mg/dL high Not Available Not Available 06/12/2025 02:47:28 06/10/2006/10/2025 Basic metab olic 2000 panel - Serum or Plasm a urea nitrogen [mass/volume ] in serum or plasma 15 text: 7 - 18 mg/dL Not Available Not Available 06/12/2025 02:47:28 06/10/2006/10/2025 Basic metab olic 2000 panel - Serum or Plasm a creatinine [mass/volume ] in serum or plasma 1.29 text: 0.7 - 1.3 mg/dL Not Available Not Available 06/12/2025 02:47:28 06/10/2006/10/2025 Basic metab olic 2000 panel - Serum or Plasm a sodium [moles/volum e] in serum or plasma 134 text: 136 - 145 mmol/L low Not Available Not Available 06/12/2025 02:47:28 06/10/20 25 06/10/2025 Basic metab olic 2000 panel - Serum or Plasm a potassium [moles/volum e] in serum or plasma 3.8 text: 3.5 - 5.1 mmol/L Not Available Not Available 06/12/2025 02:47:28 06/10/2006/10/2025 Basic metab olic 2000 panel - Serum or Plasm a chloride [moles/volum e] in serum or plasma 105 text: 97 - 115 mmol/L Not Available Not Available 06/12/2025 02:47:28 06/10/2006/10/2025 Basic metab olic 1999 panel - Serum or Plasm a carbon dioxide, total [moles/volum e] in serum or plasma 23.7 text: 21 - 32 mmol/L Not Available Not Available 06/12/2025 02:47:28 06/10/2006/10/2025 Basic metab olic 1999 panel - Serum or Plasm a calcium [mass/volume ] in serum or plasma 9.5 text: 8.5 - 10.1 mg/dL Not Available Not Available 06/12/2025 02:47:28 06/10/2006/10/2025 Basic metab olic 2000 panel - Serum or Plasm a anion gap in serum or plasma by calculation 5.3 text: 2 - 10 mmol/L Not Available Not Available 06/12/2025 02:47:28 06/10/2006/10/2025 Basic metab olic 2000 panel - Serum or Plasm a urea nitrogen/cre atinine [mass ratio] in serum or plasma 11.6 low: 6high: 26 Not Available Not Available 06/12/2025 02:47:28 06/10/2006/10/2025 Basic metab olic 2000 panel - Serum or Plasm a glomerular filtration rate [volume rate/area] in serum, plasma or blood by creatinine-b ased formula (CKD-epi 2020)/1.73 sq M 65 text: >90 mL/min /1.73 M2 low NOTE: eGFR is not calcu lated for patie nts <18 years of age or gende r unkno wn. This is an estim ated GFR calcu latio n using the new CKD EPI creat inine equat ion witho ut race and so does not requi re a corre ction facto r for race. This estim ated GFR shoul d not be used for calcu latin g drug doses . Not Available Not Available 06/12/2025 02:47:28 06/10/2006/10/2025 Basic metab olic 2000 panel - Serum or Plasm a interpretati on and review of laboratory results Abnorm al Not Available Not Available 02:47:28 06/10/2006/10/2025 CBC W Auto Diffe renti al panel - Blood leukocytes [#/volume] in blood by automated count 6.59 text: 4.5 - 11.0 x10'3/ uL Not Available Not Available 06/12/2025 02:47:28 06/10/2006/10/2025 CBC W Auto Diffe renti al panel - Blood erythrocytes [#/volume] in blood by automated count 6.04 text: 4.70 - 6.10 x10'6/ uL Not Available Not Available 06/12/2025 02:47:28 06/10/2006/10/2025 CBC W Auto Diffe renti al panel - Blood hemoglobin [mass/volume ] in blood 16.8 text: 14.0 - 18.0 g/dL Not Available Not Available 06/12/2025 02:47:28 06/10/2006/10/2025 CBC W Auto Diffe renti al panel - Blood hematocrit [volume fraction] of blood by calculation 49.5 % low: 43%hig h: 54% Not Available Not Available 06/12/2025 02:47:28 06/10/2006/10/2025 CBC W Auto Diffe renti al panel - Blood MCV [entitic mean volume] in red blood cells 82 text: 80.0 - 94.0 fL Not Available Not Available 06/12/2025 02:47:28 06/10/2006/10/2025 CBC W Auto Diffe renti al panel - Blood MCH [entitic mass] 27.8 pg low: 27pghi gh: 31pg Not Available Not Available 06/12/2025 02:47:28 06/10/2006/10/2025 CBC W Auto Diffe renti al panel - Blood MCHC [entitic mass/volume] in red blood cells 33.9 text: 32.0 - 36.0 g/dL Not Available Not Available 06/12/2025 02:47:28 06/10/2006/10/2025 CBC W Auto Diffe renti al panel - Blood RDW 12.9 % low: 11.5%h igh: 14.5% Not Available Not Available 06/12/2025 02:47:28 06/10/20 25 06/10/2025 CBC W Auto Diffe renti al panel - Blood platelets [#/volume] in blood 183 text: 130 - 400 x10'3/ uL Not Available Not Available 06/12/2025 02:47:28 06/10/20 25 06/10/2025 CBC W Auto Diffe renti al panel - Blood platelet [entitic mean volume] in blood 12.6 text: 9.3 - 12.2 fL high Not Available Not Available 06/12/2025 02:47:28 06/10/2006/10/2025 CBC W Auto Diffe renti al panel - Blood differential cell count method - blood AUTOMA SONIDO DIFFER ENTIAL Not Available Not Available 02:47:28 06/10/20 25 06/10/2025 CBC W Auto Diffe renti al panel - Blood neutrophils/ leukocytes in blood by automated count 45.9 % Not Available Not Available 12/2024 02:47:28 06/10/20 25 06/10/2025 CBC W Auto Diffe renti al panel - Blood lymphocytes/ leukocytes in blood by automated count 38.2 % Not Available Not Available 12/2024 02:47:28 06/10/20 25 06/10/2025 CBC W Auto Diffe renti al panel - Blood monocytes/le ukocytes in blood by automated count 14.3 % Not Available Not Available 12/2024 02:47:28 06/10/20 25 06/10/2025 CBC W Auto Diffe renti al panel - Blood eosinophils/ leukocytes in blood by automated count 0.9 % Not Available Not Available 12/2024 02:47:28 06/10/20 25 06/10/2025 CBC W Auto Diffe renti al panel - Blood basophils/le ukocytes in blood by automated count 0.5 % Not Available Not Available 12/2024 02:47:28 06/10/20 25 06/10/2025 CBC W Auto Diffe renti al panel - Blood immature granulocytes /leukocytes in blood by automated count 0.2 % Not Available Not Available 12/2024 02:47:28 06/10/2006/10/2025 CBC W Auto Diffe renti al panel - Blood neutrophils [#/volume] in blood 3.03 text: 1.80 - 7.70 x10'3/ uL Not Available Not Available 06/12/2025 02:47:28 06/10/2006/10/2025 CBC W Auto Diffe renti al panel - Blood lymphocytes [#/volume] in blood 2.52 text: 1.00 - 4.80 x10'3/ uL Not Available Not Available 06/12/2025 02:47:28 06/10/2006/10/2025 CBC W Auto Diffe renti al panel - Blood monocytes [#/volume] in blood 0.94 text: 0.30 - 0.82 x10'3/ uL high Not Available Not Available 06/12/2025 02:47:28 06/10/2006/10/2025 CBC W Auto Diffe renti al panel - Blood eosinophils [#/volume] in blood 0.06 text: 0.04 - 0.54 x10'3/ uL Not Available Not Available 06/12/2025 02:47:28 06/10/2006/10/2025 CBC W Auto Diffe renti al panel - Blood basophils [#/volume] in blood 0.03 text: 0.01 - 0.08 x10'3/ uL Not Available Not Available 06/12/2025 02:47:28 06/10/2006/10/2025 CBC W Auto Diffe renti al panel - Blood immature granulocytes [#/volume] in blood 0.01 text: 0.00 - 0.49 x10'3/ uL Not Available Not Available 06/12/2025 02:47:28 06/10/2006/10/2025 CBC W Auto Diffe renti al panel - Blood interpretati on and review of laboratory results Abnorm al Not Available Not Available 02:47:28 07/08/2007/08/2025 HbA1c (hemo globi n A1c), blood hemoglobin A1C, POC 11.2 % low: 4%high : 5.6% abnormal Not Available Not Available 07/11/2025 04:25:07/08/2007/08/2025 HbA1c (hemo globi n A1c), blood lab interpretati on Abnorm al Not Available Not Available 04:25:09 02/03/20 23 MRI brain wo con [facility] [place] [address] EXAM: MRI BRAIN WO CON DATE: COMPAR [...] flow voids in the basila r and international sales representative al caroti d arteri es. Normal orbits and parana roxi sinuse s. IMPRES JESSE: Mild nonspe cific white matter findin gs. Referr ed By: MARGARET PUGA Electr onical ly Signed By: Weston Sanchez MD on 023 3:33 PM Interp reted By: Weston Sanchez MD, 023 3:27 PM eclardy [facility] [address] [facility], [place], [address], 02/03/2023 09:04:49 02/03/20 23 MRA head wo con [facility] [place] [address] EXAM: MR angiog magdy of the head DATE: TECHNI QUE: Noncon trast imagin g. Additi onal 3D and/or MIP images were create d. INDICA TION: Severe headac hes for 6 months COMPAR VALENTINA: None. FINDIN GS: The pre-co ntrast source images show normal direct ion of flow in the distal caroti d and verteb ral arteri es. MRA HEAD: The right sales support assistant ior inferi or cerebe llar artery is [...] findin gs in the anteri or and sales support assistant ior circul ations which probab ly repres ent normal variat ion. Referr ed By: MARGARET PUGA Electr onical ly Signed By: Weston Sanchez MD on 023 3:41 PM Interp reted By: Weston Sanchez MD, 023 3:34 PM eclardy [facility] [address] [facility], [place], [address], 02/03/2023 09:04:50 02/24/20 23 use stres s ECHO W cholo W [facility] [place] [address] Stress Echoca rdiogr aphy Report Pat.Na me: KAYLYN RICCI Pat.ID : [id number] .Adrian e: 023 Refer. : [id number] STEFFI FERREIRA V EWJOHN Reed Exam Time: 10:29: 00 AM Study Type:S TRESS ECHO DOPPLE R COLOR FLOW Height : 71 in Weight : 257 lb BSA: 2.35 m2 Age: [birth year],[age]Y Sex: M BP: 145/90 HR: 79 bpm Sonogr phr: Aggie Beverly RDCS Pat. Stat.: Outpat ient Reason for Study: Chest pain Proced ures: 2D, M-mode , Dopple r, Color Flow, Exerci se Stress Echo, Defini ty was used to enhanc e endoca rdial defini tion. The study qualit y is techni senthil montalvo t. Race: B ++++++ ++++++ ++++++ ++++++ ++++++ ++++++ SUMMAR Y: ++++++ ++++++ ++++++ ++++++ ++++++ ++++++ 1. Clinic ally negati ve. 2. Electr ocardi ograph ically negati ve treadm ill test for ischem ia. 3. Adequa te exerci se capaci ty. 4. Echoca rdiogr aphica lly negati ve for ischem ia. 5. Rodas Treadm ill Score is 9 , which indica declan low risk. 6. Blood pressu re respon [...] 99 % Max BP: 180/98 Max RPP: [address]: Defini ty 3 ml Sympto [...] 1 2022 11:13 PM Eduardo Dale M.D. [facility] [address] [facility], [place], [address], 02/23/2023 12:11:04 04/27/20 23 use echoc ardio gram [facility] [place] [address] Echoca rdiogr aphy Report Pat.Na me: KAYLYN RICCI Pat.ID : [id number]Adrian e: 023 Refer. MD: [id number] STEFFI Gross EWDPRO V EWDPRO V Exam Time: 10:31: 00 AM Study Type:E CHO WITH CARDIA C DOPPLE R COMP Height : 71 in Weight : 252 lb BSA: 2.33 m2 Age: [birth year]966,[age]Y Sex: M BP: 123/67 HR: 89 bpm Sonogr phr: Tarun Dozier RD Pat. Stat.: Outpat ient Reason for [...] mm Right Ventri desiree 24.2 mm Major Winston 83.7 mm MMODE Ratios LA/Ao 0.686 (0.87- 1.1)* Aorta Ao Rt 3.5 cm (2-3.7 ) Left Atrium LAIDs 2.4 cm TA Tricus pid Annul 15.6 mm 2022 08:17 PM Eduardo Dale M.D. [facility] [address] [facility], [place], [address], 05/02/2023 13:35:58 12/10/19 24 xr chest Pa+la [facility] [address] EXAMIN ATION: PA AND LATERA L CHEST Access ion: [id number] Exam date/t robert: 12/10/19 3:40 PM Reason For Exam: shortn ess of breath Compar valentina: 01/10/20 Techni que: 2 views. Findin gs: Heart size normal . Proxim al airway s unrema rkable . No suspic ious pulmon gary lesion , pneumo thorax , or pleura l effusi on. =====I MPRESS ION:== === No acute findin gs. Ordere d By: JERMAIN Lira Electr onical ly Signed By: Stephon Clark on 12/10/19 4:01 PM Interp reted By: Stephon Clark, 12/10/19 4:01 PM eclardy [facility] [address] [facility], [place], [address], 12/12/2023 10:07:23 Result Notes None recorded. Problems Name Problem SNOMED Code Status Onset Date Resolution Date Notes Provider Name and Address Organization Details Recorded Time Diabetes mellitus 82741772 Active 2017 Not Available [facility] 17:53:06 Morbid obesity 127931167 Active 2017 Not Available [facility] 17:53:06 Heart murmur 15682682 Active 2017 Not appreciate d on todays exam Not Available [facility] 17:53:06 Snoring 25857225 Active 2017 Not Available [facility] 17:53:06 Hypertens samuel disorder 96296613 Active 2019 Not Available [facility] 17:53:06 Headache 89441840 Active 2019 Not Available [facility] 17:53:06 Tension-t ype headache 689037515 Active 2022 Edward vu, [place] - SI 3 10:58:59 History of deep vein thrombosi s 623339839 Active 2024 Radhames Aguiar MD Attn: Accounting ,[address] , [place], [address] , [facility] - [facility] 23:46:04 Problem Notes None recorded. Medical Equipment None Reported. Allergies Allergen ID Allergen Name Allergen Category Reaction Reaction Severity Criticality Documentation Date Start Date Code Code System Note Provider Name and Address Organization Details Recorded Time 477007 peanut allergeni c extract food,medi cation palpitati ons respirato ry distress Not available Not available high 04/07/2022 24582 8 RxNorm PRITI Pelaez, [place] - [facility] 12:40:25 662484 empaglifl ozin medicatio n other Not available high 08/28/20252023 43298 53 RxNorm Not Available mary - External Data Service - prod 5 11:37:23 997155 Tree nut (substanc e) food,medi cation anaphylax is Not available high 08/28/20252023 13628 58168 56750 SNOMED Not Available mary - External Data Service - prod 5 11:37:23 Medications Name Sig Start Date Stop Date Status Note LastModified by Organization Details LastModified Time losartan 50 mg tablet TAKE 1 TABLET BY MOUTH EVERY DAY 06/13 completed Not Available Not Available Not Available cyclobenza ramy 10 mg tablet TAKE 1 TABLET BY MOUTH EVERY DAY AT BEDTIME NEEDED active Not Available Not Available No t Available fluconazol e 100 mg tablet TAKE 1 TABLET ONCE active Not Available Not Available No t Available atorvastat in 40 mg tablet TAKE ONE TABLET BY MOUTH EVERY DAY 06/13 completed Not Available Not Available Not Available metformin 500 mg tablet Take 1 [...] completed Not Available Not Available Not Available fluconazol e 150 mg tablet TAKE ONE Tablet BY MOUTH ONCE DAILY FOR 3 DAYS active Not Available Not Available No t Available hydrocodon e 5 mg-acetami nophen 325 mg tablet TAKE 1 TABLET BY MOUTH EVERY 6 HOURS NEEDED FOR ACUTE PAIN 04/14 completed Not Available Not Available Not Available glipizide 10 mg tablet TAKE 1 TABLET (10 MG TOTAL) BY MOUTH 2 (TWO) TIMES A DAY BEFORE BREAKFAST AND DINNER active Not Available Not Available No t Available Alcohol Pads Apply 1 pad every [...] completed Not Available Not Available Not Available losartan 100 mg-hydroch lorothiazi de 25 mg tablet TAKE 1 TABLET BY MOUTH ONCE DAILY active Not Available Not Available No t Available amoxicilli n 875 mg tablet TAKE 1 TABLET BY MOUTH EVERY 12 HOURS 04/14 completed Not Available Not Available Not Available OneTouch Ultra Test strips TAKE 1 STRIP NEEDED X30 DAYS 2024 active Not Available Not Available Not Avai lable oseltamivi r 75 mg capsule TAKE ONE CAPSULE BY MOUTH TWICE DAILY FOR FIVE DAYS 02/10 completed Not Available Not Available Not Available nystatin 100,000 unit/gram topical cream APPLY CREAM TOPICALLY TO AFFECTED AREA FOR 14 DAYS active Not Available Not Available No t Available lisinopril 10 mg tablet TAKE ONE TABLET BY MOUTH EVERY DAY 06/13 completed Not Available Not Available Not Available promethazi ne 25 mg tablet TAKE 1 TABLET BY MOUTH NIGHTLY AT BEDTIME. active Not Available Not Available No t Available losartan 25 mg tablet TAKE 1 TABLET BY MOUTH ONCE DAILY 06/13 completed Not Available Not Available Not Available nitroglyce rin 0.4 mg sublingual tablet DISSOLVE 1 TABLET UNDER THE TONGUE EVERY 5 MINUTES NEEDED FOR CHEST PAIN. DO NOT EXCEED A TOTAL OF 3 DOSES IN 15 MINUTES. active Not Available Not Available No t Available diclofenac sodium 75 mg tablet,del ayed release TAKE ONE TABLET DAILY WITH MEALS NEEDED FOR PAIN 01/05 completed Not Available Not Available Not Available ergocalcif sindi (vitamin D2) 1,250 mcg (50,000 unit) capsule TAKE 1 CAPSULE BY MOUTH EVERY WEEK FOR VITAMIN D DEFICIENC Y active Not Available Not Available No t [...] completed Not Available Not Available Not Available ezetimibe 10 mg tablet TAKE 1 TABLET BY MOUTH EVERY DAY active Not Available Not Available No t Available rosuvastat in 20 mg tablet TAKE 1 TABLET BY MOUTH EVERY DAY 06/13 completed Not Available Not Available Not Available rosuvastat in 40 mg tablet TAKE 1 TABLET BY MOUTH EVERY DAY active Not Available Not Available No t Available Crestor 10 mg tablet Take 1 tablet every day by oral route. 04/14 completed Not Available Not Available Not Available Lumigan 11/15 completed eye drops Not Available Not Available Not Available ranolazine ER 500 mg tablet,ext ended release,12 hr TAKE 1 TABLET BY MOUTH TWICE A DAY active Not Available Not Available No t Available Januvia 100 mg tablet Take 1 tablet every day by oral route. 07/28 completed Not Available Not Available Not Available Lantus Solostar U-100 Insulin 100 unit/mL (3 mL) subcutaneo us pen INJECT 30-40 UNITS SUBCUTANE OUSLY ONCE DAILY active Not Available Not Available No t Available melatonin 5 mg tablet Take 1 tablet as needed by oral route at bedtime. 2021 active Not Available Not Available Not Avai lable Eliquis 5 mg tablet TAKE 1 TABLET TWICE A DAY BY ORAL ROUTE FOR 30 DAYS, FOR DVT. active Not Available Not Available No t Available Invokana 100 mg tablet TAKE ONE TABLET [...] TAKE ONE TABLET BY MOUTH EVERY DAY 06/13 completed Not Available Not Available Not Available TRUEplus Pen Needle 31 gauge x 3/16 INJECT ONCE DAILY active Not Available Not Available No t Available ergocalcif sindi (vitamin D2) 50 mcg (2,000 unit) capsule TAKE 1 CAPSULE BY MOUTH EVERY DAY active Not Available Not Available No t Available OneTouch Ultra2 Meter USE TO TEST BLOOD SUGAR 2 TO 3 TIMES A DAY active Not Available Not Available No t Available OneTouch Delica Plus Lancet 33 gauge USE TO TEST BLOOD SUGAR 2 TO 3 TIMES DAY active Not Available Not Available No t Available Rybelsus 7 mg tablet TAKE 1 TABLET EVERY MORNING ON AN EMPTY STOMACH WITH 4 OZ OF WATER. EAT 30 TO 60 MINUTES AFTER THE DOSE. 06/13 completed Not Available Not Available Not Available Mounjaro 2.5 mg/0.5 mL subcutaneo us pen injector INJECT 1 PEN (2.5MG) SUBCUTANE OUSLY ONCE A WEEK 06/13 completed Not Available Not Available Not Available Vitals Date Recorded Systolic And Diastolic Provider Name and Address Organization Details Last Updated DateTime 12/13/2024 115/77 mm[Hg] Radhames Aguiar MD Attn: Accounting,[address] [place], [address], [place] - [facility] 12/13/2024 11:58:07 Date Recorded Body height Body mass index (BMI) Body weight Heart rate Oxygen saturation Body temperature Systolic And Diastolic Provider Name and Address Organization Details Last Updated DateTime 5 180.34 cm 36.9 kg/m2 307793. 14 g 98 /min 97 % 97.8 [degF] 136/94 mm[Hg] Adri Denise MA [facility] 5 11:35:04 Date Recorded Body height Body mass index (BMI) Body weight Body temperature Oxygen saturation Heart rate Systolic And Diastolic Provider Name and Address Organization Details Last Updated DateTime 3 180.34 cm 35.4 kg/m2 754212. 02 g 97.6 [degF] 95 % 79 /min 138/98 mm[Hg] Doug Puga MA [facility] 3 09:03:32 Date Recorded Body height Body mass index (BMI) Body weight Heart rate Oxygen saturation Body temperature Systolic And Diastolic Provider Name and Address Organization Details Last Updated DateTime 5 180.34 cm 35.3 kg/m2 419694. 87 g 84 /min 99 % 97.8 [degF] 123/81 mm[Hg] Adri Dneise MA [facility] 5 11:11:22 Date Recorded Body height Body mass index (BMI) Body weight Body temperature Oxygen saturation Heart rate Systolic And Diastolic Provider Name and Address Organization Details Last Updated DateTime 5 180.34 cm 35.1 kg/m2 893693. 13 g 97.5 [degF] 98 % 81 /min 123/86 mm[Hg] Usman Adam MA [facility] 5 12:19:52 Date Recorded Body height Body mass index (BMI) Body weight Body temperature Oxygen saturation Heart rate Systolic And Diastolic Provider Name and Address Organization Details Last Updated DateTime 5 180.34 cm 35.5 kg/m2 459432. 86 g 98 [degF] 97 % 86 /min 116/83 mm[Hg] Doug Puga MA [facility] 5 11:38:25 Social History Question Answer Notes LastModified by Organizat ion Details LastModified Time Tobacco Smoking Status Never Smoker PRITI Lundberg, [facility] 09/21/2018 11:47:22 What Was The Date Of Your Most Recent Tobacco Screening? 07/11/2025 [email or web address] Information not available 07/11/2025 How Much Tobacco Do You Smoke? No Information not available 11/15/2019 How Many Years Have You Smoked Tobacco? 0 Information not available 11/15/2019 Sex: Unknown Functional Status Question Answer Note LastModified by Organizat ion Details LastModified Time What is your level of alcohol consumption? None [email or web address] Information not available 05/25/2022 Do you or have you ever used smokeless tobacco? Never used smokeless tobacco Information not available 11/15/2019 Do you or have you ever used e-cigarettes or vape? Never used electronic cigarettes Information not available 11/15/2019 Mental Status None recorded. Family History Relationship [...] Diagnosis SNOMED-CT Code Diagnosis ICD10 Code Diagnosis IMO Codes Diagnosis Note [id number] Zayra Corley MD [place] [address] [address] [address] 09/21/2018 11:34:57 09/25/2018 09:52:45 Morbid obesity 822187572 E66.01 Chronic. Patient states not able to [...] of 1-2 lbs/weekly Adult heal th examination 838901999 Z00.00 53 yo M:- Never had colon cancer screening; after discussing options, will refer to GI for setup of c-scope.- Due for TDap, given during visit, booster q 10 yrs; refused seasonal flu vax- PHQ negative- Labs checked Screening for malignant neoplasm of colon 271203873 Z12.11 Snoring 32788257 R06.83 With witnessed apneic periods (per ) and body habitus, highly suspicious for ORA.- Pulm referral for polysomnog magdy Heart murmur 31648863 R0 1.1 New finding, no known murmur in history. May represent mild TR/MR.- Cards referral for Echo, considerat ion of further work-up. Active or passive immunization 157623726 Z23 Diabetes mellitus 219265 09 E11.9 New diagnosis found incidental ly on screening labs as above. A1c 6.9%- RTC 09/25 for discussion and comprehens samuel DM visit. [id number] Zayra Corley MD [facility] 47 [address] [facility] [address] [place] [address] 09/25/2018 10:00:05 09/26/2018 08:56:20 Type 2 diabetes mellitus without complication 900241267 E11.9 New diagnosis. Screening A1c 6.9% on [...] to achieve healthy BMI- Pt and deferred Progress Worker referral at this time.- Start Metformin 500 [...] time- RTC 4 weeks for f/u. Hyperlipidemia 59684448 E78.5 [id number] Jenn Lizama MD [facility] 47 3 [facility] [address] [place] [address] 11/15/2019 08:53:17 11/16/2019 09:54:35 Essential hypertension 90755657 I10 Chronic, controlled BP at goal today [...] BMP Screening for malignant neoplasm of colon 404053515 Z12.11 Pt has never had colonoscop y. Discussed screening with patient who declines colonoscop y at this time. Will start yearly occult blood. Advised patient that if blood is found in the stool he will likely need further workup such as a colonoscop y. Pt reports understand ing Diabetes mellitus 574768 09 E11.9 POC A1C 6.9%, stable from [...] to achieve healthy BMI- Foot exam performed, WNChad lópez, next due 11/2020 - Advised yearly dilated eye exam; pt previously followed with [facility]. Encouraged patient to re-establi sh - Recommende d Pneumovax, which pt declines at this time RTC in 3 months Snoring 07231474 R06.83 STOP-BANG score: 7, high risk for OSAWill refer to pulmonolog y for sleep study Headache 24745820 R51 Tension vs hypertensi on related. No red flag symptoms. No focal neuro deficits on exam. Symptoms have improved since starting BP medication . Will continue to monitor. Pt advised to RTC or go to ED if worsening headache despite medication , increasing severity of headache, loss of vision etc.-Tylen ol as needed for symptoms-C ontinue blood pressure management [id number] Dante Wesley MD [place] [address] 3 [facility] [address] [place] [address] 01/11/2020 12:13:45 01/14/2020 11:16:27 Essential hypertension 52686179 I10 Chronic, uncontroll edVitals reviewed from ED [...] is able to come in Diabetes mellitus 030047 09 E11.9 Chronic, controlled Last POC A1C 6.9 on 11/15/2019-P t still not amenable to Metformin due to side effects. Will continue Jardiance 10mg daily and obtain through 340[employer]-Pt complainin g of severe muscle cramps from simvastati n. Will switch to Crestor 10mg to see if more tolerable- Continue Lisinopril 10mg dailyNext A1C ~02/2020 Cough 75579191 R05 Acute, unresolved Concern for COVID-19. Results pending. Discussed course of illness with patient and advised patient to report to ER if he experience s worsening shortness of breath with difficulty completing sentences [id number] CONNOR DHILLON MD [place] [address] [address] [place] [address] [address] 06/08/2021 11:17:43 06/09/2021 13:27:25 Disorder of rotator cuff 823578181 M75.81 - Pt presents for evaluation of [...] at f/u Spasm of back muscles 20 1413532 M62.830 - Pt has paraspinal spasms in the cervical region- Will treat with tizanidine at this time- Medication side effect profile discussed- F/u in 2-3 weeks for sx eval Bilateral weakness of upper limbs 9732671325 2795588 M62.81 - Pt presents for eval of neck pain, limited ROM, and new onset bilateral weakness and numbness in the upper extremitie s s/p work injury- C-spine XR in the ER was negative for fracture, signs of cervical radiculopa thy- Will obtain MRI for further evaluation - Consider NSGY referral if significan t findings- ER precaution s discussed- F/u after imaging [id number] Sumaya Barillas MD [facility] [address] [address] 04/07/2022 12:00:40 04/09/2022 10:41:56 Diabetes mellitus 56364524 E11.9 Chronic, uncontroll ed. Pt has been [...] Follow up in two weeks Essential hypertension 85298421 I10 Chronic, well controlled . Pt has not been on medication for months. BP normal today. Will stop lisinopril given he is normotensi ve without medication s. No red flag symptoms.- <2g sodium per day and 150 minutes moderate intensity exercise per week- Discontinu e lisinopril - Follow up in 3 mo [id number] CONNOR DHILLON MD [facility] [address] [address] 05/25/2022 13:42:49 06/03/2022 12:51:26 Type 2 diabetes mellitus 66182708 E11.9 Chronic, uncontroll ed on jardiance and [...] at home- Fu in one month Hyperlipidemia 48830759 E78.5 Newly diagnosed. ASCVD 11.1%.- Discussed foods high in cholestero l to avoid- 150 minutes moderate intensity exercise per week- Will start atorvastat in 40 mg- Recheck lipid panel in 6 weeks Screening for malignant neoplasm of colon 331982933 Z12.11 No prior screenings . No family hx of colon ca. No red flag symptoms.- Discussed various methods of screening for colon ca and pros and cons of each. Pt decided cologuard was best for him. Insomnia 804281355 G47.0 0 Chronic, uncontroll ed. Issues falling asleep but not staying asleep.- Discussed sleep hygeine- Will start melatonin [id number] CONNOR DHILLON MD [place] [address] [address] 07/28/2022 10:44:27 08/03/2022 15:51:35 Hyperlipidemia 02468117 E78.5 ASCVD 11.1%. Started on atorvastat in 40 mg qd 05/2022. Tolerating medicaton well.- Discussed foods high in cholestero l to avoid- 150 minutes moderate intensity exercise per week- Continue atorvastat in 40 mg- Recheck lipid panel today- Will monitor CMP Type 2 loco betes mellitus 84792966 E11.9 Chronic, previously managed with jardiance, januvia, [...] Fu in 3 months Hypertensive disorder 38 318404 I10 Not on any medication s currently. BP slightly elevated today.- Check BP at home [id number] CONNOR DHILLON MD [facility] [address] [address] 01/05/2023 10:32:57 01/07/2023 10:14:47 Tension-type headache 563356556 G44.209 F/u chronic headaches. Seen by Neurology [...] sooner PRN. Type 2 loco betes mellitus 48515733 E11.9 Hypertensive disorder 38 454124 I10 Not on any medication s currently. BP slightly elevated today (142/88).- Continue to monitor, consider starting anti-hyper tensive at next visit. [id number] HAYES HERRERA DO [facility] [address] [address] 02/10/2023 08:51:12 02/11/2023 10:16:30 Essential hypertension 44928696 I10 Chronic, uncontroll ed. Not currently on any medication s. BP has been elevated at the last two visits. No red flag symptoms. UTD on labs.- <2g sodium per day and 150 minutes moderate intensity exercise per week- Start lisinopril 10 mg qd- Follow up in 2 weeks Type 2 loco betes mellitus 71923996 E11.9 Chronic, managed with jardiance. UTD on BMP and urine albumin. A1C 11.4 today.- Start lantus 10 U qd- Increase jardiance to 25 mg qd- Monitor glucose at home- Annual eye exams advised- Low carb diet and 150 minutes moderate intensity exercise per week- Fu in 2 weeks [id number] Patrice Mansfield MD [place] [address] [address] 12/13/2024 11:12:16 12/19/2024 16:27:23 Headache 08557236 R51.9 Chronic, uncontroll edDDX tension vs migrainePa st hx of seeing neurology 2022 for ADAM, had MRI and MRA that was unremarkab le. They recommende d EEG, sleep study etc however pt does not remember the outcome and was lost to follow up- Will hold off on sumatripta n given CAD risk factors and given how long since last follow up- offered Gabapentin in the meantime, pt declined- will trial cyclobenza ramy. if pt gets some relief will consider switching to amitriptyl ine- If sxs persist, can send back to neurology- f/up in 3-4 weeks History of deep vein thrombosis 203526662 Z86.718 Reports hx of DVTs on PE on ELiquis. Uncertain of etiology. Reported bilateral calf cramping with prolonged standing at work L>RStates he had bilateral US last week that showed persistent DVTs- Continue ELiquis 5mg BID- Trial Cyclobenza ramy as above- f/up in 1 month Obesity 529906129 E66.9 [id number] NIMESH KOWALSKI MD [place] [address] [address] 06/13/2025 10:57:01 06/19/2025 15:19:34 History of non-ST segment elevation myocardial infarction 546961446 I25.2 [id number] Recent hospital admission for NSTEMIS/p stress test, negativePa gilda has an upcoming appt with cardiology Thoracic a ortic aneurysm without rupture 61156162 I71.20 [id number] Patient with recently diagnosed thoracic fusiform aortic aneurysm, identified following hospitaliz ation for NSTEMI. Currently hemodynami senthil stable. Risk factors include cardiovasc ular disease and recent myocardial infarction .- D/w pt, he requires close monitoring and secondary prevention measures.- Patient will need to f/u Cardiology for long-term management of aneurysm and in the future with Cardiothor acic Surgery if surgery is indicated- Continue to monitor blood pressure- Continue statin therapy (Rosuvasta tin)- Follow-up with cardiology per schedule or sooner if new or worsening symptoms. History of deep vein thrombosis 906440372 Z86.563 [id number] Pt w/ hx of chronic DVTSPer Hematology note,s unprovoked DVT and PE diagnosed in December 2023.Repea t CTA chest done in March 2024 showed no evidence of PE. Doppler studies done on July 04, 2024, showed DVT in the soleal vein of the left leg, subacute DVT in the left popliteal vein, and chronic DVT in the left femoral and popliteal vein.- Currently on on ELiquis, per chart, last refill was 11-09-2024 . Pt mentions getting meds from his cardiologi ' officeUnce rtain of etiology. Reported bilateral calf cramping with prolonged standing at work.- Continue ELiquis 5mg BID, refilled- Encouraged regular physical activity- ED precaution s d/w pt- Continue to f/u with hematology . Uncontroll ed type 2 diabetes mellitus 873966785 E11.65 [id number] Chronic, uncontroll ed Last A1C:greate r than 9%Goal A1C less than:7.0%C urrent Therapy:lo ng-acting insulin sulfonylur eaStatin:y esACE/ARB: noFoot Exam:compl eted in the past 12 months-neg ative Per ptNephropa thy Screening: Pneumovax 23:Decline dEye Exam:due- recommende d annual dilated eye exam Has an appointmen t on August 08, 2025Patien t requests test strip refill.Per chart, A1c - 12.9% ( 06-08-2025 ) , [place] per ptCurrentl y on Lantus 25 U and Glipizide 10 mg h45lIcfwpi ns getting scripts from his endocrinol ogist for refillNot taking Jardiance d/t genital infections Patient advised to f/u with his endocrinol ogist for diabetes management . [id number] NIMESH KOWALSKI MD [place] [address] [address] [address] 06/18/2025 11:51:13 07/17/2025 10:29:43 Administrative reason for encounter 901012786 Z02.9 [id number] Patient presents for follow-up for paper work after an NSTEMI on 06/07. Hospital evaluation included a negative stress test. He was discharged on 06/10.Since discharge, he reports no new symptoms and would like to return to workReturn to work and FMLA paper work filled Exercises education, guidance, and counseling 791671736 Z71.82 15647 Recommend at least 150 minutes of moderate intensity activity weekly, Diet education 13913027 Z71.3 [id number] Discussed with the patient about healthy nutrition to maintain health Preventive procedure 169 704300 Z00.00 207541 Reinforced counseling on obesity and the need for lifestyle changes [id number] NIMESH KOWALSKI MD [place] [address] [address] 07/11/2025 10:50:51 07/15/2025 12:31:58 Neck pain 67380541 M54.2 [id number] Acute -on chronic, stablePer Chart review,MRI Cervical spine 07-30-2021 findings belowTiny disc protrusion s at C6-C7 greater than C7-T1 indenting the ventral thecal sac.Sub-5 mm perineural nerve root sheath cysts on the right at C5-C6 and bilaterall y at C6-C7.Othe rwise essentiall y unremarkab le, normal MR appearance of the cervical spine; No spinal canal or foraminal stenosis at any level.DDx Cervical spondylosi s vs OA vs spinal stenosis vs age-relate d vs musculoske letal strainNo radicular symptoms at this time- Continue conservati ve management : ice/ heat pack prn, lidocaine patches- Acetaminop hen as needed for pain- Try RX3 exercises at home- Encourage gentle stretching - Monitor for signs of increasing pain, swelling, redness, weakness, or numbness- ED precaution s provided for patient- Follow up in 6- 8 weeks if symptoms persist or worsen, if worsening symptoms,p christ for repeat C-spine MRI Immunization due 5767991 08 Z23 [id number] Recommend Pneumococc al and annual influenza vaccine Colon canc er screening declined 2119109683 9109 Z53.20 [id number] Influenza vaccination declined 012126456 Z28.21 [id number] Pneumococc al vaccination declined 417114094 Z28.21 [id number] Health Concerns Section Related Observation LastModified by Organization Detai ls LastModified Time None Recorded Concern Status LastModified by Organization Details LastModified Time None Recorded Advance Directives Directive None Recorded Payers Insurance Date Sequence Insurance Name Policy Number Policy Zhong Covered Member ID Zhong Member ID Guarantor Name 06/08/2021 [employer], [employer] Vincent Jose Roberto 12/13/2024 2 *SELF PAY* Vi ncent Jose Roberto 08/29/2025 1 [facility] Vincent Jose Roberto [id number] Vincent Jose Roberto 08/29/2025 2 [employer] [id number] Vincent Jose Roberto [id number] Vincent Jose Roberto 11/15/2019 1 *SELF PAY* Vi ncent Jose Roberto 08/29/2025 KATERINE GARDNER Vincent Jose Roberto [id number] Vincent Jose Roberto 08/29/2025 1 ALLIED [id number] Vincent Jose Roberto [id number] Vincent Jose Roberto 08/29/2025 1 UMR (PPO) [id number] Vincent Jose Roberto [id number] Vincent Jose Roberto Notes Date Note Type Note Provider Name and Address Organization Details Recorded Time 02/10/2023 text/html ROS as noted in the HPI Pt here for fu of HTN and DM. Pt denies urinary frequency, urgency, increased thirst, appetite changes, or episodes of confusion, lightheadedness, shakiness, or diaphoresis. Pt denies ADAM, vision changes, chest pian, palpitations, SOB, or increased LE edema. Tyson Bell MD Attn: Accounting,[address] [facility], [place], [address], [facility] 02/15/2023 09:42:46 12/13/2024 text/html Patient presents for ED follow up with ADAM. Reports ADAM has been intermittent for months. Every 2-3 week he gets a ADAM. Last a hours to daysWhen he came to ED, ADAM for 2 straight days. usually has 7 ADAM in a month. Always on the left occipital area and spreads to to temporal area. Describes as aching. Denies photophobia and phonophobia. denies n/v. denies floaters or other aura. Takes tylenol that only helps with mild ADAM. Denies tobacco, recreational or ETOH use. Denies head trauma. Denies family hx of migraines Patrice Mansfield MD Attn: Accounting[address] [facility], [place], [address], [facility] 12/17/2024 16:18:13 06/13/2025 text/html Patient presents for follow-up after a heart attack on 06/07. He initially developed shortness of breath, sweating, and agitation on the evening of 06/06, which he attributed to prior blood clots in the lungs. Hospital evaluation included a negative stress test, and he was not taken to the lab animal technician. He was discharged on 06/10.Since discharge, he reports ongoing symptoms including dizziness with lateral eye movements and left calf pain when squeezing the area where he has had prior blood clots. He denies diplopia. He also reports a temporal headache associated with chewing and describes jaw locking while chewing this morning. He denies shortness of breath, chest pain, and leg swelling. Alphonso Olivares MD Attn: Accounting,[address] [facility], [place], [address], [facility] 06/18/2025 11:14:25 06/18/2025 text/html Patient presents here with FMLA paperwork and return to work after an NSTEMI on 06/07. Hospital evaluation included a negative stress test. He was discharged on 06/10.No acute concerns today. Reports stable overall health, adherent to medications, and no new symptoms since last visit. Mickey Nam DO Attn: Accounting,[address] [facility], [place], [address], [facility] 07/03/2025 14:08:57 07/11/2025 text/html Patient presents for acute visit with concerns of neck pain for the past 3 months, denies any trauma.Pain is localized to the neck described as aching and worsened by movement. No numbness, weakness in extremities , or swelling noted. Symptoms are not improving. Reports PT in the past which helped a little. Takes Tylenol , has not tried ice or cold pack.Last colonoscopy- never had one. Family h/o colorectal cancer. Declines ColonoscopyMention s his mother had cervical cancer. Patrice Mansfield MD Attn: Accounting,[address], [place], [address], [facility] 07/14/2025 14:25:54
[2025-09-09 10:23] LABS: INR 1.1; Prothrombin Time 14.1 Seconds (11.1-14.7)
--- OUTSIDE RECORDS SUMMARY | 2025-09-09 10:23 | XMS_ITS | Continuity of Care Document ---
Author Organization CHRIS David YEBOAH 4 7 Address 3 [facility] [address] [place] [address] Care Team Providers Care Farm Consultant Name Role Phone RENAY UNGER Primary Care Provider Unavailabl e Assessment No assessment recorded. Plan of Treatment Reminders Order Date Submit Date Provider Last Modified By Organization Details Last Modified Time Details Appointments None recorded. Lab None recorded. Referral physical therapist referral 2024 025 [facility] (Outpatient Therapy), [facility], [place], [address], 10:11:43 Procedures None recorded. Surgeries None recorded. Imaging None recorded. Medication Orders None recorded. Patient TargetsNo targets recorded. Patient Instructions Encounter Date Encounter Id Patient Instructions Last Modified By Organization Details Last Modified Time 07/11/2025 [id number] neck pain: care instructions [email or web address] Not available [...] with the following addendum: [None] Patrice Mansfield [email or web address] Not available 07/14/2025 14:25:51 Reason for Referral Physical Therapist Referral for Neck pain neck pain Referring Physician: Renay Unger Chief Operator, Encounter Date: 07/11/2025 Results Created Date Observation Date Name Description Value Unit Range Abnormal Flag Note LastModifiedBy Organization Detail LastModifiedTime 07/08/20 25 07/08/2025 HbA1c (hemo globi n A1c), blood hemoglobin A1C, POC 11.2 % low: 4%high : 5.6% abnormal Not Available Not Available 07/11/2025 04:25:09 07/08/20 25 07/08/2025 HbA1c (hemo globi n A1c), blood lab interpretati on Abnorm al Not Available Not Available 04:25:09 Result Notes None recorded. Problems Name Problem SNOMED Code Status Onset Date Resolution Date Notes Provider Name and Address Organization Details Recorded Time Diabetes mellitus 47548458 Active 2017 Not Available [facility] 17:53:06 Morbid obesity 379392012 Active 2017 Not Available [facility] 17:53:06 Heart murmur 76056510 Active 2017 Not appreciate d on todays exam Not Available [facility] 17:53:06 Snoring 91397216 Active 2017 Not Available [facility] 17:53:06 Hypertens ar disorder 12439519 Active 2019 Not Available [facility] 17:53:06 Headache 20472115 Active 2019 Not Available [facility] 17:53:06 Tension-t ype headache 056041723 Active 2022 [facility] 10:58:59 History of deep vein thrombosi s 597967119 Active 2024 Radhames Aguiar MD Attn: Accounting ,[address] [place], [address] , [facility] - [facility] 23:46:04 Problem Notes None recorded. Medical Equipment None Reported. Allergies Allergen ID Allergen Name Allergen Category Reaction Reaction Severity Criticality Documentation Date Start Date Code Code System Note Provider Name and Address Organization Details Recorded Time 242640 peanut allergeni c extract food,medi cation palpitati ons respirato ry distress Not available Not available high 04/07/2022 77841 8 RxNorm PRITI Pelaez [place] - [facility] 12:40:25 846659 empaglifl ozin medicatio n other Not available high 08/28/20252023 65607 53 RxNorm Not Available mary - [employer] - prod 11:37:23 087014 Tree nut (substanc e) food,medi cation anaphylax is Not available high 08/28/20252023 30357 59865 37363 SNOMED Not Available mary - [employer] - prod 11:37:23 Medications Name Sig Start Date Stop [...] Not Available Not Available Vitals Date Recorded Body height Body mass index (BMI) Body weight Body temperature Oxygen saturation Heart rate Systolic And Diastolic Provider Name and Address Organization Details Last Updated DateTime 180.34 cm 35.5 kg/m2 243567. 86 g 98 [degF] 97 % 86 /min 116/83 mm[Hg] Doug Rowan MA [place] [facility] 11:38:25 Social History Question Answer Notes LastModified by Organizat ion Details LastModified Time Tobacco Smoking Status Never Smoker Pearl Aaron MA [facility], [place] - [facility] 09/21/2018 11:47:22 What Was The Date Of [...] Recorded Time Tdap 09/21/2018 completed Not Available [facility] 10/27/2019 02:37:00 Past Encounters Encounter ID Performer Location Encounter Start Date Encounter Closed Date Diagnosis/Indication Diagnosis SNOMED-CT Code Diagnosis ICD10 Code Diagnosis IMO Codes Diagnosis Note [id number] NIMESH KOWALSKI MD [place] [address] [address] [address] 06/13/2025 10:57:01 06/19/2025 15:19:34 History of non-ST segment elevation myocardial infarction 488353227 I25.2 [id number] Recent hospital admission for NSTEMIS/p stress test, negativePa tient has an upcoming appt with cardiology 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 History of deep vein thrombosis 918533274 Z86.323 1237547 Pt w/ hx of chronic DVTSPer Hematology [...] Pt mentions getting meds from his cardiologi 's officeUnce rtain of etiology. Reported bilateral calf cramping with prolonged standing at work.- Continue ELiquis 5mg BID, refilled- Encouraged regular physical activity- ED precaution s d/w pt- Continue to f/u with hematology . Uncontroll ed type 2 diabetes mellitus 105399293 E11.65 49693618 Chronic, uncontroll ed Last A1C:greate r than [...] Lantus 25 U and Glipizide 10 mg m33nVgerwo ns getting scripts from his endocrinol ogist for refillNot taking Jardiance d/t genital infections Patient advised to f/u with his endocrinol ogist for diabetes management . [id number] NIMESH KOWALSKI MD [place] [address] [address] [address] 06/18/2025 11:51:13 07/17/2025 10:29:43 Administrative reason for encounter 399910061 Z02.9 [id number] Patient presents for follow-up for paper work after an NSTEMI on 06/07. Hospital evaluation included a negative stress test. He was discharged on 06/10.Since discharge, he reports no new symptoms and would like to return to workReturn to work and FMLA paper work filled Exercises education, guidance, and counseling 875550337 Z71.82 15771 Recommend at least 150 minutes of moderate intensity activity weekly, Diet education 27411446 Z71.3 560253 Discussed with the patient about healthy nutrition to maintain health Preventive procedure 169 302977 Z00.00 212246 Reinforced counseling on obesity and the need for lifestyle changes [id number] NIMESH KOWALSKI MD [facility] [address] [facility] [address] [place] [address] 07/11/2025 10:50:51 07/15/2025 12:31:58 Neck pain 06163944 M54.2 [id number] Acute -on chronic, stablePer Chart review,MRI Cervical [...] christ for repeat C-spine MRI Immunization due 3259995 08 Z23 1052610 Recommend Pneumococc al and annual influenza vaccine Colon [facility] er screening declined 8482379865 9109 Z53.20 3950026782 Influenza vaccination declined 576767538 Z28.21 89395865 Pneumococc al vaccination declined 255115681 Z28.21 86303133 Health Concerns Section Related Observation LastModified by Organization Detai ls LastModified Time None Recorded Concern Status LastModified by Organization Details LastModified Time None Recorded Payers Encounter Date Sequence Insurance Name Policy Number Policy Zhong Covered Member ID Zhong Member ID Guarantor Name 07/11/2025 2 *SELF PAY* Vi maciej Cid 07/11/2025 1 R (O) [id number] Mayur Cid [id number] Mayur Cid Notes Date Note Type Note Provider Name and Address Organization Details Recorded Time 07/11/2025 text/html Patient presents for acute visit [...] cancer. Patrice Mansfield MD Attn: Accounting[address] [place], [address], [facility] - [facility] 07/14/2025 14:25:54
--- OUTSIDE RECORDS SUMMARY | 2025-09-09 10:23 | XMS_ITS | Continuity of Care Document ---
Author Organization David SIEGEL 4 [address] Address [address] [facility] [address] [place] [address] Care Team Providers Care Range Feeder Name Role Phone KANDY CHANH Primary Care Provider Unavailabl e Assessment No assessment recorded. Plan of Treatment Reminders Order Date Submit Date Provider Last Modified By Organization Details Last Modified Time Details Appointments None record ed. Lab None record ed. Referral None record ed. Procedures None record ed. Surgeries None record ed. Imaging None record ed. Medication Orders None record ed. Patient TargetsNo targets recorded. Patient Instructions Encounter Date Encounter Id Patient Instructions Last Modified By Organization Details Last Modified Time 06/18/2025 [id number] I certify that I was present for case discussion in the Family Medicine preceptor room at the time of this encounter. I have reviewed the note and agree with the findings, assessment, and plan except as I have documented below. Follow up as listed. All labs/imaging/cons ults to be followed by the ordering provider. Capt Jos, [facility] [place], Staff Physician. see note from 06/13/2025 pt with recent missed work from NSTEMI [email or web address] Not available 06/24/2025 21:44:08 Reason for Referral None Reported. Results Created Date Observation Date Name Description Value Unit Range Abnormal Flag Note LastModifiedBy Organization Detail LastModifiedTime 06/07/2006/08/2025 Hemog lobin A1c/H emogl obin. total in Blood hemoglobin A1C/hemoglob in.total in blood 12.9 % high: 5.7% high ADA GUIDE LINES 2010 5.7 TO 6.4% INCRE ASED RISK OF DIABE DECLAN > OR = 6.5% CONSI STENT WITH DIABE DECLAN Not Available Not Available 06/12/2025 02:47:27 06/07/20 25 06/08/2025 Hemog lobin A1c/H emogl obin. total in Blood glucose mean value [mass/volume ] in blood estimated from glycated hemoglobin 324 mg/dL Not Available Not Available 0 06/12/2025 02:47:27 06/07/20 25 06/08/2025 Hemog lobin [...] poor plasma by coagulation assay 1 Recom bonilla d INR Thera peuti c Goals : 2.0-3 .0 Routi ne Thera py 2.5-3 .5 Mecha nical Prost hetic Valve s (High Risk) Not Available Not Available 06/12/2025 02:47:26 06/07/2006/07/2025 [...] IU/mL Not Available Not Available 06/12/2025 02:47:26 06/07/20 [...] 14.5% Not Available Not Available 06/12/2025 02:47:26 08/29/20 25 06/07/2025 CBC W Auto Diffe renti [...] differential cell count method - blood AUTOMA CHINTAN DIFFER ENTIAL Not Available Not Available 02:47:26 [...] Not Available Not Available 0 06/12/2025 02:47:26 06/07/20 25 06/07/2025 Influ jovanna virus A+B Ag [Pres ence] [...] dered based on a patie nt's clini trinh prese ntati on and empir ic antiv [...] text: 70 - 99 mg/dL critical high Amie gross(sKalyn mi at: 19:16 :53 on 06/07 by: CARMEN SCHERER ANT to and read back by:NELLI BROOKS RN Not Available Not Available 06/12/2025 02:47:26 06/07/20 25 06/07/2025 Compr ehens samuel metab olic 2000 panel - Serum or Plasm a urea nitrogen [mass/volume ] in serum or plasma 11 text: 7 - 18 mg/dL Not Available Not Available 06/12/2025 02:47:26 06/07/20 [...] low Not Available Not Available 06/12/2025 02:47:26 06/07/20 [...] 2000 panel - Serum or Plasm a bilirubin.to marta [mass/volume ] in serum or plasma 0.3 text: 0.2 - 1.2 mg/dL THIS ASSAY IS NOT RECOM BONILLA D FOR PATIE NTS UNDER GOING TREAT MENT WITH ELTRO MBOPA G DUE TO THE POTEN TIAL FOR FALSE LY ELEVA CHINTAN RESUL TS. Not Available Not Available 06/12/2025 02:47:26 06/07/2006/07/2025 Compr ehens samuel metab olic 2000 panel - Serum or Plasm a protein [mass/volume ] in serum or plasma 7.4 text: 6.4 - 8.2 g/dL Not Available Not Available 06/12/2025 02:47:26 06/07/2006/07/2025 Compr ehens samuel metab olic 2000 panel - Serum or Plasm a albumin [...] 2000 panel - Serum or Plasm a alanine aminotransfe rase [enzymatic activity/vol ume] in serum or plasma 29 U/L low: 16U/Lh igh: 60U/L Not Available Not Available 06/12/2025 02:47:26 06/07/20 25 06/07/2025 Compr ehens samuel metab olic 2000 panel - Serum or Plasm a alkaline phosphatase [enzymatic activity/vol ume] in serum or plasma 106 U/L low: 50U/Lh igh: 136U/L Not Available Not Available 06/12/2025 02:47:26 06/07/2006/07/2025 [...] 26 Not Available Not Available 06/12/2025 02:47:26 06/07/2006/07/2025 [...] Available Not Available 06/12/2025 02:47:26 06/07/2006/07/2025 Compr Comply365ens samuel metab olic 2000 panel - Serum [...] 31pg Not Available Not Available 06/12/2025 02:47:26 06/07/2006/07/2025 [...] differential cell count method - blood AUTOMA CHINTAN DIFFER ENTIAL Not Available Not Available 02:47:26 [...] IU/mL Not Available Not Available 06/12/2025 02:47:27 06/08/2006/08/2025 Hepar in unfra ction ated [Unit [...] Not Available Not Available 06/12/2025 02:47:27 06/08/2006/08/2025 Gluco se [Mass /volu me] in Blood by Autom ated test strip interpretati on and review of laboratory results Abnorm al Not Available Not Available 02:47:27 06/08/2006/08/2025 Proth rombi n time (PT) prothrombin time (PT) 11.7 text: 10.2 - 12.9 sec Not Available Not Available 06/12/2025 02:47:27 06/08/2006/08/2025 Proth rombi n time (PT) INR in platelet poor plasma by coagulation assay 1 Recom bonilla d INR Thera peuti c Goals : 2.0-3 .0 Routi ne Thera py 2.5-3 .5 Mecha nical Prost hetic Valve s (High Risk) Not Available Not Available 06/12/2025 02:47:27 06/08/2006/08/2025 Hepar in unfra ction ated [Unit [...] IU/mL Not Available Not Available 06/12/2025 02:47:27 06/08/2006/08/2025 Basic metab olic 2000 panel - Serum or Plasm a glucose [mass/volume ] in serum or plasma 189 text: 70 - 99 mg/dL high Not Available Not Available 06/12/2025 02:47:27 06/08/2006/08/2025 Basic metab olic 1999 panel - Serum or Plasm a urea nitrogen [mass/volume ] in serum or plasma 9 text: 7 - 18 mg/dL Not Available Not Available 06/12/2025 02:47:27 06/08/2006/08/2025 Basic metab olic 1999 panel - Serum or Plasm a creatinine [mass/volume ] in serum or plasma 1.16 text: 0.7 - 1.3 mg/dL Not Available Not Available 06/12/2025 02:47:27 06/08/2006/08/2025 Basic metab olic 1999 panel - Serum or Plasm a sodium [moles/volum e] in serum or plasma 139 text: 136 - 145 mmol/L Not Available Not Available 06/12/2025 02:47:27 06/08/2006/08/2025 Basic metab olic 1999 panel - Serum or Plasm a potassium [moles/volum e] in serum or plasma 3.9 text: 3.5 - 5.1 mmol/L Not Available Not Available 06/12/2025 02:47:27 06/08/2006/08/2025 Basic metab olic 1999 panel - Serum or Plasm a chloride [moles/volum e] in serum or plasma 107 text: 97 - 115 mmol/L Not Available Not Available 06/12/2025 02:47:27 06/08/2006/08/2025 Basic metab olic 1999 panel - Serum or Plasm a carbon dioxide, total [moles/volum e] in serum or plasma 27.5 text: 21 - 32 mmol/L Not Available Not Available 06/12/2025 02:47:27 06/08/2006/08/2025 Basic metab olic 1999 panel - Serum [...] differential cell count method - blood AUTOMA CHINTAN DIFFER ENTIAL Not Available Not Available 02:47:27 [...] Available Not Available 06/12/2025 02:47:27 06/08/2006/08/2025 Lipid 1995 panel - Serum or Plasm a triglyceride [...] - Serum or Plasm a service comment [facility] DEBBY NSUS REPOR T RECOM MENDA TIONS [...] Not Available Not Available 06/12/2025 02:47:28 06/09/2006/09/2025 Proth rombi n time (PT) prothrombin time (PT) 11.7 text: 10.2 - 12.9 sec Not Available Not Available 06/12/2025 02:47:28 06/09/20 25 06/09/2025 Proth rombi n time (PT) INR in platelet poor plasma by coagulation assay 1 Recom bonilla d INR Thera peuti c Goals : 2.0-3 .0 Routi ne Thera py 2.5-3 .5 Mecha nical Prost hetic Valve s (High Risk) Not Available Not Available 06/12/2025 02:47:28 06/09/2006/09/2025 Basic metab olic 1999 panel - Serum or Plasm a glucose [mass/volume ] in serum or plasma 175 text: 70 - 99 mg/dL high Not Available Not Available 06/12/2025 02:47:28 06/09/2006/09/2025 [...] low Not Available Not Available 06/12/2025 02:47:28 06/09/2006/09/2025 [...] 26 Not Available Not Available 06/12/2025 02:47:28 06/09/2006/09/2025 [...] Available Not Available 02:47:28 06/09/20 25 06/09/2025 CBC W Auto Diffe renti al panel - Blood leukocytes [#/volume] in blood by automated count 6.09 text: 4.5 - 11.0 x10'3/ uL Not Available Not Available 06/12/2025 02:47:27 06/09/20 [...] uL Not Available Not Available 06/12/2025 02:47:27 06/09/20 25 06/09/2025 CBC W Auto Diffe renti al panel - Blood platelet [entitic mean volume] in blood 12.7 text: 9.3 - 12.2 fL high Not Available Not Available 06/12/2025 02:47:27 06/09/20 25 06/09/2025 CBC W Auto Diffe renti al panel - Blood differential cell count method - blood AUTOMA CHINTAN DIFFER ENTIAL Not Available Not Available 02:47:27 06/09/20 25 06/09/2025 CBC W Auto [...] Abnorm al Not Available Not Available 02:47:27 06/09/2006/09/2025 Hepar in unfra ction ated [Unit s/vol [...] IU/mL Not Available Not Available 06/12/2025 02:47:27 06/09/2006/09/2025 Gluco se [Mass /volu me] in Blood by Autom ated test strip glucose [mass/volume ] in blood by automated test strip 152 mg/dL low: 70mg/d Lhigh: 99mg/d L high Not Available Not Available 06/12/2025 02:47:27 06/09/2006/09/2025 Gluco se [Mass /volu me] in Blood by Autom ated test strip interpretati on and review of laboratory results Abnorm al Not Available Not Available 02:47:27 06/10/2006/10/2025 Magne sium [Mass /volu me] in Serum or Plasm a magnesium [mass/volume ] in serum or plasma 2 text: 1.8 - 2.4 mg/dL Not Available Not Available 06/12/2025 02:47:28 06/10/2006/10/2025 Hepar in unfra ction ated [Unit s/vol [...] poor plasma by coagulation assay 1 Recom bonilla d INR Thera peuti c Goals : 2.0-3 .0 Routi ne Thera py 2.5-3 .5 Mecha nical Prost hetic Valve s (High Risk) Not Available Not Available 06/12/2025 02:47:28 06/10/20 25 06/10/2025 Basic metab olic 2000 panel - Serum or Plasm a glucose [mass/volume ] in serum or plasma 170 text: 70 - 99 mg/dL high Not Available Not Available 06/12/2025 02:47:28 06/10/20 25 06/10/2025 Basic metab olic 1999 panel - Serum [...] 02:47:28 06/10/20 25 06/10/2025 Basic metab olic 1999 panel - Serum or Plasm a sodium [moles/volum e] in serum or plasma 134 text: 136 - 145 mmol/L low Not Available Not Available 06/12/2025 02:47:28 06/10/20 25 06/10/2025 Basic metab olic 1999 panel - Serum or Plasm a potassium [moles/volum e] in serum or plasma 3.8 text: 3.5 - 5.1 mmol/L Not Available Not Available 06/12/2025 02:47:28 06/10/20 25 06/10/2025 Basic metab olic 2000 panel - Serum or Plasm a chloride [moles/volum e] in serum or plasma 105 text: 97 - 115 mmol/L Not Available Not Available 06/12/2025 02:47:28 06/10/20 [...] 14.5% Not Available Not Available 06/12/2025 02:47:28 06/10/2006/10/2025 CBC W Auto Diffe renti al panel - Blood platelets [#/volume] in blood 183 text: 130 - 400 x10'3/ uL Not Available Not Available 06/12/2025 02:47:28 06/10/2006/10/2025 CBC W Auto Diffe renti al panel - Blood platelet [entitic mean volume] in blood 12.6 text: 9.3 - 12.2 fL high Not Available Not Available 06/12/2025 02:47:28 06/10/20 25 06/10/2025 CBC W Auto Diffe renti al panel - Blood differential cell count method - blood AUTOMA CHINTAN DIFFER ENTIAL Not Available Not Available 02:47:28 [...] Abnorm al Not Available Not Available 02:47:28 Result Notes None recorded. Problems Name Problem SNOMED Code Status Onset Date Resolution Date Notes Provider Name and Address Organization Details Recorded Time Diabetes mellitus 11467827 Active 2017 Not Available [facility] 17:53:06 Morbid obesity 106669313 Active 2017 Not Available [facility] 17:53:06 Heart murmur 03116758 Active 2017 Not appreciate d on todays exam Not Available [facility] 17:53:06 Snoring 91471823 Active 2017 Not Available [facility] 17:53:06 Hypertens samuel disorder 17650790 Active 2019 Not Available [facility] 17:53:06 Headache 98139057 Active 2019 Not Available [facility] 1 17:53:06 Tension-t ype headache 448192654 Active 2022 Edward vu, [facility] 3 10:58:59 History of deep vein thrombosi s 979841018 Active 2024 Radhames Aguiar MD Attn: Accounting ,[address] [facility], [place], [address] , [facility] 5 23:46:04 Problem Notes None recorded. Medical Equipment None Reported. Allergies Allergen ID Allergen Name Allergen Category Reaction Reaction Severity Criticality Documentation Date Start Date Code Code System Note Provider Name and Address Organization Details Recorded Time 593685 peanut allergeni c extract food,medi cation palpitati ons respirato ry distress Not available Not available [facility] 04/07/2022 57094 8 RxNorm PRITI Pelaez, [facility] 2 12:40:25 232505 empaglifl ozin medicatio n other Not available high 08/28/20252023 04033 53 RxNorm Not Available mary - External Data Service - prod 5 11:37:23 154544 Tree nut (substanc e) food,medi cation anaphylax is Not available high 08/28/20252023 88694 40682 10650 SNOMED Not Available mary - External Data [...] Updated DateTime 5 180.34 cm 35.1 kg/m2 356763. 13 g 97.5 [degF] 98 % 81 /min 123/86 mm[Hg] Usman PRITI Adam [facility] 5 12:19:52 Social History Question Answer Notes LastModified by [employer] Details LastModified Time Tobacco Smoking Status Never Smoker Pearl Aaron MA null, [facility] 09/21/2018 11:47:22 What Was The Date Of Your Most Recent Tobacco Screening? 07/11/2025 [email or web address] Information not available 07/11/2025 How Much Tobacco Do You Smoke? No Information not available 11/15/2019 How Many Years Have You Smoked Tobacco? 0 Information not available 11/15/2019 Sex: Unknown Functional Status Question Answer Note LastModified by Organizat Med[employer] DX Details LastModified Time What is your level [...] Recorded Time Tdap 09/21/2018 completed Not Available [facility] 10/27/2019 02:37:00 Past Encounters Encounter ID Performer Location Encounter Start Date Encounter Closed Date Diagnosis/Indication Diagnosis SNOMED-CT Code Diagnosis ICD10 Code Diagnosis IMO Codes Diagnosis Note [id number] NIMESH KOWALSKI MD [place] [address] [address] 06/13/2025 10:57:01 06/19/2025 15:19:34 History of non-ST segment elevation myocardial infarction 402748153 I25.2 [id number] Recent hospital admission for NSTEMIS/p stress test, negativePa tient has an upcoming appt with cardiology 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 History of deep vein thrombosis 525579776 Z86.612 [id number] Pt w/ hx of chronic DVTSPer Hematology [...] . Uncontroll ed type 2 diabetes mellitus 098496540 E11.65 86133457 Chronic, uncontroll ed Last A1C:greate r than [...] Lantus 25 U and Glipizide 10 mg y53nPuczzk ns getting scripts from his endocrinol ogist for refillNot taking Jardiance d/t genital infections Patient advised to f/u with his endocrinol ogist for diabetes management . [id number] NIMESH KOWALSKI MD [facility] [address] [address] 06/18/2025 11:51:13 07/17/2025 10:29:43 Administrative reason for encounter 660157412 Z02.9 [id number] Patient presents for follow-up for paper work after an NSTEMI on 06/07. Hospital evaluation included a negative stress test. He was discharged on 06/10.Since discharge, he reports no new symptoms and would like to return to workReturn to work and FMLA paper work filled Exercises education, guidance, and counseling 031093679 Z71.82 82073 Recommend at least 150 minutes of moderate intensity activity weekly, Diet education 47021837 Z71.3 544761 Discussed with the patient about healthy nutrition to maintain health Preventive procedure 169 281328 Z00.00 [id number] Reinforced counseling on obesity and the need for lifestyle changes Health Concerns Section Related Observation LastModified by Organization Detai ls LastModified Time None Recorded Concern Status LastModified by Organization Details LastModified Time None Recorded Payers Encounter Date Sequence Insurance Name Policy Number Policy Zhong Covered Member ID Zhong Member ID Guarantor Name 06/18/2025 2 *SELF PAY* Vi maciej Cid 06/18/2025 1 [employer]) [id number] Mayur Cid [id number] Mayur Cid Notes Date Note Type Note Provider Name and Address Organization Details Recorded Time 06/18/2025 text/html Patient presents here with FMLA paperwork and return to work after an NSTEMI on 06/07. Hospital evaluation included a negative stress test. He was discharged on 06/10.No acute concerns today. Reports stable overall health, adherent to medications, and no new symptoms since last visit. Mickey Nam DO Attn: Accounting,[address] [facility], [place], [address], [facility] 07/03/2025 14:08:57
--- OUTSIDE RECORDS SUMMARY | 2025-09-09 10:23 | XMS_ITS | Clinical Summary ---
Author Organization [facility] [employer] Address [address] [place] [address] Care Team Providers Care Hotel Services Sales Representative Name Role Phone Arturo Carrasquillo MD Primary Care Provider [phone] Source Comments [facility],non-owned Affiliates and Associated Physician Practices is amultiple site organization consisting of ambulatory clinics and hospital sitesin [place], [place], [place] and [place]. This disclosure is being madepursuant to the Care Everywhere program and may not contain all information available regarding this patient. Last updated 18.[facility] [employer] Allergies Active Allergy Reactions Criticality Noted Date [...] DIABETES-FOOT EXAM WITH MONOFILAMENT 12/30/2023 DIABETES-HGB A1C 04/01/2024 12/31/2023 DEPRESSION SCREENING 10/10/2024 DIABETES - URINE PROTEIN SCREENING 10/10/2024 COVID-19 VACCINE (1 - season) 2025 INFLUENZA VACCINE (#1) 2025 DIABETES-SERUM CREATININE 07/06/20252023, 07/05/2024, 01/04/2024, Additional history exists DTAP/TDAP/TD VACCINES (2 - [...] LAB - CHEMISTRY ORDERABLES Edna l Result [facility] [address] [place] [address], [facility] [phone] * (ABNORMAL) HEMOGLOBIN A1C (12/31/2023 11:29 AM T) Hemoglobin A1c 10.7(H) <=5.6 % 01/01/2024 11:52 AM [facility] Estimated Average Glucose 260 mg/dL 01/01/2024 11:52 AM CDT [facility] Comment: HbA1c Interpretation: Normal : < 5.7% Pre-diabetes: 5.7-6.4% Diabetes: Equal to or greater than 6.5% Test results diagnostic of diabetes should be repeated for confirmation. Treatment target values recommended by ADA and other clinical organizations should be used to evaluate metabolic control in patients. Reference: [place] [employer], Standards of Care in Diabetes -2020 In patients 70 years and older consider HbA1c target range of 7.0-7.5% (Reference: Kiran Grimaldo et al. JAMDA. 2012) The Sebia assay for the measurement of HbA1c is a National Glycohemoglobin Standardization Program (NGSP) certified method. Blood BLOOD SPECIMEN / Unknown Lab Venipuncture / Unknown 12/31/2023 11:29 AM CDT 12/31/2023 11:57 AM CDT us Klever Jurado MD LAB - CHEMISTRY ORDERABLES Fin al Result [facility] [address] [place] [address], [facility] [phone] from Last 3 Months or Most Recently Relevant to Health Maintenance Insurance [employer] Advance Directives * Full Code (Latest Code Status on File) Date Activated Date Inactivated Comments 07/05/2024 10:48 AM 07/06/2024 12:06 PM * Full Code Date Activated Date Inactivated Comments 12/30/2023 6:29 PM 01/04/2024 12:35 PM Care Teams Hotel Services Sales Representative Relationship Specialty Start Date End Date Arturo Carrasquillo MD [address] [place] [address] 3 [place] [address] PCP - General Family Medicine 01/11/24
--- OUTSIDE RECORDS SUMMARY | 2025-09-09 10:23 | XMS_ITS | Continuity of Care Document ---
Author Organization David SIEGEL 4 7 Address 3 [facility] [address] [place] [address] Care Team Providers Care Post Anesthesia Care Unit Nurse Name Role Phone RENAY CHAN Primary Care Provider Unavailabl e Assessment No assessment recorded. Plan of Treatment Reminders Order Date Submit Date Provider Last Modified By Organization Details Last Modified Time Details Appointments None recorded. Lab None recorded. Referral None recorded. Procedures None recorded. Surgeries None recorded. Imaging None recorded. Medication Orders OneTouch Ultra Test strips 2024 025 [facility] [employer] [place] #[id number], [address] [place], [address], 12:12:40 Eliquis 5 mg tablet 2024 025 [employer] [facility] #[id number], [address] [place], [address], 12:12:40 Patient TargetsNo targets recorded. Patient InstructionsNo instructions recorded. Reason for Referral None Reported. Results Created [...] DECLAN Not Available Not Available 06/12/2025 02:47:27 06/07/2006/08/2025 Hemog lobin A1c/H emogl obin. total in Blood glucose mean value [mass/volume ] in blood estimated from glycated hemoglobin 324 mg/dL Not Available Not Available 0 06/12/2025 02:47:27 06/07/20 25 06/08/2025 Hemog lobin A1c/H emogl obin. total in Blood interpretati on and review of laboratory results Abnorm al Not Available Not Available 02:47:27 06/07/2006/07/2025 Proth rombi n time (PT) prothrombin time (PT) 11.3 text: 10.2 - 12.9 sec Not Available Not Available 06/12/2025 02:47:26 06/07/2006/07/2025 Proth rombi n time (PT) INR in [...] 14.5% Not Available Not Available 06/12/2025 02:47:26 06/07/2006/07/2025 [...] CHF. Not Available Not Available 06/12/2025 02:47:26 06/07/2006/07/2025 Compr ehens samuel metab olic 2000 panel - Serum or Plasm a glucose [mass/volume ] in serum or plasma 441 text: 70 - 99 mg/dL critical high Criti trinh gross(s) Duglas mi at: 19:16 :53 on [...] Available Not Available 06/12/2025 02:47:26 06/07/2006/07/2025 Compr Safelloens samuel metab olic 1999 panel - Serum or Plasm a bilirubin.to marta [mass/volume ] in serum or plasma 0.3 text: 0.2 - 1.2 mg/dL THIS ASSAY IS NOT RECOM BONILLA D FOR PATIE NTS UNDER GOING TREAT MENT WITH ELTRO MBOPA G DUE TO THE POTEN TIAL FOR FALSE LY ELEVA CHINTAN RESUL TS. Not Available Not Available 06/12/2025 02:47:26 06/07/2006/07/2025 Compr Safelloens samuel metab olic 1999 panel - Serum [...] 37U/L Not Available Not Available 06/12/2025 02:47:26 06/07/2006/07/2025 Compr ehens samuel metab olic 2000 panel - Serum or Plasm a alanine aminotransfe rase [enzymatic activity/vol ume] in serum or plasma 29 U/L low: 16U/Lh igh: 60U/L Not Available Not Available 06/12/2025 02:47:26 06/07/2006/07/2025 [...] x10'3/ uL Not Available Not Available 06/12/2025 02:47:06/07/20 25 06/07/2025 CBC W Auto Diffe renti [...] al Not Available Not Available 02:47:27 06/08/2006/08/2025 Hepar in unfra ction ated [...] 02:47:27 06/08/20 25 06/08/2025 Basic metab olic 1999 panel - Serum or Plasm a urea nitrogen [mass/volume ] in serum or plasma 9 text: 7 - 18 mg/dL Not Available Not Available 06/12/2025 02:47:27 06/08/20 25 06/08/2025 Basic metab olic 1999 panel - Serum [...] Available Not Available 02:47:27 06/08/20 25 06/08/2025 Lipid 1996 panel - Serum or Plasm a cholesterol [mass/volume ] in serum or plasma 196 text: <200 mg/dL Not Available Not Available 06/12/2025 02:47:27 06/08/20 25 06/08/2025 Lipid 1996 panel - Serum or Plasm a triglyceride [mass/volume ] in serum or plasma 74 text: <150 mg/dL Not Available Not Available 06/12/2025 02:47:27 06/08/20 [...] ION Not Available Not Available 06/12/2025 02:47:27 0806/08/2025 Lipid 1996 panel - Serum or Plasm [...] - Serum or Plasm a service comment [facility] NSUS REPOR T RECOM MENDA [...] >=130 Not Available Not Available 06/12/2025 02:47:27 06/08/2006/08/2025 [...] sec Not Available Not Available 06/12/2025 02:47:28 06/10/20 25 06/10/2025 Proth rombi n time (PT) INR in [...] low Not Available Not Available 06/12/2025 02:47:28 06/10/2006/10/2025 [...] Address Organization Details Recorded Time Diabetes mellitus 71754694 Active 2017 Not Available [facility] 17:53:06 Morbid obesity 699414775 Active 2017 Not Available [facility] 17:53:06 Heart murmur 62470263 Active 2017 Not appreciate d on todays exam Not Available [employer] 17:53:06 Snoring 67697559 Active 2017 Not Available [employer] 17:53:06 Hypertens samuel disorder 81852171 Active 2019 Not Available [employer] 17:53:06 Headache 27838218 Active 2019 Not Available [employer] 08/17/202 1 17:53:06 Tension-t ype headache 582529511 Active 2022 Edward Lemon null, [facility] 3 10:58:59 History of deep vein thrombosi s 248353572 Active 2024 Radhames Aguiar MD Attn: Accounting ,[address] [place], [place], [address] , [facility] 5 23:46:04 Problem Notes None recorded. Medical Equipment None Reported. Allergies Allergen ID Allergen Name Allergen Category Reaction Reaction Severity Criticality Documentation Date Start Date Code Code System Note Provider Name and Address Organization Details Recorded Time 709091 peanut allergeni c extract food,medi cation palpitati ons respirato ry distress Not available Not available high 04/07/2022 54840 8 RxNorm Arelis Segura MA null, [facility] 2 12:40:25 488368 empaglifl ozin medicatio n other Not available high 08/28/20252023 84577 53 RxNorm Not Available [employer] - prod 5 11:37:23 834306 Tree nut (substanc e) food,medi cation anaphylax is Not available high 08/28/20252023 13044 76294 80857 SNOMED Not Available [employer] - [employer] - prod 5 [...] Updated DateTime 5 180.34 cm 35.3 kg/m2 400469. 87 g 84 /min 99 % 97.8 [degF] 123/81 mm[Hg] Adri Denise MA [facility] 5 11:11:22 Date Recorded Body height Body mass index (BMI) Body weight Body temperature Oxygen saturation Heart rate Systolic And Diastolic Provider Name and Address Organization Details Last Updated DateTime 5 180.34 cm 35.1 kg/m2 674447. 13 g 97.5 [degF] 98 % 81 /min 123/86 mm[Hg] Usman PRITI Adam [facility] 5 12:19:52 Social History Question Answer Notes LastModified by Organizat ion Details LastModified Time Tobacco Smoking Status Never Smoker Pearl Aaron MA [facility], [facility] 09/21/2018 11:47:22 What Was The Date [...] ICD10 Code Diagnosis IMO Codes Diagnosis Note [id number] NIMESH KOWALSKI MD [facility] 47 3 [facility] [address] [place] [address] 06/13/2025 10:57:01 06/19/2025 15:19:34 History of non-ST segment elevation myocardial infarction 700294067 I25.2 [id number] Recent hospital admission for NSTEMIS/p stress test, negativePa tient has an upcoming appt with cardiology 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 History of deep vein thrombosis 328101495 Z86.367 [id number] Pt w/ hx of chronic DVTSPer Hematology [...] Pt mentions getting meds from his cardiologi st's officeUnce rtain of etiology. Reported bilateral calf cramping with prolonged standing at work.- Continue ELiquis 5mg BID, refilled- Encouraged regular physical activity- ED precaution s d/w pt- Continue to f/u with hematology . Uncontroll ed type 2 diabetes mellitus 798027977 E11.65 16258551 Chronic, uncontroll ed Last A1C:greate r than [...] Lantus 25 U and Glipizide 10 mg d95fOoyams ns getting scripts from his endocrinol ogist for refillNot taking Jardiance d/t genital infections Patient advised to f/u with his endocrinol ogist for diabetes management . Health Concerns Section Related Observation LastModified by Organization Detai ls LastModified Time None Recorded Concern Status LastModified by Organization Details LastModified Time None Recorded Payers Encounter Date Sequence Insurance Name Policy Number Policy Zhong Covered Member ID Zhong Member ID Guarantor Name 06/13/2025 2 *SELF PAY* Vi bolaestefanía Cid 06/13/2025 1 [employer] ([employer]) [id number] Mayur Cid [id number] Mayur Cid Notes Date Note Type Note Provider Name and Address Organization Details Recorded Time 06/13/2025 text/html Patient presents for follow-up after a heart attack on 06/07. He initially developed shortness of breath, sweating, and agitation on the evening of 06/06, which he attributed to prior blood clots in the lungs. Hospital evaluation included a negative stress test, and he was not taken to the laboratory clerk. He was discharged on 06/10.Since discharge, he [...] and leg swelling. Alphonso Olivares MD Attn: Accounting,[address] [place], [address], [facility] 06/18/2025 11:14:25 06/18/2025 text/html Patient presents here with FMLA paperwork and return to work after an NSTEMI on 06/07. Hospital evaluation included a negative stress test. He was discharged on 06/10.No acute concerns today. Reports stable overall health, adherent to medications, and no new symptoms since last visit. Mickey Nam DO Attn: Accounting,[address] [facility], [place], [address], [facility] 07/03/2025 14:08:57
--- OUTSIDE RECORDS SUMMARY | 2025-09-09 10:23 | XMS_ITS | Clinical Summary ---
Author Organization [address] Address [address] [place] [address] Care Team Providers Care Maintenance And Engineering Manager Name Role Phone Arturo Carrasquillo MD Primary Care Provider [phone] Joseph Cortes MD Unavailable [phone] Allergies Active Allergy Reactions Criticality Noted Date [...] hyperglycemia, with long-term current use of insulin ([facility]) Check blood sugar 3 times daily 200 each 3 09/10/20 24 Active nystatin creamIndicatio ns:Yeast infection Apply topically 2 (two) times a day On affected area for 14 days 30 g 09/10/20 24 Active pen needle, diabetic (BD Ultra-Fine Joan Pen Needle) 32 gauge x 5/32 needleIndicati ons:Type 2 diabetes mellitus with hyperglycemia, with long-term current use of insulin ([facility]) One each daily 100 each 3 09/10/20 24 Active glipiZIDE (GLUCOTROL) 10 mg tabletIndicati ons:type 2 diabetes mellitus Take 1 tablet (10 mg total) by mouth 2 (two) times a day before breakfast and dinner 180 tablet 11/12/19 25 026 Active insulin glargine (LANTUS) 100 unit/mL (3 mL) pen for injectionIndic ations:Type 2 diabetes mellitus with hyperglycemia, with long-term current use of insulin ([facility]) Inject 25 Units under the skin daily 22.5 mL 3 11/12/19 25 026 Active losartan (COZAAR) 50 mg tabletIndicati ons:Hypertensi on associated with diabetes ([facility]) Take 1 tablet (50 mg total) by mouth daily 90 tablet 3 11/12/19 25 026 Active Additional Information Patient not taking.Reported on 07/08/2025 rosuvastatin (CRESTOR) 20 mg tabletIndicati ons:Hyperlipid emia associated with type 2 diabetes mellitus ([facility]) Take 1 tablet (20 mg total) [...] total) by mouth daily 11/30/19 25 Active blood glucose diagnostic (glucose blood) stripIndicatio ns:Type 2 diabetes mellitus with hyperglycemia, with long-term current use of insulin ([facility]) Check blood sugar 2 times a day 200 each 11 03/14/20 25 Active HumaLOG 100 unit/mL pen for injectionIndic ations:Type 2 diabetes mellitus with hyperglycemia, with long-term current use of insulin ([facility]) Inject 5 Units under the skin 2 (two) times a day with lunch and dinner 15 mL 3 07/08/20 25 Active FreeStyle Deepali 3 Sensor deviceIndicati ons:Type 2 diabetes mellitus with hyperglycemia, with long-term current use of insulin ([facility]) One sensor every 15 days 2 each 07/08/20 Active Active Problems Problem Noted Date Diagnosed [...] 10.9%. was started on Mounjaro 2.5mg by charter boat captain 2 weeks ago approximately. No SE from taking. 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 Does not mychart. Verified phone #/address to contact re: results. DM eye exam 2023 [facility] then [facility]. Will send letter to get copy of [...] infection. Assessment & Plan (09/11/2024 12:30 PM WOOD ROOM SUPERVISOR): Chronic, poorly controlled, worsening Hemoglobin A1c [...] taking Rosuvastatin 20mg. Last lipid panel: 02/22/24 SSU=114, AH=839. Will update labs. Does not mychart. Verified phone #/address to contact re: results. Assessment & Plan (09/11/2024 12:31 PM WOOD ROOM SUPERVISOR): Continue statin therapy Assessment & Plan (02/22/2024 9:30 PM CDT): Continue statin therapy Class 2 severe obesity due t o excess calories with serious comorbidity and body mass index (BMI) of 35.0 to 35.9 in adult 02/22/2024 Assessment & Plan (09/11/2024 12:31 PM WOOD ROOM SUPERVISOR): Chronic, worsening Discussed about healthy lifestyle [...] Encounters Date Type Department Care Team Description 07/11/2025 Results Follow-Up [facility] Diabetes [facility] Endocrinology [address] [place] [phone] Tracie Osorio NP Comprehensive metabolic panel, Lipid panel, eGFR 07/09/2025 Results Follow-Up [facility] [address] [phone] Severino Martinez MD Albumin Creatinine Ratio, Urine 07/08/2025 10:45 AM CDT Lab [address] [address] Type 2 diabetes mellitus with hyperglycemia, with long-term current use of insulin (HCC); Hyperlipidemia associated with type 2 diabetes mellitus (HCC) 07/08/2025 10:00 AM CDT Office Visit [facility] Diabetes [facility] Endocrinology [address] [place] [address] Severino Martinez MD Type 2 diabetes mellitus with hyperglycemia, with long-term current use of insulin (HCC) (Primary Dx); Hyperlipidemia associated with type 2 diabetes mellitus (HCC); Hypertension associated with type 2 diabetes mellitus (HCC); Class 2 severe obesity due to excess calories with serious comorbidity and body mass index (BMI) of 35.0 to 35.9 in adult (HCC) from Last 3 Months Medical History Medical History Date Comments Diabetes Hypertension Family History Medical History Relation Name [...] on file Legal Sex Male 3:36 PM WOOD ROOM SUPERVISOR Gender Identity Not on file Sexual Orientation Not on file Last Filed Vital Signs Vital Sign Reading Time Taken Comments Blood Pressure 130/90 07/08/2025 10:07 AM CDT Pulse 93 07/08/2025 10:07 AM CDT Temperature 36.4 C (97.5 F) 05/26/2021 2:36 PM CDT Respiratory Rate 15 07/08/2025 10:07 AM CDT Oxygen Saturation 98% 05/26/2021 2:36 PM CDT Inhaled Oxygen Concentration - - Weight 116.6 kg (257 lb) 07/08/2025 10:07 AM CDT Height 180.3 cm (5' 11) 07/08/2025 10:07 AM CDT Body Mass Index 35.84 07/08/2025 10:07 AM CDT Plan of Treatment Health Maintenance Due Date Last Done Comments Colon Cancer Screening-Colonoscopy 1967 Hepatitis C Screening 1967 Prostate Cancer Screening-PSA 1967 Hepatitis B Screening 1985 Regular Well Visit/Exam 18-64 1985 Pneumococcal vaccine <65 (1 of 2 - PCV) 1986 Zoster Vaccine (1 of 2) 2017 Dilated Eye Exam 11/28/2024 11/28/2023 Depression Screening 02/21/2025 02/22/2024 Influenza Vaccine (#1) 2025 Hemoglobin A1C 01/05/2026 07/08/2025, 06/0 02/2025, 11/12/2024, Additional history exists Foot Exam 03/14/2026 03/14/2025, 12/0 11/2023, 02/22/2024 Albumin Creatinine Ratio, Urine 07/08/2026 , 02/22/2024 Lipid Panel 07/08/2026 07/08/2025, 08/3 , 02/22/2024, Additional history exists eGFR 07/08/2026 07/08/2025, 02/22/2024 DTaP/Tdap/Td Vaccine (2 - Td or Tdap) 09/21/2028 09/21/2018 Procedures Procedure Name Priority Date/Time Associated Diagnosis Comments EGFR Routine 07/08/2025 10:53 AM CDT Type 2 diabetes mellitus with hyperglycemia, with long-term current use of insulin (HCC) LIPID PANEL Routine 07/08/2025 10:53 AM CDT Type 2 diabetes mellitus with hyperglycemia, with long-term current use of insulin (HCC) Hyperlipidemia associated with type 2 diabetes mellitus (HCC) ALBUMIN CREATININE RATIO, URINE Routine 07/08/2025 10:53 AM CDT Type 2 diabetes mellitus with hyperglycemia, with long-term current use of insulin (HCC) COMPREHENSIVE METABOLIC PANEL Routine 07/08/2025 10:53 AM CDT Type 2 diabetes mellitus with hyperglycemia, with long-term current use of insulin (HCC) POCT HEMOGLOBIN A1C Routine 07/08/2025 1 0:10 AM CDT Type 2 diabetes mellitus with hyperglycemia, with long-term current use of insulin ([facility]) POCT GLUCOSE Routine 07/08/2025 10:09 AM CDT Type 2 diabetes mellitus with hyperglycemia, with long-term current use of insulin ([facility]) DIABETES EYE EXAM Routine 11/28/2023 8:15 AM WOOD ROOM SUPERVISOR from Last 3 Months or Most Recently Relevant to Health Maintenance Results * (ABNORMAL) eGFR (07/08/2025 10:53 AM CDT) [facility] eGFR 56(L) >=60 mL/min/1. 73 m2 Comment: Interpretive Data [...] interpretive data was last reviewed 2021. Blood 07/08/2025 10:5 3 AM CDT 07/08/2025 1:57 PM CDT us Tracie Osorio NP LAB BLOOD ORDERABLES Edna l Result Performing Organization Address [facility] Co de Phone Number [address] [address] * Albumin Creatinine Ratio, Urine (07/08/2025 10:53 AM CDT) Albumin Ur <12.0 mg/L Comment: Interpretive Data No reference range established. Current interpretive data was last revised 2019. Creatinine Ur 109.0 mg/dL [facility] Comment: Interpretive Data No reference range established. Current interpretive data was last revised 2019. Albumin Creatinine Ratio, Ur <11 1 - 29 mg/g [facility] Urine 07/08/2025 10:5 3 AM CDT 07/08/2025 1:54 PM CDT us Severino Thrasher MD LAB URINE ORDERABLE S Final Result Performing Organization Address [facility] de Phone Number [address] [address] * (ABNORMAL) Lipid panel (07/08/2025 10:53 AM CDT) Cholesterol 96 30 - 199 mg/dL Comment: Interpretive Data [...] Data was last revised on 2018. Triglycerides 86 <=149 mg/dL [facility] Comment: Interpretive Data Ages [...] Data was last revised on 2018. HDL 38(L) >=40 mg/dL [facility] Comment: Interpretive Data Ages [...] was last revised on 2018. LDL, calculated 41 <=129 mg/dL [facility] Comment: Interpretive Data Ages < or = 19 years Acceptable: <110 mg/dL Borderline high: 110-129 mg/dL High: >or= 130 mg/dL Ages > or = 20 years Optimal: <100 mg/dL Near optimal: 100-129 mg/dL Borderline high: 130-159 mg/dL High: >160 mg/dL Calculated using the Alberto LDL-C estimating equation. This equation was implemented on 2024. Prior to this date LDL-C was estimated using the Friedewald equation. Literature References: 1. Expert Panel on Integrated Guidelines for Cardiovascular Health and Risk Reduction in Children and Adolescents. Pediatrics 2011;128:S213 2. NCEP Expert Panel. Circulation 2004;110:227 3. Alberto De Jesus al. NATALY Cardiol. 2019February 07;5(5):540-548. doi: 10.1001/jamacardio.2020.0013 Current Interpretive Data was last revised on 2024. Non-HDL Cholesterol 58 mg/dL [facility] Comment: Interpretive Data Ages < or = [...] was last revised on 2018. Chol/HDL ratio 3 [facility] Blood 07/08/2025 10:5 3 AM CDT 07/08/2025 1:57 PM CDT Tracie Osorio SETTLEMENT TECHNICIAN LAB BLOOD ORDERABLES Edna l Result [facility] [address] [facility] [place] [address] * (ABNORMAL) Comprehensive metabolic panel (07/08/2025 10:53 AM CDT) Sodium 139 135 - 145 mmol/L Potassium, pl 4.1 3.3 - 4.9 mmol/L [facility] Chloride 105 97 - 110 mmol/L [facility] CO2 25 22 - 32 mmol/L [facility] Anion gap 9 2 - 15 mmol/L [facility] BUN 17 6 - 25 mg/dL [facility] Creatinine 1.46(H) 0.80 - 1.30 mg/dL [facility] Glucose 155 70 - 199 mg/dL [facility] Comment: Interpretive Data Fasting glucose >/= 126 mg/dl is diagnostic for diabetes. Fasting is defined as no caloric intake for at least 8 hours. Fasting glucose between 100 mg/dl to 125 mg/dl is diagnostic of prediabetes. In a patient with classic symptoms of hyperglycemia or hyperglycemic crisis, a random glucose >/= 200 mg/dl is diagnostic for diabetes. In the absence of unequivocal hyperglycemia, results should be confirmed by repeat testing. The classification and Diagnosis of Diabetes Diabetes Care 202; 46: S19-S40. Current interpretive data was last revised 2022. Calcium 9.9 8.5 - 10.3 mg/dL [facility] Bilirubin, total 0.4 0.1 - 1.2 mg/dL [facility] Protein, pl 7.9 6.5 - 8.5 g/dL [facility] Albumin 4.4 3.5 - 5.0 g/dL [facility] Alk phos 103 40 - 130 Units/L [facility] ALT 49 7 - 55 Units/L [facility] AST 36 10 - 50 Units/L [facility] Blood 07/08/2025 10:5 3 AM CDT 07/08/2025 1:57 PM CDT Tracie Osorio SETTLEMENT TECHNICIAN LAB BLOOD ORDERABLES Edna l Result [facility] [address] [facility] [place] [address] * (ABNORMAL) POCT hemoglobin A1c (07/08/2025 10:10 AM CDT) Hemoglobin A1C, POC 11.2(A) 4.0 - 5.6 % Blood 07/08/2025 10:1 0 AM CDT Severino Thrasher MD POINT OF CARE TEST ORDERABLES Final Result * POCT glucose (07/08/2025 10:09 AM CDT) Glucose Blood, POC 311 Normal Fasting 70 - 100, Random <200 mg/dL Blood 07/08/2025 10:0 9 AM CDT Severino Thrasher MD POINT OF CARE TEST ORDERABLES Final Result * DIABETES EYE EXAM (11/28/2023 8:15 AM WOOD ROOM SUPERVISOR) Historical Provider HEALTH MAINTENANCE Final Result from Last 3 Months or Most Recently Relevant to Health Maintenance Insurance [facility] Care Teams Maintenance And Engineering Manager Relationship Specialty Start Date End Date Arturo Carrasquillo MD [address] [id number] PCP - General Emergency Medicine 02/22/24 Joseph Cortes MD [address] [place] [address] Referring Physician Ophthalmology 09/12/24
[2025-09-09 10:32] LABS: Alanine Aminotransferase 48 U/L (6-50); Albumin Level 4.2 g/dL (3.5-5.1); Alkaline Phosphatase 77 U/L (38-126); Anion Gap 4 mmol/L (4-12); Aspartate Amino Transferase 31 U/L (17-59); Bilirubin,Total 0.6 mg/dL (0.2-1.3); Blood Urea Nitrogen 17 mg/dL (9-20); Calcium 9.5 mg/dL (8.4-10.2); Carbon Dioxide 28 mmol/L (22-30); Chloride 105 mmol/L (98-107); Cholesterol 136 mg/dL (0-200); Estimated Glomerular Filt Rate 54; Glucose 279 mg/dL (65-110); HDL Direct 43 mg/dL; Potassium 4.3 mmol/L (3.4-5.0); Sodium 137 mmol/L (137-145); Total Protein 7.7 g/dL (6.3-8.2); Triglycerides 86 mg/dL (<150)
== END 2025-09-09 09:27 | disposition home or self-care (01) ==
PROVIDERS: Visit Provider Internal Medicine Cardiovascular Disease
DX: R06.00 Dyspnea, unspecified (principal); E13.43 Other specified diabetes mellitus with diabetic autonomic (poly)neuropathy; E78.5 Hyperlipidemia, unspecified; G47.30 Sleep apnea, unspecified; I10 Essential (primary) hypertension; I82.409 Acute embolism and thrombosis of unspecified deep veins of unspecified lower extremity; M79.662 Pain in left lower leg; R07.9 Chest pain, unspecified; R42 Dizziness and giddiness; R55 Syncope and collapse
CPT/HCPCS: 36415; 80053; 80061; 85025; 85610